=== PATIENT | male | born 1950 | race Caucasian/White ===

== ENCOUNTER → 2016-11-11 | Outpatient (CLI) | payer OTHER ==
[~2016-11-11] MED LIST: ASPI81TA28 PO; ATOR-26 PO; CLOP1TAB15 PO; HYDR25TA4 PO; LANS30CA12 PO; TPRSR/100 PO
[2016-11-11 15:20] LABS: ESTIMATED AVERAGE GLUCOSE 105 mg/dl; HA1C FLAG Normal (Normal)
[2016-11-11 15:21] LABS: ALT/SGPT 64 U/L (12-78); AST/SGOT 46 U/L (15-37); BLOOD UREA NITROGEN 22 mg/dl (7-18); BUN/CREATININE RATIO 17.2 (10-20); CALCIUM 9.7 mg/dl (8.5-10.1); CARBON DIOXIDE 32 mmol/L (21-32); CHLORIDE 101 mmol/L (98-107); GLUCOSE 110 mg/dl (70-99); POTASSIUM 3.7 mmol/L (3.5-5.1); SODIUM 141 mmol/L (136-145)
[2016-11-11 15:25] LABS: ALB/GLOB RATIO 1.2 (0.9-2); ALKALINE PHOSPHATASE 84 U/L (45-117); CHOLESTEROL 142 mg/dl (0-200); CHOLESTEROL/HDL RATIO 1.9; HDL CHOLESTEROL 73 mg/dl; LDL CHOLESTEROL CALCULATED 53 mg/dl; TRIGLYCERIDES 79 mg/dl (0-150); VERY LOW DENSITY LIPOPROT CALC 16 mg/dl
--- NOTE | 2016-11-15 11:26 | CODING QUERY MEDICAL NECESSITY ---
SUPPORTING DIAGNOSIS NEEDED Dr. Crain, A supporting diagnosis is required for the test/procedure performed on this patient in order for us to be reimbursed by the patient's insurance. Please provide a supporting diagnosis for the following test/procedure listed below next to the test name along with your signature. *If there is no additional diagnosis for this patient that would support the following test/procedure please document that below next to the test/procedure. Test(s)/Procedure(s) that require a supporting diagnosis: * [id number] GLYCATED HEMOGLOBIN DIAGNOSIS: DATE OF SERVICE: 11/11/16 Provider Signature: Date: Thank you Miguel Del Castillo [facility] Information Management Once completed, please kindly fax back to [phone] For questions please call [phone]
== END | disposition home or self-care (01) ==
LOC: C.LABBC 10:43
PROVIDERS: ATTEND Family Medicine
DX: I10 Essential (primary) hypertension (principal); R73.03 Prediabetes; E78.5 Hyperlipidemia, unspecified; Z11.59 Encounter for screening for other viral diseases

== ENCOUNTER → 2017-12-28 | Outpatient (CLI) | payer OTHER ==
[2017-12-28 13:48] LABS: ALBUMIN 4.1 gm/dl (3.4-5.0); ALT/SGPT 38 U/L (12-78); AST/SGOT 26 U/L (15-37); BLOOD UREA NITROGEN 22 mg/dl (7-18); CALCIUM 9.8 mg/dl (8.5-10.1); CARBON DIOXIDE 28 mmol/L (21-32); CHOLESTEROL 134 mg/dl (0-200); CREATININE 1.14 mg/dl (0.60-1.40); GLUCOSE 111 mg/dl (70-99); POTASSIUM 3.7 mmol/L (3.5-5.1); SODIUM 136 mmol/L (136-145)
[2017-12-28 13:56] LABS: ALKALINE PHOSPHATASE 99 U/L (45-117); LDL CHOLESTEROL CALCULATED 43 mg/dl; TOTAL PROTEIN 7.7 gm/dl (6.4-8.2)
== END | disposition home or self-care (01) ==
LOC: C.LABPVFM 09:32
PROVIDERS: ATTEND Neuromusculoskeletal Medicine & OMM
DX: Z00.00 Encounter for general adult medical examination without abnormal findings (principal)

== ENCOUNTER → 2018-04-12 | Outpatient (CLI) | payer OTHER | END | disposition home or self-care (01) | LOC: C.LABPVFM 09:43 | PROVIDERS: ATTEND Neuromusculoskeletal Medicine & OMM | DX: M10.9 Gout, unspecified (principal) ==

== ENCOUNTER 2020-11-11 00:50 | Inpatient (IN) ==
[2020-11-11] MEDS ORDERED: methylPREDNISolone 125 MG/2 ML VIAL ONE (01:00)
[2020-11-11] MEDS ORDERED: methylPREDNISolone 125 MG/2 ML VIAL IV STA (01:04)
[2020-11-11] MEDS ORDERED: ALBUT/IPRATROP 3MG/0.5MG NEB 3 ML VIAL NEB STA (01:04)
[2020-11-11] MEDS ORDERED: LORazepam 1 MG/2 ML VIAL IV STA (01:10)
[2020-11-11] MEDS: LORazepam 2 MG/4 ML VIAL ONE ×2 (01:12→01:25)
[2020-11-11 01:31] LABS: Appearance Urine Cloudy (Clear); Bacteria Urine Automated Negative (Negative); Bilirubin Urine Negative (Negative); Blood Urine 3+ (Negative); Color Urine Dark Yellow; Epithelial Cell Urine Auto 0-5 /lpf (0-5); Glucose Urine UA Negative (Negative); Ketones Urine Negative (Negative); Leukocyte Esterase Urine 2+ (Negative); Nitrite Urine Negative (Negative); Protein Urine Negative (Negative); Specific Gravity Urine 1.017 (1.000-1.030); Urobilinogen Urine Negative (Negative)
[2020-11-11] MEDS ORDERED: RAPID SEQUENCE INDUCTION BAG ONE (01:40)
[2020-11-11 01:41] LABS: RBC Urine Automated >30 /hpf (0-4)
[2020-11-11] MEDS ORDERED: PROPOFOL IV EMULSION 10 MG/ML 100 ML VIAL IV ONE (01:49)
[2020-11-11 02:17] LABS: INR 1.4 (0.9-1.1); Partial Thromboplastin Ratio 1.7; Partial Thromboplastin Time 43.7 Seconds (21.0-31.0); Prothrombin Time 13.7 Seconds (9.0-12.0)
[2020-11-11] MEDS ORDERED: SODIUM CHLORIDE 0.9% 500 ML IV ONE (02:20)
[2020-11-11 02:22] LABS: iSTAT Arterial Blood Gas HCO3 8 meg/L (19-24); iSTAT Arterial Blood Gas pCO2 47 mmHg (35-46); iSTAT Arterial Blood Gas pH 6.84 (7.35-7.45); iSTAT Arterial Blood Gas pO2 > 420 mmHg (80-95); iSTAT Carbon Dioxide 9 mmol/L (24-31); iSTAT Hematocrit 51 % (42-52); iSTAT Hemoglobin 17.3 g/dl (14.0-18.0); iSTAT Potassium 7.7 mmol/L (3.3-5.0); iSTAT Sodium 138 mmol/L (135-144)
[2020-11-11] MEDS ORDERED: SODIUM CHLORIDE 0.9% 500 ML IV SCH (02:30)
[2020-11-11 02:38] LABS: Hematocrit (blood only) 51.3 % (42-52); Hemoglobin 16.7 g/dL (14.0-18.0); Mean Corpuscular Hemoglobin 32.3 pg (25-34); Mean Corpuscular Hgb Conc 32.6 g/dL (32-36); Mean Corpuscular Volume 99.2 fL (80-100); Mean Platelet Volume 12.8 fL (7.4-10.4); Platelet Count 122 K/uL (130-400); RDW Coefficient of Variation 14.3 % (11.5-14.5); RDW Standard Deviation 51.9 fL (36.4-46.3); Red Blood Count 5.17 M/uL (4.7-6.1); White Blood Count 14.49 K/uL (4.8-10.8)
[2020-11-11 02:39] LABS: Basophils # (auto) 0.03 K/uL (0-0.2); Basophils % (auto) 0.2 %; Echinocytes 2+; Eosinophils # (auto) 0.01 K/uL (0-0.5); Eosinophils % (auto) 0.1 %; Immature Granulocytes # (auto) 0.46 K/uL (0.00-0.02); Immature Granulocytes % (auto) 3.2 %; Lymphocytes % (auto) 4.1 %; Monocytes % (auto) 4.8 %; Neutrophils # (auto) 12.69 K/uL (1.4-6.5); Neutrophils % (auto) 87.6 %; Platelet Estimate Decreased (Normal)
[2020-11-11 02:41] LABS: Albumin Globulin Ratio 0.6 (0.9-2); Albumin Level 3.4 gm/dl (3.4-5.0); Bilirubin,Total 2.7 mg/dl (0.2-1); Calcium 7.3 mg/dl (8.5-10.1); Creatinine Clr Calc Pharmacy 3.7 ml/min; Est GFR (African American) 2.1; Est GFR (Non-African American) 1.8; Globulin 5.3 gm/dl (2.5-4.0); Potassium 8.2 mmol/L (3.5-5.1); Total Protein 8.7 gm/dl (6.4-8.2); Troponin I 0.06 ng/ml (0-0.045)
[2020-11-11 02:51] LABS: BUN Creatinine Ratio 9.7 (10-20)
[2020-11-11] MEDS ORDERED: SODIUM BICARB 8.4% INJ 50 MEQ/50 ML SYR IV STA ×3 (02:52→03:36)
[2020-11-11] MEDS ORDERED: CALCIUM GLUCONATE 1,000 MG/60 ML BAG IV STA (02:52)
[2020-11-11] MEDS ORDERED: SODIUM CHLORIDE 0.9% 1000ML 1,000 ML IV ONE (03:06)
[2020-11-11] MEDS ORDERED: STAT IV STA ×2 (03:29→04:44)
[2020-11-11] MEDS ORDERED: SODIUM BICARBONATE 8.4% 100 MEQ in DEXTROSE 5% 1,000 ML IV SCH (03:30)
[2020-11-11] MEDS ORDERED: NovoLIN-R INSULIN PER UNIT CHARGE IV STA (03:37)
[2020-11-11] MEDS ORDERED: MIDAZOLAM HCL 1 MG/ML 2ML VIAL ONE (04:14)
[2020-11-11] MEDS ORDERED: DEXTROSE 50% 50 ML SYRINGE IV ONE (04:15)
[2020-11-11] MEDS ORDERED: PIPERACILL/TAZOBAC CONSULT ACTIVE PRN (04:21)
[2020-11-11] MEDS ORDERED: PIPERACILLIN/TAZOBACTAM 4.5 GM/120 ML BAG IV ONE (04:21)
[2020-11-11] MEDS ORDERED: SODIUM POLYSTYRENE SULFONATE 15G/60ML SUSP PO STA (04:44)
[2020-11-11] MEDS ORDERED: SODIUM BICARBONATE 8.4% 150 MEQ in DEXTROSE 5% 1,000 ML IV SCH (04:45)
[2020-11-11] MEDS ORDERED: SODIUM POLYSTYRENE SULFONATE 15G/60ML SUSP ONE (04:58)
[2020-11-11 05:03] LABS: iSTAT Arterial Blood Gas HCO3 10 meg/L (19-24); iSTAT Arterial Blood Gas pCO2 29 mmHg (35-46); iSTAT Arterial Blood Gas pH 7.14 (7.35-7.45); iSTAT Arterial Blood Gas pO2 216 mmHg (80-95); iSTAT Carbon Dioxide 11 mmol/L (24-31); iSTAT Hematocrit 38 % (42-52); iSTAT Hemoglobin 12.9 g/dl (14.0-18.0); iSTAT Potassium 6.2 mmol/L (3.3-5.0); iSTAT Sodium 142 mmol/L (135-144)
[2020-11-11] MEDS ORDERED: PHYTONADIONE 10 MG in SODIUM CHLORIDE 0.9% 50 ML IV ONE (05:21)
--- NOTE | 2020-11-11 05:24 | Emergency Department Note ---
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 Neutrophils # (Manual) Cancelled Band Neutrophils # Cancelled Total Absolute Neuts Cancelled Lymphocytes # (Manual) Cancelled Prolymphocyte # Cancelled Reactive Lymphs # Cancelled Total Abs Lymphocytes Cancelled Monocytes # (Manual) Cancelled Eosinophils # (Manual) Cancelled Basophils # (Manual) Cancelled Metamyelocytes # (Man) Cancelled Myelocytes # (Manual) Cancelled Promyelocytes # (Man) Cancelled Blast Cells # (Man) Cancelled Plasma Cell # (Manual) Cancelled Other Cells # Cancelled Nucleated RBCs # (Man) Cancelled Hypersegmented Neuts Cancelled Hyposegmented Neuts Cancelled Hypogranular Neuts Cancelled Large Granular Lymphs Cancelled # Lrg Granular Lymphs Cancelled Hairy Cells Cancelled Smudge Cells Cancelled Toxic Granulation Cancelled Toxic Vacuolation Cancelled Dohle Bodies Cancelled [place] Rod[place] Cancelled Platelet Estimate Cancelled Hypogranular Platelets Cancelled Clumped Platelets Cancelled Giant Platelets Cancelled Platelet Satelliting Cancelled RBC Morphology Cancelled Polychromasia Cancelled Hypochromasia Cancelled Poikilocytosis Cancelled Basophilic Stippling Cancelled Anisocytosis Cancelled Microcytosis Cancelled Macrocytosis Cancelled Spherocytes Cancelled Pappenheimer Bodies Cancelled Sickle Cells Cancelled Target Cells Cancelled Tear Drop Cells Cancelled Ovalocytes Cancelled Stomatocytes Cancelled [place] Bodies Cancelled Echinocytes Cancelled Acanthocytes (Spur) Cancelled Rouleaux Cancelled RBC Agglutinates Cancelled Schistocytes Cancelled RBC Morph Comment Cancelled Sezary Cell Cancelled PT Cancelled INR Cancelled APTT Cancelled PTT Ratio Cancelled POC pH (7.35-7.45) POC pCO2 (35-46) mmHg POC pO2 (80-95) mmHg POC HCO3 (19-24) bina/L POC Total CO2 (24-31) mmol/L POC Base Excess (-9-1.8) bina/L POC ABG O2 Sat (90-95) % POC Sodium (135-144) mmol/L Sodium Cancelled POC Potassium (3.3-5.0) mmol/L Potassium Cancelled Chloride Cancelled Carbon Dioxide Cancelled Anion Gap Cancelled BUN Cancelled Creatinine Cancelled Est Cr Clr Drug Dosing Cancelled Est GFR ( Amer) Cancelled Est GFR (Non-Af Amer) Cancelled BUN/Creatinine Ratio Cancelled Glucose Cancelled POC Glucose (70-99) mg/dl Lactate (0.4-2.0) mmol/L Calcium Cancelled Total Bilirubin Cancelled AST Cancelled ALT Cancelled Alkaline Phosphatase Cancelled Total Creatine Kinase Cancelled Troponin I Cancelled Total Protein Cancelled Albumin Cancelled Globulin Cancelled Albumin/Globulin Ratio Cancelled Urine Color Urine Appearance (Clear) Urine pH (4.5-7.5) Ur Specific [place] (1.000-1.030) Urine Protein (Negative) Urine Glucose (UA) (Negative) Urine Ketones (Negative) Urine Blood (Negative) Urine Nitrite (Negative) Urine Bilirubin (Negative) Urine Urobilinogen (Negative) Ur Leukocyte Esterase (Negative) Urine WBC (Auto) (0-5) /hpf Urine RBC (Auto) (0-4) /hpf U Hyaline Cast (Auto) (0-5) /lpf U Epithel Cells (Auto) (0-5) /lpf Urine Bacteria (Auto) (Negative) Urine Yeast COVID-19 Eval Order SARS-CoV-2, RNA, NAAT (NEGATIVE) 11/11/20 11/11/20 11/11/20 Range/Units 01:17 01:55 01:55 WBC RBC Hgb POC Hgb (14.0-18.0) g/dl Hct POC Hct (42-52) % MCV MCH MCHC RDW Std Deviation RDW Coeff of [place] Plt Count MPV Immature Gran % (Auto) Neut % (Auto) Lymph % (Auto) [place] % (Auto) Eos % (Auto) Baso % (Auto) Neut # (Auto) Lymph # (Auto) [place] # (Auto) Eos # (Auto) Baso # (Auto) Immature Gran # (Auto) Absolute Nucleated RBC Nucleated RBC % (auto) Neutrophils % (Manual) Band Neutrophils % Lymphocytes % (Manual) Prolymphocyte % Reactive Lymphs % (Man) Monocytes % (Manual) Eosinophils % (Manual) Basophils % (Manual) Metamyelocytes % (Man) Myelocytes % (Man) Promyelocytes % (Man) Blast Cells % (Manual) Plasma Cell % (Manual) Other Cells % Nucleated RBC % Neutrophils # (Manual) Band Neutrophils # Total Absolute Neuts Lymphocytes # (Manual) Prolymphocyte # Reactive Lymphs # Total Abs Lymphocytes Monocytes # (Manual) Eosinophils # (Manual) Basophils # (Manual) Metamyelocytes # (Man) Myelocytes # (Manual) Promyelocytes # (Man) Blast Cells # (Man) Plasma Cell # (Manual) Other Cells # Nucleated RBCs # (Man) Hypersegmented Neuts Hyposegmented Neuts Hypogranular Neuts Large Granular Lymphs # Lrg Granular Lymphs Hairy Cells Smudge Cells Toxic Granulation Toxic Vacuolation Dohle Bodies [place] Rods Platelet Estimate Hypogranular Platelets Clumped Platelets Giant Platelets Platelet Satelliting RBC Morphology Polychromasia Hypochromasia Poikilocytosis Basophilic Stippling Anisocytosis Microcytosis Macrocytosis Spherocytes Pappenheimer Bodies Sickle Cells Target Cells Tear Drop Cells Ovalocytes Stomatocytes [place] Bodies Echinocytes Acanthocytes (Spur) Rouleaux RBC Agglutinates Schistocytes RBC Morph Comment Sezary Cell PT 13.7 H INR 1.4 H APTT 43.7 H PTT Ratio 1.7 POC pH (7.35-7.45) POC pCO2 (35-46) mmHg POC pO2 (80-95) mmHg POC HCO3 (19-24) bina/L POC Total CO2 (24-31) mmol/L POC Base Excess (-9-1.8) bina/L POC ABG O2 Sat (90-95) % POC Sodium (135-144) mmol/L Sodium 140 POC Potassium (3.3-5.0) mmol/L Potassium 8.2 H* Chloride 102 Carbon Dioxide 9 L* Anion Gap 29.0 H BUN 210 H Creatinine 21.60 H* Est Cr Clr Drug Dosing 3.7 Est GFR ( Amer) 2.1 Est GFR (Non-Af Amer) 1.8 BUN/Creatinine Ratio 9.7 L Glucose 200 H POC Glucose (70-99) mg/dl Lactate (0.4-2.0) mmol/L Calcium 7.3 L Total Bilirubin 2.7 H AST 17 ALT 34 Alkaline Phosphatase 122 H Total Creatine Kinase 339 H Troponin I 0.060 H* Total Protein 8.7 H Albumin 3.4 Globulin 5.3 H Albumin/Globulin Ratio 0.6 L Urine Color Dark Yellow Urine Appearance Cloudy A (Clear) Urine pH 5.0 (4.5-7.5) Ur Specific [place] 1.017 (1.000-1.030) Urine Protein Negative (Negative) Urine Glucose (UA) Negative (Negative) Urine Ketones Negative (Negative) Urine Blood 3+ H (Negative) Urine Nitrite Negative (Negative) Urine Bilirubin Negative (Negative) Urine Urobilinogen Negative (Negative) Ur Leukocyte Esterase 2+ H (Negative) Urine WBC (Auto) 5-10 H (0-5) /hpf Urine RBC (Auto) >30 H (0-4) /hpf U Hyaline Cast (Auto) 1-5 (0-5) /lpf U Epithel Cells (Auto) 0-5 (0-5) /lpf Urine Bacteria (Auto) Negative (Negative) Urine Yeast Not Reportable COVID-19 Eval Order SARS-CoV-2, RNA, NAAT (NEGATIVE) 11/11/20 11/11/20 11/11/20 Range/Units 01:55 02:10 02:13 WBC 14.49 H RBC 5.17 Hgb 16.7 POC Hgb 17.3 (14.0-18.0) g/dl Hct 51.3 POC Hct 51 (42-52) % MCV 99.2 MCH 32.3 MCHC 32.6 RDW Std Deviation 51.9 H RDW Coeff of [place] 14.3 Plt Count 122 L MPV 12.8 H Immature Gran % (Auto) 3.2 Neut % (Auto) 87.6 Lymph % (Auto) 4.1 [place] % (Auto) 4.8 Eos % (Auto) 0.1 Baso % (Auto) 0.2 Neut # (Auto) 12.69 H Lymph # (Auto) 0.60 L [place] # (Auto) 0.70 H Eos # (Auto) 0.01 Baso # (Auto) 0.03 Immature Gran # (Auto) 0.46 H Absolute Nucleated RBC Nucleated RBC % (auto) Neutrophils % (Manual) Band Neutrophils % Lymphocytes % (Manual) Prolymphocyte % Reactive Lymphs % (Man) Monocytes % (Manual) Eosinophils % (Manual) Basophils % (Manual) Metamyelocytes % (Man) Myelocytes % (Man) Promyelocytes % (Man) Blast Cells % (Manual) Plasma Cell % (Manual) Other Cells % Nucleated RBC % Neutrophils # (Manual) Band Neutrophils # Total Absolute Neuts Lymphocytes # (Manual) Prolymphocyte # Reactive Lymphs # Total Abs Lymphocytes Monocytes # (Manual) Eosinophils # (Manual) Basophils # (Manual) Metamyelocytes # (Man) Myelocytes # (Manual) Promyelocytes # (Man) Blast Cells # (Man) Plasma Cell # (Manual) Other Cells # Nucleated RBCs # (Man) Hypersegmented Neuts Hyposegmented Neuts Hypogranular Neuts Large Granular Lymphs # Lrg Granular Lymphs Hairy Cells Smudge Cells Toxic Granulation Toxic Vacuolation Dohle Bodies [place] Rods Platelet Estimate Decreased L Hypogranular Platelets Clumped Platelets Giant Platelets Platelet Satelliting RBC Morphology Polychromasia Hypochromasia Poikilocytosis Basophilic Stippling Anisocytosis Microcytosis Macrocytosis Spherocytes Pappenheimer Bodies Sickle Cells Target Cells Tear Drop Cells Ovalocytes Stomatocytes [place] Bodies Echinocytes 2+ Acanthocytes (Spur) Rouleaux RBC Agglutinates Schistocytes RBC Morph Comment Sezary Cell PT INR APTT PTT Ratio POC pH 6.84 L* (7.35-7.45) POC pCO2 47 H (35-46) mmHg POC pO2 > 420 H (80-95) mmHg POC HCO3 8 L (19-24) bina/L POC Total CO2 9 L* (24-31) mmol/L POC Base Excess -26.0 L (-9-1.8) bina/L POC ABG O2 Sat 100.0 H (90-95) % POC Sodium 138 (135-144) mmol/L Sodium POC Potassium 7.7 H* (3.3-5.0) mmol/L Potassium Chloride Carbon Dioxide Anion Gap BUN Creatinine Est Cr Clr Drug Dosing Est GFR ( Amer) Est GFR (Non-Af Amer) BUN/Creatinine Ratio Glucose POC Glucose (70-99) mg/dl Lactate (0.4-2.0) mmol/L Calcium Total Bilirubin AST ALT Alkaline Phosphatase Total Creatine Kinase Troponin I Total Protein Albumin Globulin Albumin/Globulin Ratio Urine Color Urine Appearance (Clear) Urine pH (4.5-7.5) Ur Specific [place] (1.000-1.030) Urine Protein (Negative) Urine Glucose (UA) (Negative) Urine Ketones (Negative) Urine Blood (Negative) Urine Nitrite (Negative) Urine Bilirubin (Negative) Urine Urobilinogen (Negative) Ur Leukocyte Esterase (Negative) Urine WBC (Auto) (0-5) /hpf Urine RBC (Auto) (0-4) /hpf U Hyaline Cast (Auto) (0-5) /lpf U Epithel Cells (Auto) (0-5) /lpf Urine Bacteria (Auto) (Negative) Urine Yeast COVID-19 Eval Order Covid19 IDNow [facility] SARS-CoV-2, RNA, NAAT (NEGATIVE) 11/11/20 11/11/20 11/11/20 Range/Units 02:13 03:58 04:32 WBC RBC Hgb POC Hgb (14.0-18.0) g/dl Hct POC Hct (42-52) % MCV MCH MCHC RDW Std Deviation RDW Coeff of [place] Plt Count MPV Immature Gran % (Auto) Neut % (Auto) Lymph % (Auto) [place] % (Auto) Eos % (Auto) Baso % (Auto) Neut # (Auto) Lymph # (Auto) [place] # (Auto) Eos # (Auto) Baso # (Auto) Immature Gran # (Auto) Absolute Nucleated RBC Nucleated RBC % (auto) Neutrophils % (Manual) Band Neutrophils % Lymphocytes % (Manual) Prolymphocyte % Reactive Lymphs % (Man) Monocytes % (Manual) Eosinophils % (Manual) Basophils % (Manual) Metamyelocytes % (Man) Myelocytes % (Man) Promyelocytes % (Man) Blast Cells % (Manual) Plasma Cell % (Manual) Other Cells % Nucleated RBC % Neutrophils # (Manual) Band Neutrophils # Total Absolute Neuts Lymphocytes # (Manual) Prolymphocyte # Reactive Lymphs # Total Abs Lymphocytes Monocytes # (Manual) Eosinophils # (Manual) Basophils # (Manual) Metamyelocytes # (Man) Myelocytes # (Manual) Promyelocytes # (Man) Blast Cells # (Man) Plasma Cell # (Manual) Other Cells # Nucleated RBCs # (Man) Hypersegmented Neuts Hyposegmented Neuts Hypogranular Neuts Large Granular Lymphs # Lrg Granular Lymphs Hairy Cells Smudge Cells Toxic Granulation Toxic Vacuolation Dohle Bodies [place] Rod[place] Platelet Estimate Hypogranular Platelets Clumped Platelets Giant Platelets Platelet Satelliting RBC Morphology Polychromasia Hypochromasia Poikilocytosis Basophilic Stippling Anisocytosis Microcytosis Macrocytosis Spherocytes Pappenheimer Bodies Sickle Cells Target Cells Tear Drop Cells Ovalocytes Stomatocytes [place] Bodies Echinocytes Acanthocytes (Spur) Rouleaux RBC Agglutinates Schistocytes RBC Morph Comment Sezary Cell PT INR APTT PTT Ratio POC pH (7.35-7.45) POC pCO2 (35-46) mmHg POC pO2 (80-95) mmHg POC HCO3 (19-24) bina/L POC Total CO2 (24-31) mmol/L POC Base Excess (-9-1.8) bina/L POC ABG O2 Sat (90-95) % POC Sodium (135-144) mmol/L Sodium POC Potassium (3.3-5.0) mmol/L Potassium Chloride Carbon Dioxide Anion Gap BUN Creatinine Est Cr Clr Drug Dosing Est GFR ( Amer) Est GFR (Non-Af Amer) BUN/Creatinine Ratio Glucose POC Glucose 236 H 310 H* (70-99) mg/dl Lactate (0.4-2.0) mmol/L Calcium Total Bilirubin AST ALT Alkaline Phosphatase Total Creatine Kinase Troponin I Total Protein Albumin Globulin Albumin/Globulin Ratio Urine Color Urine Appearance (Clear) Urine pH (4.5-7.5) Ur Specific [place] (1.000-1.030) Urine Protein (Negative) Urine Glucose (UA) (Negative) Urine Ketones (Negative) Urine Blood (Negative) Urine Nitrite (Negative) Urine Bilirubin (Negative) Urine Urobilinogen (Negative) Ur Leukocyte Esterase (Negative) Urine WBC (Auto) (0-5) /hpf Urine RBC (Auto) (0-4) /hpf U Hyaline Cast (Auto) (0-5) /lpf U Epithel Cells (Auto) (0-5) /lpf Urine Bacteria (Auto) (Negative) Urine Yeast COVID-19 Eval Order SARS-CoV-2, RNA, NAAT NEGATIVE (NEGATIVE) 11/11/20 11/11/20 11/11/20 Range/Units 04:34 04:50 05:00 WBC RBC Hgb POC Hgb 12.9 L (14.0-18.0) g/dl Hct POC Hct 38 L (42-52) % MCV MCH MCHC RDW Std Deviation RDW Coeff of [place] Plt Count MPV Immature Gran % (Auto) Neut % (Auto) Lymph % (Auto) [place] % (Auto) Eos % (Auto) Baso % (Auto) Neut # (Auto) Lymph # (Auto) [place] # (Auto) Eos # (Auto) Baso # (Auto) Immature Gran # (Auto) Absolute Nucleated RBC Nucleated RBC % (auto) Neutrophils % (Manual) Band Neutrophils % Lymphocytes % (Manual) Prolymphocyte % Reactive Lymphs % (Man) Monocytes % (Manual) Eosinophils % (Manual) Basophils % (Manual) Metamyelocytes % (Man) Myelocytes % (Man) Promyelocytes % (Man) Blast Cells % (Manual) Plasma Cell % (Manual) Other Cells % Nucleated RBC % Neutrophils # (Manual) Band Neutrophils # Total Absolute Neuts Lymphocytes # (Manual) Prolymphocyte # Reactive Lymphs # Total Abs Lymphocytes Monocytes # (Manual) Eosinophils # (Manual) Basophils # (Manual) Metamyelocytes # (Man) Myelocytes # (Manual) Promyelocytes # (Man) Blast Cells # (Man) Plasma Cell # (Manual) Other Cells # Nucleated RBCs # (Man) Hypersegmented Neuts Hyposegmented Neuts Hypogranular Neuts Large Granular Lymphs # Lrg Granular Lymphs Hairy Cells Smudge Cells Toxic Granulation Toxic Vacuolation Dohle Bodies [place] Rod[place] Platelet Estimate Hypogranular Platelets Clumped Platelets Giant Platelets Platelet Satelliting RBC Morphology Polychromasia Hypochromasia Poikilocytosis Basophilic Stippling Anisocytosis Microcytosis Macrocytosis Spherocytes Pappenheimer Bodies Sickle Cells Target Cells Tear Drop Cells Ovalocytes Stomatocytes [place] Bodies Echinocytes Acanthocytes (Spur) Rouleaux RBC Agglutinates Schistocytes RBC Morph Comment Sezary Cell PT INR APTT PTT Ratio POC pH 7.14 L* (7.35-7.45) POC pCO2 29 L (35-46) mmHg POC pO2 216 H (80-95) mmHg POC HCO3 10 L (19-24) bina/L POC Total CO2 11 L (24-31) mmol/L POC Base Excess -19.0 L (-9-1.8) bina/L POC ABG O2 Sat 100.0 H (90-95) % POC Sodium 142 (135-144) mmol/L Sodium POC Potassium 6.2 H* (3.3-5.0) mmol/L Potassium Chloride Carbon Dioxide Anion Gap BUN Creatinine Est Cr Clr Drug Dosing Est GFR ( Amer) Est GFR (Non-Af Amer) BUN/Creatinine Ratio Glucose POC Glucose 300 H (70-99) mg/dl Lactate 2.7 H* (0.4-2.0) mmol/L Calcium Total Bilirubin AST ALT Alkaline Phosphatase Total Creatine Kinase Troponin I Total Protein Albumin Globulin Albumin/Globulin Ratio Urine Color Urine Appearance (Clear) Urine pH (4.5-7.5) Ur Specific [place] (1.000-1.030) Urine Protein (Negative) Urine Glucose (UA) (Negative) Urine Ketones (Negative) Urine Blood (Negative) Urine Nitrite (Negative) Urine Bilirubin (Negative) Urine Urobilinogen (Negative) Ur Leukocyte Esterase (Negative) Urine WBC (Auto) (0-5) /hpf Urine RBC (Auto) (0-4) /hpf U Hyaline Cast (Auto) (0-5) /lpf U Epithel Cells (Auto) (0-5) /lpf Urine Bacteria (Auto) (Negative) Urine Yeast COVID-19 Eval Order SARS-CoV-2, RNA, NAAT (NEGATIVE) Administered Medications Discontinued Medications Albuterol (Albut/Ipratrop 3mg/0.5mg Neb 3 Ml Vial) 3 ml NEB NOW STA Stop: 11/11/20 01:05 Last Admin: 11/11/20 04:22 Dose: 3 ml Documented by: [id number] Albuterol (Albut/Ipratrop 3mg/0.5mg Neb 3 Ml Vial) 3 ml NEB Q4R [facility] Stop: 12/11/20 06:59 Last Admin: 11/11/20 07:00 Dose: 3 ml Documented by: [id number] Dextrose (Dextrose 50% 50 Ml Syringe) 50 ml IV NOW ONE Stop: 11/11/20 04:16 Last Admin: 11/11/20 04:21 Dose: 50 ml Documented by: [id number] Fentanyl Citrate (Fentanyl Citrate 100 Mcg/2 Ml Vial) 100 mcg IV NOW STA Stop: 11/11/20 07:19 Last Admin: 11/11/20 07:29 Dose: 100 mcg Documented by: [id number] Fentanyl Citrate (Fentanyl Citrate 100 Mcg/2 Ml Vial) Confirm Administered Dose 100 mcg .ROUTE .STK-MED ONE Stop: 11/11/20 07:20 Last Admin: 11/11/20 07:29 Dose: Not Given Documented by: [id number] Hydromorphone HCl (Hydromorphone Inj 0.5 Mg/0.5 Ml Syr) 0.5 mg IV NOW STA Stop: 11/11/20 08:59 Last Admin: 11/11/20 09:19 Dose: Not Given Documented by: [id number] Lorazepam (Ativan) 1 mg in 2 mls @ 2 mls/min IV NOW STA Stop: 11/11/20 01:11 Last Admin: 11/11/20 01:12 Dose: 2 mls/min Documented by: [id number] Sodium Chloride (Nss) 500 mls @ 999 mls/hr IV .Q31M ONE Stop: 11/11/20 02:50 Last Infusion: 11/11/20 03:09 Dose: 0 mls/hr Documented by: [id number] Admin: 11/11/20 02:26 Dose: 999 mls/hr Documented by: [id number] Sodium Chloride (Nss) 500 mls @ 125 mls/hr IV .Q4H [facility] Stop: 12/11/20 02:29 Last Infusion: 11/11/20 07:28 Dose: 0 mls/hr Documented by: [id number] Admin: 11/11/20 04:54 Dose: 125 mls/hr Documented by: [id number] Calcium Gluconate () 1,000 mg in 60 mls @ 240 mls/hr IV NOW STA Stop: 11/11/20 03:06 Last Infusion: 11/11/20 04:11 Dose: 0 mls/hr Documented by: [id number] Admin: 11/11/20 02:59 Dose: 240 mls/hr Documented by: [id number] Sodium Chloride (Nss 1000ml) 1,000 mls @ 999 mls/hr IV .Q1H1M ONE Stop: 11/11/20 04:06 Last Infusion: 11/11/20 05:16 Dose: 0 mls/hr Documented by: [id number] Admin: 11/11/20 03:55 Dose: 999 mls/hr Documented by: [id number] Sodium Bicarbonate 100 meq/ (Dextrose) 1,100 mls @ 0 mls/hr IV .Q0M [facility] Stop: 12/11/20 03:29 Last Infusion: 11/11/20 07:28 Dose: 0 mls/hr Documented by: [id number] Admin: 11/11/20 04:11 Dose: 100 mls/hr Documented by: [id number] Piperacillin Sod/Tazobactam Sod (Zosyn) 4.5 gm in 120 mls @ 240 mls/hr IV NOW ONE Stop: 11/11/20 04:50 Last Infusion: 11/11/20 05:16 Dose: 0 mls/hr Documented by: [id number] Admin: 11/11/20 04:44 Dose: 240 mls/hr Documented by: [id number] Sodium Bicarbonate 150 meq/ (Dextrose) 1,150 mls @ 200 mls/hr IV .Q5H45M [facility] Stop: 12/11/20 04:44 Last Admin: 11/11/20 05:28 Dose: 200 mls/hr Documented by: [id number] Phytonadione 10 mg/ Sodium (Chloride) 51 mls @ 102 mls/hr IV ONE ONE Stop: 11/11/20 05:50 Last Infusion: 11/11/20 08:10 Dose: 0 mls/hr Documented by: [id number] Admin: 11/11/20 07:16 Dose: 102 mls/hr Documented by: [id number] Azithromycin 500 mg/ Dextrose 255 mls @ 127.5 mls/hr IV Q24H [facility] Stop: 11/18/20 05:59 Last Infusion: 11/11/20 08:12 Dose: 0 mls/hr Documented by: [id number] Admin: 11/11/20 06:14 Dose: 127.5 mls/hr Documented by: [id number] Propofol (Diprivan) 1,000 mg in 100 mls @ 20.712 mls/hr IV .Q4H50M [facility]; Protocol Stop: 11/14/20 06:29 Last Admin: 11/11/20 09:17 Dose: 40 mcg/kg/min, 20.7 mls/hr Documented by: [id number] Cosigned by: [id number] Titration: 11/11/20 09:17 Dose: 40 mcg/kg/min, 20.7 mls/hr Documented by: [id number] Cosigned by: [id number] Titration: 11/11/20 08:12 Dose: 40 mcg/kg/min, 20.7 mls/hr Documented by: [id number] Admin: 11/11/20 07:43 Dose: 25 mcg/kg/min, 12.9 mls/hr Documented by: [id number] Cosigned by: [id number] Titration: 11/11/20 07:43 Dose: 25 mcg/kg/min, 12.9 mls/hr Documented by: [id number] Cosigned by: [id number] Titration: 11/11/20 07:30 Dose: 25 mcg/kg/min, 12.9 mls/hr Documented by: [id number] Titration: 11/11/20 06:32 Dose: 30 mcg/kg/min, 15.5 mls/hr Documented by: [id number] Titration: 11/11/20 06:20 Dose: 20 mcg/kg/min, 10.4 mls/hr Documented by: [id number] Titration: 11/11/20 06:00 Dose: 15 mcg/kg/min, 7.8 mls/hr Documented by: [id number] Admin: 11/11/20 05:40 Dose: 10 mcg/kg/min, 5.2 mls/hr Documented by: [id number] Cosigned by: [id number] Norepinephrine Bitartrate (Levophed/D5w) 8 mg in 508 mls @ 16.44 mls/hr IV .Q24H [facility]; Protocol Stop: 12/11/20 06:59 Last Titration: 11/11/20 07:32 Dose: 0.1 mcg/kg/min, 32.9 mls/hr Documented by: [id number] Titration: 11/11/20 07:27 Dose: 0.07 mcg/kg/min, 23 mls/hr Documented by: [id number] Admin: 11/11/20 07:22 Dose: 0.05 mcg/kg/min, 16.4 mls/hr Documented by: [id number] Cosigned by: [id number] Influenza Virus Vaccine (Influenza Vaccine High Dose 65+ 0.7 Ml Syr) 0.7 ml IM .ONCE ONE Stop: 11/11/20 07:46 Last Admin: 11/11/20 08:12 Dose: Not Given Documented by: [id number] Insulin Human Regular (Novolin-R Insulin Per Unit Charge) 10 units IV NOW STA Stop: 11/11/20 03:38 Last Admin: 11/11/20 03:59 Dose: 10 units Documented by: [id number] Cosigned by: [id number] Lorazepam (Lorazepam 2 Mg/4 Ml Vial) Confirm Administered Dose 2 mg .ROUTE .STK- MED ONE Stop: 11/11/20 01:10 Last Increment: 11/11/20 01:25 Dose: 1 mg Documented by: [id number] Methylprednisolone (Methylprednisolone 125 Mg/2 Ml Vial) Confirm Administered Dose 125 mg .ROUTE .STK-MED ONE Stop: 11/11/20 01:01 Last Admin: 11/11/20 01:05 Dose: Not Given Documented by: [id number] Methylprednisolone (Methylprednisolone 125 Mg/2 Ml Vial) 125 mg IV NOW STA Stop: 11/11/20 01:05 Last Admin: 11/11/20 01:10 Dose: 125 mg Documented by: [id number] Midazolam HCl (Midazolam Hcl 1 Mg/Ml 2ml Vial) Confirm Administered Dose 2 mg .ROUTE .STK-MED ONE Stop: 11/11/20 04:15 Last Admin: 11/11/20 04:15 Dose: 2 mg Documented by: [id number] Miscellaneous (Rapid Sequence Induction Bag) Confirm Administered Dose 1 ea .ROUTE .STK-MED ONE Stop: 11/11/20 01:41 Last Admin: 11/11/20 02:41 Dose: 1 ea Documented by: [id number] Miscellaneous (Stat Iv) 1 ea N/A NOW STA Stop: 11/11/20 03:30 Last Admin: 11/11/20 03:59 Dose: 1 ea Documented by: [id number] Miscellaneous (Stat Iv Infusion Titration Per Protocol) 1 ea N/A NOW STA Stop: 11/11/20 06:23 Last Admin: 11/11/20 07:28 Dose: Not Given Documented by: [id number] Miscellaneous (Stat Iv Infusion Titration Per Protocol) 1 ea N/A NOW STA Stop: 11/11/20 06:48 Last Admin: 11/11/20 07:28 Dose: Not Given Documented by: [id number] Miscellaneous Information (Piperacill/Tazobac Consult Active) 1 ea N/A UD PRN PRN Reason: Consult Stop: 12/11/20 04:20 Last Admin: 11/11/20 05:26 Dose: 1 ea Documented by: [id number] Propofol (Propofol Iv Emulsion 10 Mg/Ml 100 Ml Vial) Confirm Administered Dose 1,000 mg IV .STK-MED ONE Stop: 11/11/20 01:50 Last Admin: 11/11/20 02:43 Dose: 1,000 mg Documented by: [id number] Cosigned by: [id number] Sodium Bicarbonate (Sodium Bicarb 8.4% Inj 50 Meq/50 Ml Syr) 50 meq IV NOW STA Stop: 11/11/20 02:53 Last Admin: 11/11/20 02:59 Dose: 50 meq Documented by: [id number] Sodium Bicarbonate (Sodium Bicarb 8.4% Inj 50 Meq/50 Ml Syr) 50 meq IV NOW STA Stop: 11/11/20 03:37 Last Admin: 11/11/20 03:59 Dose: 50 meq Documented by: [id number] Sodium Bicarbonate (Sodium Bicarb 8.4% Inj 50 Meq/50 Ml Syr) 50 meq IV NOW STA Stop: 11/11/20 03:37 Last Admin: 11/11/20 03:59 Dose: 50 meq Documented by: [id number] Sodium Polystyrene Sulfonate (Sodium Polystyrene Sulfonate 15g/60ml Susp) 30 gm PO NOW STA Stop: 11/11/20 04:45 Last Admin: 11/11/20 05:15 Dose: 30 gm Documented by: [id number] Sodium Polystyrene Sulfonate (Sodium Polystyrene Sulfonate 15g/60ml Susp) Confirm Administered Dose 30 gm .ROUTE .STK-MED ONE Stop: 11/11/20 04:59 Last Admin: 11/11/20 05:26 Dose: Not Given Documented by: [id number] Discharge Plan Visit Data Chief Complaint: Respiratory Problems Stated Complaint: BREATHING DIFFICULTY/ABDOMINAL PAIN ED Provider: Rosalie Dominique Discharge Problem: Acute subdural hematoma, Acute renal failure, Metabolic acidosis, Pneumonia, Respiratory failure, Acute hyperkalemia Patient Disposition: Admitted As Inpatient Discharge Instructions Interventions: ED Discharge Assessment Last Done: 11/11/20 05:45 Discharge Problem: Acute renal failure Qualifiers: Acute renal failure type: unspecified Qualified Code(s): N17.9 - Acute kidney failure, unspecified Pneumonia Qualifiers: Pneumonia type: due to unspecified organism Laterality: right Lung location: middle lobe of lung Qualified Code(s): J18.9 - Pneumonia, unspecified organism Respiratory failure Qualifiers: Chronicity: acute Respiratory failure complication: hypoxia Qualified Code(s): J96.01 - Acute respiratory failure with hypoxia
[2020-11-11] MEDS: propofoL 1,000 MG/100 ML VIAL IV SCH ×3 (05:40→09:17)
[2020-11-11] MEDS ORDERED: AZITHROMYCIN 500 MG in DEXTROSE 5% 250 ML IV SCH (06:00)
[2020-11-11] MEDS ORDERED: ICU PROTOCOL FOR HYPERGLYCEMIA PRN (06:02)
[2020-11-11] MEDS ORDERED: STAT IV Infusion **Titration per Protocol STA ×2 (06:22→06:47)
[2020-11-11] MEDS ORDERED: PROPOFOL BOLUS FROM BAG IV PRN (06:22)
--- NOTE | 2020-11-11 06:23 | Critical Care Consultation ---
Date of Consultation November 11, 2020 Assessment & Plan (1) Admitted to intensive care unit: Reason Critically Ill: 70-year-old male with past medical history of COPD, HTN presents to the ICU awaiting transfer to [facility] for management of acute renal failure and subdural hematoma. Transfer has been delayed due to inclement weather and patient transferred to ICU for medical management for the time being. Patient has previously been accepted to [facility] in [place] by Dr. Yung and has a bed in the neuro ICU. Neuro - SDHunsure of etiology at this time. Reported become altered mental status in the ED and required intubation. CT head revealed a 6 mm acute subdural hematoma along the right posterior frontoparietal convexity. No significant mass-effect visualized. -Patient did have elevated INR 1.4 and was given vitamin K IV 10 mg -Every hour neuro exam -Keep head greater than 30 degrees elevated -Awaiting transfer to neurosurgical ICU at [facility] Cardiac - Sinus tachycardia and normotensive without use of vasopressors Mild elevation of troponin at 0.6, trend HTNholding antihypertensives for now Respiratory - Acute hypoxic respiratory failurelikely secondary to pneumonia which was visualized on CT chest. Currently requiring mechanical ventilation -Patient does have history of severe COPD, DuoNeb Q4H -Vent settings: 20/450/5/40 percent. Adjusted with ABGs -Continue broad-spectrum antibiotics as discussed below -Continuous monitoring pulse ox GI - N.p.o., OG tube RENAL/LYTES - Acute renal failureinitial creatinine of 21 and BUN 206, severe metabolic acidosis on ABG with a pH of 6.84 -Currently undergoing medical management awaiting transfer to tertiary center where he will receive dialysis. Unfortunately did not have dialysis at this facility on p.m. -Consider emergent dialysis on day shift of transfer is significantly isauro yed, hopefully this will not be an issue. -Gave 30 mg Kayexalate through OG tube -Bicarb drip 150 mEq at 200 mL/h -Repeat ABG showed improvement in pH to 7.14, hyperkalemia improving with medical management -Continue to trend frequent BMPs and VBG's -Avoid nephrotoxins and renally adjust meds - Foleystrict I's and O ENDO - No history of diabetes or thyroid disease ICU hyperglycemic protocol HEME - H&H stable, trend frequent CBCs ID - Pneumonia?Observed on CT imaging and patient presented with elevated WBC and hypoxia -Started on Zosyn and azithromycin -Blood cultures pending, urine culture pending LINES/IV ACCESS - Peripheral IVs, OG tube, ET tube, Craven DVT PROPHYLAXIS - SCDs, holding anticoagulation for SDH I have personally spent 70 minutes of critical care time in the direct management of this patient. This is a life/limb threatening event. This includes time spent evaluating patient, direct bedside care, chart review, placing orders, interpretation of diagnostic studies, discussion with consultants, patient, and family members, as well as other required patient management activities. This time is exclusive of all separately billable procedures, and teaching time and separate from and in addition to any other critical care service time. Thank you for allowing us to participate in the care of this patient. Please refer to my attending physician's documentation for any further recommendations. (2) Subdural hematoma, acute: (3) GERD (gastroesophageal reflux disease): (4) Multiple pulmonary nodules: (5) Hypertension: (6) Gouty arthritis: (7) Hyperlipidemia: (8) Gout: (9) Acute respiratory failure with hypoxia and hypercapnia: (10) Acute renal failure: (11) Metabolic acidosis: (12) Lactic acidosis: (13) Pneumonia: Supervising Physician Co-Signing Physician Notes I have personally evaluated and examined this patient. I agree with assessment and plan of Rene TRAN. When transitioned care to my service we were awaiting EMS transport. Patient was making urine and laboratory values had improved significantly. Ultimately his care was transferred to the EMS service for transfer to tertiary care center where emergent dialysis can be undertaken. History of Present Illness Attending Physician: Wesley Busch DO History of Present Illness Was contacted by the emergency department physician regarding a critically ill patient with requested transfer to [facility] and accepting physician which is currently complicated by prolonged transfer due to inclement weather. Was asked to medically manage patient in the ICU while awaiting transfer to tertiary center which I accepted given patient's complexity with subdural hematoma, acute renal failure, and acute hypoxic respiratory failure requiring mechanical ventilation. Mr. Leavitt is a 70-year-old male with PMH of COPD and HTN. Per conversation with the ER physician, patient had presented to the emergency department with complaints of shortness of breath and back pain. He became increasingly confused, agitated, and hypoxic. He required intubation at that time. BMP revealed acute renal failure with creatinine 21, BUN 206, potassium 8.2, and pH of 6.84. He was given calcium, dextrose with insulin, and 3 A of bicarb and started on a bicarb drip. He was taken for CT head, chest, and abdomen and pelvis. CT the head revealed a small 6 mm acute subdural hematoma. CT chest consistent with emphysema and acute infectious process. Patient was accepted to [facility] but due to inclement weather, transport is delayed and plan was made for patient to transfer to the ICU to await critical care transfer to tertiary center. On arrival to the ICU the patient is sedated with propofol and intubated. He is currently normotensive and not requiring vasopressors. Repeat BMP and CBC are pending. He received Kayexalate and vitamin K and bicarb drip continued. Repeat ABG showed improvement in pH. Craven was inserted in the ED and the patient appears to me making an adequate amount of urine. I did speak with the accepting logistic manager at [facility] and updated him on the CT head findings. Patient being admitted to the neuro ICU at [facility]. Recontacted [facility] and there is possibility of transfer this morning around 8 AM. Expecting call from [facility] around that time. We will continue with medical management in ICU for the time being. Allergies Allergy/AdvReac Type Severity Reaction Status Date / Time bee venom protein (honey bee) Allergy Severe hives in Verified 11/11/20 02:14 throat, trouble breathing Home Medications Medication Instructions Recorded Confirmed Type Citrucel 500 mg PO QAM 12/06/18 11/11/20 History atorvastatin 80 mg PO QAM 12/06/18 11/11/20 History mineral oil 15 ml PO DAILY 12/06/18 11/11/20 History cholecalciferol (vitamin D3) 25 1,000 units PO DAILY 04/25/19 11/11/20 History mcg (1,000 unit) tablet hydrochlorothiazide 25 mg tablet 25 mg PO QAM #90 tab 05/22/19 11/11/20 Rx lansoprazole 30 mg capsule,delayed 30 mg PO QAM #90 cap 05/29/19 11/11/20 Rx release metoprolol succinate 100 mg 100 mg PO DAILY #90 tab 08/16/19 11/11/20 Rx tablet,extended release 24 hr allopurinol 300 mg tablet 300 mg PO DAILY #60 tab 12/04/19 11/11/20 Rx Vitamin C 1,000 mg PO DAILY 11/11/20 11/11/20 History albuterol sulfate 2 puff INHALATION Q4 PRN 11/11/20 11/11/20 History aspirin 325 mg PO DAILY 11/11/20 11/11/20 History fluticasone propion-salmeterol 1 ea INHALATION BID 11/11/20 11/11/20 History [Wixela Inhub] guaifenesin [Mucinex] 600 mg PO BID 11/11/20 11/11/20 History naproxen sodium [Aleve] 220 mg PO BID 11/11/20 11/11/20 History Patient History Medical History (Updated 11/11/20 @ 06:20 by MARC Ascencio) Chronic obstructive pulmonary disease no inhalers Chronic shortness of breath GERD (gastroesophageal reflux disease) Gout History of colon polyps Hyperlipidemia Hypertension Surgical History History of cardiac cath [address] [facility]--2 stents placed History of colonoscopy History of esophagogastroduodenoscopy (EGD) History of heart artery stent x2 History of surgery on arm right arm repair after "running through a sliding glass door" History of tonsillectomy History of tooth extraction all teeth removed Hx of vasectomy Family History Grandmother (Maternal) Family history of diabetes mellitus Mother Lung cancer Other No family history of adverse response to anesthesia Denies family history of Ovarian cancer Prostate cancer Myocardial infarction Breast cancer Colorectal cancer Social History Smoking Status: Former smoker Cigarettes Per Day: 90; Second Hand Exposure: Yes ( smokes, parents smoked); Hx Alcohol Use: Yes Alcohol type: wine Hx Substance Use: No Preferred Language: Andorran Communication Ability: Effective Visual Impairment: No Limitations Hearing Ability: Normal Branch Manager Trainee Required: No Beliefs That Will Affect Care: None Current Living Situation: Spouse current occupational status: retired Feels Safe at Home: Yes Safety Concerns: Feels Safe At This Time Dental Care, Regularly: No Physical Activity Frequency: 1-2 Times per Week Seatbelt Use: sometimes Sunscreen Use: No Assistive Devices: Denture - Upper, Denture - Lower and Glasses Review of Systems Review of Systems: Unobtainable due to cognitive status and Unobtainable due to endotracheal tube Physical Exam Constitutional: + mechanically ventilated Sedated Eyes: PERRL, conjunctivae normal, anicteric sclerae ENMT: external ear and nose normal, oropharynx normal Neck: trachea midline, no thyromegaly Respiratory: normal respiratory effort, lungs clear to auscultation Cardiovascular: RRR, no murmur, no edema Heart Sounds: normal S1 and normal S2 Vessels: no JVD Extremities: normal capillary refill; no edema Gastrointestinal (Abdomen): normal bowel sounds, soft, nontender, no hepatosplenomegaly Neurologic: Unable to assess due to sedation Psychiatric: Unable to assess due to sedation Genitourinary: Indwelling Craven catheter present Results & Data Results & Data ([facility]) Vital Signs (Past 12 Hours) Vital Signs Temp Pulse Pulse Resp BP BP Pulse Ox 11/11/20 05:10 95 H 103/59 L 99 11/11/20 05:00 99 H 114/65 97 11/11/20 04:55 24 11/11/20 04:52 35.6 C L 11/11/20 04:50 99 H 99/83 L 100 11/11/20 04:40 99 H 94/58 L 100 11/11/20 04:30 99 H 104/60 99 11/11/20 04:20 96 H 89/53 L 99 11/11/20 04:17 98 H 16 113/57 L 100 11/11/20 04:00 91 H 94/57 L 100 11/11/20 03:50 93 H 97/76 L 100 11/11/20 03:45 94 H 22 100 11/11/20 03:43 92 H 95/59 L 11/11/20 03:20 87 101/61 11/11/20 03:10 97 H 91/60 L 98 11/11/20 03:00 97 H 95/62 L 96 11/11/20 02:50 99 H 87/72 L 99 11/11/20 02:41 101 H 96/66 L 11/11/20 02:40 101 H 11/11/20 02:30 104 H 91/72 L 11/11/20 02:22 20 11/11/20 02:21 108 H 111/70 88 L 11/11/20 02:20 109 H 91 11/11/20 02:10 113 H 148/89 H 100 11/11/20 02:05 34.8 C L 11/11/20 02:02 110 H 149/85 H 95 11/11/20 02:00 108 H 93 11/11/20 01:57 105 H 17 97 11/11/20 01:55 105 H 95 11/11/20 01:52 105 H 131/93 92 11/11/20 01:50 110 H 71 L 11/11/20 01:40 112 H 26 H 80 L 11/11/20 01:30 108 H 29 H 90 11/11/20 01:25 102 H 34 H 91 11/11/20 01:24 109 H 34 H 91 11/11/20 01:21 29 H 11/11/20 01:19 108 H 17 138/102 H 11/11/20 01:10 106 H 30 H 11/11/20 01:01 132/78 11/11/20 01:00 107 H 36 H 11/11/20 00:59 108 H 24 132/78 11/11/20 00:55 107 H 33 H Coding Level of Care Code Critical Care 1st 30-74 mins Diagnoses Admitted to intensive care unit Z78.9 Subdural hematoma, acute S06.5X9A GERD (gastroesophageal reflux disease) K21.9 Multiple pulmonary nodules R91.8 Hypertension I10 Gouty arthritis M10.9 Hyperlipidemia E78.5 Gout M10.9 Acute respiratory failure with hypoxia and hypercapnia J96.01; J96.02 Acute renal failure N17.9 Metabolic acidosis E87.2 Lactic acidosis E87.2 Pneumonia J18.9
[2020-11-11 06:31] LABS: Hematocrit (blood only) 43.6 % (42-52); Hemoglobin 14.3 g/dL (14.0-18.0); Mean Corpuscular Hemoglobin 32.1 pg (25-34); Mean Corpuscular Hgb Conc 32.8 g/dL (32-36); Platelet Count 76 K/uL (130-400); RDW Coefficient of Variation 14.3 % (11.5-14.5); Red Blood Count 4.45 M/uL (4.7-6.1); White Blood Count 10.69 K/uL (4.8-10.8)
[2020-11-11 06:56] LABS: Calcium 6.7 mg/dl (8.5-10.1); Creatinine Clr Calc Pharmacy 4.1 ml/min; Est GFR (African American) 2.8; Est GFR (Non-African American) 2.4; Potassium 5.3 mmol/L (3.5-5.1)
[2020-11-11] MEDS ORDERED: NOREPINEPHRINE/D5W 8 MG/508 ML BAG IV SCH (07:00)
[2020-11-11] MEDS ORDERED: ALBUT/IPRATROP 3MG/0.5MG NEB 3 ML VIAL NEB SCH (07:00)
--- NOTE | 2020-11-11 07:07 | XRay Report ---
XR chest 1V portable CLINICAL HISTORY: Dyspnea COMPARISON STUDY: CT scan dated 09/06/2019 FINDINGS: The heart is mildly enlarged. There are bilateral pulmonary airspace opacities suspicious f or a multifocal pneumonia. There is pulmonary emphysema. There are no significant pleural effusions. There is no overt failure.[ IMPRESSION: 1. Cardiomegaly 2. Pulmonary emphysema 3. Bilateral peripheral airspace opacities right greater than left suspicious for a multifocal pneumo bony ACT 112: Negative or not required by law. Electronically signed by: Keshawn Tidwell M.D. 11/11/2020 7:06 AM
--- NOTE | 2020-11-11 07:09 | XRay Report ---
XR chest 1V portable CLINICAL HISTORY: post intubation RESPIRATORY FAILURE COMPARISON STUDY: 11/11/2020 FINDINGS: The heart remains enlarged. There is radiographic evidence of emphysema. There are right mi d and lower lung zone pulmonary airspace opacity suspicious for pneumonia. There are left lung inters titial opacities, scarring versus infectious/inflammatory. There is an endotracheal tube 27 mm above the arlen IMPRESSION: 1. Interval placement of endotracheal tube 27 mm above the arlen. 2. Pulmonary emphysema 2. Right lung airspace opacity suspicious for pneumonia ACT 112: Negative or not required by law. Electronically signed by: Keshawn Tidwell M.D. 11/11/2020 7:08 AM
[2020-11-11] MEDS ORDERED: fentaNYL citrate 100 MCG/2 ML VIAL IV STA (07:18)
[2020-11-11] MEDS ORDERED: fentaNYL citrate 100 MCG/2 ML VIAL ONE (07:19)
--- NOTE | 2020-11-11 07:21 | CT Scan Report ---
HEAD CT NONCONTRAST CT DOSE: HISTORY: Altered mental status. TECHNIQUE: Multiaxial CT images of the head were performed without the use of intravenous contrast. A utomated exposure control was utilized for this study. A dose lowering technique was utilized adheri ng to the principles of ALARA. Comparison: None. Findings: Mild mucosal thickening within the paranasal sinuses. The mastoid air cells are clear. An e ndotracheal tube is partially visualized. The calvarium and skull base are intact. There is no mass, midline shift, acute infarct. There is a small right parietal subdural hematoma, which measures a max imal thickness of 5 mm. Impression: Small right parietal acute subdural hematoma. ACT 112: Negative or not required by law. Electronically signed by: Wallace Jean Baptiste M.D. 11/11/2020 7:20 AM
--- NOTE | 2020-11-11 07:39 | CT Scan Report ---
CT chest diagnostic without contrast CT DOSE: 2050.79 mGy.cm CLINICAL HISTORY: Respiratory failure. History of remote trauma. TECHNIQUE: Helical images were acquired in the transverse plane. A dose lowering technique was utili zed adhering to the principles of ALARA. COMPARISON STUDY: 09/06/2019 FINDINGS: There is an endotracheal tube 28 mm above the arlen. No thyroid masses are visualized. There is no evidence of thoracic aortic dilatation. There are coronary artery calcifications. There is no significant pericardial fluid. There are no significant pleural effusions. There is some severe pulmonary emphysema. There is left upper lobe scarring similar to the prior study. Since the prior study, the patient has developed a right lower lobe airspace opacity suspicious for a pneumonia. There are persistent right middle and lower lobe airspace opacities consistent with pneum onia. Mediastinal lymph nodes are the upper limits of normal in size. There is no evidence of pathologic hilar adenopathy given the limitations of a noncontrast study. There is no evidence of pathologic axillary lymphadenopathy. Visualized portions the upper abdomen reveal right renal calcifications possibly vascular. There is m ild fullness the renal collecting systems. No destructive skeletal lesions are visualized. IMPRESSION: 1. Motion degraded study 2. Endotracheal tube 28 mm above the arlen 3. Severe pulmonary emphysema 4. Right upper lobe, right middle lobe, and right lower lobe airspace opacities suspicious for a pneu monia. 5. No evidence of significant pleural fluid ACT 112: Negative or not required by law. Electronically signed by: Keshawn Tidwell M.D. 11/11/2020 7:37 AM
[2020-11-11] MEDS ORDERED: INFLUENZA VACCINE HIGH DOSE 65+ 0.7 ML SYR IM ONE (07:45)
--- NOTE | 2020-11-11 07:54 | CT Scan Report ---
CT SCAN OF THE ABDOMEN AND PELVIS WITHOUT CONTRAST CLINICAL HISTORY: abdominal distension REMOTE TRAUMA. RESPIRATORY FAILURE. COMPARISON STUDY: No previous studies for comparison. TECHNIQUE: CT scan of the abdomen and pelvis was performed from the lung bases to the proximal femurs . Images are reviewed in the axial, sagittal, and coronal planes. IV contrast was not administered fo r this examination. A dose lowering technique was utilized adhering to the principles of ALARA. CT DOSE: FINDINGS: Lower chest: There are right middle lower lobe airspace opacity suspicious for a pneumonia. There is no significant pericardial effusion Liver: The unenhanced liver is normal in size, contour, and attenuation. There is no intrahepatic roel iary ductal dilatation. Gallbladder: Cholelithiasis Spleen: Normal in size and attenuation. Pancreas: Unremarkable. Adrenal glands: Unremarkable. Kidneys: There are right renal calcifications likely vascular. There is mild bilateral hydronephrosis . There is infiltration of perirenal fat bilaterally. No ureteral calculi are visualized. Bowel: There are no transition zones indicate bowel obstruction. There is colonic diverticulosis. The re is no evidence of acute diverticulitis. There are no findings to indicate acute appendicitis. Peritoneum: There is no intraperitoneal free air or abdominal ascites. Vasculature: There is ectasia of the abdominal aorta which measures 29 mm in maximal diameter. Adenopathy: None. Pelvic viscera: There is an indwelling Craven catheter. Skeletal structures: No destructive osseous lesions are seen. IMPRESSION: 1. No evidence of bowel obstruction. No evidence of free air 2. Colonic diverticulosis. No evidence of acute diverticulitis 3. No evidence of acute appendicitis 4. Mild bilateral hydronephrosis. Mild infiltration of the perirenal fat. Renal infection cannot be e xcluded. 5. Cholelithiasis 6. Ectasia of the infrarenal abdominal aorta which measures 29 mm. 7. Right middle lower lobe pulmonary airspace opacity suspicious for pneumonia ACT 112: Negative or not required by law. Electronically signed by: Keshawn Tidwell M.D. 11/11/2020 7:53 AM
[2020-11-11 08:01] LABS: BUN Creatinine Ratio 11.4 (10-20)
[2020-11-11 08:16] LABS: Fibrinogen 336 mg/dl (184-400)
[2020-11-11 08:53] LABS: D Dimer > 35200 ug/L FEU (0-500)
[2020-11-11] MEDS ORDERED: HYDROmorphone INJ 0.5 MG/0.5 ML SYR IV STA (08:58)
[2020-11-11] MEDS ORDERED: SUCCINYLCHOLINE CHLORIDE 20 MG/ML 10 ML VIAL IV ONE (09:44)
[2020-11-11] MEDS ORDERED: ETOMIDATE 2 MG/ML 20 ML VIAL IV ONE (09:44)
[2020-11-11] MEDS ORDERED: PIPERACILLIN/TAZOBACTAM 3.375 GM in DEXTROSE 5% 100 ML IV SCH (13:00)
--- NOTE | 2020-11-12 05:43 | Electrocardiogram Report ---
Test Reason : Blood Pressure : / mmHG Vent. Rate : 099 BPM Atrial Rate : 099 BPM P-R Int : 120 ms QRS Dur : 102 ms QT Int : 422 ms P-R-T Axes : 011 076 031 degrees QTc Int : 541 ms Normal sinus rhythm Low voltage QRS Incomplete right bundle branch block Septal infarct (cited on or before 11-NOV-2020) Prolonged QT Abnormal ECG No previous ECG available for comparison Confirmed by Stephen Shah ([id number]) on 11/12/2020 5:42:34 AM Referred By: REFERRED SELF Confirmed By:Stephen Shah
--- NOTE | 2020-11-12 05:46 | Electrocardiogram Report ---
Test Reason : Blood Pressure : / mmHG Vent. Rate : 093 BPM Atrial Rate : 093 BPM P-R Int : 154 ms QRS Dur : 090 ms QT Int : 434 ms P-R-T Axes : 057 046 066 degrees QTc Int : 539 ms Normal sinus rhythm Possible Septal infarct Prolonged QT Abnormal ECG When compared with ECG of 11-NOV-2020 04:36, No significant change Confirmed by Stephen Shah ([id number]) on 11/12/2020 5:46:01 AM Referred By: REFERRED SELF Confirmed By:Stephen Shah
--- NOTE | 2020-11-12 05:46 | Electrocardiogram Report ---
Test Reason : Blood Pressure : / mmHG Vent. Rate : 093 BPM Atrial Rate : 093 BPM P-R Int : 152 ms QRS Dur : 086 ms QT Int : 432 ms P-R-T Axes : 049 043 045 degrees QTc Int : 537 ms Normal sinus rhythm with sinus arrhythmia Prolonged QT Abnormal ECG When compared with ECG of 11-NOV-2020 06:35, No significant change was found Confirmed by Stephen Shah ([id number]) on 11/12/2020 5:46:26 AM Referred By: REFERRED SELF Confirmed By:Stephen Shah
--- NOTE | 2020-11-12 14:24 | Pharmacy Report ---
ED Pharmacist Culture FollowUP - Culture Follow Up Note Date of Service: November 12, 2020 Notes:: Patient's blood culture 1 set growing gram positive bacilli with no sensitivities to follow in aerobic bottle and coag negative staph not lugdunensis no sensitivities to follow. Additional set no growth in aerobic bottle, anaerobic culture not performed. Verbally called these results to [facility], nurse HERBERTH Chang. Results were faxed per request [phone].
--- NOTE | 2020-11-13 14:14 | Pharmacy Report ---
ED Pharmacist Culture FollowUP - Culture Follow Up Note Date of Service: November 13, 2020 Notes:: Micro continues to update blood cx results. Faxed updated results to [facility] per request of matthew KEVIN. Fax sent to [phone] with receipt of successful fax transmission message.
--- NOTE | 2020-11-14 16:36 | Discharge Summary ---
Date of Service November 14, 2020 Admission HPI Per Admitting Provider Intubated in ED for acute dyspnea and JEANE requiring emergent dialysis Admission Exam (Per Admitting) Constitutional General: sedated. nontoxic. Skin: Warm, dry, Head: Atraumatic Ears, nose, mouth and throat: obscured by endotracheal tube Cardiovascular: Normal peripheral perfusion Respiratory: Ventilator settings reviewed Gastrointestinal: Non distended Musculoskeletal: No deformity Discharge Data Consultations 11/11/20 05:06 ED Decision to Admit Stat 11/11/20 08:19 Burn CD for patient Stat Hospital Course (1) Admitted to intensive care unit: Reason Critically Ill: 70-year-old male with past medical history of COPD, HTN presents to the ICU awaiting transfer to [facility] for management of acute renal failure and subdural hematoma. Transfer has been delayed due to inclement weather and patient transferred to ICU for medical management for the time being. Patient has previously been accepted to [facility] in [place] by Dr. Yung and has a bed in the neuro ICU. Neuro - SDHunsure of etiology at this time. Reported become altered mental status in the ED and required intubation. CT head revealed a 6 mm acute subdural hematoma along the right posterior frontoparietal convexity. No significant mass-effect visualized. -Patient did have elevated INR 1.4 and was given vitamin K IV 10 mg -Every hour neuro exam -Keep head greater than 30 degrees elevated -Awaiting transfer [place] [facility] [place] [facility] - Sinus tachycardia and normotensive without use of vasopressors Mild elevation of troponin at 0.6, trend HTNholding antihypertensives for now Respiratory - Acute hypoxic respiratory failurelikely secondary to pneumonia which was visualized on CT chest. Currently requiring mechanical ventilation -Patient does have history of severe COPD, DuoNeb Q4H -Vent settings: 20/450/5/40 percent. Adjusted with ABGs -Continue broad-spectrum antibiotics as discussed below -Continuous monitoring pulse ox GI - N.p.o., OG tube RENAL/LYTES - Acute renal failureinitial creatinine of 21 and BUN 206, severe metabolic acidosis on ABG with a pH of 6.84 -Currently undergoing medical management awaiting transfer to tertiary center where he will receive dialysis. Unfortunately did not have dialysis at this facility on p.m. -Consider emergent dialysis on day shift of transfer is significantly de layed, hopefully this will not be an issue. -Gave 30 mg Kayexalate through OG tube -Bicarb drip 150 mEq at 200 mL/h -Repeat ABG showed improvement in pH to 7.14, hyperkalemia improving with medical management -Continue to trend frequent BMPs and VBG's -Avoid nephrotoxins and renally adjust meds - Foleystrict I's and O ENDO - No history of diabetes or thyroid disease ICU hyperglycemic protocol HEME - H&H stable, trend frequent CBCs ID - Pneumonia?Observed on CT imaging and patient presented with elevated WBC and hypoxia -Started on Zosyn and azithromycin -Blood cultures pending, urine culture pending LINES/IV ACCESS - Peripheral IVs, OG tube, ET tube, [place] DVT PROPHYLAXIS - SCDs, holding anticoagulation for SDH I have personally spent 70 minutes of critical care time in the direct management of this patient. This is a life/limb threatening event. This includes time spent evaluating patient, direct bedside care, chart review, placing orders, interpretation of diagnostic studies, discussion with consultants, patient, and family members, as well as other required patient management activities. This time is exclusive of all separately billable procedures, and teaching time and separate from and in addition to any other critical care service time. Thank you for allowing us to participate in the care of this patient. Please refer to my attending physician's documentation for any further recommendations. (2) Subdural hematoma, acute: (3) GERD (gastroesophageal reflux disease): (4) Multiple pulmonary nodules: (5) Hypertension: (6) Gouty arthritis: (7) Hyperlipidemia: (8) Gout: (9) Acute respiratory failure with hypoxia and hypercapnia: (10) Acute renal failure: (11) Metabolic acidosis: (12) Lactic acidosis: (13) Pneumonia: Coding Level of Care Code None Diagnoses Admitted to intensive care unit Z78.9 Subdural hematoma, acute S06.5X9A GERD (gastroesophageal reflux disease) K21.9 Multiple pulmonary nodules R91.8 Hypertension I10 Gouty arthritis M10.9 Hyperlipidemia E78.5 Gout M10.9 Acute respiratory failure with hypoxia and hypercapnia J96.01; J96.02 Acute renal failure N17.9 Metabolic acidosis E87.2 Lactic acidosis E87.2 Pneumonia J18.9
== END 2020-11-11 09:45 | disposition short-term general hospital (02) | DRG 64 ==
LOC: ED 00:50 → 1E 05:08

== ENCOUNTER 2020-12-11 15:12 | Inpatient (IN) ==
--- NOTE | 2020-12-11 15:49 | Emergency Department Note ---
Impression & Plan Pneumonia, SOB (shortness of breath), Hypoxia ED Provider Note NAME: ERVIN KELLER JR AGE: 70 SEX: M : 1950 ARRIVES VIA: Walk-In INFORMANT: Patient, ED PROVIDER(S): Sixto Jaime DO CHIEF COMPLAINT: Shortness of breath HPI: The patient is a 70-year-old male who presented to the emergency department for an evaluation of shortness of breath. The patient does have underlying lung disease. He normally wears oxygen 2 L nasal cannula. The patient has been increasing his oxygen demand and and he has been increases his oxygen. He went to see his family doctor today and was sent to the emergency department for possible pulmonary embolism. The patient had an intracranial hemorrhage 1 month ago. He was transferred to [facility]. He continues to have worsening shortness of breath and lower extremity edema. The patient does not have any specific chest pain. He denies having any fever. He does complain of a cough. The patient states symptoms are moderate to severe especially with any ambulation. The patient states that he followed up with his neurologist at [facility] and was cleared from the intracranial hemorrhage. The patient denies having any other trauma. He denies having any diarrhea or rectal bleeding. ROS: See above HPI for pertinent positives & negatives. A total of 10 systems reviewed and were otherwise negative. PAST MEDICAL HISTORY: See Below PAST SURGICAL HISTORY: See Below FAMILY HISTORY: See Below SOCIAL HISTORY: See Below HOME MEDICATIONS: See Below ALLERGIES: See Below VITALS: See Below PHYSICAL EXAMINATION: GENERAL: The patient is awake and alert. He is somewhat anxious appearing. EYES: The conjunctivae are clear. The pupils are round and reactive. EARS, NOSE, MOUTH AND THROAT: The nose is without any evidence of any deformity. NECK: The neck is nontender and supple. RESPIRATORY: Diminished breath sounds are noted throughout. There were rales in both lower lung angela. There was significant conversational dyspnea. CARDIOVASCULAR: Regular rate and rhythm noted there no murmurs rubs or gallops normal S1 normal S2. GASTROINTESTINAL: The abdomen is soft. Abdomen is nontender. MUSCULOSKELETAL/EXTREMITIES: There is no evidence of gross deformity full range of motion is noted in the hips and shoulders. SKIN: Pedal edema was noted bilaterally. Skin was warm and dry. NEUROLOGIC: Patient is awake alert and oriented x3. MEDICAL DECISION MAKING: The patient is a 70-year-old male who presented to the emergency department with shortness of breath. The patient was found to be hypoxic. The patient does have a history of oxygen requirement in the past but normally only has 2 to 4 L of nasal cannula. He was very short of breath especially with exertion. He had very significantly decreased and abnormal lung sounds on physical exam. The patient's Covid swab was negative. He was sent to the emergency department specifically by his primary care physician for possible pulmonary embolism. CT the chest did not reveal signs of pulmonary embolism but did show infiltrate as well as pleural effusion. I discussed the patient's laboratory and radiographic studies with him. I also discussed his case with the on-call [facility]. They have agreed to evaluate the patient in the emergency department for further management and disposition. The patient was treated with IV fluids and IV antibiotics in the emergency department. He was also placed on increasing supplemental oxygen. On reevaluation he was significantly improved. Triage Nursing notes reviewed. Prior medical records reviewed Vital Signs: reviewed and remarkable for hypoxia and low blood pressure. Differential diagnosis: Reactive airway disease, pneumonia, pneumothorax, COPD, CHF, infections, cardiac ischemia, pulmonary embolism, musculoskeletal, gastrointestinal, as well as other pathologies. ER treatment provided: See below Diagnostics interpreted by me: ECG: EKG was obtained in the emergency department. My interpretation is normal sinus rhythm at 80 bpm. Lateral and inferior ST segment depressions were noted. Anterior Q waves were also noted. This was compared to a tracing from November 21, 2020. The [address] segment abnormalities appear worsened compared to previous tracing. Cardiac Monitoring: An order was placed for continuous cardiac monitoring. The monitor shows a rate of 85 bpm with sinus rhythm. Laboratory studies: As stated above and show below. Imaging studies: See below Consultation(s): I discussed this case with Dr. Doherty who is on-call for the [facility] group. He will evaluate the patient in the emergency department for further management and disposition. Past Med/Surg History Medical History Chronic obstructive pulmonary disease no inhalers Chronic shortness of breath GERD (gastroesophageal reflux disease) Gout History of colon polyps Hyperlipidemia Hypertension Surgical History History of cardiac cath 2003 [place] [facility] [place] History of colonoscopy History of esophagogastroduodenoscopy (EGD) History of heart artery stent x2 History of surgery on arm right arm repair after "running through a sliding glass door" History of tonsillectomy History of tooth extraction all teeth removed Hx of vasectomy Family History Grandmother (Maternal) Family history of diabetes mellitus Mother Lung cancer Other No family history of adverse response to anesthesia Denies family history of Ovarian cancer Prostate cancer Myocardial infarction Breast cancer Colorectal cancer Social History Smoking Status: Former smoker Second Hand Exposure: Yes ( smokes, parents smoked); Hx Alcohol Use: Yes Alcohol type: wine Hx Substance Use: No Preferred Language: Zambian Communication Ability: Effective Visual Impairment: No Limitations Hearing Ability: Normal 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: No Beliefs That Will Affect Care: None Current Living Situation: Spouse current occupational status: retired Feels Safe at Home: Yes Dental Care, Regularly: No Physical Activity Frequency: 1-2 Times per Week Seatbelt Use: sometimes Sunscreen Use: No Assistive Devices: Denture - Upper, Denture - Lower and Glasses Allergies Allergies Allergy/AdvReac Type Severity Reaction Status Date / Time bee venom protein (honey bee) Allergy Severe hives in Verified 12/11/20 17:41 throat, trouble breathing Home Meds Home Medications Medication Instructions Recorded Confirmed Citrucel 500 mg PO QAM 12/06/18 12/11/20 atorvastatin 80 mg PO QAM 12/06/18 12/11/20 mineral oil 15 ml PO DAILY 12/06/18 12/11/20 cholecalciferol (vitamin D3) 25 1,000 units PO QAM 04/25/19 12/11/20 mcg (1,000 unit) tablet Vitamin C 1,000 mg PO QAM 11/11/20 12/11/20 albuterol sulfate 2 puff INHALATION Q6H PRN 11/11/20 12/11/20 fluticasone propion-salmeterol 1 ea INHALATION BID 11/11/20 12/11/20 [Wixela Inhub] guaifenesin [Mucinex] 600 mg PO BID 11/11/20 12/11/20 amlodipine 10 mg PO QAM 11/21/20 12/11/20 allopurinol 300 mg PO QAM 12/11/20 12/11/20 indomethacin 50 mg PO TID PRN 12/11/20 12/11/20 levetiracetam [Keppra] 750 mg PO BID 12/11/20 12/11/20 magnesium chloride [Slow-Mag] 64 mg PO QAM 12/11/20 12/11/20 metoprolol succinate 100 mg PO QAM 12/11/20 12/11/20 tamsulosin [Flomax] 0.4 mg PO QAM 12/11/20 12/11/20 Previous Rx's Medication Instructions Recorded lansoprazole 30 mg capsule,delayed 30 mg PO QAM #90 cap 05/29/19 release Results & Data (ED) Vital Signs Vital Signs - 24 hr 12/11/20 15:21 12/11/20 15:46 12/11/20 15:59 Temperature 36.7 C Temperature Source Temporal Artery Scan Pulse Rate 81 76 Pulse Rate [Apical] 75 Pulse Rate from SpO2 Sensor Pulse Rhythm Regular Pulse Rhythm [Apical] Regular Respiratory Rate 18 20 20 Respiratory Effort / Characteristics Labored Respiratory Depth Shallow Blood Pressure 121/74 Blood Pressure [Right Arm] 135/72 Blood Pressure Mean 89 Blood Pressure Mean [Right Arm] 93 Pulse Oximetry 85 L 92 94 Oxygen Delivery Method Nasal Cannula Nasal Cannula Nasal Cannula Oxygen Flow Rate 2 4 4 Sepsis Recent Fever Within 48 Hours No Sepsis New/Unexplained Change in Mental Status No Sepsis Action Taken by Nursing No Action Required Oxygen Flow Rate - Titration 4 Pulse Oximetry Post Tiitration 92 12/11/20 16:09 12/11/20 16:30 12/11/20 17:00 Temperature Temperature Source Pulse Rate 82 82 78 Pulse Rate [Apical] Pulse Rate from SpO2 Sensor 82 72 79 Pulse Rhythm Pulse Rhythm [Apical] Respiratory Rate 22 20 21 Respiratory Effort / Characteristics Respiratory Depth Blood Pressure Blood Pressure [Right Arm] Blood Pressure Mean Blood Pressure Mean [Right Arm] Pulse Oximetry 87 L 91 91 Oxygen Delivery Method Oxygen Flow Rate Sepsis Recent Fever Within 48 Hours Sepsis New/Unexplained Change in Mental Status Sepsis Action Taken by Nursing Oxygen Flow Rate - Titration Pulse Oximetry Post Tiitration 12/11/20 17:30 12/11/20 17:43 12/11/20 18:11 Temperature Temperature Source Pulse Rate 77 75 Pulse Rate [Apical] Pulse Rate from SpO2 Sensor 73 75 81 Pulse Rhythm Pulse Rhythm [Apical] Respiratory Rate 19 21 Respiratory Effort / Characteristics Respiratory Depth Blood Pressure 140/81 140/74 Blood Pressure [Right Arm] Blood Pressure Mean 100 96 Blood Pressure Mean [Right Arm] Pulse Oximetry 92 92 89 L Oxygen Delivery Method Nasal Cannula Oxygen Flow Rate 4 Sepsis Recent Fever Within 48 Hours Sepsis New/Unexplained Change in Mental Status Sepsis Action Taken by Nursing Oxygen Flow Rate - Titration Pulse Oximetry Post Tiitration 12/11/20 18:30 12/11/20 19:01 12/11/20 19:30 Temperature Temperature Source Pulse Rate 78 71 Pulse Rate [Apical] Pulse Rate from SpO2 Sensor 74 Pulse Rhythm Pulse Rhythm [Apical] Respiratory Rate 22 19 Respiratory Effort / Characteristics Respiratory Depth Blood Pressure 118/80 110/67 115/59 L Blood Pressure [Right Arm] Blood Pressure Mean 92 81 77 Blood Pressure Mean [Right Arm] Pulse Oximetry 91 93 92 Oxygen Delivery Method Nasal Cannula Oxygen Flow Rate 4 5 5 Sepsis Recent Fever Within 48 Hours Sepsis New/Unexplained Change in Mental Status Sepsis Action Taken by Nursing Oxygen Flow Rate - Titration Pulse Oximetry Post Tiitration 12/11/20 19:45 12/11/20 19:50 Temperature Temperature Source Pulse Rate Pulse Rate [Apical] Pulse Rate from SpO2 Sensor Pulse Rhythm Pulse Rhythm [Apical] Respiratory Rate Respiratory Effort / Characteristics Respiratory Depth Blood Pressure Blood Pressure [Right Arm] Blood Pressure Mean Blood Pressure Mean [Right Arm] Pulse Oximetry 85 L 93 Oxygen Delivery Method Nasal Cannula [place] Oxygen Flow Rate 5 8 Sepsis Recent Fever Within 48 Hours Sepsis New/Unexplained Change in Mental Status Sepsis Action Taken by Nursing Oxygen Flow Rate - Titration Pulse Oximetry Post Tiitration Home Medications Current Medication List: was personally reviewed by me Laboratory Data Attestation: I reviewed the patient's lab results. Result diagrams: 12/11/20 16:23 12/11/20 16:23 Lab Results 12/11/20 12/11/20 12/11/20 Range/Units 16:23 16:23 16:23 WBC 6.42 (4.8-10.8) K/uL RBC 3.57 L (4.7-6.1) M/uL Hgb 11.2 L (14.0-18.0) g/dL Hct 32.7 L (42-52) % MCV 91.6 (80-100) fL MCH 31.4 (25-34) pg MCHC 34.3 (32-36) g/dL RDW Std Deviation 46.5 H (36.4-46.3) fL RDW Coeff of Taina 14.0 (11.5-14.5) % Plt Count 223 (130-400) K/uL MPV 9.3 (7.4-10.4) fL Immature Gran % (Auto) 0.2 % Neut % (Auto) 73.9 % Lymph % (Auto) 18.8 % Waller % (Auto) 4.8 % Eos % (Auto) 2.0 % Baso % (Auto) 0.3 % Neut # (Auto) 4.74 (1.4-6.5) K/uL Lymph # (Auto) 1.21 (1.2-3.4) K/uL Waller # (Auto) 0.31 (0.11-0.59) K/uL Eos # (Auto) 0.13 (0-0.5) K/uL Baso # (Auto) 0.02 (0-0.2) K/uL Immature Gran # (Auto) 0.01 (0.00-0.02) K/uL ESR (0-14) mm/hr PT 11.2 (9.0-12.0) Seconds INR 1.1 (0.9-1.1) APTT 32.6 H (21.0-31.0) Seconds PTT Ratio 1.2 D-Dimer 3020 H* (0-500) ug/L FEU VBG pH (7.36-7.41) VBG pCO2 (38-50) mmHg VBG pO2 mmHg VBG HCO3 mmol/L VBG O2 Saturation % VBG Base Excess mEq/L Barometric Pressure mm/Hg Sodium 145 (136-145) mmol/L Potassium 3.1 L (3.5-5.1) mmol/L Chloride 113 H (98-107) mmol/L Carbon Dioxide 25 (21-32) mmol/L Anion Gap 7.0 (3-11) BUN 17 (7-18) mg/dl Creatinine 0.78 (0.6-1.4) mg/dl Est Cr Clr Drug Dosing 97.9 ml/min Est GFR ( Amer) 105.3 Est GFR (Non-Af Amer) 90.8 BUN/Creatinine Ratio 21.6 H (10-20) Glucose 76 (70-99) mg/dl Lactate (0.4-2.0) mmol/L Calcium 8.7 (8.5-10.1) mg/dl Magnesium 1.2 L (1.8-2.4) mg/dl Total Bilirubin 2.1 H (0.2-1) mg/dl AST 12 L (15-37) U/L ALT 21 (12-78) U/L Alkaline Phosphatase 127 H (45-117) U/L Troponin I < 0.015 (0-0.045) ng/ml C-Reactive Protein 0.38 H (0-0.29) mg/dl NT-Pro-B Natriuret Pep 2416 H (0-900) pg/ml Total Protein 7.5 (6.4-8.2) gm/dl Albumin 3.4 (3.4-5.0) gm/dl Globulin 4.1 H (2.5-4.0) gm/dl Albumin/Globulin Ratio 0.8 L (0.9-2) Procalcitonin (0-0.5) ng/ml Urine Color Urine Appearance (Clear) Urine pH (4.5-7.5) Ur Specific [place] (1.000-1.030) Urine Protein (Negative) Urine Glucose (UA) (Negative) Urine Ketones (Negative) Urine Blood (Negative) Urine Nitrite (Negative) Urine Bilirubin (Negative) Urine Urobilinogen (Negative) Ur Leukocyte Esterase (Negative) Urine WBC (Auto) (0-5) /hpf Urine RBC (Auto) (0-4) /hpf U Hyaline Cast (Auto) (0-5) /lpf U Epithel Cells (Auto) (0-5) /lpf Urine Bacteria (Auto) (Negative) COVID-19 Eval Order SARS-CoV-2 (PCR) (Negative) Influenza Type A (PCR) (Neg) Influenza Type B (PCR) (Neg) RSV (RT-PCR) (Neg) 12/11/20 12/11/20 12/11/20 Range/Units 16:23 16:23 16:23 WBC (4.8-10.8) K/uL RBC (4.7-6.1) M/uL Hgb (14.0-18.0) g/dL Hct (42-52) % MCV (80-100) fL MCH (25-34) pg MCHC (32-36) g/dL RDW Std Deviation (36.4-46.3) fL RDW Coeff of Taina (11.5-14.5) % Plt Count (130-400) K/uL MPV (7.4-10.4) fL Immature Gran % (Auto) % Neut % (Auto) % Lymph % (Auto) % Waller % (Auto) % Eos % (Auto) % Baso % (Auto) % Neut # (Auto) (1.4-6.5) K/uL Lymph # (Auto) (1.2-3.4) K/uL Waller # (Auto) (0.11-0.59) K/uL Eos # (Auto) (0-0.5) K/uL Baso # (Auto) (0-0.2) K/uL Immature Gran # (Auto) (0.00-0.02) K/uL ESR 22 H (0-14) mm/hr PT (9.0-12.0) Seconds INR (0.9-1.1) APTT (21.0-31.0) Seconds PTT Ratio D-Dimer (0-500) ug/L FEU VBG pH 7.43 H (7.36-7.41) VBG pCO2 39 (38-50) mmHg VBG pO2 34 mmHg VBG HCO3 25 mmol/L VBG O2 Saturation 64.5 % VBG Base Excess 1.0 mEq/L Barometric Pressure 725.3 mm/Hg Sodium (136-145) mmol/L Potassium (3.5-5.1) mmol/L Chloride (98-107) mmol/L Carbon Dioxide (21-32) mmol/L Anion Gap (3-11) BUN (7-18) mg/dl Creatinine (0.6-1.4) mg/dl Est Cr Clr Drug Dosing ml/min Est GFR ( Amer) Est GFR (Non-Af Amer) BUN/Creatinine Ratio (10-20) Glucose (70-99) mg/dl Lactate 2.0 (0.4-2.0) mmol/L Calcium (8.5-10.1) mg/dl Magnesium (1.8-2.4) mg/dl Total Bilirubin (0.2-1) mg/dl AST (15-37) U/L ALT (12-78) U/L Alkaline Phosphatase (45-117) U/L Troponin I (0-0.045) ng/ml C-Reactive Protein (0-0.29) mg/dl NT-Pro-B Natriuret Pep (0-900) pg/ml Total Protein (6.4-8.2) gm/dl Albumin (3.4-5.0) gm/dl Globulin (2.5-4.0) gm/dl Albumin/Globulin Ratio (0.9-2) Procalcitonin (0-0.5) ng/ml Urine Color Urine Appearance (Clear) Urine pH (4.5-7.5) Ur Specific [place] (1.000-1.030) Urine Protein (Negative) Urine Glucose (UA) (Negative) Urine Ketones (Negative) Urine Blood (Negative) Urine Nitrite (Negative) Urine Bilirubin (Negative) Urine Urobilinogen (Negative) Ur Leukocyte Esterase (Negative) Urine WBC (Auto) (0-5) /hpf Urine RBC (Auto) (0-4) /hpf U Hyaline Cast (Auto) (0-5) /lpf U Epithel Cells (Auto) (0-5) /lpf Urine Bacteria (Auto) (Negative) COVID-19 Eval Order SARS-CoV-2 (PCR) (Negative) Influenza Type A (PCR) (Neg) Influenza Type B (PCR) (Neg) RSV (RT-PCR) (Neg) 12/11/20 12/11/20 12/11/20 Range/Units 16:23 17:15 18:00 WBC (4.8-10.8) K/uL RBC (4.7-6.1) M/uL Hgb (14.0-18.0) g/dL Hct (42-52) % MCV (80-100) fL MCH (25-34) pg MCHC (32-36) g/dL RDW Std Deviation (36.4-46.3) fL RDW Coeff of Taina (11.5-14.5) % Plt Count (130-400) K/uL MPV (7.4-10.4) fL Immature Gran % (Auto) % Neut % (Auto) % Lymph % (Auto) % [place] % (Auto) % Eos % (Auto) % Baso % (Auto) % Neut # (Auto) (1.4-6.5) K/uL Lymph # (Auto) (1.2-3.4) K/uL [place] # (Auto) (0.11-0.59) K/uL Eos # (Auto) (0-0.5) K/uL Baso # (Auto) (0-0.2) K/uL Immature Gran # (Auto) (0.00-0.02) K/uL ESR (0-14) mm/hr PT (9.0-12.0) Seconds INR (0.9-1.1) APTT (21.0-31.0) Seconds PTT Ratio D-Dimer (0-500) ug/L FEU VBG pH (7.36-7.41) VBG pCO2 (38-50) mmHg VBG pO2 mmHg VBG HCO3 mmol/L VBG O2 Saturation % VBG Base Excess mEq/L Barometric Pressure mm/Hg Sodium (136-145) mmol/L Potassium (3.5-5.1) mmol/L Chloride (98-107) mmol/L Carbon Dioxide (21-32) mmol/L Anion Gap (3-11) BUN (7-18) mg/dl Creatinine (0.6-1.4) mg/dl Est Cr Clr Drug Dosing ml/min Est GFR ( Amer) Est GFR (Non-Af Amer) BUN/Creatinine Ratio (10-20) Glucose (70-99) mg/dl Lactate (0.4-2.0) mmol/L Calcium (8.5-10.1) mg/dl Magnesium (1.8-2.4) mg/dl Total Bilirubin (0.2-1) mg/dl AST (15-37) U/L ALT (12-78) U/L Alkaline Phosphatase (45-117) U/L Troponin I (0-0.045) ng/ml C-Reactive Protein Cancelled (0-0.29) mg/dl NT-Pro-B Natriuret Pep (0-900) pg/ml Total Protein (6.4-8.2) gm/dl Albumin (3.4-5.0) gm/dl Globulin (2.5-4.0) gm/dl Albumin/Globulin Ratio (0.9-2) Procalcitonin (0-0.5) ng/ml Urine Color Yellow Urine Appearance Clear (Clear) Urine pH 5.5 (4.5-7.5) Ur Specific [place] 1.019 (1.000-1.030) Urine Protein Trace H (Negative) Urine Glucose (UA) Negative (Negative) Urine Ketones Negative (Negative) Urine Blood Negative (Negative) Urine Nitrite Positive A (Negative) Urine Bilirubin Negative (Negative) Urine Urobilinogen Negative (Negative) Ur Leukocyte Esterase Negative (Negative) Urine WBC (Auto) 1-5 (0-5) /hpf Urine RBC (Auto) 0-4 (0-4) /hpf U Hyaline Cast (Auto) 1-5 (0-5) /lpf U Epithel Cells (Auto) 5-10 H (0-5) /lpf Urine Bacteria (Auto) 2+ H (Negative) COVID-19 Eval Order CovFluRsv at [facility] SARS-CoV-2 (PCR) (Negative) Influenza Type A (PCR) (Neg) Influenza Type B (PCR) (Neg) RSV (RT-PCR) (Neg) 12/11/20 12/11/20 Range/Units 18:00 18:50 WBC (4.8-10.8) K/uL RBC (4.7-6.1) M/uL Hgb (14.0-18.0) g/dL Hct (42-52) % MCV (80-100) fL MCH (25-34) pg MCHC (32-36) g/dL RDW Std Deviation (36.4-46.3) fL RDW Coeff of Taina (11.5-14.5) % Plt Count (130-400) K/uL MPV (7.4-10.4) fL Immature Gran % (Auto) % Neut % (Auto) % Lymph % (Auto) % [place] % (Auto) % Eos % (Auto) % Baso % (Auto) % Neut # (Auto) (1.4-6.5) K/uL Lymph # (Auto) (1.2-3.4) K/uL [place] # (Auto) (0.11-0.59) K/uL Eos # (Auto) (0-0.5) K/uL Baso # (Auto) (0-0.2) K/uL Immature Gran # (Auto) (0.00-0.02) K/uL ESR (0-14) mm/hr PT (9.0-12.0) Seconds INR (0.9-1.1) APTT (21.0-31.0) Seconds PTT Ratio D-Dimer (0-500) ug/L FEU VBG pH (7.36-7.41) VBG pCO2 (38-50) mmHg VBG pO2 mmHg VBG HCO3 mmol/L VBG O2 Saturation % VBG Base Excess mEq/L Barometric Pressure mm/Hg Sodium (136-145) mmol/L Potassium (3.5-5.1) mmol/L Chloride (98-107) mmol/L Carbon Dioxide (21-32) mmol/L Anion Gap (3-11) BUN (7-18) mg/dl Creatinine (0.6-1.4) mg/dl Est Cr Clr Drug Dosing ml/min Est GFR ( Amer) Est GFR (Non-Af Amer) BUN/Creatinine Ratio (10-20) Glucose (70-99) mg/dl Lactate (0.4-2.0) mmol/L Calcium (8.5-10.1) mg/dl Magnesium (1.8-2.4) mg/dl Total Bilirubin (0.2-1) mg/dl AST (15-37) U/L ALT (12-78) U/L Alkaline Phosphatase (45-117) U/L Troponin I (0-0.045) ng/ml C-Reactive Protein (0-0.29) mg/dl NT-Pro-B Natriuret Pep (0-900) pg/ml Total Protein (6.4-8.2) gm/dl Albumin (3.4-5.0) gm/dl Globulin (2.5-4.0) gm/dl Albumin/Globulin Ratio (0.9-2) Procalcitonin < 0.05 (0-0.5) ng/ml Urine Color Urine Appearance (Clear) Urine pH (4.5-7.5) Ur Specific [place] (1.000-1.030) Urine Protein (Negative) Urine Glucose (UA) (Negative) Urine Ketones (Negative) Urine Blood (Negative) Urine Nitrite (Negative) Urine Bilirubin (Negative) Urine Urobilinogen (Negative) Ur Leukocyte Esterase (Negative) Urine WBC (Auto) (0-5) /hpf Urine RBC (Auto) (0-4) /hpf U Hyaline Cast (Auto) (0-5) /lpf U Epithel Cells (Auto) (0-5) /lpf Urine Bacteria (Auto) (Negative) COVID-19 Eval Order SARS-CoV-2 (PCR) NEGATIVE (Negative) Influenza Type A (PCR) Negative (Neg) Influenza Type B (PCR) Negative (Neg) RSV (RT-PCR) Negative (Neg) Administered Medications Discontinued Medications Magnesium Sulfate/Dextrose (Magnesium Sulfate / D5w) 1 gm in 100 mls @ 100 mls/hr IV Q1H BRANDON Stop: 12/11/20 19:33 Last Infusion: 12/11/20 20:08 Dose: 0 mls/hr Documented by: [id number] Admin: 12/11/20 19:00 Dose: 100 mls/hr Documented by: [id number] Infusion: 12/11/20 19:00 Dose: 100 mls/hr Documented by: [id number] Admin: 12/11/20 18:13 Dose: 100 mls/hr Documented by: [id number] Piperacillin Sod/Tazobactam Sod (Zosyn) 4.5 gm in 120 mls @ 240 mls/hr IV NOW O NE Stop: 12/11/20 19:19 Last Infusion: 12/11/20 19:30 Dose: 0 mls/hr Documented by: [id number] Admin: 12/11/20 19:00 Dose: 240 mls/hr Documented by: [id number] Ioversol (Optiray 350 500ml) 121 ml IV ONCE ONE Stop: 12/11/20 18:00 Last Admin: 12/11/20 18:00 Dose: 121 ml Documented by: [id number] Imaging Data Radiologist's Impression: Chest X-Ray 12/11/20 15:35 XR chest 1V portable HISTORY: 70 years-old Male Dyspnea acute shortness of breath COMPARISON: Chest radiograph 11/21/2020 TECHNIQUE: Portable AP view of the chest FINDINGS: Status post extubation. Cardiac silhouette is enlarged. Progressively worsened airspace opacities of the right lung, most pronounced in the right lung base and right midlung distribution. Emphysema with chronic interstitial coarsening. Tr chandler right pleural effusion. No pneumothorax. Degenerative changes of the shoulders and spine. IMPRESSION: 1. Interval extubation. 2. Progressively worsened right midlung and right lung base airspace opacities suggestive of pneumonia versus aspiration pneumonitis. 3. Trace right pleural effusion. 4. Emphysema. ACT 112: Negative or not required by law. The above report was generated using voice recognition software. It may contain grammatical, syntax or spelling errors. Electronically signed by: Jurgen Crespo M.D. 12/11/2020 4:31 PM Chest CTA 12/11/20 17:34 CT ANGIOGRAM OF THE CHEST CLINICAL HISTORY: Dyspnea. COMPARISON STUDY: Chest x-ray dated 12/11/2020. Chest CT dated 11/21/2020. TECHNIQUE: Following the IV administration of 121 cc of Optiray, CT angiogram of the chest was performed from the upper abdomen to the thoracic inlet utilizing the pulmonary embolus protocol. Images are reviewed in the axial, sagittal, and coronal planes. 3-D MIPS images are created and assessed. IV contrast was administered without complication. A dose lowering technique was utilized adhering to the principles of ALARA. The examination is modestly degraded by mot ion artifact. CT DOSE: 1383.37 mGy.cm FINDINGS: Thyroid: Imaged portions of the thyroid gland are normal in size and atten uation. Thoracic aorta: There is atherosclerotic calcification of the thoracic aorta, which is normal in caliber and demonstrates standard 3-vessel arch anatomy. No dissection is seen. Pulmonary vasculature: The main pulmonary arteries are dilated suggesting pulmonary artery hypertension. There are no filling defects identified in main, lobar, or segmental pulmonary branches to suggest pulmonary embolus. Heart: The heart is enlarged and without pericardial effusion. The coronary arteries are densely calcified. Reflux of contrast in the IVC and hepatic veins suggests cardiac dysfunction. Lungs and pleural spaces: Advanced emphysematous change is noted with apical bullae. The trachea and central airways are clear. There are small to moderate right and small left pleural effusions with associated atelectasis. There is diffuse intralobular septal thickening. Patchy airspace consolidation is seen the right lung, greatest in the right middle lobe and the inferior right upper lobe. Scattered calcified granulomas are observed. The previously identified right middle lobe pulmonary nodule is obscured by consolidation. Mediastinum: There are mildly enlarged mediastinal lymph nodes. Prevascular nodes measure up to 8 mm in short axis. AP window nodes measure up to 11 mm in short axis, and subcarinal nodes measure up to 14 mm in short axis. Briseyda: There are enlarged bilateral hilar lymph nodes which measure up to 16 mm in short axis. Axillae: There is no axillary lymphadenopathy. Upper abdomen: A small hiatal hernia is noted. The spleen is mildly enlarged measuring 14.1 cm in length. Skeletal structures: The skeletal structures are osteopenic. Degenerative change is noted throughout the thoracic spine. No lytic or blastic bony lesions are seen. IMPRESSION: 1. There is no evidence of pulmonary embolus in the main, lobar, or segmental pulmonary arteries. 2. Advanced emphysema. 3. Cardiomegaly with evidence of cardiac dysfunction and pulmonary artery hypertension. Diffuse intralobular septal thickening suggests congestive failure and clinical correlation will be required. 4. Airspace consolidation is seen throughout the right lung, and has worsened as compared to 11/21/2020. Although this could represent asymmetric pulmonary edema, the appearance is more typical for pneumonia. Clinical correlation will be required and radiographic follow-up to resolution is recommended. 5. Right larger than left pleural effusions. 6. Mildly enlarged mediastinal and hilar lymph nodes are likely reactive. 7. Mild splenomegaly. 8. Additional findings as above. ACT 112: Negative or not required by law. Electronically signed by: Dinesh Hernandez M.D. 12/11/2020 6:[address] 12/11/20 17:34 CT SCAN OF THE BRAIN WITHOUT IV CONTRAST CLINICAL HISTORY: Dyspnea. Recent subdural hemorrhage. COMPARISON STUDY: CT of the brain dated 11/21/2020. TECHNIQUE: Unenhanced axial CT scan of the brain is performed from the vertex to the skull base. A dose lowering technique was utilized adhering to the principles of ALARA. FINDINGS: Brain parenchyma: There are age-related involutional changes noting mild subcortical and periventricular microangiopathic change. There is trace residual low-attenuation subdural blood along the high right posterior parietal convexity. This measures up to 4 mm as seen on image #23. No acute/hyperdense blood products are identified. There is no mass effect or evidence of acute territorial ischemia by CT criteria. Jasso-white matter differentiation is preserved. No extra-axial fluid collection is seen. Ventricles, sulci, cisterns: Prominent secondary to involutional change. Intracranial vasculature: There is atherosclerotic calcification of the cavernous carotid and vertebral arteries. Calvarium: Unremarkable. Sinuses and mastoids: There is mild mucosal thickening within the maxillary antra. The remaining paranasal sinuses are clear. The mastoid air cells are well pneumatized. Orbits: The bony orbits are grossly intact. IMPRESSION: 1. There is trace residual low-attenuation subdural blood along the high right posterior parietal convexity. This has almost completely resolved from previous. 2. There is no evidence of acute hemorrhage, mass effect, or acute territorial ischemia by CT criteria. ACT 112: Negative or not required by law. Electronically signed by: Dinesh Hernandez M.D. 12/11/2020 6:23 PM Discharge Plan Visit Data Chief Complaint: Shortness of Breath/Dyspnea Stated Complaint: SOB-POSSIBLE LUNG BLOOD CLOT ED Provider: Sixto Jaime Discharge Problem: Pneumonia, SOB (shortness of breath), Hypoxia Patient Disposition: Being Evaluated by Hospitalist Condition: Good Forms Stand Alone Forms: My [facility] Prescriptions Prescriptions: No Action lansoprazole 30 mg capsule,delayed release(DR/EC) 30 mg PO QAM Qty: 90 RF: 1 cholecalciferol (vitamin D3) 1,000 unit (25 mcg) tablet 1,000 units PO QAM RF: 0 atorvastatin 80 mg Tablet 80 mg PO QAM RF: 0 Citrucel 500 mg Tablet 500 mg PO QAM RF: 0 mineral oil Oil 15 ml PO DAILY RF: 0 Slow-Mag 64 mg Tablet Extended Release 64 mg PO QAM RF: 0 tamsulosin [Flomax] 0.4 mg capsule 0.4 mg PO QAM RF: 0 indomethacin 50 mg Capsule 50 mg PO TID PRN (Reason: gout pain) RF: 0 levetiracetam [Keppra] 750 mg tablet 750 mg PO BID RF: 0 metoprolol succinate 100 mg tablet extended release 24 hr 100 mg PO QAM RF: 0 allopurinol 300 mg tablet 300 mg PO QAM RF: 0 fluticasone propion-salmeterol [Wixela Inhub] 250-50 mcg/dose blister with device 1 ea INHALATION BID RF: 0 Vitamin C 1,000 mg Tablet Extended Release 1,000 mg PO QAM RF: 0 albuterol sulfate 90 mcg/actuation HFA aerosol inhaler 2 puff INHALATION Q6H PRN (Reason: Shortness Of Breath Or Wheezing) RF: 0 guaifenesin [Mucinex] 600 mg Tablet Extended Release 12hr 600 mg PO BID RF: 0 amlodipine 10 mg tablet 10 mg PO QAM RF: 0 Referrals Referrals: Sixto Bryan MD [Primary Care Provider] - Discharge Problem: Pneumonia Qualifiers: Pneumonia type: due to unspecified organism Laterality: unspecified laterality Lung location: unspecified part of lung Qualified Code(s): J18.9 - Pneumonia, unspecified organism
--- NOTE | 2020-12-11 16:33 | XRay Report ---
XR chest 1V portable HISTORY: 70 years-old Male Dyspnea acute shortness of breath COMPARISON: Chest radiograph 11/21/2020 TECHNIQUE: Portable AP view of the chest FINDINGS: Status post extubation. Cardiac silhouette is enlarged. Progressively worsened airspace opacities of the right lung, most pronounced in the right lung base and right midlung distribution. Emphysema with chronic interstitial coarsening. Trace right pleural effusion. No pneumothorax. Degenerative changes of the shoulders and spine. IMPRESSION: 1. Interval extubation. 2. Progressively worsened right midlung and right lung base airspace opacities suggestive of pneumoni a versus aspiration pneumonitis. 3. Trace right pleural effusion. 4. Emphysema. ACT 112: Negative or not required by law. The above report was generated using voice recognition software. It may contain grammatical, syntax o r spelling errors. Electronically signed by: Jurgen Crespo M.D. 12/11/2020 4:31 PM
[2020-12-11 16:36] LABS: Oxygen Saturation VBG 64.5 %; pH VBG 7.43 (7.36-7.41)
[2020-12-11 16:38] LABS: Basophils # (auto) 0.02 K/uL (0-0.2); Basophils % (auto) 0.3 %; Eosinophils # (auto) 0.13 K/uL (0-0.5); Hematocrit (blood only) 32.7 % (42-52); Hemoglobin 11.2 g/dL (14.0-18.0); Immature Granulocytes # (auto) 0.01 K/uL (0.00-0.02); Immature Granulocytes % (auto) 0.2 %; Lymphocytes # (auto) 1.21 K/uL (1.2-3.4); Lymphocytes % (auto) 18.8 %; Mean Corpuscular Hemoglobin 31.4 pg (25-34); Mean Corpuscular Hgb Conc 34.3 g/dL (32-36); Mean Corpuscular Volume 91.6 fL (80-100); Mean Platelet Volume 9.3 fL (7.4-10.4); Monocytes # (auto) 0.31 K/uL (0.11-0.59); Monocytes % (auto) 4.8 %; Neutrophils # (auto) 4.74 K/uL (1.4-6.5); Neutrophils % (auto) 73.9 %; Platelet Count 223 K/uL (130-400); RDW Standard Deviation 46.5 fL (36.4-46.3); Red Blood Count 3.57 M/uL (4.7-6.1); White Blood Count 6.42 K/uL (4.8-10.8)
[2020-12-11 16:50] LABS: Alanine Aminotransferase 21 U/L (12-78); Albumin Level 3.4 gm/dl (3.4-5.0); Aspartate Aminotransferase 12 U/L (15-37); BUN Creatinine Ratio 21.6 (10-20); Blood Urea Nitrogen 17 mg/dl (7-18); Calcium 8.7 mg/dl (8.5-10.1); Carbon Dioxide 25 mmol/L (21-32); Chloride 113 mmol/L (98-107); Creatinine Clr Calc Pharmacy 97.9 ml/min; Est GFR (African American) 105.3; Est GFR (Non-African American) 90.8; Glucose 76 mg/dl (70-99); Magnesium 1.2 mg/dl (1.8-2.4); Potassium 3.1 mmol/L (3.5-5.1); Sodium 145 mmol/L (136-145)
[2020-12-11 16:52] LABS: INR 1.1 (0.9-1.1); Partial Thromboplastin Ratio 1.2; Partial Thromboplastin Time 32.6 Seconds (21.0-31.0); Prothrombin Time 11.2 Seconds (9.0-12.0)
[2020-12-11 16:55] LABS: Albumin Globulin Ratio 0.8 (0.9-2); Alkaline Phosphatase 127 U/L (45-117); Bilirubin,Total 2.1 mg/dl (0.2-1); Globulin 4.1 gm/dl (2.5-4.0); NT Pro B Type Natriuretic Pept 2416 pg/ml (0-900); Total Protein 7.5 gm/dl (6.4-8.2); Troponin I < 0.015 ng/ml (0-0.045)
[2020-12-11 17:30] LABS: D Dimer 3020 ug/L FEU (0-500)
[2020-12-11 17:53] LABS: C Reactive Protein 0.38 mg/dl (0-0.29)
[2020-12-11] MEDS ORDERED: OPTIRAY 350 500ml IV ONE (17:59)
[2020-12-11 18:12] LABS: Appearance Urine Clear (Clear); Bacteria Urine Automated 2+ (Negative); Bilirubin Urine Negative (Negative); Blood Urine Negative (Negative); Color Urine Yellow; Glucose Urine UA Negative (Negative); Ketones Urine Negative (Negative); Leukocyte Esterase Urine Negative (Negative); Nitrite Urine Positive (Negative); Protein Urine Trace (Negative); RBC Urine Automated 0-4 /hpf (0-4); Specific Gravity Urine 1.019 (1.000-1.030); Urobilinogen Urine Negative (Negative); pH Urine 5.5 (4.5-7.5)
[2020-12-11] MEDS: MAGNESIUM SULFATE / D5W 1 GM/100 ML BAG IV SCH ×3 (18:13→23:22)
--- NOTE | 2020-12-11 18:25 | CT Scan Report ---
CT SCAN OF THE BRAIN WITHOUT IV CONTRAST CLINICAL HISTORY: Dyspnea. Recent subdural hemorrhage. COMPARISON STUDY: CT of the brain dated 11/21/2020. TECHNIQUE: Unenhanced axial CT scan of the brain is performed from the vertex to the skull base. A do se lowering technique was utilized adhering to the principles of ALARA. FINDINGS: Brain parenchyma: There are age-related involutional changes noting mild subcortical and periventric ular microangiopathic change. There is trace residual low-attenuation subdural blood along the high r ight posterior parietal convexity. This measures up to 4 mm as seen on image #23. No acute/hyperdense blood products are identified. There is no mass effect or evidence of acute territorial ischemia by CT criteria. Jasso-white matter differentiation is preserved. No extra-axial fluid collection is seen. Ventricles, sulci, cisterns: Prominent secondary to involutional change. Intracranial vasculature: There is atherosclerotic calcification of the cavernous carotid and vertebr al arteries. Calvarium: Unremarkable. Sinuses and mastoids: There is mild mucosal thickening within the maxillary antra. The remaining para nasal sinuses are clear. The mastoid air cells are well pneumatized. Orbits: The bony orbits are grossly intact. IMPRESSION: 1. There is trace residual low-attenuation subdural blood along the high right posterior parietal con vexity. This has almost completely resolved from previous. 2. There is no evidence of acute hemorrhage, mass effect, or acute territorial ischemia by CT criteri a. ACT 112: Negative or not required by law. Electronically signed by: Dinesh Hernandez M.D. 12/11/2020 6:23 PM
--- NOTE | 2020-12-11 18:35 | CT Scan Report ---
CT ANGIOGRAM OF THE CHEST CLINICAL HISTORY: Dyspnea. COMPARISON STUDY: Chest x-ray dated 12/11/2020. Chest CT dated 11/21/2020. TECHNIQUE: Following the IV administration of 121 cc of Optiray, CT angiogram of the chest was perfor med from the upper abdomen to the thoracic inlet utilizing the pulmonary embolus protocol. Images are reviewed in the axial, sagittal, and coronal planes. 3-D MIPS images are created and assessed. IV co ntrast was administered without complication. A dose lowering technique was utilized adhering to the principles of ALARA. The examination is modestly degraded by motion artifact. CT DOSE: 1383.37 mGy.cm FINDINGS: Thyroid: Imaged portions of the thyroid gland are normal in size and attenuation. Thoracic aorta: There is atherosclerotic calcification of the thoracic aorta, which is normal in kim raymond and demonstrates standard 3-vessel arch anatomy. No dissection is seen. Pulmonary vasculature: The main pulmonary arteries are dilated suggesting pulmonary artery hypertensi on. There are no filling defects identified in main, lobar, or segmental pulmonary branches to sugges t pulmonary embolus. Heart: The heart is enlarged and without pericardial effusion. The coronary arteries are densely calc ified. Reflux of contrast in the IVC and hepatic veins suggests cardiac dysfunction. Lungs and pleural spaces: Advanced emphysematous change is noted with apical bullae. The trachea and central airways are clear. There are small to moderate right and small left pleural effusions with as sociated atelectasis. There is diffuse intralobular septal thickening. Patchy airspace consolidation is seen the right lung, greatest in the right middle lobe and the inferior right upper lobe. Scattere d calcified granulomas are observed. The previously identified right middle lobe pulmonary nodule is obscured by consolidation. Mediastinum: There are mildly enlarged mediastinal lymph nodes. Prevascular nodes measure up to 8 mm in short axis. AP window nodes measure up to 11 mm in short axis, and subcarinal nodes measure up to 14 mm in short axis. Briseyda: There are enlarged bilateral hilar lymph nodes which measure up to 16 mm in short axis. Axillae: There is no axillary lymphadenopathy. Upper abdomen: A small hiatal hernia is noted. The spleen is mildly enlarged measuring 14.1 cm in gi gth. Skeletal structures: The skeletal structures are osteopenic. Degenerative change is noted throughout the thoracic spine. No lytic or blastic bony lesions are seen. IMPRESSION: 1. There is no evidence of pulmonary embolus in the main, lobar, or segmental pulmonary arteries. 2. Advanced emphysema. 3. Cardiomegaly with evidence of cardiac dysfunction and pulmonary artery hypertension. Diffuse intra lobular septal thickening suggests congestive failure and clinical correlation will be required. 4. Airspace consolidation is seen throughout the right lung, and has worsened as compared to 1. Although this could represent asymmetric pulmonary edema, the appearance is more typical for pneum onia. Clinical correlation will be required and radiographic follow-up to resolution is recommended. 5. Right larger than left pleural effusions. 6. Mildly enlarged mediastinal and hilar lymph nodes are likely reactive. 7. Mild splenomegaly. 8. Additional findings as above. ACT 112: Negative or not required by law. Electronically signed by: Dinesh Hernandez M.D. 12/11/2020 6:34 PM
[2020-12-11 18:43] LABS: Influenza A virus by PCR Negative (Neg); Influenza B virus by PCR Negative (Neg); RSV by PCR Negative (Neg); SARS CoV2 RNA(COVID-19) InHosp NEGATIVE (Negative)
[2020-12-11] MEDS ORDERED: PIPERACILL/TAZOBAC CONSULT ACTIVE PRN (18:50)
[2020-12-11] MEDS ORDERED: PIPERACILLIN/TAZOBACTAM 4.5 GM/120 ML BAG IV ONE (18:50)
--- NOTE | 2020-12-11 19:44 | History & Physical Report ---
Date of Service December 11, 2020 Assessment & Plan (1) Pneumonia: 70-year-old male with past medical history of subdural hematoma, CKD stage III, GERD without esophagitis, transaminitis, pulmonary nodules, gout, hypertension, hyperlipidemia admitted for increasing shortness of breath and community-acquired pneumonia. 1. Community-acquired pneumonia CTA chest indicative of right middle lobe airspace consolidation as well as lower portion of the right upper lobe White blood cell count normal At 6.42, afebrile, normotensive CRP 0.38, pro-Nitesh less than 0.05, Covid negative On 2 L of oxygen at all times at home, now requiring 8 L oxygen mask Received 1 dose of IV Zosyn in ER, downgraded to Unasyn given the lack of pseudomonal risk factors MRSA nares negative in October 2020, new test pending Trend CBC daily Blood cultures pending Cellulitis Concern for erythematous skin changes across shins to be infectious in nature On doxycycline and Unasyn for gram positive and negative coverage Continue to monitor to differentiate cellulitis versus new onset chronic venous stasis changes CBC as above Peripheral edema Per patient peripheral edema is new proBNP 2416, similar to 1 month ago which was 2482 No history of heart failure per patient recollection, no echocardiogram on file We will hold off on diuretics given electrolyte disturbances and no etiology for edema yet CTA chest did note indications of cardiac dysfunction and pulmonary hypertension TTE ordered History subdural hematoma Per CT head appears to have almost cleared compared to 1 month ago At this time will hold off on chemical DVT prophylaxis to avoid chances of hematoma rebleed D-dimer 3020, Roughly 10% of value last admission Emphysema Received 1 treatment of DuoNebs in ER Continue fluticasone salmeterol inhaler, DuoNebs as needed for shortness of breath O2 goal greater than 88% VBG in ER: 7.43/39/34/25. No evidence of hypercapnic respiratory acidosis Transaminitis Relatively stable compared to lab testing on 12/03/2020 and in October 2020 Can continue to follow outpatient, most likely secondary to nonalcoholic fatty liver disease Total bilirubin 2.1, AST 12, ALT 21, alk phos 127 Electrolyte disturbances Potassium of 3.1 on admission, given 40 mEq potassium p.o. in ER Magnesium 1.2 on admission, given 20 mEq of magnesium IV in ER. Additional 20 ordered for when he reaches the floor Repeat CMP, mag in a.m. Abnormal UA Positive for urine nitrites, epithelial cells, 2+ bacteria No urinary complaints, urine culture pending Unlikely to be symptomatic UTI however patient is getting antibiotics for other sources that would also cover acute urinary infection. Coronary artery disease/hypertension Continue amlodipine 10, atorvastatin 80 daily Continue metoprolol succinate ER 100 daily Previously was on daily baby aspirin discontinued after subdural hematoma Gout Allopurinol 300 daily, indomethacin 50 3 times daily as needed for flare History of seizures New after subdural hematoma Continue Keppra 750 p.o. twice daily CKD stage III Creatinine normal at 0.78, GFR 90.8. Greatly improved since last admission GERD Continue lansoprazole per home regimen DVT prophylaxis: SCDs, ambulate with nursing. Chemical contraindicated in setting of recent cerebral hemorrhage FEN/GI: Heart healthy diet, lansoprazole CODE STATUS: Full code; patient was amenable to CPR and respiratory resuscitation if required. He did express wishes that he would not want to live dependent on mechanical ventilation for a long period of time and would not want a tracheostomy. Dispo: MedSurg with telemetry, may need home therapy given fatigue and decompensation. PT OT ordered. (2) Transaminitis: (3) SOB (shortness of breath): (4) Gout: (5) Hyperlipidemia: (6) Hypertension: (7) Gouty arthritis: History of Present Illness 70-year-old male with past medical history of recent subdural hematoma treated in October 2020, severe emphysema on 2L o2, GERD, gout, hypertension, hyperlipidemia, CAD w/2 stents, who presents emergency department for worsening shortness of breath. He states that he has been on oxygen since his admission to [facility] and October and was doing well at home on 2 L of oxygen 20/03. Last night he started to feel increasingly short of breath and needed to increase his oxygen requirement. He noted that when he got up to go to the restroom he was much shorter of breath and felt increasingly fatigued. He denies any fevers at home but does state he feels chills. He denies any presence of cough or chest pain or chest tightness. He does note that he has swelling in his legs bilaterally which is new to him. He denies any history of heart failure or cardiac diagnoses after his 2 stents that were placed approximately 10 years ago. His home nurse saw him with a worsening oxygen requirement and recommended he came to the emergency department. ER course significant for: CTA chest negative for pulmonary embolism, Showing patchy airspace infiltrate of right middle and partial upper lobe. CT head negative for acute changes showing near complete resolution of previous subdural hematoma. Blood cultures ordered, started on Zosyn. Primary Care Provider: Sixto Bryan MD Allergies Allergy/AdvReac Type Severity Reaction Status Date / Time bee venom protein (honey bee) Allergy Severe hives in Verified 12/11/20 17:41 throat, trouble breathing Home Medications Medication Instructions Recorded Confirmed Type Citrucel 500 mg PO QAM 12/06/18 12/11/20 History atorvastatin 80 mg PO QAM 12/06/18 12/11/20 History mineral oil 15 ml PO DAILY 12/06/18 12/11/20 History cholecalciferol (vitamin D3) 25 1,000 units PO QAM 04/25/19 12/11/20 History mcg (1,000 unit) tablet lansoprazole 30 mg capsule,delayed 30 mg PO QAM #90 cap 05/29/19 12/11/20 Rx release Vitamin C 1,000 mg PO QAM 11/11/20 12/11/20 History albuterol sulfate 2 puff INHALATION Q6H PRN 11/11/20 12/11/20 History fluticasone propion-salmeterol 1 ea INHALATION BID 11/11/20 12/11/20 History [Wixela Inhub] guaifenesin [Mucinex] 600 mg PO BID 11/11/20 12/11/20 History amlodipine 10 mg PO QAM 11/21/20 12/11/20 History allopurinol 300 mg PO QAM 12/11/20 12/11/20 History indomethacin 50 mg PO TID PRN 12/11/20 12/11/20 History levetiracetam [Keppra] 750 mg PO BID 12/11/20 12/11/20 History magnesium chloride [Slow-Mag] 64 mg PO QAM 12/11/20 12/11/20 History metoprolol succinate 100 mg PO QAM 12/11/20 12/11/20 History tamsulosin [Flomax] 0.4 mg PO QAM 12/11/20 12/11/20 History Past Med/Surg History Medical History (Updated 12/11/20 @ 20:37 by Janki Hall MD) Acute renal failure Acute respiratory failure with hypoxia and hypercapnia Admitted to intensive care unit Chronic obstructive pulmonary disease no inhalers Chronic shortness of breath GERD (gastroesophageal reflux disease) Gout History of colon polyps Hyperlipidemia Hypertension Lactic acidosis Left knee pain Metabolic acidosis Past use of tobacco Positive Lyme disease serology Prediabetes Prostate cancer screening Surgical History History of cardiac cath 2003 @ [facility] – [place]--2 stents placed History of colonoscopy History of esophagogastroduodenoscopy (EGD) History of heart artery stent x2 History of surgery on arm right arm repair after "running through a sliding glass door" History of tonsillectomy History of tooth extraction all teeth removed Hx of vasectomy Family History Grandmother (Maternal) Family history of diabetes mellitus Mother Lung cancer Other No family history of adverse response to anesthesia Denies family history of Ovarian cancer Prostate cancer Myocardial infarction Breast cancer Colorectal cancer Social History (Updated 12/11/20 @ 20:51 by Janki Hall MD) Smoking Status: Former smoker Tobacco Type: Cigarettes Age Started Using Tobacco: 11; Age Quit Using Tobacco: 39; packs per day: 3; Second Hand Exposure: Yes ( smokes, parents smoked); Do You Dip or Chew Tobacco: No; Tobacco Cessation Education Requested by Patient: No Hx Alcohol Use: Yes Alcohol type: wine Hx Substance Use: No Preferred Language: Bolivian Communication Ability: Effective Visual Impairment: No Limitations Hearing Ability: Normal [place] Required: No Beliefs That Will Affect Care: None Current Living Situation: Spouse current occupational status: retired Other Information That Helps Us Care for You: No Feels Safe at Home: Yes Safety Concerns: Feels Safe At This Time Dental Care, Regularly: No Physical Activity Frequency: 1-2 Times per Week Seatbelt Use: sometimes Sunscreen Use: No Assistive Devices: Oxygen - Continuous and Walker Review of Systems Constitutional: + chills, + fatigue and + weakness; no fever Ear, Nose, Mouth, Throat: + nasal congestion Respiratory: + dyspnea and + dyspnea on exertion; no cough, no chest congestion, no change in sputum and no pain on inspiration Cardiovascular: + dyspnea at rest, + dyspnea on exertion, + lightheadedness and + edema; no chest pain, no palpitations and no calf pain Gastrointestinal: + constipation; no abdominal pain, no nausea, no vomiting and no change in bowel habits Physical Exam Physical Exam: Constitutional: elderly male in no apparent distress, laying in bed with oxymask on Eyes: EOMI, pupils equal and reactive bilaterally, no scleral icterus Cardiac: RRR, no murmurs, gallops or rubs. Normal S1, S2 Pulm: on 8L oxymask, poor air movement throughout both lungs, no focal wheezes, rhonchi, crackles Abd: soft, nontender, nondistended, normal bowel sounds, no rebound or guarding Extremities: 3+ pitting edema bilaterally to knees, Skin: reddening of skin over shins, blanchable Neuro: no focal deficits, moving all 4 limbs, A&Ox3 Results & Data Results & Data ([facility]) Vital Signs (Past 12 Hours) Vital Signs Temp Pulse Pulse Resp BP BP Pulse Ox 12/11/20 19:30 71 19 115/59 L 92 12/11/20 19:01 78 22 110/67 93 12/11/20 18:30 118/80 91 12/11/20 18:11 140/74 89 L 12/11/20 17:43 75 21 140/81 92 12/11/20 17:30 77 19 92 12/11/20 17:00 78 21 91 12/11/20 16:30 82 20 91 12/11/20 16:09 82 22 87 L 12/11/20 15:59 76 20 94 12/11/20 15:46 75 20 135/72 92 12/11/20 15:21 36.7 C 81 18 121/74 85 L Laboratory Results WBC 6.42 K/uL (4.8-10.8) 12/11/20 16:23 RBC 3.57 M/uL (4.7-6.1) L 12/11/20 16:23 Hgb 11.2 g/dL (14.0-18.0) L 12/11/20 16:23 Hct 32.7 % (42-52) L 12/11/20 16:23 MCV 91.6 fL (80-100) 12/11/20 16:23 MCH 31.4 pg (25-34) 12/11/20 16:23 MCHC 34.3 g/dL (32-36) 12/11/20 16: RDW Std Deviation 46.5 fL (36.4-46.3) H 12/11/20 16: RDW Coeff of Taina 14.0 % (11.5-14.5) 12/11/20 16: Plt Count 223 K/uL (130-400) 12/11/20 16: MPV 9.3 fL (7.4-10.4) 12/11/20 16: Immature Gran % (Auto) 0.2 % 12/11/20 16: Neut % (Auto) 73.9 % 12/11/20 16: Lymph % (Auto) 18.8 % 12/11/20: [place] % (Auto) 4.8 % 12/11/20: Eos % (Auto) 2.0 % 12/11/20: Baso % (Auto) 0.3 % 12/11/20: Neut # (Auto) 4.74 K/uL (1.4-6.5) 12/11/20 16: Lymph # (Auto) 1.21 K/uL (1.2-3.4) 12/11/20 16: [place] # (Auto) 0.31 K/uL (0.11-0.59) 12/11/20 16: Eos # (Auto) 0.13 K/uL (0-0.5) 12/11/20 16: Baso # (Auto) 0.02 K/uL (0-0.2) 12/11/20: Immature Gran # (Auto) 0.01 K/uL (0.00-0.02) 12/11/20 16: ESR 22 mm/hr (0-14) H 12/11/20 16: PT 11.2 Seconds (9.0-12.0) 12/11/20 16: INR 1.1 (0.9-1.1) 12/11/20 16: APTT 32.6 Seconds (21.0-31.0) H 12/11/20 16: PTT Ratio 1.2 12/11/20 16: D-Dimer 3020 ug/L FEU (0-500) H* 12/11/20 16:23 VBG pH 7.43 (7.36-7.41) H 12/11/20 16:23 VBG pCO2 39 mmHg (38-50) 12/11/20 16: VBG pO2 34 mmHg 12/11/20 16:23 VBG HCO3 25 mmol/L 12/11/20 16:23 VBG O2 Saturation 64.5 % 12/11/20 16:23 VBG Base Excess 1.0 mEq/L 12/11/20 16: Barometric Pressure 725.3 mm/Hg 12/11/20 16:23 Sodium 145 mmol/L (136-145) 12/11/20 16: Potassium 3.1 mmol/L (3.5-5.1) L 12/11/20 16: Chloride 113 mmol/L (98-107) H 12/11/20 16: Carbon Dioxide 25 mmol/L (21-32) 12/11/20 16: Anion Gap 7.0 (3-11) 12/11/20 16: BUN 17 mg/dl (7-18) 12/11/20 16: Creatinine 0.78 mg/dl (0.6-1.4) 12/11/20 16: Est Cr Clr Drug Dosing 97.9 ml/min 12/11/20 16: Est GFR ( Amer) 105.3 12/11/20 16:23 Est GFR (Non-Af Amer) 90.8 12/11/20 16:23 BUN/Creatinine Ratio 21.6 (10-20) H 12/11/20 16: Glucose 76 mg/dl (70-99) 12/11/20 16: Lactate 2.0 mmol/L (0.4-2.0) 12/11/20 16: Calcium 8.7 mg/dl (8.5-10.1) 12/11/20 16: Magnesium 1.2 mg/dl (1.8-2.4) L 12/11/20 16:23 Total Bilirubin 2.1 mg/dl (0.2-1) H 12/11/20 16:23 AST 12 U/L (15-37) L 12/11/20 16:23 ALT 21 U/L (12-78) 12/11/20 16:23 Alkaline Phosphatase 127 U/L (45-117) H 12/11/20 16:23 Troponin I < 0.015 ng/ml (0-0.045) 12/11/20 16:23 C-Reactive Protein 0.38 mg/dl (0-0.29) H 12/11/20 16:23 C-Reactive Protein Cancelled 12/11/20 16:23 NT-Pro-B Natriuret Pep 2416 pg/ml (0-900) H 12/11/20 16: Total Protein 7.5 gm/dl (6.4-8.2) 12/11/20 16: Albumin 3.4 gm/dl (3.4-5.0) 12/11/20 16: Globulin 4.1 gm/dl (2.5-4.0) H 12/11/20 16: Albumin/Globulin Ratio 0.8 (0.9-2) L 12/11/20 16:23 Procalcitonin < 0.05 ng/ml (0-0.5) 12/11/20 18:50 Urine Color Yellow 12/11/20 17:15 Urine Appearance Clear (Clear) 12/11/20 17:15 Urine pH 5.5 (4.5-7.5) 12/11/20 17:15 Ur Specific [place] 1.019 (1.000-1.030) 12/11/20 17:15 Urine Protein Trace (Negative) H 12/11/20 17:15 Urine Glucose (UA) Negative (Negative) 12/11/20 17:15 Urine Ketones Negative (Negative) 12/11/20 17:15 Urine Blood Negative (Negative) 12/11/20 17:15 Urine Nitrite Positive (Negative) A 12/11/20 17:15 Urine Bilirubin Negative (Negative) 12/11/20 17:15 Urine Urobilinogen Negative (Negative) 12/11/20 17:15 Ur Leukocyte Esterase Negative (Negative) 12/11/20 17:15 Urine WBC (Auto) 1-5 /hpf (0-5) 12/11/20 17:15 Urine RBC (Auto) 0-4 /hpf (0-4) 12/11/20 17:15 U Hyaline Cast (Auto) 1-5 /lpf (0-5) 12/11/20 17:15 U Epithel Cells (Auto) 5-10 /lpf (0-5) H 12/11/20 17:15 Urine Bacteria (Auto) 2+ (Negative) H 12/11/20 17:15 COVID-19 Eval Order CovFluRsv at [facility] 12/11/20 18:00 SARS-CoV-2 (PCR) NEGATIVE (Negative) 12/11/20 18:00 Influenza Type A (PCR) Negative (Neg) 12/11/20 18:00 Influenza Type B (PCR) Negative (Neg) 12/11/20 18:00 RSV (RT-PCR) Negative (Neg) 12/11/20 18:00 Impressions Chest X-Ray 12/11/20 15:35 XR chest 1V portable HISTORY: 70 years-old Male Dyspnea acute shortness of breath COMPARISON: Chest radiograph 11/21/2020 TECHNIQUE: Portable AP view of the chest FINDINGS: Status post extubation. Cardiac silhouette is enlarged. Progressively worsened airspace opacities of the right lung, most pronounced in the right lung base and right midlung distribution. Emphysema with chronic interstitial coarsening. Trace right pleural effusion. No pneumothorax. Degenerative changes of the shoulders and spine. IMPRESSION: 1. Interval extubation. 2. Progressively worsened right midlung and right lung base airspace opacities suggestive of pneumonia versus aspiration pneumonitis. 3. Trace right pleural effusion. 4. Emphysema. ACT 112: Negative or not required by law. The above report was generated using voice recognition software. It may contain grammatical, syntax or spelling errors. Electronically signed by: Jurgen Crespo M.D. 12/11/2020 4:31 PM Chest CTA 12/11/20 17:34 CT ANGIOGRAM OF THE CHEST CLINICAL HISTORY: Dyspnea. COMPARISON STUDY: Chest x-ray dated 12/11/2020. Chest CT dated 11/21/2020. TECHNIQUE: Following the IV administration of 121 cc of Optiray, CT angiogram of the chest was performed from the upper abdomen to the thoracic inlet utilizing the pulmonary embolus protocol. Images are reviewed in the axial, sagittal, and coronal planes. 3-D MIPS images are created and assessed. IV contrast was administered without complication. A dose lowering technique was utilized adhering to the principles of ALARA. The examination is modestly degraded by motion artifact. CT DOSE: 1383.37 mGy.cm FINDINGS: Thyroid: Imaged portions of the thyroid gland are normal in size and attenuation. Thoracic aorta: There is atherosclerotic calcification of the thoracic aorta, which is normal in caliber and demonstrates standard 3-vessel arch anatomy. No dissection is seen. Pulmonary vasculature: The main pulmonary arteries are dilated suggesting pulmonary artery hypertension. There are no filling defects identified in main, lobar, or segmental pulmonary branches to suggest pulmonary embolus. Heart: The heart is enlarged and without pericardial effusion. The coronary arteries are densely calcified. Reflux of contrast in the IVC and hepatic veins suggests cardiac dysfunction. Lungs and pleural spaces: Advanced emphysematous change is noted with apical bullae. The trachea and central airways are clear. There are small to moderate right and small left pleural effusions with associated atelectasis. There is diffuse intralobular septal thickening. Patchy airspace consolidation is seen the right lung, greatest in the right middle lobe and the inferior right upper lobe. Scattered calcified granulomas are observed. The previously identified right middle lobe pulmonary nodule is obscured by consolidation. Mediastinum: There are mildly enlarged mediastinal lymph nodes. Prevascular nodes measure up to 8 mm in short axis. AP window nodes measure up to 11 mm in short axis, and subcarinal nodes measure up to 14 mm in short axis. Briseyda: There are enlarged bilateral hilar lymph nodes which measure up to 16 mm in short axis. Axillae: There is no axillary lymphadenopathy. Upper abdomen: A small hiatal hernia is noted. The spleen is mildly enlarged measuring 14.1 cm in length. Skeletal structures: The skeletal structures are osteopenic. Degenerative change is noted throughout the thoracic spine. No lytic or blastic bony lesions are seen. IMPRESSION: 1. There is no evidence of pulmonary embolus in the main, lobar, or segmental pulmonary arteries. 2. Advanced emphysema. 3. Cardiomegaly with evidence of cardiac dysfunction and pulmonary artery hypertension. Diffuse intralobular septal thickening suggests congestive failure and clinical correlation will be required. 4. Airspace consolidation is seen throughout the right lung, and has worsened as compared to 11/21/2020. Although this could represent asymmetric pulmonary edema, the appearance is more typical for pneumonia. Clinical correlation will be required and radiographic follow-up to resolution is recommended. 5. Right larger than left pleural effusions. 6. Mildly enlarged mediastinal and hilar lymph nodes are likely reactive. 7. Mild splenomegaly. 8. Additional findings as above. ACT 112: Negative or not required by law. Electronically signed by: Dinesh Hernandez M.D. 12/11/2020 6:[address] 12/11/20 17:34 CT SCAN OF THE BRAIN WITHOUT IV CONTRAST CLINICAL HISTORY: Dyspnea. Recent subdural hemorrhage. COMPARISON STUDY: CT of the brain dated 11/21/2020. TECHNIQUE: Unenhanced axial CT scan of the brain is performed from the vertex to the skull base. A dose lowering technique was utilized adhering to the principles of ALARA. FINDINGS: Brain parenchyma: There are age-related involutional changes noting mild subcortical and periventricular microangiopathic change. There is trace residual low-attenuation subdural blood along the high right posterior parietal convexity. This measures up to 4 mm as seen on image #23. No acute/hyperdense blood products are identified. There is no mass effect or evidence of acute territorial ischemia by CT criteria. Jasso-white matter differentiation is preserved. No extra-axial fluid collection is seen. Ventricles, sulci, cisterns: Prominent secondary to involutional change. Intracranial vasculature: There is atherosclerotic calcification of the cavernous carotid and vertebral arteries. Calvarium: Unremarkable. Sinuses and mastoids: There is mild mucosal thickening within the maxillary antra. The remaining paranasal sinuses are clear. The mastoid air cells are well pneumatized. Orbits: The bony orbits are grossly intact. IMPRESSION: 1. There is trace residual low-attenuation subdural blood along the high right posterior parietal convexity. This has almost completely resolved from previous. 2. There is no evidence of acute hemorrhage, mass effect, or acute territorial ischemia by CT criteria. ACT 112: Negative or not required by law. Electronically signed by: Dinesh Hernandez M.D. 12/11/2020 6:23 PM Supervising Physician Co-Signing Physician Notes Attending addendum: I have physically seen this patient, have supervised the medical residents activities, and agree with the H&P unless as otherwise noted. Assessment and Plan: Community-acquired pneumonia/COPD Right middle lobe/right upper lobe on CT Nasal cannula oxygen 2 L at home, presently requiring 8 L oxygen mask Unasyn 3 g IV every 6 hours Duonebs every 4 hours while awake and every 2 hours when necessary. MRSA nares October 2020 -, repeat pending now Follow blood cultures Sputum Gram stain culture Cellulitis bilateral extremities- Antibiotics as above Remaining orders and notations as noted Resident Activity Tracking Resident Involvement: Resident Care Provided Care Provided: Adult Hospital Medicine (1) Pneumonia Laterality: right Lung location: middle lobe of lung Pneumonia type: due to unspecified organism Qualified Code(s): J18.9 - Pneumonia, unspecified organism
[2020-12-11] MEDS ORDERED: ALBUT/IPRATROP 3MG/0.5MG NEB 3 ML VIAL NEB STA (20:28)
[2020-12-11] MEDS ORDERED: POTASSIUM CHLORIDE CRTAB 20 MEQ TABCR PO STA (20:33)
[2020-12-11] MEDS ORDERED: INDOMETHACIN 25 MG CAP PO PRN (22:36)
[2020-12-11] MEDS: AMPICILLIN/SULBACTAM SOD 3,000 MG in 0.9 % SODIUM CHLORIDE 100 ML IV SCH (23:22)
[2020-12-11] MEDS: levETIRAcetam 250 MG TAB PO SCH (23:23)
[2020-12-11] MEDS: guaiFENesin 600 MG TABCR PO SCH (23:24)
[2020-12-12] MEDS ORDERED: POLYETHYLENE (MIRALAX) 17 GM PACK PO PRN (00:27)
[2020-12-12] MEDS ORDERED: ACETAMINOPHEN 325 MG TAB PO PRN (00:27)
[2020-12-12] MEDS ORDERED: NITROGLYCERIN SL 0.4 MG/TAB TAB SL PRN (00:27)
[2020-12-12] MEDS ORDERED: ALUMINUM/MAGNESIUM SUSP 30 ML UDC PO PRN (00:27)
[2020-12-12] MEDS ORDERED: ONDANSETRON INJ 2 MG/ML 2 ML VIAL IV PRN (00:27)
[2020-12-12] MEDS: MAGNESIUM SULFATE / D5W 1 GM/100 ML BAG IV SCH (01:27)
[2020-12-12] MEDS: AMPICILLIN/SULBACTAM SOD 3,000 MG in 0.9 % SODIUM CHLORIDE 100 ML IV SCH (05:09)
--- NOTE | 2020-12-12 06:49 | Electrocardiogram Report ---
Test Reason : Blood Pressure : / mmHG Vent. Rate : 080 BPM Atrial Rate : 080 BPM P-R Int : 154 ms QRS Dur : 086 ms QT Int : 452 ms P-R-T Axes : 000 025 013 degrees QTc Int : 521 ms Poor data quality, interpretation may be adversely affected Normal sinus rhythm Anteroseptal infarct (cited on or before 21-NOV-2020) Nonspecific ST and T wave abnormality Prolonged QT Abnormal ECG When compared with ECG of 21-NOV-2020 08:04, Premature atrial complexes are no longer Present Questionable change in initial forces of Anterior leads ST no longer depressed in Anterolateral leads Confirmed by Stephen Shah ([id number]) on 12/12/2020 6:49:25 AM Referred By: Confirmed By:Stephen Shah
[2020-12-12] MEDS ORDERED: PIPERACILL/TAZOBAC CONSULT ACTIVE PRN (07:18)
[2020-12-12 07:47] LABS: Basophils # (auto) 0.03 K/uL (0-0.2); Basophils % (auto) 0.4 %; Eosinophils # (auto) 0.17 K/uL (0-0.5); Eosinophils % (auto) 2.4 %; Hematocrit (blood only) 35.6 % (42-52); Immature Granulocytes # (auto) 0.01 K/uL (0.00-0.02); Immature Granulocytes % (auto) 0.1 %; Lymphocytes # (auto) 0.93 K/uL (1.2-3.4); Lymphocytes % (auto) 13.4 %; Mean Corpuscular Hemoglobin 31.5 pg (25-34); Mean Corpuscular Hgb Conc 33.7 g/dL (32-36); Mean Corpuscular Volume 93.4 fL (80-100); Mean Platelet Volume 9.2 fL (7.4-10.4); Monocytes # (auto) 0.38 K/uL (0.11-0.59); Monocytes % (auto) 5.5 %; Neutrophils # (auto) 5.44 K/uL (1.4-6.5); Neutrophils % (auto) 78.2 %; Platelet Count 189 K/uL (130-400); RDW Coefficient of Variation 14.4 % (11.5-14.5); RDW Standard Deviation 48.1 fL (36.4-46.3); Red Blood Count 3.81 M/uL (4.7-6.1); White Blood Count 6.96 K/uL (4.8-10.8)
[2020-12-12 08:02] LABS: BUN Creatinine Ratio 18.1 (10-20); Calcium 8.5 mg/dl (8.5-10.1); Creatinine Clr Calc Pharmacy 109.1 ml/min; Est GFR (Non-African American) 94.9; Magnesium 2.1 mg/dl (1.8-2.4); Potassium 3.3 mmol/L (3.5-5.1)
[2020-12-12] MEDS: FLUTICASONE/VILANTEROL 100/25MCG 14 PUFFS/INHALER INH SCH (08:44)
[2020-12-12] MEDS: ATORVASTATIN 40 MG TAB PO SCH (08:44)
[2020-12-12] MEDS: CHOLECALCIFEROL 1,000 UNITS 25 MCG TAB PO SCH (08:47)
[2020-12-12] MEDS: TAMSULOSIN HCL 0.4 MG CAP PO SCH (08:47)
[2020-12-12] MEDS: allopurinoL 300 MG TAB PO SCH (08:47)
[2020-12-12] MEDS: METOPROLOL SUCC 50MG EXT REL TAB PO SCH (08:47)
[2020-12-12] MEDS: MAGNESIUM CHLORIDE 64MG DELAYED REL TAB PO SCH (08:47)
[2020-12-12] MEDS: amLODIPine BESYLATE 5 MG TAB PO SCH (08:47)
[2020-12-12] MEDS: ASCORBIC ACID 500 MG TAB PO SCH (08:47)
[2020-12-12] MEDS: DOXYCYCLINE HYCLATE 100 MG CAP PO SCH ×2 (08:47→20:17)
[2020-12-12] MEDS: PANTOprazole 40 MG TAB PO SCH (08:47)
[2020-12-12] MEDS: levETIRAcetam 250 MG TAB PO SCH ×2 (08:47→20:15)
[2020-12-12] MEDS: guaiFENesin 600 MG TABCR PO SCH ×2 (08:47→20:16)
[2020-12-12] MEDS: PIPERACILLIN/TAZOBACTAM 3.375 GM in DEXTROSE 5% 100 ML IV SCH ×2 (08:48→17:13)
[2020-12-12] MEDS ORDERED: FUROSEMIDE 20 MG in SYRINGE 0 ML IV ONE (09:45)
--- NOTE | 2020-12-12 12:43 | Hospitalist Progress Note ---
Date of Service December 12, 2020 Assessment & Plan (1) Chronic kidney disease, stage III (moderate): 70-year-old male with past medical history of subdural hematoma with seizure, CKD stage III, GERD without esophagitis, transaminitis, pulmonary nodules, gout, hypertension, hyperlipidemia admitted for increasing shortness of breath and acute on chronic hypoxemic respiratory failure 1. Acute on chronic hypoxemic respiratory failure - Two day worsening shortness of breath associated with leg swelling and increasing oxygen demands CXR with RML and RLL consolidation, CTA chest without PE but of right middle lobe airspace consolidation as well as lower portion of the right upper lobe White blood cell count normal At 6.42, afebrile, normotensive CRP 0.38, pro-Nitesh less than 0.05, Covid negative - ON review of previous records patient has had evidence of this consolidation since he was seen for his subdural hematoma, question whether he had aspiration pneumonitis that led to aspiration pneumonia -Will stop unasyn and start on zosyn given recent hospitalizations and intubations, will hold off on vancomycin with negative MRSA nasal swab MRSA nares negative in October 2020, new test pending Blood cultures pending Peripheral edema Per patient peripheral edema is new proBNP 2416, similar to 1 month ago which was 2482 No history of heart failure per patient recollection, no echo GIven edema and worsening shortness of breath coinciding as well as suggestions of fluid overload on exam and labwork will try one dose of lasix will continue to monitor echo pending History subdural hematoma Per CT head appears to have almost cleared compared to 1 month ago At this time will hold off on chemical DVT prophylaxis to avoid chances of hematoma rebleed Emphysema Received 1 treatment of DuoNebs in ER Continue fluticasone salmeterol inhaler, DuoNebs as needed for shortness of breath - Will add tiotropium to chronic maintenance on d/c O2 goal greater than 90% VBG in ER: 7.43/39/34/25. No evidence of hypercapnic respiratory acidosis Hypokalemia Potassium of 3.1 on admission, given 40 mEq potassium p.o. in ER Magnesium 1.2 on admission, given 20 mEq of magnesium IV in ER. Additional 20 ordered for when he reaches the floor Repeat CMP, mag in a.m. Abnormal UA Positive UA, indwelling roberts cath - Covered with zosyn culture pending Coronary artery disease/hypertension Continue amlodipine 10, atorvastatin 80 daily Continue metoprolol succinate ER 100 daily Previously was on daily baby aspirin discontinued after subdural hematoma Gout Allopurinol 300 daily, indomethacin 50 3 times daily as needed for flare History of seizures 2/2 subdural hematoma Continue Keppra 750 p.o. twice daily GERD Continue lansoprazole per home regimen DVT prophylaxis: SCDs, ambulate with nursing. Chemical contraindicated in setting of recent SDH FEN/GI: Heart healthy diet, lansoprazole CODE STATUS: Full code Dispo: MedSurg with telemetry, may need home therapy given fatigue and decompensation. PT OT ordered. (2) Atherosclerotic heart disease of [place] coronary artery without angina pectoris: (3) Chronic constipation: (4) GERD without esophagitis: (5) Peripheral neuropathy: (6) Transaminitis: (7) Pneumonia: (8) Respiratory failure: (9) SOB (shortness of breath): (10) Hypoxia: (11) GERD (gastroesophageal reflux disease): (12) Multiple pulmonary nodules: (13) Impaired fasting glucose: (14) Gouty arthritis: (15) Hypertension: (16) Hyperlipidemia: (17) History of colon polyps: Admission and Anticipated Discharge Date Admission Date: December 11, 2020 Supervising Physician Co-Signing Physician Notes I personally examined the patient and verified all thorne points of history and exam, discussed case, and agree with decision making with Dr Avery. Does not really feel much dyspnea at rest, but notes that he had rather significant dyspnea when getting up to go to the bathroom. Vitals noted, in general he is in bed no significant distress, although he does maybe have mild labored breathing sometimes when we are talking. HEENT normocep halic atraumatic mucous membranes moist. Lungs show bibasilar rales, and more diminished right base about a third of the way up the chest. Dyspnea/hypoxiasuspect multifactorial between both congestive heart failure (HFpEF) and pneumonia. Continue Zosyn, continue to diurese, continue supportive care. as a late finding -- pulmonary HTN certainly contributing. Subjective Weston is doing fairly well today, does not feel subjectively short of breath though aware that he is still requiring a lot of oxygen. as we talk more his mask falls off and he gets quickly winded. He tells me that he is not sure what happened at [place], not sure why his health has taken such a poor turn lately. He denies any new seizures, any discomfort at present. He tells me he first started to get acutely short of breath a day and a half ago and it was also associated with lower limb swelling and not being able to fit his shoes over his edematous feet. Review of Systems Review of Systems: All systems reviewed & are unremarkable except as noted in HPI & below Physical Exam Constitutional: Ill appearing 70 year old man lying in bed. Oxymask hanging off of face, roberts in place draining yellow clear urine Eyes: PERRL, conjunctivae normal, anicteric sclerae ENMT: external ear and nose normal, oropharynx normal Respiratory: Absent breath sounds right lower lung bases, coarse crackles left middle lung field, some fine crackles left lung base no increased work of breathing initially but as he kept talking started to have some. Cardiovascular: Rate/Rhythm: regular rate and regular rhythm Heart Sounds: normal S1 and normal S2 Vessels: no JVD Extremities: normal capillary refill and + pedal edema (Bilateral 1+ pitting edema ); no calf tenderness Gastrointestinal (Abdomen): normal bowel sounds, soft, nontender, no hepatosplenomegaly Skin: no rashes, warm and dry Results & Data Results & Data ([facility]) Vital Signs (Past 12 Hours) Vital Signs Temp Pulse Pulse Pulse Resp BP Pulse Ox 12/12/20 12:17 36.5 C 74 19 136/82 90 12/12/20 06:33 36.6 C 70 18 148/72 H 95 12/12/20 04:14 36.6 C 69 16 134/64 95 12/12/20 02:21 100 H 12/12/20 02:20 78 Resident Activity Tracking Resident Involvement: Resident Care Provided Care Provided: Adult Hospital Medicine (1) Respiratory failure Chronicity: acute Respiratory failure complication: hypoxia Qualified Code(s): J96.01 - Acute respiratory failure with hypoxia (2) Pneumonia Laterality: right Lung location: middle lobe of lung Pneumonia type: due to unspecified organism Qualified Code(s): J18.9 - Pneumonia, unspecified organism
[2020-12-12] MEDS ORDERED: POTASSIUM CHLORIDE CRTAB 20 MEQ TABCR PO ONE (13:45)
--- NOTE | 2020-12-12 16:38 | XCELERA ---
[id number]
[2020-12-12] MEDS ORDERED: FUROSEMIDE 40 MG in SYRINGE 0 ML IV ONE ×2 (17:30→19:15)
--- NOTE | 2020-12-12 17:46 | XRay Report ---
XR chest 1V portable HISTORY: 70 years-old Male WOrsening hypoxia acute shortness of breath with hypoxia COMPARISON: Chest radiograph and CTA chest 12/11/2020 TECHNIQUE: Portable AP view of the chest FINDINGS: Cardiac silhouette is enlarged. Pulmonary edema. Emphysema with chronic interstitial coarsening. No p neumothorax. Increased size of the right greater left pleural effusions with progressively worsened r ight midlung and right greater left bibasilar consolidation. Degenerative changes of the shoulders an d spine. IMPRESSION: 1. Increased size of the right greater than left pleural effusions with bibasilar predominant consoli dation suspicious for pneumonia. 2. Cardiomegaly with pulmonary edema. ACT 112: Negative or not required by law. The above report was generated using voice recognition software. It may contain grammatical, syntax o r spelling errors. Electronically signed by: Jurgen Crespo M.D. 12/12/2020 5:44 PM
--- NOTE | 2020-12-12 20:13 | Billing Data ---
Date of Service December 12, 2020 Coding Level of Care Code 71813 Subseq Hosp Care Lvl 3
[2020-12-13] MEDS: PIPERACILLIN/TAZOBACTAM 3.375 GM in DEXTROSE 5% 100 ML IV SCH ×3 (00:18→15:43)
[2020-12-13] MEDS: ASCORBIC ACID 500 MG TAB PO SCH (07:49)
[2020-12-13] MEDS: amLODIPine BESYLATE 5 MG TAB PO SCH (07:49)
[2020-12-13] MEDS: ATORVASTATIN 40 MG TAB PO SCH (07:49)
[2020-12-13] MEDS: MAGNESIUM CHLORIDE 64MG DELAYED REL TAB PO SCH (07:50)
[2020-12-13] MEDS: PANTOprazole 40 MG TAB PO SCH (07:50)
[2020-12-13] MEDS: CHOLECALCIFEROL 1,000 UNITS 25 MCG TAB PO SCH (07:50)
[2020-12-13] MEDS: METOPROLOL SUCC 50MG EXT REL TAB PO SCH (07:50)
[2020-12-13] MEDS: guaiFENesin 600 MG TABCR PO SCH ×2 (07:50→21:05)
[2020-12-13] MEDS: DOXYCYCLINE HYCLATE 100 MG CAP PO SCH ×2 (07:50→21:05)
[2020-12-13] MEDS: levETIRAcetam 250 MG TAB PO SCH ×2 (07:51→21:04)
[2020-12-13] MEDS: TAMSULOSIN HCL 0.4 MG CAP PO SCH (07:51)
[2020-12-13] MEDS: FLUTICASONE/VILANTEROL 100/25MCG 14 PUFFS/INHALER INH SCH (07:51)
[2020-12-13] MEDS: allopurinoL 300 MG TAB PO SCH (07:51)
[2020-12-13 08:04] LABS: Blood Urea Nitrogen 12 mg/dl (7-18); Calcium 8.8 mg/dl (8.5-10.1); Carbon Dioxide 28 mmol/L (21-32); Chloride 110 mmol/L (98-107); Creatinine Clr Calc Pharmacy 81.9 ml/min; Est GFR (Non-African American) 80.2; Glucose 89 mg/dl (70-99); Sodium 143 mmol/L (136-145)
[2020-12-13] MEDS ORDERED: ALBUT/IPRATROP 3MG/0.5MG NEB 3 ML VIAL NEB PRN (08:11)
[2020-12-13] MEDS ORDERED: ALBUT/IPRATROP 3MG/0.5MG NEB 3 ML VIAL NEB SCH (08:15)
[2020-12-13 08:22] LABS: Basophils # (auto) 0.02 K/uL (0-0.2); Basophils % (auto) 0.3 %; Eosinophils # (auto) 0.17 K/uL (0-0.5); Eosinophils % (auto) 2.5 %; Hematocrit (blood only) 35.2 % (42-52); Hemoglobin 11.9 g/dL (14.0-18.0); Immature Granulocytes # (auto) 0.01 K/uL (0.00-0.02); Immature Granulocytes % (auto) 0.1 %; Mean Corpuscular Hemoglobin 31.7 pg (25-34); Mean Corpuscular Volume 93.9 fL (80-100); Mean Platelet Volume 8.8 fL (7.4-10.4); Monocytes # (auto) 0.36 K/uL (0.11-0.59); Monocytes % (auto) 5.4 %; Neutrophils # (auto) 5.12 K/uL (1.4-6.5); Neutrophils % (auto) 76.7 %; Platelet Count 172 K/uL (130-400); RDW Coefficient of Variation 14.8 % (11.5-14.5); RDW Standard Deviation 49.5 fL (36.4-46.3); Red Blood Count 3.75 M/uL (4.7-6.1); White Blood Count 6.68 K/uL (4.8-10.8)
[2020-12-13 08:30] LABS: Mean Corpuscular Hgb Conc 33.8 g/dL (32-36)
[2020-12-13] MEDS: FUROSEMIDE 40 MG in SYRINGE 0 ML IV SCH ×2 (13:39→21:04)
--- NOTE | 2020-12-13 14:22 | Hospitalist Progress Note ---
Date of Service December 13, 2020 Assessment & Plan (1) Chronic kidney disease, stage III (moderate): 70-year-old male with past medical history of subdural hematoma with seizure, CKD stage III, GERD without esophagitis, transaminitis, pulmonary nodules, gout, hypertension, hyperlipidemia admitted for increasing shortness of breath and acute on chronic hypoxemic respiratory failure 1. Acute on chronic hypoxemic respiratory failure - Two day worsening shortness of breath associated with leg swelling and increasing oxygen demands CXR with RML and RLL consolidation, CTA chest without PE but of right middle lobe airspace consolidation as well as lower portion of the right upper lobe - Patient appears to be somewhat volume overloaded on exam, responded to lasix well yesterday added 40 mg BID today - WIll monitor renal function and lung exam/O2 demand to guide further diuresis, -2.2 L last 24 hours White blood cell count normal At 6.42, afebrile, normotensive CRP 0.38, pro-Nitesh less than 0.05, Covid negative - ON review of previous records patient has had evidence of this consolidation since he was seen for his subdural hematoma, question whether he had aspiration pneumonitis that led to aspiration pneumonia -Will stop unasyn and start on zosyn given recent hospitalizations and intubations, will hold off on vancomycin with negative MRSA nasal swab MRSA nares negative in October 2020, new test pending Blood cultures pending - Speech evaluation ordered Peripheral edema Per patient peripheral edema is new proBNP 2416, similar to 1 month ago which was 2482 No history of heart failure per patient recollection, no echo GIven edema and worsening shortness of breath coinciding as well as suggestions of fluid overload on exam and labwork will try one dose of lasix will continue to monitor echo with evidence of right heart strain RV pressure >60 mmHg and reduced right ventricular function History subdural hematoma Per CT head, hematoma appears to have almost cleared compared to 1 month ago due to patients immobility will resume DVT prophylaxis as risk of DVT likely greater than rebleeding of his subdural hematoma after stability and resolution on CT scan Emphysema Received 1 treatment of DuoNebs in ER Continue fluticasone salmeterol inhaler, DuoNebs as needed for shortness of breath - Will add anticholinergic to chronic maintenance on d/c O2 goal greater than 90% VBG in ER: 7.43/39/34/25. No evidence of hypercapnic respiratory acidosis Hypokalemia Potassium of 3.1 on admission, given 40 mEq potassium p.o. in ER Magnesium 1.2 on admission, given 20 mEq of magnesium IV in ER. Additional 20 ordered for when he reaches the floor Potassium still low today at 3.3 will add 30 meq PO KCl and recheck in AM Abnormal UA Positive UA, indwelling roberts cath - Covered with zosyn culture pending Coronary artery disease/hypertension Continue amlodipine 10, atorvastatin 80 daily Continue metoprolol succinate ER 100 daily Previously was on daily baby aspirin discontinued after subdural hematoma Gout Allopurinol 300 daily, indomethacin 50 3 times daily as needed for flare History of seizures 2/2 subdural hematoma Continue Keppra 750 p.o. twice daily GERD Continue lansoprazole per home regimen DVT prophylaxis: Heparin 5000 BID FEN/GI: Heart healthy diet, lansoprazole Dispo: MedSurg with telemetry, may need home therapy given fatigue and decompensation. PT OT ordered. Full Code (2) Atherosclerotic heart disease of [place] coronary artery without angina pectoris: (3) Chronic constipation: (4) GERD without esophagitis: (5) Peripheral neuropathy: (6) Transaminitis: (7) Respiratory failure: (8) SOB (shortness of breath): (9) Hypoxia: (10) GERD (gastroesophageal reflux disease): (11) Multiple pulmonary nodules: (12) Impaired fasting glucose: (13) Gouty arthritis: (14) Hypertension: (15) Hyperlipidemia: (16) History of colon polyps: Admission and Anticipated Discharge Date Admission Date: December 11, 2020 Supervising Physician Co-Signing Physician Notes I personally examined the patient and verified all thorne points of history and exam, discussed case, and agree with decision making with Dr Avery. Feeling a little better overall, less dyspnea on exertion. Vitals noted, in general he is in bed no significant distress. HEENT normocephalic atraumatic mucous membranes moist. Lungs mostly diminished bibasilar, very faint rales, a little bit of coarse breath sounds. Ongoing diminished at the right base more than left. Dyspnea/hypoxiasuspect multifactorial between both congestive heart failure (HFpEF) and pneumonia. Continue Zosyn, continue to diurese (agree with Lasix 40 twice daily, follow basic metabolic panel and clinical picture.) continue supportive care. as a late finding -- pulmonary HTN certainly contributing. Otherwise as above Subjective Weston is feeling subjectively better today after diuresis. O2 requirements down to 12 L from 15, getting less winded with exertion. No acute complaints at present, understands that this might be a slow process. Review of Systems Review of Systems: All systems reviewed & are unremarkable except as noted in HPI & below Physical Exam Eyes: PERRL, conjunctivae normal, anicteric sclerae ENMT: external ear and nose normal, oropharynx normal Respiratory: Bilateral basilar crackles, decreased from yesterday, right greater than left resp rate back to upper limit of normal, only mild accessory muscle use, more conversationally able than previous. Cardiovascular: Rate/Rhythm: regular rate and regular rhythm Heart Sounds: normal S1 and normal S2 Vessels: no JVD Extremities: normal capillary refill and + pedal edema (Bilateral 1+ pitting edema ); no calf tenderness Gastrointestinal (Abdomen): normal bowel sounds, soft, nontender, no hepatosplenomegaly Skin: no rashes, warm and dry Results & Data Results & Data ([facility]) Vital Signs (Past 12 Hours) Vital Signs Temp Pulse Pulse Resp BP BP Pulse Ox 12/13/20 11:59 36.7 C 88 16 126/68 90 12/13/20 08:09 72 12/13/20 08:00 36.7 C 83 16 123/72 90 12/13/20 06:42 93 12/13/20 02:52 36.8 C 65 22 112/66 97 Resident Activity Tracking Resident Involvement: Resident Care Provided Care Provided: Adult Hospital Medicine (1) Respiratory failure Chronicity: acute Respiratory failure complication: hypoxia Qualified Code(s): J96.01 - Acute respiratory failure with hypoxia
--- NOTE | 2020-12-13 19:26 | Billing Data ---
Date of Service December 13, 2020 Coding Level of Care Code 03502 Subseq Hosp Care Lvl 3
[2020-12-13] MEDS: HEPARIN SOD 5,000 UNIT/0.5 ML VIAL SQ SCH (21:03)
[2020-12-13] MEDS: POTASSIUM CHLORIDE 10 MEQ TABCR PO SCH (21:03)
--- NOTE | 2020-12-13 22:15 | Billing Data ---
Date of Service December 13, 2020 Coding Level of Care Code 84987 Initial Inpt Care Lvl 3
[2020-12-14] MEDS: PIPERACILLIN/TAZOBACTAM 3.375 GM in DEXTROSE 5% 100 ML IV SCH ×3 (00:06→16:34)
[2020-12-14 07:53] LABS: Basophils # (auto) 0.03 K/uL (0-0.2); Basophils % (auto) 0.5 %; Eosinophils % (auto) 3.2 %; Hematocrit (blood only) 35.3 % (42-52); Hemoglobin 11.8 g/dL (14.0-18.0); Immature Granulocytes # (auto) 0.02 K/uL (0.00-0.02); Immature Granulocytes % (auto) 0.3 %; Lymphocytes # (auto) 1.31 K/uL (1.2-3.4); Lymphocytes % (auto) 20.7 %; Mean Corpuscular Hemoglobin 31.4 pg (25-34); Mean Corpuscular Hgb Conc 33.4 g/dL (32-36); Mean Corpuscular Volume 93.9 fL (80-100); Mean Platelet Volume 9.6 fL (7.4-10.4); Monocytes # (auto) 0.38 K/uL (0.11-0.59); Neutrophils # (auto) 4.38 K/uL (1.4-6.5); Neutrophils % (auto) 69.3 %; Platelet Count 190 K/uL (130-400); RDW Coefficient of Variation 14.7 % (11.5-14.5); RDW Standard Deviation 49.3 fL (36.4-46.3); Red Blood Count 3.76 M/uL (4.7-6.1); White Blood Count 6.32 K/uL (4.8-10.8)
[2020-12-14 08:28] LABS: Calcium 9.1 mg/dl (8.5-10.1); Creatinine Clr Calc Pharmacy 76.7 ml/min; Est GFR (African American) 87.4; Est GFR (Non-African American) 75.4; Potassium 2.9 mmol/L (3.5-5.1)
[2020-12-14] MEDS: DOXYCYCLINE HYCLATE 100 MG CAP PO SCH ×2 (08:30→20:46)
[2020-12-14] MEDS: MAGNESIUM CHLORIDE 64MG DELAYED REL TAB PO SCH (08:31)
[2020-12-14] MEDS: guaiFENesin 600 MG TABCR PO SCH ×2 (08:31→20:45)
[2020-12-14] MEDS: ATORVASTATIN 40 MG TAB PO SCH (08:31)
[2020-12-14] MEDS: CHOLECALCIFEROL 1,000 UNITS 25 MCG TAB PO SCH (08:31)
[2020-12-14] MEDS: METOPROLOL SUCC 50MG EXT REL TAB PO SCH (08:31)
[2020-12-14] MEDS: allopurinoL 300 MG TAB PO SCH (08:32)
[2020-12-14] MEDS: TAMSULOSIN HCL 0.4 MG CAP PO SCH (08:32)
[2020-12-14] MEDS: levETIRAcetam 250 MG TAB PO SCH ×2 (08:32→20:44)
[2020-12-14] MEDS: PANTOprazole 40 MG TAB PO SCH (08:32)
[2020-12-14] MEDS: ASCORBIC ACID 500 MG TAB PO SCH (08:33)
[2020-12-14] MEDS: amLODIPine BESYLATE 5 MG TAB PO SCH (08:33)
[2020-12-14] MEDS: POTASSIUM CHLORIDE 10 MEQ TABCR PO SCH ×3 (08:33→20:44)
[2020-12-14] MEDS: HEPARIN SOD 5,000 UNIT/0.5 ML VIAL SQ SCH ×2 (08:34→20:44)
[2020-12-14] MEDS: FLUTICASONE/VILANTEROL 100/25MCG 14 PUFFS/INHALER INH SCH (08:34)
[2020-12-14] MEDS ORDERED: POTASSIUM CHLORIDE CRTAB 20 MEQ TABCR PO STA (08:58)
[2020-12-14] MEDS: FUROSEMIDE 40 MG in SYRINGE 0 ML IV SCH ×2 (09:00→20:43)
--- NOTE | 2020-12-14 09:06 | Hospitalist Progress Note ---
Date of Service December 14, 2020 Assessment & Plan (1) Chronic kidney disease, stage III (moderate): 70-year-old male with past medical history of subdural hematoma with seizure, CKD stage III, GERD without esophagitis, transaminitis, pulmonary nodules, gout, hypertension, hyperlipidemia admitted for increasing shortness of breath and acute on chronic hypoxemic respiratory failure 1. Acute on chronic hypoxemic respiratory failure: improving CXR with RML and RLL consolidation, CTA chest without PE but of right middle lobe airspace consolidation as well as lower portion of the right upper lobe - Improving volume status with lasix 40 mg IV BID - WIll monitor renal function and lung exam/O2 demand to guide further diuresis, -4L for hospital stay - ON review of previous records patient has had evidence of this consolidation since he was seen for his subdural hematoma, question whether he had aspiration pneumonitis that led to aspiration pneumonia - zosyn. Blood cultures negative at 48 hours. - MRSA nares negative x2 - Passed speech eval, less likely to be recent aspiration Peripheral edema: improving Per patient peripheral edema is new proBNP 2416, similar to 1 month ago which was 2482 echo with evidence of right heart strain RV pressure >60 mmHg and reduced right ventricular functio - responding well to 40 mg IV lasix BID History subdural hematoma Per CT head, hematoma appears to have almost cleared compared to 1 month ago due to patients immobility will resume DVT prophylaxis as risk of DVT likely greater than rebleeding of his subdural hematoma after stability and resolution on CT scan Emphysema Received 1 treatment of DuoNebs in ER Continue fluticasone salmeterol inhaler, DuoNebs as needed for shortness of breath - Will add anticholinergic to chronic maintenance on d/c O2 goal greater than 90% VBG in ER: 7.43/39/34/25. No evidence of hypercapnic respiratory acidosis Electrolyte Derangements Potassium repeatedly low, repleting as necessary Abnormal UA Positive UA without urinary complaints, indwelling roberts cath - Covered with zosyn - culture growing pansensitive Pantoea agglomerans Coronary artery disease/hypertension Continue amlodipine 10, atorvastatin 80 daily Continue metoprolol succinate ER 100 daily Previously was on daily baby aspirin discontinued after subdural hematoma Gout Allopurinol 300 daily, indomethacin 50 3 times daily as needed for flare History of seizures 2/2 subdural hematoma Continue Keppra 750 p.o. twice daily GERD Continue lansoprazole per home regimen DVT prophylaxis: Heparin 5000 BID FEN/GI: Heart healthy diet, lansoprazole Dispo: MedSurg with telemetry, may need home therapy given fatigue and decompensation. PT OT ordered. Full Code (2) Atherosclerotic heart disease of [place] coronary artery without angina pectoris: (3) Chronic constipation: (4) GERD without esophagitis: (5) Peripheral neuropathy: (6) Transaminitis: (7) Respiratory failure: (8) SOB (shortness of breath): (9) Hypoxia: (10) GERD (gastroesophageal reflux disease): (11) Multiple pulmonary nodules: (12) Impaired fasting glucose: (13) Gouty arthritis: (14) Hypertension: (15) Hyperlipidemia: (16) History of colon polyps: Admission and Anticipated Discharge Date Admission Date: December 11, 2020 Supervising Physician Co-Signing Physician Notes Attending attestation Pt seen and examined in concert with Dr. Hall. In agreement with the documented findings as noted in the resident documentation with any exceptions or additions as noted here. Gradually improving subjective symptoms On examination, S1/S2 nl RRR no MCG. Decreased air movement at bases with mild rales R > L. Abd NT/ND BS+ve Acute on chronic hypoxemic respiratory failure in the setting of PNA, peripheral edema - transition to PO doxycycline to complete course. Continue furosemide BID and monitor creatinine and I/Os h/o subdural hematoma - recent, appears to be stable/improved - holding DVT PPx Abnormal UA - no true urinary sx reported, indwelling roberts, covered by current regimen Else see resident documentation as noted. Subjective No complaints today. States sleeping with oxymask is uncomfortable but he does not subjectively feel much better or worse than before. No chest pain, swelling, fatigue. Review of Systems Review of Systems: All systems reviewed & are unremarkable except as noted in Subjective Physical Exam Physical Exam: Constitutional: elderly male in no apparent distress, sitting up in chair with nasal cannula on Eyes: EOMI, pupils equal and reactive bilaterally, no scleral icterus Cardiac: RRR, no murmurs, gallops or rubs. Normal S1, S2 Pulm: on 8L NC, good air movement throughout both lungs, no focal wheezes, rhonchi. Minor crackling at base of right lung base Abd: soft, nontender, nondistended, normal bowel sounds, no rebound or guarding Results & Data Results & Data ([facility]) Vital Signs (Past 12 Hours) Vital Signs Temp Pulse Pulse Resp BP Pulse Ox Pulse Ox 12/14/20 07:48 37.0 C 75 20 131/75 94 12/14/20 07:10 68 12/14/20 04:17 36.8 C 75 22 133/76 91 12/14/20 00:40 70 93 12/13/20 22:59 36.7 C 61 22 111/63 91 12/13/20 21:20 93 CBC: normal WBC, Hg 11.8 BMP: K 2.9, BUN/Cr 12/1.0 Resident Activity Tracking Resident Involvement: Resident Care Provided Care Provided: Adult Hospital Medicine (1) Respiratory failure Chronicity: acute Respiratory failure complication: hypoxia Qualified Code(s): J96.01 - Acute respiratory failure with hypoxia
[2020-12-14] MEDS: POTASSIUM CHLORIDE / WTR 10 MEQ/100 ML PLCT IV SCH ×2 (10:02→12:20)
--- NOTE | 2020-12-14 12:16 | Fluoroscopy Report ---
FL video swallow HISTORY: Pulmonary opacities. Pneumonia. r/o aspiration TECHNIQUE: Video fluoroscopic evaluation of swallowing was performed in the AP and lateral projection s by the speech pathology staff. The patient is fed nectar-thick and thin liquid barium, a barium coa carlitos wafer, and barium pudding. FLUOROSCOPY TIME: 1.4 minutes. A cine loop submitted. COMPARISON STUDY: None. FINDINGS: There is normal hyoid excursion and epiglottic deflection. No significant penetration or as piration identified. Swallowing function is within normal limits. Mild esophageal dysmotility. IMPRESSION: 1. No aspiration identified. Mild esophageal dysmotility. 2. Please see the speech pathologist report for detailed findings and recommendations. ACT 112: Negative or not required by law. Electronically signed by: Wallace Jean Baptiste M.D. 12/14/2020 12:14 PM
[2020-12-15] MEDS: PIPERACILLIN/TAZOBACTAM 3.375 GM in DEXTROSE 5% 100 ML IV SCH ×3 (00:15→17:44)
[2020-12-15 07:20] LABS: Basophils # (auto) 0.02 K/uL (0-0.2); Basophils % (auto) 0.3 %; Eosinophils # (auto) 0.23 K/uL (0-0.5); Eosinophils % (auto) 3.1 %; Hematocrit (blood only) 35.7 % (42-52); Hemoglobin 11.9 g/dL (14.0-18.0); Immature Granulocytes # (auto) 0.01 K/uL (0.00-0.02); Immature Granulocytes % (auto) 0.1 %; Lymphocytes # (auto) 1.53 K/uL (1.2-3.4); Lymphocytes % (auto) 20.8 %; Mean Corpuscular Hemoglobin 31.3 pg (25-34); Mean Corpuscular Hgb Conc 33.3 g/dL (32-36); Mean Corpuscular Volume 93.9 fL (80-100); Mean Platelet Volume 9.7 fL (7.4-10.4); Monocytes % (auto) 5.4 %; Neutrophils # (auto) 5.18 K/uL (1.4-6.5); Neutrophils % (auto) 70.3 %; Platelet Count 169 K/uL (130-400); RDW Coefficient of Variation 14.7 % (11.5-14.5); RDW Standard Deviation 49.2 fL (36.4-46.3); White Blood Count 7.37 K/uL (4.8-10.8)
[2020-12-15] MEDS: FLUTICASONE/VILANTEROL 100/25MCG 14 PUFFS/INHALER INH SCH (08:00)
[2020-12-15] MEDS: MAGNESIUM CHLORIDE 64MG DELAYED REL TAB PO SCH (08:01)
[2020-12-15] MEDS: METOPROLOL SUCC 50MG EXT REL TAB PO SCH (08:01)
[2020-12-15] MEDS: POTASSIUM CHLORIDE 10 MEQ TABCR PO SCH ×3 (08:01→20:47)
[2020-12-15] MEDS: TAMSULOSIN HCL 0.4 MG CAP PO SCH (08:01)
[2020-12-15] MEDS: guaiFENesin 600 MG TABCR PO SCH ×2 (08:01→20:48)
[2020-12-15] MEDS: ASCORBIC ACID 500 MG TAB PO SCH (08:02)
[2020-12-15] MEDS: amLODIPine BESYLATE 5 MG TAB PO SCH (08:02)
[2020-12-15] MEDS: DOXYCYCLINE HYCLATE 100 MG CAP PO SCH ×2 (08:02→20:49)
[2020-12-15] MEDS: PANTOprazole 40 MG TAB PO SCH (08:03)
[2020-12-15] MEDS: levETIRAcetam 250 MG TAB PO SCH ×2 (08:03→20:48)
[2020-12-15] MEDS: CHOLECALCIFEROL 1,000 UNITS 25 MCG TAB PO SCH (08:03)
[2020-12-15 08:04] LABS: BUN Creatinine Ratio 15.1 (10-20); Calcium 8.9 mg/dl (8.5-10.1); Creatinine Clr Calc Pharmacy 79.8 ml/min; Est GFR (African American) 91.8; Est GFR (Non-African American) 79.2; Potassium 3.1 mmol/L (3.5-5.1)
[2020-12-15] MEDS: FUROSEMIDE 40 MG in SYRINGE 0 ML IV SCH ×2 (08:04→20:48)
[2020-12-15] MEDS: ATORVASTATIN 40 MG TAB PO SCH (08:04)
[2020-12-15] MEDS: HEPARIN SOD 5,000 UNIT/0.5 ML VIAL SQ SCH ×2 (08:04→20:47)
[2020-12-15] MEDS ORDERED: POTASSIUM CHLORIDE CRTAB 20 MEQ TABCR PO STA (08:14)
--- NOTE | 2020-12-15 08:52 | Hospitalist Progress Note ---
Date of Service December 15, 2020 Assessment & Plan (1) Chronic kidney disease, stage III (moderate): 70-year-old male with past medical history of subdural hematoma with seizure, CKD stage III, GERD without esophagitis, transaminitis, pulmonary nodules, gout, hypertension, hyperlipidemia admitted for increasing shortness of breath and acute on chronic hypoxemic respiratory failure 1. Acute on chronic hypoxemic respiratory failure: improving CXR with RML and RLL consolidation, CTA chest without PE but of right middle lobe airspace consolidation as well as lower portion of the right upper lobe - most likely aspiration pneumonitis on top of - Improving volume status with lasix 40 mg IV BID, -4.5L for stay - zosyn for aspiration coverage. Blood cultures negative at 48 hours. - MRSA nares negative x2 - Passed speech eval, less likely to be recent aspiration Peripheral edema: improving Per patient peripheral edema is new proBNP 2416, similar to 1 month ago which was 2482 echo with evidence of right heart strain RV pressure >60 mmHg and reduced right ventricular functio - responding well to 40 mg IV lasix BID History subdural hematoma Per CT head, hematoma appears to have almost cleared compared to 1 month ago due to patients immobility will resume DVT prophylaxis as risk of DVT likely greater than rebleeding of his subdural hematoma after stability and resolution on CT scan Emphysema Received 1 treatment of DuoNebs in ER Continue fluticasone salmeterol inhaler, DuoNebs as needed for shortness of breath - Will add anticholinergic to chronic maintenance on d/c O2 goal greater than 90% VBG in ER: 7.43/39/34/25. No evidence of hypercapnic respiratory acidosis Electrolyte Derangements Potassium repeatedly low, repleting as necessary Abnormal UA Positive UA without urinary complaints, indwelling roberts cath - Covered with zosyn - culture growing pansensitive Pantoea agglomerans Coronary artery disease/hypertension Continue amlodipine 10, atorvastatin 80 daily Continue metoprolol succinate ER 100 daily Previously was on daily baby aspirin discontinued after subdural hematoma Gout Allopurinol 300 daily, indomethacin 50 3 times daily as needed for flare History of seizures 2/2 subdural hematoma Continue Keppra 750 p.o. twice daily GERD Continue lansoprazole per home regimen DVT prophylaxis: Heparin 5000 BID FEN/GI: Heart healthy diet, lansoprazole Dispo: MedSurg with telemetry, may need home therapy given fatigue and decompensation. PT OT ordered. Full Code (2) Atherosclerotic heart disease of [place] coronary artery without angina pectoris: (3) Chronic constipation: (4) GERD without esophagitis: (5) Peripheral neuropathy: (6) Transaminitis: (7) Respiratory failure: (8) SOB (shortness of breath): (9) Hypoxia: (10) GERD (gastroesophageal reflux disease): (11) Multiple pulmonary nodules: (12) Impaired fasting glucose: (13) Gouty arthritis: (14) Hypertension: (15) Hyperlipidemia: (16) History of colon polyps: Admission and Anticipated Discharge Date Admission Date: December 11, 2020 Supervising Physician Co-Signing Physician Notes Attending attestation Pt seen and examined in concert with Dr. Hall. In agreement with the documented findings as noted in the resident documentation with any exceptions or additions as noted here. Gradually improving subjective symptoms On examination, S1/S2 nl RRR no MCG. Decreased air movement at bases with mild rales R > L. Abd NT/ND BS+ve Acute on chronic hypoxemic respiratory failure in the setting of PNA, peripheral edema - continue doxycycline. Continue furosemide BID and monitor creatinine and I/Os. Wean O2 as tolerated, if plateau'd, 2 step and continue same h/o subdural hematoma - recent, appears to be stable/improved - holding DVT PPx Abnormal UA - no true urinary sx reported, indwelling roberts, covered by current regimen Else see resident documentation as noted. Subjective feeling well this morning. was able to get up and walk to bathroom with walker with minimal SOB. subjectively feels better. no issues overnight. Review of Systems Review of Systems: All systems reviewed & are unremarkable except as noted in Subjective Physical Exam Physical Exam: Constitutional: elderly male in no apparent distress, sitting up in chair with nasal cannula on Cardiac: RRR, no murmurs, gallops or rubs. Normal S1, S2 Pulm: on 6L NC, good air movement throughout both lungs, no focal wheezes, rhonchi. Extremities: 1+ pitting edema to mid-wise, improved from admission Results & Data Results & Data ([facility]) Vital Signs (Past 12 Hours) Vital Signs Temp Pulse Pulse Resp BP Pulse Ox Pulse Ox 12/15/20 08:04 36.8 C 70 18 134/77 91 12/15/20 06:03 93 12/15/20 03:25 36.9 C 66 18 107/66 93 12/15/20 01:14 68 12/14/20 22:41 36.6 C 69 17 109/61 93 12/14/20 22:15 89 L Laboratory Results WBC 7.37 K/uL (4.8-10.8) 12/15/20 06:27 RBC 3.80 M/uL (4.7-6.1) L 12/15/20 06:27 Hgb 11.9 g/dL (14.0-18.0) L 12/15/20 06:27 Hct 35.7 % (42-52) L 12/15/20 06:27 MCV 93.9 fL (80-100) 12/15/20 06:27 MCH 31.3 pg (25-34) 12/15/20 06:27 MCHC 33.3 g/dL (32-36) 12/15/20 06:27 RDW Std Deviation 49.2 fL (36.4-46.3) H 12/15/20 06:27 RDW Coeff of [place] 14.7 % (11.5-14.5) H 12/15/20 06:27 Plt Count 169 K/uL (130-400) 12/15/20 06:27 MPV 9.7 fL (7.4-10.4) 12/15/20 06:27 Immature Gran % (Auto) 0.1 % 12/15/20 06:27 Neut % (Auto) 70.3 % 12/15/20 06:27 Lymph % (Auto) 20.8 % 12/15/20 06:27 [place] % (Auto) 5.4 % 12/15/20 06:27 Eos % (Auto) 3.1 % 12/15/20 06:27 Baso % (Auto) 0.3 % 12/15/20 06:27 Neut # (Auto) 5.18 K/uL (1.4-6.5) 12/15/20 06:27 Lymph # (Auto) 1.53 K/uL (1.2-3.4) 12/15/20 06:27 [place] # (Auto) 0.40 K/uL (0.11-0.59) 12/15/20 06:27 Eos # (Auto) 0.23 K/uL (0-0.5) 12/15/20 06:27 Baso # (Auto) 0.02 K/uL (0-0.2) 12/15/20 06:27 Immature Gran # (Auto) 0.01 K/uL (0.00-0.02) 12/15/20 06:27 Absolute Nucleated RBC Cancelled 12/13/20 07:36 Nucleated RBC % (auto) Cancelled 12/13/20 07:36 Neutrophils % (Manual) Cancelled 12/13/20 07:36 Band Neutrophils % Cancelled 12/13/20 07:36 Lymphocytes % (Manual) Cancelled 12/13/20 07:36 Prolymphocyte % Cancelled 12/13/20 07:36 Reactive Lymphs % (Man) Cancelled 12/13/20 07:36 Monocytes % (Manual) Cancelled 12/13/20 07:36 Eosinophils % (Manual) Cancelled 12/13/20 07:36 Basophils % (Manual) Cancelled 12/13/20 07:36 Metamyelocytes % (Man) Cancelled 12/13/20 07:36 Myelocytes % (Man) Cancelled 12/13/20 07:36 Promyelocytes % (Man) Cancelled 12/13/20 07:36 Blast Cells % (Manual) Cancelled 12/13/20 07:36 Plasma Cell % (Manual) Cancelled 12/13/20 07:36 Other Cells % Cancelled 12/13/20 07:36 Nucleated RBC % Cancelled 12/13/20 07:36 Neutrophils # (Manual) Cancelled 12/13/20 07:36 Band Neutrophils # Cancelled 12/13/20 07:36 Total Absolute Neuts Cancelled 12/13/20 07:36 Lymphocytes # (Manual) Cancelled 12/13/20 07:36 Prolymphocyte # Cancelled 12/13/20 07:36 Reactive Lymphs # Cancelled 12/13/20 07:36 Total Abs Lymphocytes Cancelled 12/13/20 07:36 Monocytes # (Manual) Cancelled 12/13/20 07:36 Eosinophils # (Manual) Cancelled 12/13/20 07:36 Basophils # (Manual) Cancelled 12/13/20 07:36 Metamyelocytes # (Man) Cancelled 12/13/20 07:36 Myelocytes # (Manual) Cancelled 12/13/20 07:36 Promyelocytes # (Man) Cancelled 12/13/20 07:36 Blast Cells # (Man) Cancelled 12/13/20 07:36 Plasma Cell # (Manual) Cancelled 12/13/20 07:36 Other Cells # Cancelled 12/13/20 07:36 Nucleated RBCs # (Man) Cancelled 12/13/20 07:36 Hypersegmented Neuts Cancelled 12/13/20 07:36 Hyposegmented Neuts Cancelled 12/13/20 07:36 Hypogranular Neuts Cancelled 12/13/20 07:36 Large Granular Lymphs Cancelled 12/13/20 07:36 # Lrg Granular Lymphs Cancelled 12/13/20 07:36 Hairy Cells Cancelled 12/13/20 07:36 Smudge Cells Cancelled 12/13/20 07:36 Toxic Granulation Cancelled 12/13/20 07:36 Toxic Vacuolation Cancelled 12/13/20 07:36 Dohle Bodies Cancelled 12/13/20 07:36 Kyaw Rods Cancelled 12/13/20 07:36 Platelet Estimate Cancelled 12/13/20 07:36 Hypogranular Platelets Cancelled 12/13/20 07:36 Clumped Platelets Cancelled 12/13/20 07:36 Giant Platelets Cancelled 12/13/20 07:36 Platelet Satelliting Cancelled 12/13/20 07:36 RBC Morphology Cancelled 12/13/20 07:36 Polychromasia Cancelled 12/13/20 07:36 Hypochromasia Cancelled 12/13/20 07:36 Poikilocytosis Cancelled 12/13/20 07:36 Basophilic Stippling Cancelled 12/13/20 07:36 Anisocytosis Cancelled 12/13/20 07:36 Microcytosis Cancelled 12/13/20 07:36 Macrocytosis Cancelled 12/13/20 07:36 Spherocytes Cancelled 12/13/20 07:36 Pappenheimer Bodies Cancelled 12/13/20 07:36 Sickle Cells Cancelled 12/13/20 07:36 Target Cells Cancelled 12/13/20 07:36 Tear Drop Cells Cancelled 12/13/20 07:36 Ovalocytes Cancelled 12/13/20 07:36 Stomatocytes Cancelled 12/13/20 07:36 Smith-Dulce Bodies Cancelled 12/13/20 07:36 Echinocytes Cancelled 12/13/20 07:36 Acanthocytes (Spur) Cancelled 12/13/20 07:36 Rouleaux Cancelled 12/13/20 07:36 RBC Agglutinates Cancelled 12/13/20 07:36 Schistocytes Cancelled 12/13/20 07:36 RBC Morph Comment Cancelled 12/13/20 07:36 ESR 22 mm/hr (0-14) H 12/11/20 16:23 Sezary Cell Cancelled 12/13/20 07:36 PT 11.2 Seconds (9.0-12.0) 12/11/20 16:23 INR 1.1 (0.9-1.1) 12/11/20 16:23 APTT 32.6 Seconds (21.0-31.0) H 12/11/20 16:23 PTT Ratio 1.2 12/11/20 16:23 D-Dimer 3020 ug/L FEU (0-500) H* 12/11/20 16:23 VBG pH 7.43 (7.36-7.41) H 12/11/20 16:23 VBG pCO2 39 mmHg (38-50) 12/11/20 16:23 VBG pO2 34 mmHg 12/11/20 16:23 VBG HCO3 25 mmol/L 12/11/20 16:23 VBG O2 Saturation 64.5 % 12/11/20 16:23 VBG Base Excess 1.0 mEq/L 12/11/20 16:23 Barometric Pressure 725.3 mm/Hg 12/11/20 16:23 Sodium 141 mmol/L (136-145) 12/15/20 06:27 Potassium 3.1 mmol/L (3.5-5.1) L 12/15/20 06:27 Chloride 106 mmol/L (98-107) 12/15/20 06:27 Carbon Dioxide 28 mmol/L (21-32) 12/15/20 06:27 Anion Gap 7.0 (3-11) 12/15/20 06:27 BUN 15 mg/dl (7-18) 12/15/20 06:27 Creatinine 0.96 mg/dl (0.6-1.4) 12/15/20 06:27 Est Cr Clr Drug Dosing 79.8 ml/min 12/15/20 06:27 Est GFR ( Amer) 91.8 12/15/20 06:27 Est GFR (Non-Af Amer) 79.2 12/15/20 06:27 BUN/Creatinine Ratio 15.1 (10-20) 12/15/20 06:27 Glucose 81 mg/dl (70-99) 12/15/20 06:27 Lactate 2.0 mmol/L (0.4-2.0) 12/11/20 16:23 Calcium 8.9 mg/dl (8.5-10.1) 12/15/20 06:27 Magnesium 2.1 mg/dl (1.8-2.4) 12/12/20 07:29 Total Bilirubin 2.1 mg/dl (0.2-1) H 12/11/20 16:23 AST 12 U/L (15-37) L 12/11/20 16:23 ALT 21 U/L (12-78) 12/11/20 16:23 Alkaline Phosphatase 127 U/L (45-117) H 12/11/20 16:23 Troponin I < 0.015 ng/ml (0-0.045) 12/11/20 16:23 C-Reactive Protein 0.38 mg/dl (0-0.29) H 12/11/20 16:23 C-Reactive Protein Cancelled 12/11/20 16:23 NT-Pro-B Natriuret Pep 2416 pg/ml (0-900) H 12/11/20 16:23 Total Protein 7.5 gm/dl (6.4-8.2) 12/11/20 16:23 Albumin 3.4 gm/dl (3.4-5.0) 12/11/20 16:23 Globulin 4.1 gm/dl (2.5-4.0) H 12/11/20 16:23 Albumin/Globulin Ratio 0.8 (0.9-2) L 12/11/20 16:23 Procalcitonin < 0.05 ng/ml (0-0.5) 12/11/20 18:50 Urine Color Yellow 12/11/20 17:15 Urine Appearance Clear (Clear) 12/11/20 17:15 Urine pH 5.5 (4.5-7.5) 12/11/20 17:15 Ur Specific [place] 1.019 (1.000-1.030) 12/11/20 17:15 Urine Protein Trace (Negative) H 12/11/20 17:15 Urine Glucose (UA) Negative (Negative) 12/11/20 17:15 Urine Ketones Negative (Negative) 12/11/20 17:15 Urine Blood Negative (Negative) 12/11/20 17:15 Urine Nitrite Positive (Negative) A 12/11/20 17:15 Urine Bilirubin Negative (Negative) 12/11/20 17:15 Urine Urobilinogen Negative (Negative) 12/11/20 17:15 Ur Leukocyte Esterase Negative (Negative) 12/11/20 17:15 Urine WBC (Auto) 1-5 /hpf (0-5) 12/11/20 17:15 Urine RBC (Auto) 0-4 /hpf (0-4) 12/11/20 17:15 U Hyaline Cast (Auto) 1-5 /lpf (0-5) 12/11/20 17:15 U Epithel Cells (Auto) 5-10 /lpf (0-5) H 12/11/20 17:15 Urine Bacteria (Auto) 2+ (Negative) H 12/11/20 17:15 Nasal Screen MRSA (PCR) Negative (Negative) 12/12/20 05:00 COVID-19 Eval Order CovFluRsv at [facility] 12/11/20 18:00 SARS-CoV-2 (PCR) NEGATIVE (Negative) 12/11/20 18:00 Influenza Type A (PCR) Negative (Neg) 12/11/20 18:00 Influenza Type B (PCR) Negative (Neg) 12/11/20 18:00 RSV (RT-PCR) Negative (Neg) 12/11/20 18:00 Impressions Videofluoroscopic Swallow 12/14/20 00:00 FL video swallow HISTORY: Pulmonary opacities. Pneumonia. r/o aspiration TECHNIQUE: Video fluoroscopic evaluation of swallowing was performed in the AP and lateral projections by the speech pathology staff. The patient is fed nectar-thick and thin liquid barium, a barium coated wafer, and barium pudding. FLUOROSCOPY TIME: 1.4 minutes. A cine loop submitted. COMPARISON STUDY: None. FINDINGS: There is normal hyoid excursion and epiglottic deflection. No significant penetration or aspiration identified. Swallowing function is within normal limits. Mild esophageal dysmotility. IMPRESSION: 1. No aspiration identified. Mild esophageal dysmotility. 2. Please see the speech pathologist report for detailed findings and recommendations. ACT 112: Negative or not required by law. Electronically signed by: Wallace Jean Baptiste M.D. 12/14/2020 12:14 PM Resident Activity Tracking Resident Involvement: Resident Care Provided Care Provided: Adult Hospital Medicine (1) Respiratory failure Chronicity: acute Respiratory failure complication: hypoxia Qualified Code(s): J96.01 - Acute respiratory failure with hypoxia
[2020-12-15] MEDS: allopurinoL 300 MG TAB PO SCH (11:22)
[2020-12-16] MEDS: PIPERACILLIN/TAZOBACTAM 3.375 GM in DEXTROSE 5% 100 ML IV SCH ×2 (01:57→07:49)
[2020-12-16] MEDS: amLODIPine BESYLATE 5 MG TAB PO SCH (07:49)
[2020-12-16] MEDS: allopurinoL 300 MG TAB PO SCH (07:49)
[2020-12-16] MEDS: DOXYCYCLINE HYCLATE 100 MG CAP PO SCH (07:50)
[2020-12-16] MEDS: ATORVASTATIN 40 MG TAB PO SCH (07:50)
[2020-12-16] MEDS: CHOLECALCIFEROL 1,000 UNITS 25 MCG TAB PO SCH (07:50)
[2020-12-16] MEDS: ASCORBIC ACID 500 MG TAB PO SCH (07:50)
[2020-12-16] MEDS: FUROSEMIDE 40 MG in SYRINGE 0 ML IV SCH (07:50)
[2020-12-16] MEDS: MAGNESIUM CHLORIDE 64MG DELAYED REL TAB PO SCH (07:51)
[2020-12-16] MEDS: levETIRAcetam 250 MG TAB PO SCH (07:51)
[2020-12-16] MEDS: guaiFENesin 600 MG TABCR PO SCH (07:51)
[2020-12-16] MEDS: METOPROLOL SUCC 50MG EXT REL TAB PO SCH (07:51)
[2020-12-16] MEDS: PANTOprazole 40 MG TAB PO SCH (07:52)
[2020-12-16] MEDS: TAMSULOSIN HCL 0.4 MG CAP PO SCH (07:52)
[2020-12-16] MEDS: POTASSIUM CHLORIDE 10 MEQ TABCR PO SCH (07:52)
[2020-12-16] MEDS: HEPARIN SOD 5,000 UNIT/0.5 ML VIAL SQ SCH (07:53)
[2020-12-16] MEDS: FLUTICASONE/VILANTEROL 100/25MCG 14 PUFFS/INHALER INH SCH (07:53)
[2020-12-16 08:05] LABS: Basophils # (auto) 0.03 K/uL (0-0.2); Basophils % (auto) 0.4 %; Eosinophils % (auto) 4.2 %; Hematocrit (blood only) 35.4 % (42-52); Hemoglobin 11.9 g/dL (14.0-18.0); Immature Granulocytes # (auto) 0.01 K/uL (0.00-0.02); Immature Granulocytes % (auto) 0.1 %; Lymphocytes # (auto) 1.33 K/uL (1.2-3.4); Lymphocytes % (auto) 18.5 %; Mean Corpuscular Hemoglobin 31.6 pg (25-34); Mean Corpuscular Hgb Conc 33.6 g/dL (32-36); Mean Corpuscular Volume 93.9 fL (80-100); Mean Platelet Volume 9.4 fL (7.4-10.4); Monocytes # (auto) 0.45 K/uL (0.11-0.59); Monocytes % (auto) 6.3 %; Neutrophils # (auto) 5.07 K/uL (1.4-6.5); Neutrophils % (auto) 70.5 %; Platelet Count 192 K/uL (130-400); RDW Coefficient of Variation 14.7 % (11.5-14.5); RDW Standard Deviation 49.3 fL (36.4-46.3); Red Blood Count 3.77 M/uL (4.7-6.1); White Blood Count 7.19 K/uL (4.8-10.8)
[2020-12-16 08:44] LABS: Creatinine Clr Calc Pharmacy 58.5 ml/min; Est GFR (Non-African American) 54.4; Potassium 3.5 mmol/L (3.5-5.1)
--- NOTE | 2020-12-16 09:35 | Discharge Summary ---
Date of Service December 16, 2020 Admission HPI Per Admitting Provider 70-year-old male with past medical history of recent subdural hematoma treated in October 2020, severe emphysema on 2L o2, GERD, gout, hypertension, hyperlipidemia, CAD w/2 stents, who presents emergency department for worsening shortness of breath. He states that he has been on oxygen since his admission to [facility] and October and was doing well at home on 2 L of oxygen 24/. Last night he started to feel increasingly short of breath and needed to increase his oxygen requirement. He noted that when he got up to go to the restroom he was much shorter of breath and felt increasingly fatigued. He denies any fevers at home but does state he feels chills. He denies any presence of cough or chest pain or chest tightness. He does note that he has swelling in his legs bilaterally which is new to him. He denies any history of heart failure or cardiac diagnoses after his 2 stents that were placed approximately 10 years ago. His home nurse saw him with a worsening oxygen requirement and recommended he came to the emergency department. ER course significant for: CTA chest negative for pulmonary embolism, Showing patchy airspace infiltrate of right middle and partial upper lobe. CT head negative for acute changes showing near complete resolution of previous subdural hematoma. Blood cultures ordered, started on Zosyn. Admission Exam Per Admitting Provider Constitutional: elderly male in no apparent distress, laying in bed with oxymask on Eyes: EOMI, pupils equal and reactive bilaterally, no scleral icterus Cardiac: RRR, no murmurs, gallops or rubs. Normal S1, S2 Pulm: on 8L oxymask, poor air movement throughout both lungs, no focal wheezes, rhonchi, crackles Abd: soft, nontender, nondistended, normal bowel sounds, no rebound or guarding Extremities: 3+ pitting edema bilaterally to knees, Skin: reddening of skin over shins, blanchable Neuro: no focal deficits, moving all 4 limbs, A&Ox3 Principal Diagnosis hospital associated pneumonia, pulmonary edema Discharge Exam Constitutional: in no apparent distress sitting comfortably in chair at bedside Eyes: EOMI, pupils equal and reactive bilaterally, no scleral icterus Cardiac: RRR, no murmurs, gallops or rubs. Normal S1, S2 Pulm: CTA BL, no wheezes, rhonchi, crackles or rubs, moving air well throughout both lungs, breathing comfortably on 2L NC Abd: soft, nontender, nondistended, normal bowel sounds, no rebound or guarding Extremities: 2+ peripheral pulses, 1+ pitting edema to midshin Neuro: no focal deficits, moving all 4 limbs, A&Ox3 Discharge Data Allergies Allergy/AdvReac Type Severity Reaction Status Date / Time bee venom protein (honey bee) Allergy Severe hives in Verified 12/11/20 17:41 throat, trouble breathing Consultations 12/11/20 19:26 ED Decision to Admit Stat 12/12/20 07:19 Consult Health Information Management Routine Ordered Studies 12/11/20 17:34 CT angio chest PE protocol Stat CT head/brain wo con Stat 12/14/20 00:00 Fluoro video [FL video swallow] Routine Hospital Course (1) Chronic kidney disease, stage III (moderate): 70-year-old male with past medical history of subdural hematoma with seizure, CKD stage III, GERD without esophagitis, transaminitis, pulmonary nodules, gout, hypertension, hyperlipidemia admitted for increasing shortness of breath and acute on chronic hypoxemic respiratory failure 1. Acute on chronic hypoxemic respiratory failure: resolved CXR with RML and RLL consolidation, CTA chest without PE but right middle lobe airspace consolidation as well as lower portion of the right upper lobe - given previous xrays and scan at last admission, most likely hospital associated pneumonia - treated for 6 days with IV zosyn and doxycycline, converted to augmentin and doxy at discharge, to finish regimen on 12/17. - speech evaluation in hospital showed esophageal dysmotility without aspiration Peripheral edema: improving - Cardiac echo showing evidence of right heart strain and RV pressure > 60 mmgHg and reduced right ventricular function. - Left and right atrium moderately dilated - normal left ventricular systolic function - improved with 40 mg IV lasix BID for multiple days. Per patient, was previously on water pill but was no longer taking it prior to admission. - Discuss repeat echo in a few months for evaluation of pulmonary htn, restarting water pill - creatinine 1.33 on discharge History subdural hematoma Per CT head, hematoma appears to have almost cleared compared to 1 month ago Electrolyte Derangements Potassium repeatedly low on furosemide despite taking 10 mg potassium TID. - consider alternate diuretic in future or medication change All other chronic medical conditions managed per home regimens. (2) Atherosclerotic heart disease of [place] coronary artery without angina pectoris: (3) Chronic constipation: (4) GERD without esophagitis: (5) Peripheral neuropathy: (6) Transaminitis: (7) Respiratory failure: (8) SOB (shortness of breath): (9) Hypoxia: (10) GERD (gastroesophageal reflux disease): (11) Multiple pulmonary nodules: (12) Impaired fasting glucose: (13) Gouty arthritis: (14) Hypertension: (15) Hyperlipidemia: (16) History of colon polyps: Total Time Total Time Spent Total Time Spent (In Minutes): see attending attestation Discharge Plan Discharge Items Patient Disposition: Home - Home Health Services Reason For Visit: PNEUMONIA Discharge Diagnosis: hospital associated pneumonia, pulmonary htn Condition on Discharge: Good Activity: Resume your previous activity Non-emergency contact: Primary Care Provider and Cloth Colors Examiner Call non-emergency contact if: you have any medication questions and your symptoms worsen Follow-up/Referrals: Sixto Bryan MD [Primary Care Provider] - 12/21/20 10:00 am (This will be at the [facility]) Diet: Low Sodium (2gm) Addtl Attending Provider Instructions: You were seen in the hospital for new shortness of breath and higher oxygen requirement. This was most likely due to a pneumonia that you got when you were in the hospital at [facility]. Your oxygen requirement has come down considerably and should continue to improve. You will need to finish a total of 2 more days of antibiotics. The prescriptions for them have been written below and sent to your pharmacy. Check in with Dr. Bryan at your follow up visit if your symptoms do not continue to improve or if they worsen for any reason. Antibiotics Doxycycline: 1 tab, twice a day until 12/17 Augmentin: 1 tab, twice a day until 12/17 The swelling in your legs was due to elevated pressures in the right side of your heart causing fluid back up into your legs. You may not need medications for this in the future, but should follow up with Dr. Bryan to discuss getting repeat testing and imaging of your heart. Your echocardiogram did not show any problems with the left side of your heart, but it is important to eat a low salt diet to control your blood pressure and prevent stress and damage to your heart. Foods high in salt include lunch meats, soup, pre-packaged meals like tv dinners, pasta sauce. Pending Studies at Discharge: No Stand-Alone Forms: [facility] Cess[facility] Medications and DC Order Prescriptions: New amoxicillin-pot clavulanate [Augmentin] 875-125 mg Tablet 1 tab PO BIDM Qty: 4 RF: 0 doxycycline hyclate 100 mg Capsule 100 mg PO BID Qty: 4 RF: 0 potassium chloride [Klor-Con M10] 10 mEq Tablet,Er Particles/Crystals 10 meq PO TID Qty: 30 RF: 0 polyethylene glycol 3350 [Miralax] 17 gram Powder In Packet 17 g PO DAILY PRN (Reason: constipation) 30 Days Qty: 30 RF: 0 Continued lansoprazole 30 mg capsule,delayed release(DR/EC) 30 mg PO QAM Qty: 90 RF: 1 cholecalciferol (vitamin D3) 1,000 unit (25 mcg) tablet 1,000 units PO QAM RF: 0 atorvastatin 80 mg Tablet 80 mg PO QAM RF: 0 Citrucel 500 mg Tablet 500 mg PO QAM RF: 0 magnesium chloride 64 mg Tablet Extended Release 64 mg PO QAM RF: 0 tamsulosin [Flomax] 0.4 mg capsule 0.4 mg PO QAM RF: 0 indomethacin 50 mg Capsule 50 mg PO TID PRN (Reason: gout pain) RF: 0 levetiracetam [Keppra] 750 mg tablet 750 mg PO BID RF: 0 metoprolol succinate 100 mg tablet extended release 24 hr 100 mg PO QAM RF: 0 allopurinol 300 mg tablet 300 mg PO QAM RF: 0 fluticasone propion-salmeterol [Wixela Inhub] 250-50 mcg/dose blister with device 1 ea INHALATION BID RF: 0 Vitamin C 1,000 mg Tablet Extended Release 1,000 mg PO QAM RF: 0 albuterol sulfate 90 mcg/actuation HFA aerosol inhaler 2 puff INHALATION Q6H PRN (Reason: Shortness Of Breath Or Wheezing) RF: 0 amlodipine 10 mg tablet 10 mg PO QAM RF: 0 Discontinued mineral oil Oil 15 ml PO DAILY RF: 0 guaifenesin [Mucinex] 600 mg Tablet Extended Release 12hr 600 mg PO BID RF: 0 Discharge Orders: Discharge Order (Routine); Ordered 12/16/20 Ordered By: Janki Hall Admission Data Admit Date/Time: 12/11/20 20:08 Attending Provider: Cesar Alva Admit Provider: Janki Hall Primary Care Provider: Sixto Bryan Other Providers: Vazquez Narvaez ; [facility] ; Janki Hall Other Interventions: Discharge Summary Assessment (RN) Last Done: 12/16/20 12:06 Supervising Physician Co-Signing Physician Notes Attending attestation Pt seen and examined in concert with Dr. Hall. In agreement with the documented findings as noted in the resident documentation with any exceptions or additions as noted here. Gradually improving subjective symptoms On examination, S1/S2 nl RRR no MCG. Decreased air movement at bases with mild rales R > L. Abd NT/ND BS+ve Acute on chronic hypoxemic respiratory failure in the setting of PNA, peripheral edema - transition to PO augmentin/doxy to complete course. Consider resumption of standing home furosemide at PCP f/u with BMP. O2 needs as noted. Else see resident documentation as noted. Total attending time spent on this case on the day of discharge: 20 minutes. Resident Activity Tracking Resident Involvement: Resident Care Provided Care Provided: Adult Hospital Medicine
[2020-12-16] MEDS ORDERED: AMOXICILLIN/CLAVULANATE 875 MG TAB PO SCH (17:00)
== END 2020-12-16 14:22 | disposition home health service (06) | DRG 193 ==
LOC: ED 15:12 → 2W 20:08 → SUATTDRO 20:08 → 2W 21:28

== ENCOUNTER 2022-01-28 10:15 | Inpatient (IN) ==
[2022-01-28] MEDS ORDERED: ALBUT/IPRATROP 3MG/0.5MG NEB 3 ML VIAL NEB STA (10:38)
[2022-01-28] MEDS ORDERED: SODIUM CHLORIDE 0.9% 1000ML 1,000 ML IV SCH ×2 (10:45→20:00)
[2022-01-28 11:40] LABS: INR 1.1 (0.9-1.1); Partial Thromboplastin Ratio 1.5; Partial Thromboplastin Time 40.4 Seconds (21.0-31.0); Prothrombin Time 11.9 Seconds (9.0-12.0)
--- NOTE | 2022-01-28 11:56 | CT Scan Report ---
CT head/brain wo con CLINICAL HISTORY: 71 years-old Male with syncope. Acute syncope TECHNIQUE: Multiple axial CT images of the head were obtained without contrast. A dose lowering tech nique was utilized adhering to the principles of ALARA. CT DOSE: 1498.35 mGy.cm COMPARISON: Head CT 12/11/2020 FINDINGS: No acute intracranial hemorrhage, midline shift, intracranial mass, hydrocephalus, territorial ischem ia or abnormal extra-axial collection. Involutional changes. Mild white matter hypodensities suggest chronic microvascular ischemic disease. Cerebral vascular calcifications. The calvarium is intact. The mastoid air cells are clear. Mild mucoperiosteal thickening of the maxi llary and ethmoid sinuses. Unremarkable soft tissues and orbits. IMPRESSION: No acute intracranial abnormality or calvarial fracture. ACT 112: Negative or not required by law. The above report was generated using voice recognition software. It may contain grammatical, syntax o r spelling errors. Electronically signed by: Marty Crespo M.D. 01/28/2022 11:54 AM
[2022-01-28 11:57] LABS: Troponin I High Sensitivity 22.2 pg/ml (0-20)
--- NOTE | 2022-01-28 11:57 | XRay Report ---
XR chest 1V portable HISTORY: 71 years-old Male SEPSIS acute sepsis COMPARISON: 12/12/2020 TECHNIQUE: Portable AP view of the chest FINDINGS: The cardiac silhouette is enlarged. Atherosclerosis of the aorta. Emphysema with chronic interstitial coarsening. No pneumothorax or large pleural effusion. Ill-defined right basilar predominant airspac e opacities. Degenerative changes of the shoulders and spine. IMPRESSION: Emphysema with right midlung and right basilar predominant airspace opacities suspicious for pneumonia. ACT 112: Negative or not required by law. The above report was generated using voice recognition software. It may contain grammatical, syntax o r spelling errors. Electronically signed by: Marty Crespo M.D. 01/28/2022 11:56 AM
[2022-01-28 12:16] LABS: Albumin Globulin Ratio 1.6 (0.9-2); Albumin Level 4.8 gm/dl (3.4-5.0); BUN Creatinine Ratio 22.2 (10-20); Bilirubin,Total 7.8 mg/dl (0.2-1.0); Calcium 9.8 mg/dl (8.5-10.1); Creatinine Clr Calc Pharmacy 43.6 ml/min; Est GFR (African American) 49.9 ml/min; Est GFR (Non-African American) 43.1 ml/min; Magnesium 1.5 mg/dl (1.7-2.4); Total Protein 7.8 gm/dl (6.0-8.3)
[2022-01-28] MEDS ORDERED: SODIUM CHLORIDE 0.9% 1000ML 500 ML IV ONE (12:45)
[2022-01-28 12:46] LABS: Base Excess VBG -2.2 mEq/L; Oxygen Saturation VBG 96.6 %; pH VBG 7.47 (7.36-7.41)
[2022-01-28 12:51] LABS: Hemoglobin 12.5 g/dL (14.0-18.0); Mean Corpuscular Hemoglobin 31.1 pg (25-34); Mean Corpuscular Hgb Conc 32.9 g/dL (32-36); Mean Corpuscular Volume 94.5 fL (80-100); Mean Platelet Volume 10.6 fL (7.4-10.4); Platelet Count 85 K/uL (130-400); RDW Coefficient of Variation 15.7 % (11.5-14.5); RDW Standard Deviation 53.5 fL (36.4-46.3); Red Blood Count 4.02 M/uL (4.7-6.1); White Blood Count 2.44 K/uL (4.8-10.8)
[2022-01-28] MEDS ORDERED: VANCOMYCIN CONSULT ACTIVE PRN (12:51)
[2022-01-28] MEDS ORDERED: PIPERACILLIN/TAZOBACTAM 4.5 GM/120 ML BAG IV ONE (12:51)
[2022-01-28] MEDS ORDERED: VANCOMYCIN HCL 1,750 MG in SODIUM CHLORIDE 0.9% 500 ML IV ONE (12:51)
[2022-01-28 12:52] LABS: Basophils # (auto) 0.01 K/uL (0-0.2); Basophils % (auto) 0.4 %; Eosinophils # (auto) 0.01 K/uL (0-0.5); Eosinophils % (auto) 0.4 %; Giant Platelets 1+; Immature Granulocytes # (auto) 0.01 K/uL (0.00-0.02); Immature Granulocytes % (auto) 0.4 %; Lymphocytes # (auto) 0.37 K/uL (1.2-3.4); Lymphocytes % (auto) 15.2 %; Monocytes # (auto) 0.26 K/uL (0.11-0.59); Monocytes % (auto) 10.7 %; Neutrophils # (auto) 1.78 K/uL (1.4-6.5); Neutrophils % (auto) 72.9 %; Platelet Estimate Decreased (Normal)
[2022-01-28 13:03] LABS: Appearance Urine Turbid (Clear); Bacteria Urine Automated 2+ (Negative); Bilirubin Urine Negative (Negative); Blood Urine 3+ (Negative); Color Urine Yellow; Epithelial Cell Urine Auto 20-30 /lpf (0-5); Glucose Urine UA Negative (Negative); Ketones Urine Negative (Negative); Leukocyte Esterase Urine 3+ (Negative); Nitrite Urine Positive (Negative); Protein Urine Trace (Negative); Specific Gravity Urine 1.009 (1.000-1.030); Urobilinogen Urine Negative (Negative); WBC Urine Automated >30 /hpf (0-5)
[2022-01-28] MEDS ORDERED: DOXYCYCLINE HYCLATE 100 MG in DEXTROSE 5% 100 ML IV STA (13:44)
--- NOTE | 2022-01-28 14:07 | History & Physical Report ---
Date of Service January 28, 2022 Assessment & Plan (1) Pneumonia: Plan: Patient with chronic COPD and chronic basilar consolidation but presents with subjective chills, hypotensive, and dyspneic with increased oxygen requirement associated with leukopenia - Will continue Zosyn- MRSA sent discontinue Vancomycin - Doxycyline IV - PCT, CRP, Blood culture and sputum culture sent- although after abx - add flutter valve (2) Chronic obstructive pulmonary disease: Plan: Severe outflow obstruction with PFTs in 03/16 as well as elevated RVSP and reduced right ventricular function FEV1- 1.53, FEV1/FVC- 50.8 - Continue KEITH, and Advair or equivalent - May benefit from repeat PFTS - Nebulizer as needed - VBG without hypercapnia and without wheezing not an exacerbation - Hold oral diuretics at this time, IV diurese in AM if hemodynamics stable (3) Elevated troponin: Plan: On admission 22 recheck at 28- cotinue to trend q6 - without ST elevation - denies any anginal like chest pain with radiation but is with dyspnea and hypoxia - ECG changes appreciated from Nov 15 with T-wave inversions - Trend HScTNI- follow symptomatology - ECHO ordered (4) Thrombocytopenia: Plan: Check for anaplasmosis/lyme Send INR 1.1 evaluate lower extremity for DVT with calf pain- r/o DVT/consumption (5) Leukopenia: Plan: As above DDX: Bacterial infx vs. lyme if remains low with negative testing as above- send peripheral smear in the morning (6) Subdural hematoma, chronic: Plan: Subdural hematoma in 10/18 which then was associated with seizures - He remains off ASA - Remains on Keppra - Follow (7) Chronic kidney disease, stage III (moderate): Plan: JEANE II on CKD III - secondary likely to decrease oral intake over the past 4 days of feeling ill - renally dose medications - avoid futher nephrotoxic medications (8) GERD without esophagitis: Plan: Continue lansoprazole or hospital equivalent (9) Elevated alkaline phosphatase level: Plan: chronically elevated since November 2020 with normal LFTs and elevated bilirubin follow with CMP in am he is without abdominal pain or discomfort and is not anemic - consider RUQUS (10) Hypomagnesemia: Plan: Mag 1.5 replete with 3 GM magnesium (11) HTN (hypertension): Plan: Continue with BB - Hold amlodopine - hold oral lasix- follow renal function and hemodyanmics History of Present Illness Primary Care Provider: Sixto Bryan MD 71 YOM with medical history of: COPD, HTN, Subdural hematoma (11/15), seizure (on keppra), CKD III, chronic roberts, gout, HLD, pulmonary nodules, elvated CK. Patient reports to the EMD today for 4 day history of myalgias, dyspnea, chills and cough. Patient states that this started on Monday after he was outside working with his son, spraying and pulling weeds, as well as general work around the yard. Since then he reports having increased difficulty lying flat and breathing. He is chronically on oxygen at home with 4LNC when active, and had to increase that to 5 and his baseline 2-3L he increased to 4-5. He has a cough and sputum production, which is yellow- but reports that this is unchanged, and notes increase use of his KEITH at home. Patient endorses that he was working in the [place] and around high grass, and pulls ticks off his pets nearly everyday. He does not note any ticks on him. He has a chronic Roberts catheter in place since his SDH, he says he gets this changed every month on the . In the EMD the patient had CXR performed, routine labs to include HScTNI and lactate. He was noted to be hypotensive on arrival and was given 1 .5 liters of crystalloid and started on Vancomycin and Zosyn for possible PNA. He had UA sent which is LE, Nit positive and 2+ bacteria. Patient will be admitted to continue workup and antibiotic treatment. Will check tickborne labs as he has myalgias, leukopenia, and exposure. Will obtain blood culture and sputum cultures although this will be after antibiotic administration- check CRP and PCT. Change roberts catheter. His HScTNI was elevated at 22- will recheck and trend. COVID test on admission is: NEGATIVE Allergies Allergy/AdvReac Type Severity Reaction Status Date / Time bee venom protein (honey bee) Allergy Severe hives in Verified 12/11/20 17:41 throat, trouble breathing Home Medications Medication Instructions Recorded Confirmed Type atorvastatin 80 mg tablet 80 mg PO QAM 12/06/18 01/28/22 History cholecalciferol (vitamin D3) 25 1,000 units PO QAM 04/25/19 01/28/22 History mcg (1,000 unit) tablet lansoprazole 30 mg capsule,delayed 30 mg PO QAM #90 cap 05/29/19 01/28/22 Rx release albuterol sulfate 90 mcg/actuation 2 puff INHALATION Q6H PRN 11/11/20 01/28/22 History aerosol inhaler ascorbic acid (vitamin C) 1,000 mg 1,000 mg PO QAM 11/11/20 01/28/22 History tablet,extended release (Vitamin C ER) fluticasone 250 mcg-salmeterol 50 1 ea INHALATION BID 11/11/20 01/28/22 History mcg/dose blistr powdr for inhalation (Wixela Inhub) amlodipine 10 mg tablet 10 mg PO QAM 11/21/20 01/28/22 History allopurinol 300 mg tablet 300 mg PO QAM 12/11/20 01/28/22 History indomethacin 50 mg capsule 50 mg PO TID PRN 12/11/20 01/28/22 History levetiracetam 750 mg tablet 750 mg PO BID 12/11/20 01/28/22 History (Keppra) metoprolol succinate 100 mg 100 mg PO QAM 12/11/20 01/28/22 History tablet,extended release 24 hr tamsulosin 0.4 mg capsule (Flomax) 0.4 mg PO QAM 12/11/20 01/28/22 History potassium chloride 10 mEq 10 meq PO TID #30 tab 12/16/20 01/28/22 Rx tablet,extended release(part/cryst) (Klor-Con M) furosemide 40 mg tablet 40 mg PO QAM 01/28/22 01/28/22 History naproxen sodium 220 mg tablet 220 mg PO Q8H PRN 01/28/22 01/28/22 History (Aleve) Past Med/Surg History Medical History Acute renal failure Acute respiratory failure with hypoxia and hypercapnia Admitted to intensive care unit Chronic obstructive pulmonary disease no inhalers Chronic shortness of breath Gout History of colon polyps Hyperlipidemia Hypertension Lactic acidosis Left knee pain Metabolic acidosis Past use of tobacco Pneumonia Positive Lyme disease serology Prediabetes Prostate cancer screening Respiratory failure SOB (shortness of breath) Surgical History History of cardiac cath 2004 @ [facility]--2 stents placed History of colonoscopy History of esophagogastroduodenoscopy (EGD) History of heart artery stent x2 History of surgery on arm right arm repair after "running through a sliding glass door" History of tonsillectomy History of tooth extraction all teeth removed Hx of vasectomy Family History Grandmother (Maternal) Family history of diabetes mellitus Mother Lung cancer Other No family history of adverse response to anesthesia Denies family history of Ovarian cancer Prostate cancer Myocardial infarction Breast cancer Colorectal cancer Social History Smoking Status: Former smoker Tobacco Type: Cigarettes Age Started Using Tobacco: 11; Age Quit Using Tobacco: 39; packs per day: 3; Second Hand Exposure: Yes ( smokes, parents smoked); Hx Alcohol Use: Yes Alcohol type: hard liquor Hx Substance Use: No Preferred Language: Croatian Communication Ability: Effective Visual Impairment: No Limitations Hearing Ability: Normal [employer] Required: No Beliefs That Will Affect Care: None Current Living Situation: Spouse current occupational status: retired Other Information That Helps Us Care for You: No Feels Safe at Home: Yes Safety Concerns: Feels Safe At This Time Dental Care, Regularly: No Physical Activity Frequency: 1-2 Times per Week Seatbelt Use: sometimes Sunscreen Use: No Assistive Devices: None Review of Systems Review of Systems: REVIEW OF SYSTEMS: Constitutional: (+) Chills, NO fever, sweats Eyes: No diplopia, no worsening or blurred vision ENT: normal hearing, no trouble swallowing Respiratory: (+) cough, sputum, dyspnea at rest or on exertion Cardiovascular: No chest pain, tightness or palpitations Abdomen: (+) loss of appetite NO pain, nausea, vomiting, diarrhea or constipation Musculoskeletal: (+) joint pain, calf pain, NO swelling Neurologic: No weakness, numbness/tingling, or balance problems Psychiatric: No anxiety or depression Skin: No rash or itch Physical Exam Physical Exam: PHYSICAL EXAM: General: awake, alert, no apparent distress Head: Normocephalic, atraumatic ENT: PERRL, EOMI, no pharyngeal exudate, mucous membranes moist Neuro: AAO x 3, speech clear and appropriate, strength intact bilaterally 5/5, sensation intact and equal all extremities and dermatomes, no pronator drift Chest: equal rise and fall of the chest, no accessory muscle use, no heaves or thrills, Clear to auscultation, on room air, Cardiac: Regular rate and rhythm, telemetry reviewed- NSR, skin warm dry, cap refill <3 seconds, peripheral pulses +2 no JVD, no murmur, no edema GI: NABS x 4 quadrants, soft, nontender to palpation, no rebound, guarding or tenderness : chronic roberts catheter- replace Extremities: Normal inspection, no peripheral edema or erythema, calfs nontender to palpation Psych: Normal mood and affect Skin: some bruising on hands and legs Results & Data Results & Data ([facility]) Vital Signs (Past 12 Hours) Vital Signs Temp Pulse Pulse Resp BP BP Pulse Ox 01/28/22 12:45 78 24 98/69 L 92 01/28/22 11:09 82 24 94/63 L 96 01/28/22 11:00 96 01/28/22 10:17 36.5 C 98 H 30 H 84/60 L 85 L Laboratory Results Laboratory Results - last 24 hr 01/28/22 01/28/22 01/28/22 10:58 10:58 10:58 WBC RBC Hgb Hct MCV MCH MCHC RDW Std Deviation RDW Coeff of Taina Plt Count MPV Immature Gran % (Auto) Neut % (Auto) Lymph % (Auto) [place] % (Auto) Eos % (Auto) Baso % (Auto) Neut # (Auto) Lymph # (Auto) [place] # (Auto) Eos # (Auto) Baso # (Auto) Immature Gran # (Auto) Absolute Nucleated RBC Nucleated RBC % (auto) Neutrophils % (Manual) Band Neutrophils % Lymphocytes % (Manual) Prolymphocyte % Reactive Lymphs % (Man) Monocytes % (Manual) Eosinophils % (Manual) Basophils % (Manual) Metamyelocytes % (Man) Myelocytes % (Man) Promyelocytes % (Man) Blast Cells % (Manual) Plasma Cell % (Manual) Other Cells % Nucleated RBC % Neutrophils # (Manual) Band Neutrophils # Total Absolute Neuts Lymphocytes # (Manual) Prolymphocyte # Reactive Lymphs # Total Abs Lymphocytes Monocytes # (Manual) Eosinophils # (Manual) Basophils # (Manual) Metamyelocytes # (Man) Myelocytes # (Manual) Promyelocytes # (Man) Blast Cells # (Man) Plasma Cell # (Manual) Other Cells # Nucleated RBCs # (Man) Hypersegmented Neuts Hyposegmented Neuts Hypogranular Neuts Large Granular Lymphs # Lrg Granular Lymphs Hairy Cells Smudge Cells Toxic Granulation Toxic Vacuolation Dohle Bodies Kyaw Rods Platelet Estimate Hypogranular Platelets Clumped Platelets Giant Platelets Platelet Satelliting RBC Morphology Polychromasia Hypochromasia Poikilocytosis Basophilic Stippling Anisocytosis Microcytosis Macrocytosis Spherocytes Pappenheimer Bodies Sickle Cells Target Cells Tear Drop Cells Ovalocytes Stomatocytes [place] Bodies Echinocytes Acanthocytes (Spur) Rouleaux RBC Agglutinates Schistocytes RBC Morph Comment Sezary Cell PT 11.9 INR 1.1 APTT 40.4 H PTT Ratio 1.5 VBG pH Cancelled VBG pCO2 Cancelled VBG pO2 Cancelled VBG HCO3 Cancelled VBG O2 Saturation Cancelled VBG Base Excess Cancelled Barometric Pressure Cancelled Sodium Potassium Chloride Carbon Dioxide Anion Gap BUN Creatinine Est Cr Clr Drug Dosing Est GFR ( Amer) Est GFR (Non-Af Amer) BUN/Creatinine Ratio Glucose Lactate Calcium Magnesium Total Bilirubin AST ALT Alkaline Phosphatase Total Creatine Kinase 39 Troponin I High Sens B-Natriuretic Peptide Total Protein Albumin Globulin Albumin/Globulin Ratio Urine Color Urine Appearance Urine pH Ur Specific Rye Urine Protein Urine Glucose (UA) Urine Ketones Urine Blood Urine Nitrite Urine Bilirubin Urine Urobilinogen Ur Leukocyte Esterase Urine WBC (Auto) Urine RBC (Auto) U Hyaline Cast (Auto) U Epithel Cells (Auto) Urine Bacteria (Auto) Urine Yeast SARS-CoV-2, RNA, NAAT 01/28/22 01/28/22 01/28/22 10:58 10:58 11:00 WBC Cancelled RBC Cancelled Hgb Cancelled Hct Cancelled MCV Cancelled MCH Cancelled MCHC Cancelled RDW Std Deviation Cancelled RDW Coeff of Taina Cancelled Plt Count Cancelled MPV Cancelled Immature Gran % (Auto) Cancelled Neut % (Auto) Cancelled Lymph % (Auto) Cancelled [place] % (Auto) Cancelled Eos % (Auto) Cancelled Baso % (Auto) Cancelled Neut # (Auto) Cancelled Lymph # (Auto) Cancelled [place] # (Auto) Cancelled Eos # (Auto) Cancelled Baso # (Auto) Cancelled Immature Gran # (Auto) Cancelled Absolute Nucleated RBC Cancelled Nucleated RBC % (auto) Cancelled Neutrophils % (Manual) Cancelled Band Neutrophils % Cancelled Lymphocytes % (Manual) Cancelled Prolymphocyte % Cancelled Reactive Lymphs % (Man) Cancelled Monocytes % (Manual) Cancelled Eosinophils % (Manual) Cancelled Basophils % (Manual) Cancelled Metamyelocytes % (Man) Cancelled Myelocytes % (Man) Cancelled Promyelocytes % (Man) Cancelled Blast Cells % (Manual) Cancelled Plasma Cell % (Manual) Cancelled Other Cells % Cancelled Nucleated RBC % Cancelled Neutrophils # (Manual) Cancelled Band Neutrophils # Cancelled Total Absolute Neuts Cancelled Lymphocytes # (Manual) Cancelled Prolymphocyte # Cancelled Reactive Lymphs # Cancelled Total Abs Lymphocytes Cancelled Monocytes # (Manual) Cancelled Eosinophils # (Manual) Cancelled Basophils # (Manual) Cancelled Metamyelocytes # (Man) Cancelled Myelocytes # (Manual) Cancelled Promyelocytes # (Man) Cancelled Blast Cells # (Man) Cancelled Plasma Cell # (Manual) Cancelled Other Cells # Cancelled Nucleated RBCs # (Man) Cancelled Hypersegmented Neuts Cancelled Hyposegmented Neuts Cancelled Hypogranular Neuts Cancelled Large Granular Lymphs Cancelled # Lrg Granular Lymphs Cancelled Hairy Cells Cancelled Smudge Cells Cancelled Toxic Granulation Cancelled Toxic Vacuolation Cancelled Dohle Bodies Cancelled Kyaw Rods Cancelled Platelet Estimate Cancelled Hypogranular Platelets Cancelled Clumped Platelets Cancelled Giant Platelets Cancelled Platelet Satelliting Cancelled RBC Morphology Cancelled Polychromasia Cancelled Hypochromasia Cancelled Poikilocytosis Cancelled Basophilic Stippling Cancelled Anisocytosis Cancelled Microcytosis Cancelled Macrocytosis Cancelled Spherocytes Cancelled Pappenheimer Bodies Cancelled Sickle Cells Cancelled Target Cells Cancelled Tear Drop Cells Cancelled Ovalocytes Cancelled Stomatocytes Cancelled [place] Bodies Cancelled Echinocytes Cancelled Acanthocytes (Spur) Cancelled Rouleaux Cancelled RBC Agglutinates Cancelled Schistocytes Cancelled RBC Morph Comment Cancelled Sezary Cell Cancelled PT INR APTT PTT Ratio VBG pH VBG pCO2 VBG pO2 VBG HCO3 VBG O2 Saturation VBG Base Excess Barometric Pressure Sodium 136 Potassium 4.0 Chloride 103 Carbon Dioxide 18 L Anion Gap 15 H BUN 35 H Creatinine 1.58 H Est Cr Clr Drug Dosing 43.6 Est GFR ( Amer) 49.9 Est GFR (Non-Af Amer) 43.1 BUN/Creatinine Ratio 22.2 H Glucose 126 H Lactate Calcium 9.8 Magnesium 1.5 L Total Bilirubin 7.8 H AST 14 ALT 10 Alkaline Phosphatase 124 H Total Creatine Kinase Troponin I High Sens 22.2 H B-Natriuretic Peptide 963 H Total Protein 7.8 Albumin 4.8 Globulin 3.0 Albumin/Globulin Ratio 1.6 Urine Color Urine Appearance Urine pH Ur Specific Rye Urine Protein Urine Glucose (UA) Urine Ketones Urine Blood Urine Nitrite Urine Bilirubin Urine Urobilinogen Ur Leukocyte Esterase Urine WBC (Auto) Urine RBC (Auto) U Hyaline Cast (Auto) U Epithel Cells (Auto) Urine Bacteria (Auto) Urine Yeast SARS-CoV-2, RNA, NAAT 01/28/22 01/28/22 01/28/22 11:00 11:55 12:05 WBC RBC Hgb Hct MCV MCH MCHC RDW Std Deviation RDW Coeff of Taina Plt Count MPV Immature Gran % (Auto) Neut % (Auto) Lymph % (Auto) [place] % (Auto) Eos % (Auto) Baso % (Auto) Neut # (Auto) Lymph # (Auto) [place] # (Auto) Eos # (Auto) Baso # (Auto) Immature Gran # (Auto) Absolute Nucleated RBC Nucleated RBC % (auto) Neutrophils % (Manual) Band Neutrophils % Lymphocytes % (Manual) Prolymphocyte % Reactive Lymphs % (Man) Monocytes % (Manual) Eosinophils % (Manual) Basophils % (Manual) Metamyelocytes % (Man) Myelocytes % (Man) Promyelocytes % (Man) Blast Cells % (Manual) Plasma Cell % (Manual) Other Cells % Nucleated RBC % Neutrophils # (Manual) Band Neutrophils # Total Absolute Neuts Lymphocytes # (Manual) Prolymphocyte # Reactive Lymphs # Total Abs Lymphocytes Monocytes # (Manual) Eosinophils # (Manual) Basophils # (Manual) Metamyelocytes # (Man) Myelocytes # (Manual) Promyelocytes # (Man) Blast Cells # (Man) Plasma Cell # (Manual) Other Cells # Nucleated RBCs # (Man) Hypersegmented Neuts Hyposegmented Neuts Hypogranular Neuts Large Granular Lymphs # Lrg Granular Lymphs Hairy Cells Smudge Cells Toxic Granulation Toxic Vacuolation Dohle Bodies Kyaw Rods Platelet Estimate Hypogranular Platelets Clumped Platelets Giant Platelets Platelet Satelliting RBC Morphology Polychromasia Hypochromasia Poikilocytosis Basophilic Stippling Anisocytosis Microcytosis Macrocytosis Spherocytes Pappenheimer Bodies Sickle Cells Target Cells Tear Drop Cells Ovalocytes Stomatocytes [place] Bodies Echinocytes Acanthocytes (Spur) Rouleaux RBC Agglutinates Schistocytes RBC Morph Comment Sezary Cell PT INR APTT PTT Ratio VBG pH 7.47 H VBG pCO2 29 L VBG pO2 80 VBG HCO3 20 VBG O2 Saturation 96.6 VBG Base Excess -2.2 Barometric Pressure 728.5 Sodium Potassium Chloride Carbon Dioxide Anion Gap BUN Creatinine Est Cr Clr Drug Dosing Est GFR ( Amer) Est GFR (Non-Af Amer) BUN/Creatinine Ratio Glucose Lactate TNP Calcium Magnesium Total Bilirubin AST ALT Alkaline Phosphatase Total Creatine Kinase Troponin I High Sens B-Natriuretic Peptide Total Protein Albumin Globulin Albumin/Globulin Ratio Urine Color Yellow Urine Appearance Turbid A Urine pH 5.0 Ur Specific [place]ye 1.009 Urine Protein Trace H Urine Glucose (UA) Negative Urine Ketones Negative Urine Blood 3+ H Urine Nitrite Positive A Urine Bilirubin Negative Urine Urobilinogen Negative Ur Leukocyte Esterase 3+ H Urine WBC (Auto) >30 H Urine RBC (Auto) 5-10 H U Hyaline Cast (Auto) 1-5 U Epithel Cells (Auto) 20-30 H Urine Bacteria (Auto) 2+ H Urine Yeast Not Reportable SARS-CoV-2, RNA, NAAT 01/28/22 01/28/22 01/28/22 12:05 12:05 13:16 WBC 2.44 L RBC 4.02 L Hgb 12.5 L Hct 38.0 L MCV 94.5 MCH 31.1 MCHC 32.9 RDW Std Deviation 53.5 H RDW Coeff of Taina 15.7 H Plt Count 85 L MPV 10.6 H Immature Gran % (Auto) 0.4 Neut % (Auto) 72.9 Lymph % (Auto) 15.2 [place] % (Auto) 10.7 Eos % (Auto) 0.4 Baso % (Auto) 0.4 Neut # (Auto) 1.78 Lymph # (Auto) 0.37 L [place] # (Auto) 0.26 Eos # (Auto) 0.01 Baso # (Auto) 0.01 Immature Gran # (Auto) 0.01 Absolute Nucleated RBC Nucleated RBC % (auto) Neutrophils % (Manual) Band Neutrophils % Lymphocytes % (Manual) Prolymphocyte % Reactive Lymphs % (Man) Monocytes % (Manual) Eosinophils % (Manual) Basophils % (Manual) Metamyelocytes % (Man) Myelocytes % (Man) Promyelocytes % (Man) Blast Cells % (Manual) Plasma Cell % (Manual) Other Cells % Nucleated RBC % Neutrophils # (Manual) Band Neutrophils # Total Absolute Neuts Lymphocytes # (Manual) Prolymphocyte # Reactive Lymphs # Total Abs Lymphocytes Monocytes # (Manual) Eosinophils # (Manual) Basophils # (Manual) Metamyelocytes # (Man) Myelocytes # (Manual) Promyelocytes # (Man) Blast Cells # (Man) Plasma Cell # (Manual) Other Cells # Nucleated RBCs # (Man) Hypersegmented Neuts Hyposegmented Neuts Hypogranular Neuts Large Granular Lymphs # Lrg Granular Lymphs Hairy Cells Smudge Cells Toxic Granulation Toxic Vacuolation Dohle Bodies Kyaw Rods Platelet Estimate Decreased L Hypogranular Platelets Clumped Platelets Giant Platelets 1+ Platelet Satelliting RBC Morphology Polychromasia Hypochromasia Poikilocytosis Basophilic Stippling Anisocytosis Microcytosis Macrocytosis Spherocytes Pappenheimer Bodies Sickle Cells Target Cells Tear Drop Cells Ovalocytes Stomatocytes [place] Bodies Echinocytes Acanthocytes (Spur) Rouleaux RBC Agglutinates Schistocytes RBC Morph Comment Sezary Cell PT INR APTT PTT Ratio VBG pH VBG pCO2 VBG pO2 VBG HCO3 VBG O2 Saturation VBG Base Excess Barometric Pressure Sodium Potassium Chloride Carbon Dioxide Anion Gap BUN Creatinine Est Cr Clr Drug Dosing Est GFR ( Amer) Est GFR (Non-Af Amer) BUN/Creatinine Ratio Glucose Lactate 1.6 Calcium Magnesium Total Bilirubin AST ALT Alkaline Phosphatase Total Creatine Kinase Troponin I High Sens B-Natriuretic Peptide Total Protein Albumin Globulin Albumin/Globulin Ratio Urine Color Urine Appearance Urine pH Ur Specific [place]ye Urine Protein Urine Glucose (UA) Urine Ketones Urine Blood Urine Nitrite Urine Bilirubin Urine Urobilinogen Ur Leukocyte Esterase Urine WBC (Auto) Urine RBC (Auto) U Hyaline Cast (Auto) U Epithel Cells (Auto) Urine Bacteria (Auto) Urine Yeast SARS-CoV-2, RNA, NAAT NEGATIVE Diagnostic Findings Head CT 01/28/22 10:38 CT head/brain wo con CLINICAL HISTORY: 71 years-old Male with syncope. Acute syncope TECHNIQUE: Multiple axial CT images of the head were obtained without contrast. A dose lowering technique was utilized adhering to the principles of ALARA. CT DOSE: 1498.35 mGy.cm COMPARISON: Head CT 12/11/2020 FINDINGS: No acute intracranial hemorrhage, midline shift, intracranial mass, hydrocephalus, territorial ischemia or abnormal extra-axial collection. Involutional changes. Mild white matter hypodensities suggest chronic microvascular ischemic disease. Cerebral vascular calcifications. The calvarium is intact. The mastoid air cells are clear. Mild mucoperiosteal thickening of the maxillary and ethmoid sinuses. Unremarkable soft tissues and orbits. IMPRESSION: No acute intracranial abnormality or calvarial fracture. ACT 112: Negative or not required by law. The above report was generated using voice recognition software. It may contain grammatical, syntax or spelling errors. Electronically signed by: Marty Crespo M.D. 01/28/2022 11:54 AM Chest X-Ray 01/28/22 10:39 XR chest 1V portable HISTORY: 71 years-old Male SEPSIS acute sepsis COMPARISON: 12/12/2020 TECHNIQUE: Portable AP view of the chest FINDINGS: The cardiac silhouette is enlarged. Atherosclerosis of the aorta. Emphysema with chronic interstitial coarsening. No pneumothorax or large pleural effusion. Ill- defined right basilar predominant airspace opacities. Degenerative changes of the shoulders and spine. IMPRESSION: Emphysema with right midlung and right basilar predominant airspace opacities suspicious for pneumonia. ACT 112: Negative or not required by law. The above report was generated using voice recognition software. It may contain grammatical, syntax or spelling errors. Electronically signed by: Marty Crespo M.D. 01/28/2022 11:56 AM Medications Administered Home Medications atorvastatin 80 mg tablet 80 mg PO QAM 12/06/18 [History Confirmed 01/28/22] cholecalciferol (vitamin D3) 25 mcg (1,000 unit) tablet 1,000 units PO QAM 04/25/19 [History Confirmed 01/28/22] lansoprazole 30 mg capsule,delayed release 30 mg PO QAM #90 cap 05/29/19 [Rx Confirmed 01/28/22] albuterol sulfate 90 mcg/actuation aerosol inhaler 2 puff INHALATION Q6H PRN 11/11/20 [History Confirmed 01/28/22] ascorbic acid (vitamin C) 1,000 mg tablet,extended release (Vitamin C ER) 1,000 mg PO QAM 11/11/20 [History Confirmed 01/28/22] fluticasone 250 mcg-salmeterol 50 mcg/dose blistr powdr for inhalation (Wixela Inhub) 1 ea INHALATION BID 11/11/20 [History Confirmed 01/28/22] amlodipine 10 mg tablet 10 mg PO QAM 11/21/20 [History Confirmed 01/28/22] allopurinol 300 mg tablet 300 mg PO QAM 12/11/20 [History Confirmed 01/28/22] indomethacin 50 mg capsule 50 mg PO TID PRN 12/11/20 [History Confirmed 01/28/22] levetiracetam 750 mg tablet (Keppra) 750 mg PO BID 12/11/20 [History Confirmed 01/28/22] metoprolol succinate 100 mg tablet,extended release 24 hr 100 mg PO QAM 12/11/20 [History Confirmed 01/28/22] tamsulosin 0.4 mg capsule (Flomax) 0.4 mg PO QAM 12/11/20 [History Confirmed 01/28/22] potassium chloride 10 mEq tablet,extended release(part/cryst) (Klor-Con M) 10 meq PO TID #30 tab 12/16/20 [Rx Confirmed 01/28/22] furosemide 40 mg tablet 40 mg PO QAM 01/28/22 [History Confirmed 01/28/22] naproxen sodium 220 mg tablet (Aleve) 220 mg PO Q8H PRN 01/28/22 [History Confirmed 01/28/22] Active Medications Sodium Chloride (Nss 1000ml) 1,000 mls @ 125 mls/hr IV .Q8H BRANDON Stop: 02/27/22 10:44 Last Admin: 01/28/22 11:09 Dose: 125 mls/hr Documented by: Sodium Chloride (Nss) 500 mls @ 125 mls/hr IV .Q4H BRANDON Stop: 02/27/22 12:44 Vancomycin HCl 1,750 mg/ (Sodium Chloride) 535 mls @ 200 mls/hr IV NOW ONE Stop: 01/28/22 15:31 Magnesium Sulfate/Dextrose (Magnesium Sulfate / D5w) 1 gm in 100 mls @ 50 mls/hr IV Q2H BRANDON Stop: 01/28/22 19:29 Doxycycline Hyclate 100 mg/ (Dextrose) 110 mls @ 50 mls/hr IV NOW STA Stop: 01/28/22 15:55 Miscellaneous Information (Vancomycin Consult Active) 1 ea N/A UD PRN PRN Reason: Consult Stop: 02/27/22 12:50 ECG Additional Comments: Normal sinus rhythm Incomplete right bundle branch block Possible Inferior infarct , age undetermined ST & T wave abnormality, consider anterolateral ischemia Abnormal ECG When compared with ECG of 11-DEC-2020 15:39, Significant changes have occurred Code Status & VTE Plan Code Status CODE: Conditional VTE: SCDS, Heparin 5000 units subq q12 VTE Prophylaxis Plan VTE Prophylaxis will be ordered: Yes Supervising Physician Co-Signing Physician Notes Patient seen and examined at bedside. Obtained a physical examination and history during face to face encounter. I discussed plan of care with KATELYNN Montgomery I reviewed above note and agree with it. Patient admitted with possible pneumonia. will place on antibiotics PG Care Time/CCT Total # of Minutes Spent Total Time Spent with Patient: Total time spent is greater than 50% in coordination of care (as documented) at patient's floor/unit and/or counseling patient: Coding Level of Care Code 01441 Initial Inpt Care Lvl 3 Diagnoses Subdural hematoma, chronic I62.03 Chronic kidney disease, stage III (moderate) N18.30 GERD without esophagitis K21.9 Leukopenia D72.819 Elevated troponin R77.8 Pneumonia J18.9 Chronic obstructive pulmonary disease J44.9 Thrombocytopenia D69.6 Elevated alkaline phosphatase level R74.8 Hypomagnesemia E83.42 HTN (hypertension) I10
[2022-01-28 14:30] LABS: Procalcitonin 0.36 ng/ml (0-0.5)
[2022-01-28 14:38] LABS: Lyme Ab IgM w/WB Rflx Negative (Negative)
[2022-01-28 14:40] LABS: Lyme Ab IgG w/WB Rflx Positive (Negative)
[2022-01-28] MEDS: MAGNESIUM SULFATE / D5W 1 GM/100 ML BAG IV SCH ×3 (14:47→17:53)
[2022-01-28 14:58] LABS: C Reactive Protein 5.9 mg/dl (0-0.5)
--- NOTE | 2022-01-28 15:30 | Ultrasound Report ---
ULTRASOUND BILATERAL LOWER EXTREMITY VENOUS CLINICAL HISTORY: Calf pain. Hypoxia. COMPARISON STUDY: No priors. TECHNIQUE: Portable real-time grayscale and color Doppler sonography of the deep veins of the right a nd left lower extremity was performed from the inguinal crease to the calf. Compression and augmentat ion were utilized. FINDINGS: There is no sonographic evidence of deep venous thrombosis identified in the right or left lower extremity. The common femoral, superficial femoral, and popliteal veins are patent and normally compressible bilaterally. The greater saphenous vein and the profunda femoris vein at the junction w ith the common femoral vein are clear in both legs. The visualized calf veins are patent bilaterally. IMPRESSION: There is no sonographic evidence of deep venous thrombosis identified in the right or lef t lower extremity. ACT 112: Negative or not required by law. Electronically signed by: Dinesh Hernandez M.D. 01/28/2022 3:28 PM
[2022-01-28] MEDS ORDERED: ONDANSETRON INJ 2 MG/ML 2 ML VIAL IV PRN (16:02)
[2022-01-28] MEDS ORDERED: ALBUTEROL HFA 8 GM INHALER INH PRN (16:02)
[2022-01-28] MEDS ORDERED: ACETAMINOPHEN 325 MG TAB PO PRN (16:02)
[2022-01-28] MEDS: SODIUM CHLORIDE 0.9% 500 ML IV SCH ×2 (16:42→17:22)
[2022-01-28] MEDS: HEPARIN SOD 5,000 UNIT/0.5 ML VIAL SQ SCH ×2 (17:56→20:50)
--- NOTE | 2022-01-28 19:14 | Emergency Department Note ---
History of Present Illness General Chief complaint: Pain (Generalized) Stated complaint: OVERHEATED ON MONDAY, FATIGUED, PAIN EVERYWHERE Time Seen by Provider: 01/28/22 10:31 History of Present Illness Provider complaint: Shortness of breath chest pain Onset (ago): day(s) 4 Location: chest Radiation: non-radiation Severity: moderate Pain Consistency: + constant Maximum Pain Intensity: 5 Current Pain Intensity: 4 Relieved By: + none Associated symptoms: + chest pain, + cough, + headaches, + loss of appetite, + malaise, + shortness of breath, + syncope and + weakness; no fever/chills, no nausea/vomiting or no seizure 71-year-old male presents emergency department for shortness of breath chest pain no appetite. Patient states his symptoms began on Monday. Patient states he had syncopal episode while driving on Monday. He denies hitting his head. Patient states he has a history of brain bleed. Patient states he usually uses 4 L oxygen. Reports a cough. No hemoptysis. Home Medications Medication Instructions Recorded Confirmed Type atorvastatin 80 mg tablet 80 mg PO QAM 12/06/18 01/28/22 History cholecalciferol (vitamin D3) 25 1,000 units PO QAM 04/25/19 01/28/22 History mcg (1,000 unit) tablet lansoprazole 30 mg capsule,delayed 30 mg PO QAM #90 cap 05/29/19 01/28/22 Rx release albuterol sulfate 90 mcg/actuation 2 puff INHALATION Q6H PRN 11/11/20 01/28/22 History aerosol inhaler ascorbic acid (vitamin C) 1,000 mg 1,000 mg PO QAM 11/11/20 01/28/22 History tablet,extended release (Vitamin C ER) fluticasone 250 mcg-salmeterol 50 1 ea INHALATION BID 11/11/20 01/28/22 History mcg/dose blistr powdr for inhalation (Cristo Inhub) amlodipine 10 mg tablet 10 mg PO QAM 11/21/20 01/28/22 History allopurinol 300 mg tablet 300 mg PO QAM 12/11/20 01/28/22 History indomethacin 50 mg capsule 50 mg PO TID PRN 12/11/20 01/28/22 History levetiracetam 750 mg tablet 750 mg PO BID 12/11/20 01/28/22 History (Keppra) metoprolol succinate 100 mg 100 mg PO QAM 12/11/20 01/28/22 History tablet,extended release 24 hr tamsulosin 0.4 mg capsule (Flomax) 0.4 mg PO QAM 12/11/20 01/28/22 History potassium chloride 10 mEq 10 meq PO TID #30 tab 12/16/20 01/28/22 Rx tablet,extended release(part/cryst) (Klor-Con M) furosemide 40 mg tablet 40 mg PO QAM 01/28/22 01/28/22 History naproxen sodium 220 mg tablet 220 mg PO Q8H PRN 01/28/22 01/28/22 History (Aleve) Allergies Allergy/AdvReac Type Severity Reaction Status Date / Time bee venom protein (honey bee) Allergy Severe hives in Verified 12/11/20 17:41 throat, trouble breathing Past Med/Surg History Medical History Acute renal failure Acute respiratory failure with hypoxia and hypercapnia Admitted to intensive care unit Chronic obstructive pulmonary disease no inhalers Chronic shortness of breath Gout History of colon polyps Hyperlipidemia Hypertension Lactic acidosis Left knee pain Metabolic acidosis Past use of tobacco Pneumonia Positive Lyme disease serology Prediabetes Prostate cancer screening Respiratory failure SOB (shortness of breath) Surgical History History of cardiac cath 2003 @ [facility] [place]--2 stents placed History of colonoscopy History of esophagogastroduodenoscopy (EGD) History of heart artery stent x2 History of surgery on arm right arm repair after "running through a sliding glass door" History of tonsillectomy History of tooth extraction all teeth removed Hx of vasectomy Family History Grandmother (Maternal) Family history of diabetes mellitus Mother Lung cancer Other No family history of adverse response to anesthesia Denies family history of Ovarian cancer Prostate cancer Myocardial infarction Breast cancer Colorectal cancer Social History Smoking Status: Former smoker Tobacco Type: Cigarettes Age Started Using Tobacco: 11; Age Quit Using Tobacco: 39; packs per day: 3; Second Hand Exposure: Yes ( smokes, parents smoked); Hx Alcohol Use: Yes Alcohol type: hard liquor Hx Substance Use: No Preferred Language: Greek Communication Ability: Effective Visual Impairment: No Limitations Hearing Ability: Normal [employer] Required: No Beliefs That Will Affect Care: None Current Living Situation: Spouse current occupational status: retired Other Information That Helps Us Care for You: No Feels Safe at Home: Yes Safety Concerns: Feels Safe At This Time Dental Care, Regularly: No Physical Activity Frequency: 1-2 Times per Week Seatbelt Use: sometimes Sunscreen Use: No Assistive Devices: None Review of Systems A total of 10 systems reviewed and were otherwise negative Physical Exam Vital Signs Vital Signs - 24 hr 01/28/22 10:17 01/28/22 10:44 01/28/22 10:51 Temperature 36.5 C Temperature Source Temporal Artery Scan Pulse Rate 98 H Pulse Rate [Left Finger] Respiratory Rate 30 H Respiratory Effort / Characteristics Respiratory Depth Blood Pressure 84/60 L Blood Pressure [Left Arm] Blood Pressure Mean 68 Blood Pressure Mean [Left Arm] Pulse Oximetry 85 L Oxygen Delivery Method Nasal Cannula Nasal Cannula Nasal Cannula Oxygen Flow Rate 4 6 6 Sepsis Recent Fever Within 48 Hours No Sepsis New/Unexplained Change in Mental Status No Sepsis Action Taken by Nursing No Action Required 01/28/22 11:00 01/28/22 11:09 01/28/22 12:45 Temperature Temperature Source Pulse Rate Pulse Rate [Left Finger] 82 78 Respiratory Rate 24 24 Respiratory Effort / Characteristics Non-Labored Non-Labored Respiratory Depth Normal Blood Pressure Blood Pressure [Left Arm] 94/63 L 98/69 L Blood Pressure Mean Blood Pressure Mean [Left Arm] 73 78 Pulse Oximetry 96 96 92 Oxygen Delivery Method Nasal Cannula Nebulizer Nasal Cannula Oxygen Flow Rate 6 6 6 Sepsis Recent Fever Within 48 Hours Sepsis New/Unexplained Change in Mental Status Sepsis Action Taken by Nursing Physical Exam GENERAL: He is oriented to person, place, and time. He appears well-developed and well-nourished. He does not appear distressed. HENT: Exam performed. - Head: Normocephalic and atraumatic. - Right Ear: External ear normal. No mastoid tenderness. - Left Ear: External ear normal. No mastoid tenderness. - Mouth/Throat: The oropharynx is clear and moist. No trismus in the jaw. No dental abscesses or uvula swelling. No oropharyngeal exudate or tonsillar abscesses. EYES: Conjunctivae and EOM are normal. Pupils are equal, round, and reactive to light. Right eye exhibits no discharge. Left eye exhibits no discharge. No scleral icterus. NECK: Normal range of motion. Neck supple. No JVD present. No spinous process tenderness present. No carotid bruit present. No rigidity. No tracheal deviation and normal range of motion present. No Brudzinski's sign and no Kernig's sign noted. CV: Normal rate, regular rhythm, normal heart sounds and intact distal pulses. There is no peripheral edema. Palpable radial pulses bue. PULM/CHEST: Rhonchi bilaterally. ABD: The abdomen is soft. Bowel sounds are normal. He has no distension. No mass is present. There is no tenderness. There is no rebound, no guarding, no Slaughter's sign and no tenderness at McBurney's point. Rovsig negative. MUSC/SKEL: Normal range of motion. There is no peripheral edema, tenderness or deformity. LYMPH: No cervical adenopathy. NEURO: Motor and sensation grossly intact Course Course 1031: The patient was evaluated in room B6. A complete history and physical exam was performed Cardiac monitoring: An order was placed for continuous cardiac monitoring. The monitor shows a rate of 90 with sinus rhythm 1315: Vital signs stable on supplemental oxygen.Labs show white blood cell count of 2.44 hemoglobin 12.5 bili count 85 VBG within normal limits. Creatinine at baseline. Magnesium low 1.5. Will be replaced in the emergency department. High-sensitivity troponin elevated 22.2. Imaging shows pneumonia. Patient will be treated with vancomycin and Zosyn. Patient has a high PORT score and CURB65 score. [facility] Bar[facility] Administered Medications Heparin Sodium (Porcine) (Heparin Sod 5,000 Unit/0.5 Ml Vial) 5,000 units SQ Q8 BRANDON Stop: 02/27/22 15:59 Last Admin: 01/28/22 17:56 Dose: 5,000 units Documented by: [id number] Sodium Chloride (Nss) 500 mls @ 125 mls/hr IV .Q4H BRANDON Stop: 02/27/22 12:44 Last Admin: 01/28/22 17:22 Dose: Not Given Documented by: [id number] Admin: 01/28/22 16:42 Dose: 125 mls/hr Documented by: [id number] Magnesium Sulfate/Dextrose (Magnesium Sulfate / D5w) 1 gm in 100 mls @ 50 mls/hr IV Q2H BRANDON Stop: 01/28/22 19:29 Last Admin: 01/28/22 17:53 Dose: 50 mls/hr Documented by: [id number] Infusion: 01/28/22 17:53 Dose: 50 mls/hr Documented by: [id number] Admin: 01/28/22 16:06 Dose: 50 mls/hr Documented by: [id number] Infusion: 01/28/22 16:06 Dose: 50 mls/hr Documented by: [id number] Admin: 01/28/22 14:47 Dose: 50 mls/hr Documented by: [id number] Discontinued Medications Albuterol (Albut/Ipratrop 3mg/0.5mg Neb 3 Ml Vial) 3 ml NEB NOW STA; Protocol Stop: 01/28/22 10:39 Last Admin: 01/28/22 11:04 Dose: 3 ml Documented by: [id number] Sodium Chloride (Nss 1000ml) 1,000 mls @ 125 mls/hr IV .Q8H BRANDON Stop: 02/27/22 10:44 Last Infusion: 01/28/22 16:48 Dose: 0 mls/hr Documented by: [id number] Admin: 01/28/22 11:09 Dose: 125 mls/hr Documented by: [id number] Sodium Chloride (Nss 1000ml) 500 mls @ 999 mls/hr IV .Q31M ONE Stop: 01/28/22 13:15 Last Infusion: 01/28/22 13:21 Dose: 0 mls/hr Documented by: [id number] Admin: 01/28/22 12:51 Dose: 999 mls/hr Documented by: [id number] Piperacillin Sod/Tazobactam Sod (Zosyn) 4.5 gm in 120 mls @ 240 mls/hr IV NOW ONE Stop: 01/28/22 13:20 Last Infusion: 01/28/22 14:28 Dose: 0 mls/hr Documented by: [id number] Admin: 01/28/22 13:20 Dose: 240 mls/hr Documented by: [id number] Vancomycin HCl 1,750 mg/ (Sodium Chloride) 535 mls @ 200 mls/hr IV NOW ONE Stop: 01/28/22 15:31 Last Infusion: 01/28/22 17:53 Dose: 0 mls/hr Documented by: [id number] Admin: 01/28/22 14:43 Dose: 200 mls/hr Documented by: [id number] Doxycycline Hyclate 100 mg/ (Dextrose) 110 mls @ 50 mls/hr IV NOW STA Stop: 01/28/22 15:55 Last Infusion: 01/28/22 16:37 Dose: 0 mls/hr Documented by: [id number] Admin: 01/28/22 14:59 Dose: 50 mls/hr Documented by: [id number] Medical Decision Making Laboratory Data Result diagrams: 01/28/22 12:05 01/28/22 10:58 Lab Results 01/28/22 01/28/22 01/28/22 Range/Units 10:58 10:58 10:58 WBC RBC Hgb Hct MCV MCH MCHC RDW Std Deviation RDW Coeff of Taina Plt Count MPV Immature Gran % (Auto) Neut % (Auto) Lymph % (Auto) Pender % (Auto) Eos % (Auto) Baso % (Auto) Neut # (Auto) Lymph # (Auto) Pender # (Auto) Eos # (Auto) Baso # (Auto) Immature Gran # (Auto) Absolute Nucleated RBC Nucleated RBC % (auto) Neutrophils % (Manual) Band Neutrophils % Lymphocytes % (Manual) Prolymphocyte % Reactive Lymphs % (Man) Monocytes % (Manual) Eosinophils % (Manual) Basophils % (Manual) Metamyelocytes % (Man) Myelocytes % (Man) Promyelocytes % (Man) Blast Cells % (Manual) Plasma Cell % (Manual) Other Cells % Nucleated RBC % Neutrophils # (Manual) Band Neutrophils # Total Absolute Neuts Lymphocytes # (Manual) Prolymphocyte # Reactive Lymphs # Total Abs Lymphocytes Monocytes # (Manual) Eosinophils # (Manual) Basophils # (Manual) Metamyelocytes # (Man) Myelocytes # (Manual) Promyelocytes # (Man) Blast Cells # (Man) Plasma Cell # (Manual) Other Cells # Nucleated RBCs # (Man) Hypersegmented Neuts Hyposegmented Neuts Hypogranular Neuts Large Granular Lymphs # Lrg Granular Lymphs Hairy Cells Smudge Cells Toxic Granulation Toxic Vacuolation Dohle Bodies Kyaw Rods Platelet Estimate Hypogranular Platelets Clumped Platelets Giant Platelets Platelet Satelliting RBC Morphology Polychromasia Hypochromasia Poikilocytosis Basophilic Stippling Anisocytosis Microcytosis Macrocytosis Spherocytes Pappenheimer Bodies Sickle Cells Target Cells Tear Drop Cells Ovalocytes Stomatocytes Smith-Rarden Bodies Echinocytes Acanthocytes (Spur) Rouleaux RBC Agglutinates Schistocytes RBC Morph Comment Sezary Cell PT 11.9 (9.0-12.0) Seconds INR 1.1 (0.9-1.1) APTT 40.4 H (21.0-31.0) Seconds PTT Ratio 1.5 VBG pH Cancelled VBG pCO2 Cancelled VBG pO2 Cancelled VBG HCO3 Cancelled VBG O2 Saturation Cancelled VBG Base Excess Cancelled Barometric Pressure Cancelled Sodium (136-145) mmol/L Potassium (3.5-5.1) mmol/L Chloride (98-107) mmol/L Carbon Dioxide (21-32) mmol/L Anion Gap (3-11) BUN (6-23) mg/dl Creatinine (0.6-1.4) mg/dl Est Cr Clr Drug Dosing ml/min Est GFR ( Amer) ml/min Est GFR (Non-Af Amer) ml/min BUN/Creatinine Ratio (10-20) Glucose (70-99(Fasting)) mg/dl Lactate Calcium (8.5-10.1) mg/dl Magnesium (1.7-2.4) mg/dl Total Bilirubin (0.2-1.0) mg/dl AST (13-39) U/L ALT (7-52) U/L Alkaline Phosphatase (34-104) U/L Total Creatine Kinase 39 (30-223) U/L Troponin I High Sens (0-20) pg/ml B-Natriuretic Peptide (0-100) pg/ml Total Protein (6.0-8.3) gm/dl Albumin (3.4-5.0) gm/dl Globulin (2.5-4.0) gm/dl Albumin/Globulin Ratio (0.9-2) Procalcitonin (0-0.5) ng/ml Urine Color Urine Appearance (Clear) Urine pH (4.5-7.5) Ur Specific [place] (1.000-1.030) Urine Protein (Negative) Urine Glucose (UA) (Negative) Urine Ketones (Negative) Urine Blood (Negative) Urine Nitrite (Negative) Urine Bilirubin (Negative) Urine Urobilinogen (Negative) Ur Leukocyte Esterase (Negative) Urine WBC (Auto) (0-5) /hpf Urine RBC (Auto) (0-4) /hpf U Hyaline Cast (Auto) (0-5) /lpf U Epithel Cells (Auto) (0-5) /lpf Urine Bacteria (Auto) (Negative) Urine Yeast Anaplasma Smear Lyme Disease IgG Ab (Negative) Lyme Disease IgM Ab (Negative) SARS-CoV-2, RNA, NAAT (NEGATIVE) 01/28/22 01/28/22 01/28/22 Range/Units 10:58 10:58 11:00 WBC Cancelled RBC Cancelled Hgb Cancelled Hct Cancelled MCV Cancelled MCH Cancelled MCHC Cancelled RDW Std Deviation Cancelled RDW Coeff of Taina Cancelled Plt Count Cancelled MPV Cancelled Immature Gran % (Auto) Cancelled Neut % (Auto) Cancelled Lymph % (Auto) Cancelled Pender % (Auto) Cancelled Eos % (Auto) Cancelled Baso % (Auto) Cancelled Neut # (Auto) Cancelled Lymph # (Auto) Cancelled Pender # (Auto) Cancelled Eos # (Auto) Cancelled Baso # (Auto) Cancelled Immature Gran # (Auto) Cancelled Absolute Nucleated RBC Cancelled Nucleated RBC % (auto) Cancelled Neutrophils % (Manual) Cancelled Band Neutrophils % Cancelled Lymphocytes % (Manual) Cancelled Prolymphocyte % Cancelled Reactive Lymphs % (Man) Cancelled Monocytes % (Manual) Cancelled Eosinophils % (Manual) Cancelled Basophils % (Manual) Cancelled Metamyelocytes % (Man) Cancelled Myelocytes % (Man) Cancelled Promyelocytes % (Man) Cancelled Blast Cells % (Manual) Cancelled Plasma Cell % (Manual) Cancelled Other Cells % Cancelled Nucleated RBC % Cancelled Neutrophils # (Manual) Cancelled Band Neutrophils # Cancelled Total Absolute Neuts Cancelled Lymphocytes # (Manual) Cancelled Prolymphocyte # Cancelled Reactive Lymphs # Cancelled Total Abs Lymphocytes Cancelled Monocytes # (Manual) Cancelled Eosinophils # (Manual) Cancelled Basophils # (Manual) Cancelled Metamyelocytes # (Man) Cancelled Myelocytes # (Manual) Cancelled Promyelocytes # (Man) Cancelled Blast Cells # (Man) Cancelled Plasma Cell # (Manual) Cancelled Other Cells # Cancelled Nucleated RBCs # (Man) Cancelled Hypersegmented Neuts Cancelled Hyposegmented Neuts Cancelled Hypogranular Neuts Cancelled Large Granular Lymphs Cancelled # Lrg Granular Lymphs Cancelled Hairy Cells Cancelled Smudge Cells Cancelled Toxic Granulation Cancelled Toxic Vacuolation Cancelled Dohle Bodies Cancelled Kyaw Rods Cancelled Platelet Estimate Cancelled Hypogranular Platelets Cancelled Clumped Platelets Cancelled Giant Platelets Cancelled Platelet Satelliting Cancelled RBC Morphology Cancelled Polychromasia Cancelled Hypochromasia Cancelled Poikilocytosis Cancelled Basophilic Stippling Cancelled Anisocytosis Cancelled Microcytosis Cancelled Macrocytosis Cancelled Spherocytes Cancelled Pappenheimer Bodies Cancelled Sickle Cells Cancelled Target Cells Cancelled Tear Drop Cells Cancelled Ovalocytes Cancelled Stomatocytes Cancelled Smith-Rarden Bodies Cancelled Echinocytes Cancelled Acanthocytes (Spur) Cancelled Rouleaux Cancelled RBC Agglutinates Cancelled Schistocytes Cancelled RBC Morph Comment Cancelled Sezary Cell Cancelled PT (9.0-12.0) Seconds INR (0.9-1.1) APTT (21.0-31.0) Seconds PTT Ratio VBG pH VBG pCO2 VBG pO2 VBG HCO3 VBG O2 Saturation VBG Base Excess Barometric Pressure Sodium 136 (136-145) mmol/L Potassium 4.0 (3.5-5.1) mmol/L Chloride 103 (98-107) mmol/L Carbon Dioxide 18 L (21-32) mmol/L Anion Gap 15 H (3-11) BUN 35 H (6-23) mg/dl Creatinine 1.58 H (0.6-1.4) mg/dl Est Cr Clr Drug Dosing 43.6 ml/min Est GFR ( Amer) 49.9 ml/min Est GFR (Non-Af Amer) 43.1 ml/min BUN/Creatinine Ratio 22.2 H (10-20) Glucose 126 H (70-99(Fasting)) mg/dl Lactate Calcium 9.8 (8.5-10.1) mg/dl Magnesium 1.5 L (1.7-2.4) mg/dl Total Bilirubin 7.8 H (0.2-1.0) mg/dl AST 14 (13-39) U/L ALT 10 (7-52) U/L Alkaline Phosphatase 124 H (34-104) U/L Total Creatine Kinase (30-223) U/L Troponin I High Sens 22.2 H (0-20) pg/ml B-Natriuretic Peptide 963 H (0-100) pg/ml Total Protein 7.8 (6.0-8.3) gm/dl Albumin 4.8 (3.4-5.0) gm/dl Globulin 3.0 (2.5-4.0) gm/dl Albumin/Globulin Ratio 1.6 (0.9-2) Procalcitonin (0-0.5) ng/ml Urine Color Urine Appearance (Clear) Urine pH (4.5-7.5) Ur Specific [place] (1.000-1.030) Urine Protein (Negative) Urine Glucose (UA) (Negative) Urine Ketones (Negative) Urine Blood (Negative) Urine Nitrite (Negative) Urine Bilirubin (Negative) Urine Urobilinogen (Negative) Ur Leukocyte Esterase (Negative) Urine WBC (Auto) (0-5) /hpf Urine RBC (Auto) (0-4) /hpf U Hyaline Cast (Auto) (0-5) /lpf U Epithel Cells (Auto) (0-5) /lpf Urine Bacteria (Auto) (Negative) Urine Yeast Anaplasma Smear Lyme Disease IgG Ab (Negative) Lyme Disease IgM Ab (Negative) SARS-CoV-2, RNA, NAAT (NEGATIVE) 01/28/22 01/28/22 01/28/22 Range/Units 11:00 11:00 11:55 WBC RBC Hgb Hct MCV MCH MCHC RDW Std Deviation RDW Coeff of Taina Plt Count MPV Immature Gran % (Auto) Neut % (Auto) Lymph % (Auto) Pender % (Auto) Eos % (Auto) Baso % (Auto) Neut # (Auto) Lymph # (Auto) Pender # (Auto) Eos # (Auto) Baso # (Auto) Immature Gran # (Auto) Absolute Nucleated RBC Nucleated RBC % (auto) Neutrophils % (Manual) Band Neutrophils % Lymphocytes % (Manual) Prolymphocyte % Reactive Lymphs % (Man) Monocytes % (Manual) Eosinophils % (Manual) Basophils % (Manual) Metamyelocytes % (Man) Myelocytes % (Man) Promyelocytes % (Man) Blast Cells % (Manual) Plasma Cell % (Manual) Other Cells % Nucleated RBC % Neutrophils # (Manual) Band Neutrophils # Total Absolute Neuts Lymphocytes # (Manual) Prolymphocyte # Reactive Lymphs # Total Abs Lymphocytes Monocytes # (Manual) Eosinophils # (Manual) Basophils # (Manual) Metamyelocytes # (Man) Myelocytes # (Manual) Promyelocytes # (Man) Blast Cells # (Man) Plasma Cell # (Manual) Other Cells # Nucleated RBCs # (Man) Hypersegmented Neuts Hyposegmented Neuts Hypogranular Neuts Large Granular Lymphs # Lrg Granular Lymphs Hairy Cells Smudge Cells Toxic Granulation Toxic Vacuolation Dohle Bodies Kyaw Rods Platelet Estimate Hypogranular Platelets Clumped Platelets Giant Platelets Platelet Satelliting RBC Morphology Polychromasia Hypochromasia Poikilocytosis Basophilic Stippling Anisocytosis Microcytosis Macrocytosis Spherocytes Pappenheimer Bodies Sickle Cells Target Cells Tear Drop Cells Ovalocytes Stomatocytes Smith-Rarden Bodies Echinocytes Acanthocytes (Spur) Rouleaux RBC Agglutinates Schistocytes RBC Morph Comment Sezary Cell PT (9.0-12.0) Seconds INR (0.9-1.1) APTT (21.0-31.0) Seconds PTT Ratio VBG pH VBG pCO2 VBG pO2 VBG HCO3 VBG O2 Saturation VBG Base Excess Barometric Pressure Sodium (136-145) mmol/L Potassium (3.5-5.1) mmol/L Chloride (98-107) mmol/L Carbon Dioxide (21-32) mmol/L Anion Gap (3-11) BUN (6-23) mg/dl Creatinine (0.6-1.4) mg/dl Est Cr Clr Drug Dosing ml/min Est GFR ( Amer) ml/min Est GFR (Non-Af Amer) ml/min BUN/Creatinine Ratio (10-20) Glucose (70-99(Fasting)) mg/dl Lactate TNP Calcium (8.5-10.1) mg/dl Magnesium (1.7-2.4) mg/dl Total Bilirubin (0.2-1.0) mg/dl AST (13-39) U/L ALT (7-52) U/L Alkaline Phosphatase (34-104) U/L Total Creatine Kinase (30-223) U/L Troponin I High Sens (0-20) pg/ml B-Natriuretic Peptide (0-100) pg/ml Total Protein (6.0-8.3) gm/dl Albumin (3.4-5.0) gm/dl Globulin (2.5-4.0) gm/dl Albumin/Globulin Ratio (0.9-2) Procalcitonin 0.36 (0-0.5) ng/ml Urine Color Yellow Urine Appearance Turbid A (Clear) Urine pH 5.0 (4.5-7.5) Ur Specific [place] 1.009 (1.000-1.030) Urine Protein Trace H (Negative) Urine Glucose (UA) Negative (Negative) Urine Ketones Negative (Negative) Urine Blood 3+ H (Negative) Urine Nitrite Positive A (Negative) Urine Bilirubin Negative (Negative) Urine Urobilinogen Negative (Negative) Ur Leukocyte Esterase 3+ H (Negative) Urine WBC (Auto) >30 H (0-5) /hpf Urine RBC (Auto) 5-10 H (0-4) /hpf U Hyaline Cast (Auto) 1-5 (0-5) /lpf U Epithel Cells (Auto) 20-30 H (0-5) /lpf Urine Bacteria (Auto) 2+ H (Negative) Urine Yeast Not Reportable Anaplasma Smear Lyme Disease IgG Ab Positive A (Negative) Lyme Disease IgM Ab Negative (Negative) SARS-CoV-2, RNA, NAAT (NEGATIVE) 01/28/22 01/28/22 01/28/22 Range/Units 12:05 12:05 12:05 WBC 2.44 L RBC 4.02 L Hgb 12.5 L Hct 38.0 L MCV 94.5 MCH 31.1 MCHC 32.9 RDW Std Deviation 53.5 H RDW Coeff of Taina 15.7 H Plt Count 85 L MPV 10.6 H Immature Gran % (Auto) 0.4 Neut % (Auto) 72.9 Lymph % (Auto) 15.2 Pender % (Auto) 10.7 Eos % (Auto) 0.4 Baso % (Auto) 0.4 Neut # (Auto) 1.78 Lymph # (Auto) 0.37 L Pender # (Auto) 0.26 Eos # (Auto) 0.01 Baso # (Auto) 0.01 Immature Gran # (Auto) 0.01 Absolute Nucleated RBC Nucleated RBC % (auto) Neutrophils % (Manual) Band Neutrophils % Lymphocytes % (Manual) Prolymphocyte % Reactive Lymphs % (Man) Monocytes % (Manual) Eosinophils % (Manual) Basophils % (Manual) Metamyelocytes % (Man) Myelocytes % (Man) Promyelocytes % (Man) Blast Cells % (Manual) Plasma Cell % (Manual) Other Cells % Nucleated RBC % Neutrophils # (Manual) Band Neutrophils # Total Absolute Neuts Lymphocytes # (Manual) Prolymphocyte # Reactive Lymphs # Total Abs Lymphocytes Monocytes # (Manual) Eosinophils # (Manual) Basophils # (Manual) Metamyelocytes # (Man) Myelocytes # (Manual) Promyelocytes # (Man) Blast Cells # (Man) Plasma Cell # (Manual) Other Cells # Nucleated RBCs # (Man) Hypersegmented Neuts Hyposegmented Neuts Hypogranular Neuts Large Granular Lymphs # Lrg Granular Lymphs Hairy Cells Smudge Cells Toxic Granulation Toxic Vacuolation Dohle Bodies Kyaw Rods Platelet Estimate Decreased L Hypogranular Platelets Clumped Platelets Giant Platelets 1+ Platelet Satelliting RBC Morphology Polychromasia Hypochromasia Poikilocytosis Basophilic Stippling Anisocytosis Microcytosis Macrocytosis Spherocytes Pappenheimer Bodies Sickle Cells Target Cells Tear Drop Cells Ovalocytes Stomatocytes Smith-Rarden Bodies Echinocytes Acanthocytes (Spur) Rouleaux RBC Agglutinates Schistocytes RBC Morph Comment Sezary Cell PT (9.0-12.0) Seconds INR (0.9-1.1) APTT (21.0-31.0) Seconds PTT Ratio VBG pH 7.47 H VBG pCO2 29 L VBG pO2 80 VBG HCO3 20 VBG O2 Saturation 96.6 VBG Base Excess -2.2 Barometric Pressure 728.5 Sodium (136-145) mmol/L Potassium (3.5-5.1) mmol/L Chloride (98-107) mmol/L Carbon Dioxide (21-32) mmol/L Anion Gap (3-11) BUN (6-23) mg/dl Creatinine (0.6-1.4) mg/dl Est Cr Clr Drug Dosing ml/min Est GFR ( Amer) ml/min Est GFR (Non-Af Amer) ml/min BUN/Creatinine Ratio (10-20) Glucose (70-99(Fasting)) mg/dl Lactate 1.6 Calcium (8.5-10.1) mg/dl Magnesium (1.7-2.4) mg/dl Total Bilirubin (0.2-1.0) mg/dl AST (13-39) U/L ALT (7-52) U/L Alkaline Phosphatase (34-104) U/L Total Creatine Kinase (30-223) U/L Troponin I High Sens (0-20) pg/ml B-Natriuretic Peptide (0-100) pg/ml Total Protein (6.0-8.3) gm/dl Albumin (3.4-5.0) gm/dl Globulin (2.5-4.0) gm/dl Albumin/Globulin Ratio (0.9-2) Procalcitonin (0-0.5) ng/ml Urine Color Urine Appearance (Clear) Urine pH (4.5-7.5) Ur Specific [place] (1.000-1.030) Urine Protein (Negative) Urine Glucose (UA) (Negative) Urine Ketones (Negative) Urine Blood (Negative) Urine Nitrite (Negative) Urine Bilirubin (Negative) Urine Urobilinogen (Negative) Ur Leukocyte Esterase (Negative) Urine WBC (Auto) (0-5) /hpf Urine RBC (Auto) (0-4) /hpf U Hyaline Cast (Auto) (0-5) /lpf U Epithel Cells (Auto) (0-5) /lpf Urine Bacteria (Auto) (Negative) Urine Yeast Anaplasma Smear See Comment Lyme Disease IgG Ab (Negative) Lyme Disease IgM Ab (Negative) SARS-CoV-2, RNA, NAAT (NEGATIVE) 01/28/22 Range/Units 13:16 WBC RBC Hgb Hct MCV MCH MCHC RDW Std Deviation RDW Coeff of Tain[place] Plt Count MPV Immature Gran % (Auto) Neut % (Auto) Lymph % (Auto) Pender % (Auto) Eos % (Auto) Baso % (Auto) Neut # (Auto) Lymph # (Auto) Pender # (Auto) Eos # (Auto) Baso # (Auto) Immature Gran # (Auto) Absolute Nucleated RBC Nucleated RBC % (auto) Neutrophils % (Manual) Band Neutrophils % Lymphocytes % (Manual) Prolymphocyte % Reactive Lymphs % (Man) Monocytes % (Manual) Eosinophils % (Manual) Basophils % (Manual) Metamyelocytes % (Man) Myelocytes % (Man) Promyelocytes % (Man) Blast Cells % (Manual) Plasma Cell % (Manual) Other Cells % Nucleated RBC % Neutrophils # (Manual) Band Neutrophils # Total Absolute Neuts Lymphocytes # (Manual) Prolymphocyte # Reactive Lymphs # Total Abs Lymphocytes Monocytes # (Manual) Eosinophils # (Manual) Basophils # (Manual) Metamyelocytes # (Man) Myelocytes # (Manual) Promyelocytes # (Man) Blast Cells # (Man) Plasma Cell # (Manual) Other Cells # Nucleated RBCs # (Man) Hypersegmented Neuts Hyposegmented Neuts Hypogranular Neuts Large Granular Lymphs # Lrg Granular Lymphs Hairy Cells Smudge Cells Toxic Granulation Toxic Vacuolation Dohle Bodies Kyaw Rods Platelet Estimate Hypogranular Platelets Clumped Platelets Giant Platelets Platelet Satelliting RBC Morphology Polychromasia Hypochromasia Poikilocytosis Basophilic Stippling Anisocytosis Microcytosis Macrocytosis Spherocytes Pappenheimer Bodies Sickle Cells Target Cells Tear Drop Cells Ovalocytes Stomatocytes Smith-Rarden Bodies Echinocytes Acanthocytes (Spur) Rouleaux RBC Agglutinates Schistocytes RBC Morph Comment Sezary Cell PT (9.0-12.0) Seconds INR (0.9-1.1) APTT (21.0-31.0) Seconds PTT Ratio VBG pH VBG pCO2 VBG pO2 VBG HCO3 VBG O2 Saturation VBG Base Excess Barometric Pressure Sodium (136-145) mmol/L Potassium (3.5-5.1) mmol/L Chloride (98-107) mmol/L Carbon Dioxide (21-32) mmol/L Anion Gap (3-11) BUN (6-23) mg/dl Creatinine (0.6-1.4) mg/dl Est Cr Clr Drug Dosing ml/min Est GFR ( Amer) ml/min Est GFR (Non-Af Amer) ml/min BUN/Creatinine Ratio (10-20) Glucose (70-99(Fasting)) mg/dl Lactate Calcium (8.5-10.1) mg/dl Magnesium (1.7-2.4) mg/dl Total Bilirubin (0.2-1.0) mg/dl AST (13-39) U/L ALT (7-52) U/L Alkaline Phosphatase (34-104) U/L Total Creatine Kinase (30-223) U/L Troponin I High Sens (0-20) pg/ml B-Natriuretic Peptide (0-100) pg/ml Total Protein (6.0-8.3) gm/dl Albumin (3.4-5.0) gm/dl Globulin (2.5-4.0) gm/dl Albumin/Globulin Ratio (0.9-2) Procalcitonin (0-0.5) ng/ml Urine Color Urine Appearance (Clear) Urine pH (4.5-7.5) Ur Specific [place] (1.000-1.030) Urine Protein (Negative) Urine Glucose (UA) (Negative) Urine Ketones (Negative) Urine Blood (Negative) Urine Nitrite (Negative) Urine Bilirubin (Negative) Urine Urobilinogen (Negative) Ur Leukocyte Esterase (Negative) Urine WBC (Auto) (0-5) /hpf Urine RBC (Auto) (0-4) /hpf U Hyaline Cast (Auto) (0-5) /lpf U Epithel Cells (Auto) (0-5) /lpf Urine Bacteria (Auto) (Negative) Urine Yeast Anaplasma Smear Lyme Disease IgG Ab (Negative) Lyme Disease IgM Ab (Negative) SARS-CoV-2, RNA, NAAT NEGATIVE (NEGATIVE) Imaging Data Radiologist's Impression: Head CT 01/28/22 10:38 CT head/brain wo con CLINICAL HISTORY: 71 years-old Male with syncope. Acute syncope TECHNIQUE: Multiple axial CT images of the head were obtained without contrast. A dose lowering technique was utilized adhering to the principles of ALARA. CT DOSE: 1498.35 mGy.cm COMPARISON: Head CT 12/11/2020 FINDINGS: No acute intracranial hemorrhage, midline shift, intracranial mass, h ydrocephalus, territorial ischemia or abnormal extra-axial collection. Involutional changes. Mild white matter hypodensities suggest chronic microvascular ischemic disease. Cerebral vascular calcifications. The calvarium is intact. The mastoid air cells are clear. Mild mucoperiosteal thickening of the maxillary and ethmoid sinuses. Unremarkable soft tissues and orbits. IMPRESSION: No acute intracranial abnormality or calvarial fracture. ACT 112: Negative or not required by law. The above report was generated using voice recognition software. It may contain grammatical, syntax or spelling errors. Electronically signed by: Marty Crespo M.D. 01/28/2022 11:54 AM Chest X-Ray 01/28/22 10:39 XR chest 1V portable HISTORY: 71 years-old Male SEPSIS acute sepsis COMPARISON: 12/12/2020 TECHNIQUE: Portable AP view of the chest FINDINGS: The cardiac silhouette is enlarged. Atherosclerosis of the aorta. Emphysema with chronic interstitial coarsening. No pneumothorax or large pleural effusion. Ill- defined right basilar predominant airspace opacities. Degenerative changes of the shoulders and spine. IMPRESSION: Emphysema with right midlung and right basilar predominant airspace opacities suspicious for pneumonia. ACT 112: Negative or not required by law. The above report was generated using voice recognition software. It may contain grammatical, syntax or spelling errors. Electronically signed by: Marty Crespo M.D. 01/28/2022 11:56 AM ECG Data Indication: + SOB/dyspnea Rate (beats per minute): 90 Rhythm: + normal sinus ECG Intervals/blocks: + Normal QRS, + Normal IN and + Normal QT-c ECG ST segments: + Normal ST segments and + T-wave inversions (Leads V2 V3 V4 V5 V6) Comparison ECG Date: from (October 2020) Change: no significant change MDM Narrative Vital signs stable on supplemental oxygen.Labs show white blood cell count of 2.44 hemoglobin 12.5 bili count 85 VBG within normal limits. Creatinine at baseline. Magnesium low 1.5. Will be replaced in the emergency department. High-sensitivity troponin elevated 22.2. Imaging shows pneumonia. Patient will be treated with vancomycin and Zosyn. Patient has a high PORT score and CURB65 score. [facility] Barajas Impression & Plan Pneumonia, Elevated troponin, Hypomagnesemia Discharge Plan Visit Data Chief Complaint: Pain (Generalized) Stated Complaint: OVERHEATED ON MONDAY, FATIGUED, PAIN EVERYWHERE Discharge Problem: Pneumonia, Elevated troponin, Hypomagnesemia Patient Disposition: Admitted As Inpatient Discharge Instructions Interventions: ED Discharge Assessment Last Done: 01/28/22 15:04
[2022-01-28] MEDS: levETIRAcetam 250 MG TAB PO SCH (20:49)
[2022-01-29] MEDS: HEPARIN SOD 5,000 UNIT/0.5 ML VIAL SQ SCH ×3 (05:40→21:38)
[2022-01-29] MEDS: ALBUT/IPRATROP 3MG/0.5MG NEB 3 ML VIAL NEB PRN (05:57)
[2022-01-29] MEDS: METOPROLOL SUCC 50MG EXT REL TAB PO SCH (07:50)
[2022-01-29] MEDS: levETIRAcetam 250 MG TAB PO SCH ×2 (07:50→21:38)
[2022-01-29] MEDS: PANTOprazole 40 MG TAB PO SCH (07:50)
[2022-01-29] MEDS: ATORVASTATIN 40 MG TAB PO SCH (07:51)
[2022-01-29] MEDS: FLUTICASONE/VILANTEROL 100/25MCG 14 PUFFS/INHALER INH SCH (07:51)
[2022-01-29] MEDS: allopurinoL 300 MG TAB PO SCH (08:55)
[2022-01-29] MEDS ORDERED: PNEUMOCOCCAL POLYSACCHARIDES 25 MCG/0.5 ML VIAL/SYR IM ONE (09:00)
--- NOTE | 2022-01-29 10:07 | Hospitalist Progress Note ---
Date of Service January 29, 2022 Assessment & Plan (1) Pneumonia: Plan: Patient with chronic COPD and chronic basilar consolidation but presents with subjective chills, hypotensive, and dyspneic with increased oxygen requirement associated with leukopenia - Will place on ceftriaxone- MRSA sent discontinue Vancomycin - Doxycyline IV - PCT, CRP, Blood culture and sputum culture sent- although after abx - add flutter valve -will repeat imaging in AM. Updated . (2) Chronic obstructive pulmonary disease: Plan: Severe outflow obstruction with PFTs in 03/16 as well as elevated RVSP and reduced right ventricular function FEV1- 1.53, FEV1/FVC- 50.8 - Continue KEITH, and Advair or equivalent - May benefit from repeat PFTS - Nebulizer as needed - VBG without hypercapnia and without wheezing not an exacerbation - Hold oral diuretics at this time, IV diurese in AM if hemodynamics stable (3) Elevated troponin: Plan: On admission 22 recheck at 28- cotinue to trend q6 - without ST elevation - denies any anginal like chest pain with radiation but is with dyspnea and hypoxia - ECG changes appreciated from Nov 15 with T-wave inversions - Trend HScTNI- follow symptomatology - ECHO ordered (4) Thrombocytopenia: Plan: Check for anaplasmosis/lyme Send INR 1.1 evaluate lower extremity for DVT with calf pain- r/o DVT/consumption (5) Leukopenia: Plan: As above DDX: Bacterial infx vs. lyme if remains low with negative testing as above- send peripheral smear in the morning (6) Subdural hematoma, chronic: Plan: Subdural hematoma in 10/18 which then was associated with seizures - He remains off ASA - Remains on Keppra - Follow (7) Chronic kidney disease, stage III (moderate): Plan: JEANE II on CKD III - secondary likely to decrease oral intake over the past 4 days of feeling ill - renally dose medications - avoid futher nephrotoxic medications (8) GERD without esophagitis: Plan: Continue lansoprazole or hospital equivalent (9) Elevated alkaline phosphatase level: Plan: chronically elevated since November 2020 with normal LFTs and elevated bilirubin follow with CMP in am he is without abdominal pain or discomfort and is not anemic - consider RUQUS (10) Hypomagnesemia: Plan: Mag 1.5 replete with 3 GM magnesium (11) HTN (hypertension): Plan: Continue with BB - Hold amlodopine - hold oral lasix- follow renal function and hemodyanmics Admission and Anticipated Discharge Date Admission Date: January 28, 2022 Subjective Patient rePorts no significant improvement from yesterday. Review of Systems Review of Systems: All systems reviewed & are unremarkable except as noted in HPI & below Physical Exam Physical Exam: General: awake, alert, no apparent distress Head: Normocephalic, atraumatic ENT: PERRL, EOMI, no pharyngeal exudate, mucous membranes moist Neuro: AAO x 3, speech clear and appropriate, strength intact bilaterally 5/5, sensation intact and equal all extremities and dermatomes, no pronator drift Chest: equal rise and fall of the chest, no accessory muscle use, no heaves or thrills, Clear to auscultation, on nasal canula. Cardiac: Regular rate and rhythm, telemetry reviewed- NSR, skin warm dry, cap refill <3 seconds, peripheral pulses +2 no JVD, no murmur, no edema GI: NABS x 4 quadrants, soft, nontender to palpation, no rebound, guarding or tenderness : chronic roberts catheter- replace Extremities: Normal inspection, no peripheral edema or erythema, calfs nontender to palpation Psych: Normal mood and affect Skin: some bruising on hands and legs Results & Data Results & Data ([facility]) Vital Signs (Past 12 Hours) Vital Signs Temp Pulse Pulse Resp BP Pulse Ox 01/29/22 08:17 36.7 C 77 18 108/69 90 01/29/22 05:57 72 22 92 01/29/22 04:00 36.8 C 77 20 106/67 92 01/28/22 23:52 73 01/28/22 23:00 36.7 C 74 19 90/62 L 90 PG Care Time/CCT Total # of Minutes Spent Total Time Spent with Patient: Total time spent is greater than 50% in coordination of care (as documented) at patient's floor/unit and/or counseling patient: Coding Level of Care Code 32105 Subseq Hosp Care Lvl 3 Diagnoses Pneumonia J18.9 Laterality: right Lung location: unspecified part of lung Pneumonia type: due to unspecified organism Chronic obstructive pulmonary disease J44.9 Elevated troponin R77.8 Thrombocytopenia D69.6 Leukopenia D72.819 Subdural hematoma, chronic I62.03 Chronic kidney disease, stage III (moderate) N18.30 GERD without esophagitis K21.9 Elevated alkaline phosphatase level R74.8 Hypomagnesemia E83.42 HTN (hypertension) I10 Time Spent (min) 35 (1) Pneumonia Laterality: right Lung location: unspecified part of lung Pneumonia type: due to unspecified organism Qualified Code(s): J18.9 - Pneumonia, unspecified organism
[2022-01-29 10:20] LABS: Hematocrit (blood only) 34.7 % (42-52); Hemoglobin 11.5 g/dL (14.0-18.0); Mean Corpuscular Hemoglobin 31.8 pg (25-34); Mean Corpuscular Hgb Conc 33.1 g/dL (32-36); Mean Corpuscular Volume 95.9 fL (80-100); RDW Coefficient of Variation 15.7 % (11.5-14.5); RDW Standard Deviation 55.1 fL (36.4-46.3); Red Blood Count 3.62 M/uL (4.7-6.1); White Blood Count 2.04 K/uL (4.8-10.8)
[2022-01-29 10:33] LABS: Mean Platelet Volume 11.4 fL (7.4-10.4); Platelet Count 63 K/uL (130-400)
[2022-01-29 10:55] LABS: Basophils # (auto) 0.01 K/uL (0-0.2); Basophils % (auto) 0.5 %; Eosinophils # (auto) 0.03 K/uL (0-0.5); Eosinophils % (auto) 1.5 %; Immature Granulocytes # (auto) 0.01 K/uL (0.00-0.02); Immature Granulocytes % (auto) 0.5 %; Lymphocytes # (auto) 0.45 K/uL (1.2-3.4); Lymphocytes % (auto) 22.1 %; Monocytes # (auto) 0.28 K/uL (0.11-0.59); Monocytes % (auto) 13.7 %; Neutrophils # (auto) 1.26 K/uL (1.4-6.5); Neutrophils % (auto) 61.7 %
[2022-01-29] MEDS: LEVALBUTEROL 1.25MG/0.5ML NEB NEB SCH ×3 (11:04→19:45)
[2022-01-29] MEDS: cefTRIAXone SODIUM 2,000 MG in DEXTROSE 5% 50 ML IV SCH (11:15)
[2022-01-29] MEDS: DOXYCYCLINE HYCLATE 100 MG in DEXTROSE 5% 100 ML IV SCH ×2 (11:16→23:59)
[2022-01-29] MEDS: ADVANCED PROBIOTIC 1250 MG CAPSULE PO SCH (11:16)
[2022-01-29 11:26] LABS: Troponin I High Sensitivity 17.8 pg/ml (0-20)
[2022-01-29 12:42] LABS: BUN Creatinine Ratio 23.6 (10-20); Creatinine Clr Calc Pharmacy 50.9 ml/min; Est GFR (Non-African American) 46.6 ml/min; Potassium 3.7 mmol/L (3.5-5.1)
--- NOTE | 2022-01-29 17:09 | XCELERA ---
[id number]
[2022-01-30] MEDS: ALBUT/IPRATROP 3MG/0.5MG NEB 3 ML VIAL NEB PRN (00:17)
[2022-01-30] MEDS: HEPARIN SOD 5,000 UNIT/0.5 ML VIAL SQ SCH ×3 (06:27→20:21)
[2022-01-30 07:29] LABS: Hematocrit (blood only) 35.4 % (42-52); Hemoglobin 11.4 g/dL (14.0-18.0); Mean Corpuscular Hemoglobin 30.7 pg (25-34); Mean Corpuscular Hgb Conc 32.2 g/dL (32-36); Mean Corpuscular Volume 95.4 fL (80-100); RDW Coefficient of Variation 15.9 % (11.5-14.5); RDW Standard Deviation 54.9 fL (36.4-46.3); Red Blood Count 3.71 M/uL (4.7-6.1)
[2022-01-30 07:30] LABS: Mean Platelet Volume 11.1 fL (7.4-10.4); Platelet Count 76 K/uL (130-400)
[2022-01-30 07:56] LABS: BUN Creatinine Ratio 26.3 (10-20); Calcium 9.3 mg/dl (8.5-10.1); Creatinine Clr Calc Pharmacy 63.6 ml/min; Est GFR (Non-African American) 61.3 ml/min; Potassium 3.8 mmol/L (3.5-5.1)
--- NOTE | 2022-01-30 07:57 | Electrocardiogram Report ---
Test Reason : Blood Pressure : / mmHG Vent. Rate : 090 BPM Atrial Rate : 090 BPM P-R Int : 178 ms QRS Dur : 094 ms QT Int : 374 ms P-R-T Axes : 031 072 253 degrees QTc Int : 457 ms Normal sinus rhythm Incomplete right bundle branch block Possible Inferior infarct , age undetermined Abnormal ECG When compared with ECG of 11-DEC-2020 15:39, ST abnormalities are new Confirmed by Prashant Linda ([id number]) on 01/30/2022 7:57:25 AM Referred By: ED Confirmed By:Prashant Linda
--- NOTE | 2022-01-30 08:30 | Electrocardiogram Report ---
Test Reason : Blood Pressure : / mmHG Vent. Rate : 079 BPM Atrial Rate : 079 BPM P-R Int : 182 ms QRS Dur : 096 ms QT Int : 424 ms P-R-T Axes : 020 067 258 degrees QTc Int : 486 ms Normal sinus rhythm Incomplete right bundle branch block Cannot rule out Inferior infarct (cited on or before 28-JAN-2022) Abnormal ECG When compared with ECG of 28-JAN-2022 10:32, (unconfirmed) No significant change was found Confirmed by Prashant Linda ([id number]) on 01/30/2022 8:29:51 AM Referred By: REFERRED SELF Confirmed By:Prashant Linda
[2022-01-30] MEDS: levETIRAcetam 250 MG TAB PO SCH ×3 (09:16→20:20)
[2022-01-30] MEDS: ATORVASTATIN 40 MG TAB PO SCH (09:18)
[2022-01-30] MEDS: METOPROLOL SUCC 50MG EXT REL TAB PO SCH (09:19)
[2022-01-30] MEDS: ADVANCED PROBIOTIC 1250 MG CAPSULE PO SCH (09:20)
[2022-01-30] MEDS: FLUTICASONE/VILANTEROL 100/25MCG 14 PUFFS/INHALER INH SCH (09:21)
--- NOTE | 2022-01-30 10:02 | CT Scan Report ---
CT SCAN OF THE CHEST WITHOUT IV CONTRAST CLINICAL HISTORY: Pneumonia. COMPARISON STUDY: Chest x-ray dated 01/28/2022. Chest CT scans dated 12/11/2020 and 08/10/2018. TECHNIQUE: CT scan of the thorax was performed from the thoracic inlet to the upper abdomen. Images are reviewed in the axial, sagittal, and coronal planes. IV contrast was not administered for this ex amination as per the referring clinician. A dose lowering technique was utilized adhering to the gopi Chowdhury. CT DOSE: 473.42 mGy.cm FINDINGS: Thyroid: Imaged portions of the thyroid gland are normal in size and attenuation. Thoracic aorta: There is atherosclerotic calcification of the thoracic aorta, which is normal in kim raymond and demonstrates standard 3-vessel arch anatomy. Heart: The heart is enlarged and without pericardial effusion. The coronary arteries are densely calc ified. Lungs and pleural spaces: There is advanced emphysema. Bullous change is noted at the left apex and p arenchymal scarring is seen throughout both lungs. There is a small right pleural effusion with right basilar atelectasis. Only trace pleural fluid seen in the left lung base. Intralobular septal thicke dustin is noted in the right middle lobe and the inferior right upper lobe with groundglass opacities i n subpleural reticulation. A 5 mm right middle lobe nodule on image #178. A 12 mm irregular nodular d ensity in the right middle lobe is seen on image #204. These were not clearly seen previously. A 3 mm left lower lobe pulmonary nodule seen on image #267 is unchanged from prior studies. There are numer ous calcified granulomas. The trachea and central airways are clear. Mediastinum: There are numerous mildly enlarged mediastinal lymph nodes which measure up to 15 mm in short axis. Briseyda: Not well assessed without IV contrast. Axillae: There is no axillary lymphadenopathy. Upper abdomen: There is trace perihepatic ascites. Infiltration is identified around the gallbladder and in the rachid hepatis. Calcific gallstones are noted. The spleen is enlarged. Right renal cysts me asure up to 2.1 cm. Skeletal structures: The skeletal structures are osteopenic. Degenerative changes noted throughout th e thoracic spine. No lytic or blastic bony lesions are seen. IMPRESSION: 1. Gallstones are noted in the partially imaged gallbladder. There is mild infiltration around the ga llbladder as well as in the rachid hepatis. This is nonspecific, and if there is clinical concern for hepatobiliary disease/cholecystitis a right upper quadrant ultrasound should be obtained 2. Cardiomegaly and advanced emphysema. 3. There are opacities in the right upper and middle lobes as detailed above. Similar findings have b een seen on all of the patient's prior chest CT scans, and this HAs partially cleared as compared to most recent prior study dated 12/11/2020. This may be related to chronic lung disease. Correlate clini yo for evidence of an infectious/inflammatory pneumonitis. Nonemergent pulmonology follow-up is re commended. 4. There are 2 nodular densities in the right middle lobe which were not clearly seen previously. The se are pathologically indeterminant, and a 3-6 month follow-up chest CT is recommended for reassessme nt. 5. There is a small right pleural effusion. 6. Numerous mildly enlarged mediastinal lymph nodes are similar to previous. These are nonspecific an d may be reactive or could be related to chronic lung disease. 7. Trace perihepatic ascites and splenomegaly. 8. Additional findings as above. ACT 112: Negative or not required by law. Electronically signed by: Dinesh Hernandez M.D. 01/30/2022 9:59 AM
[2022-01-30] MEDS: PANTOprazole 40 MG TAB PO SCH (10:18)
[2022-01-30] MEDS: allopurinoL 300 MG TAB PO SCH (10:19)
[2022-01-30] MEDS: cefTRIAXone SODIUM 2,000 MG in DEXTROSE 5% 50 ML IV SCH (10:51)
[2022-01-30] MEDS: DOXYCYCLINE HYCLATE 100 MG in DEXTROSE 5% 100 ML IV SCH (11:08)
--- NOTE | 2022-01-30 11:36 | Pulmonary Consultation ---
Date of Consultation January 30, 2022 Assessment & Plan (1) Chronic obstructive pulmonary disease: (2) COPD exacerbation: (3) Acute and chronic respiratory failure with hypoxia: (4) Pulmonary nodule: (5) Pleural effusion: (6) Pulmonary hypertension: CT chest 01/30/2022 personally reviewed: Severe centrilobular and paraseptal emphysema appreciated bilaterally especially in the upper lobes Right middle lobe pulmonary nodule, another right middle lobe 1.2 cm nodular ity perifissural Right-sided pleural effusion small No mediastinal lymphadenopathy There seems to be improvement in the right middle lobe infiltrate compared to the CAT scan which was done November 2020 --Acute on chronic hypoxic respiratory failure likely secondary to COPD exacerbation CRP 5.9 Nasal MRSA negative Covid-19 NAAT negative Procalcitonin 0.36 BNP 963 Continue O2 supplementation to keep ox saturation between 88-92% --Right-sided pleural effusion Chronic BNP 963 Likely cardiac in etiology 2D echo 01/29/22: Grade 1 diastolic dysfunction, EF 55 to 60%, right ventricle systolic pressure > 60 -- Pulmonary hypertension Likely combination of type II and type III --Severe COPD with emphysema Patient is only on Wixela at home Would recommend to add LAMA inhaler like Spiriva or Incruse to it -- Overall patient's prognosis is poor given the severe COPD and emphysema Palliative care could be considered Plan: Start the patient on Solu-Medrol 40 mg every 12 hours Incruse to be added to Breo Follow-up influenza A/B Continue diuresis as tolerated Case discussed with Dr. Barajas Please note the above document was generated using voice recognition software. It may contain grammatical, syntax or spelling errors.Any formal questions or concerns about the content, text or information contained within the body of this dictation should be directly addressed to the provider for clarification. History of Present Illness Attending Physician: Celestine Barajas History of Present Illness 71-year-old male came to the hospital with complaints of shortness of breath and cough Past medical history: Severe COPD on 3-4 L nasal cannula at home, seizure, subdural hematoma, chronic Craven, CKD 3, pulmonary nodules, dyslipidemia Pulmonary consulted because of increasing oxygen requirement As per the patient he is usually on 3 L nasal cannula at rest and goes up to 4 L when he is exerting himself. He has been having issues with worsening shortness of breath going on since approximately 3-4 days progressively getting worse. At the time of examination he was saturating 93% on 10 L nasal cannula went down to 8 L he was still saturating 92% As per him there has been no significant improvement since coming to the hospital. Denies any chest pain, Does complain of cough not bringing any phlegm. Did complain of generalized myalgia and chills. Positive subjective fever. No headaches, no blurry vision No nausea vomiting. Social history: 100 pack years smoking history, quit at the age of 49. Does have exposure to asbestos. 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 Allergies Allergy/AdvReac Type Severity Reaction Status Date / Time bee venom protein (honey bee) Allergy Severe hives in Verified 12/11/20 17:41 throat, trouble breathing Home Medications Medication Instructions Recorded Confirmed Type atorvastatin 80 mg tablet 80 mg PO QAM 12/06/18 01/28/22 History cholecalciferol (vitamin D3) 25 1,000 units PO QAM 04/25/19 01/28/22 History mcg (1,000 unit) tablet lansoprazole 30 mg capsule,delayed 30 mg PO QAM #90 cap 05/29/19 01/28/22 Rx release albuterol sulfate 90 mcg/actuation 2 puff INHALATION Q6H PRN 11/11/20 01/28/22 History aerosol inhaler ascorbic acid (vitamin C) 1,000 mg 1,000 mg PO QAM 11/11/20 01/28/22 History tablet,extended release (Vitamin C ER) fluticasone 250 mcg-salmeterol 50 1 ea INHALATION BID 11/11/20 01/28/22 History mcg/dose blistr powdr for inhalation (Cristo Inhub) amlodipine 10 mg tablet 10 mg PO QAM 11/21/20 01/28/22 History allopurinol 300 mg tablet 300 mg PO QAM 12/11/20 01/28/22 History indomethacin 50 mg capsule 50 mg PO TID PRN 12/11/20 01/28/22 History levetiracetam 750 mg tablet 750 mg PO BID 12/11/20 01/28/22 History (Keppra) metoprolol succinate 100 mg 100 mg PO QAM 12/11/20 01/28/22 History tablet,extended release 24 hr tamsulosin 0.4 mg capsule (Flomax) 0.4 mg PO QAM 12/11/20 01/28/22 History potassium chloride 10 mEq 10 meq PO TID #30 tab 12/16/20 01/28/22 Rx tablet,extended release(part/cryst) (Klor-Con M) furosemide 40 mg tablet 40 mg PO QAM 01/28/22 01/28/22 History naproxen sodium 220 mg tablet 220 mg PO Q8H PRN 01/28/22 01/28/22 History (Aleve) Patient History Medical History Acute renal failure Acute respiratory failure with hypoxia and hypercapnia Admitted to intensive care unit Chronic obstructive pulmonary disease no inhalers Chronic shortness of breath Gout History of colon polyps Hyperlipidemia Hypertension Lactic acidosis Left knee pain Metabolic acidosis Past use of tobacco Pneumonia Positive Lyme disease serology Prediabetes Prostate cancer screening Respiratory failure SOB (shortness of breath) Surgical History History of cardiac cath 2003 @ [facility] [place]--2 stents placed History of colonoscopy History of esophagogastroduodenoscopy (EGD) History of heart artery stent x2 History of surgery on arm right arm repair after "running through a sliding glass door" History of tonsillectomy History of tooth extraction all teeth removed Hx of vasectomy Family History Grandmother (Maternal) Family history of diabetes mellitus Mother Lung cancer Other No family history of adverse response to anesthesia Denies family history of Ovarian cancer Prostate cancer Myocardial infarction Breast cancer Colorectal cancer Social History Smoking Status: Former smoker Tobacco Type: Cigarettes Age Started Using Tobacco: 11; Age Quit Using Tobacco: 39; packs per day: 3; Second Hand Exposure: Yes ( smokes, parents smoked); Hx Alcohol Use: Yes Alcohol type: hard liquor Hx Substance Use: No Preferred Language: Belarusian Communication Ability: Effective Visual Impairment: No Limitations Hearing Ability: Normal Aircraft Fuselage Framer Required: No Beliefs That Will Affect Care: None Current Living Situation: Spouse current occupational status: retired Other Information That Helps Us Care for You: No Feels Safe at Home: Yes Safety Concerns: Feels Safe At This Time Dental Care, Regularly: No Physical Activity Frequency: 1-2 Times per Week Seatbelt Use: sometimes Sunscreen Use: No Assistive Devices: None Review of Systems Review of Systems: All systems reviewed & are unremarkable except as noted in HPI & below Physical Exam Physical Exam: Constitutional: No acute distress HEENT: EOMI, PERRLA Respiratory system: Decreased air entry bilaterally, no rhonchi, positive crackles bilateral lower lobes more on the right side, positive expiratory wheeze CVS: S1-S2 positive, no murmurs or gallops, accentuated P2 Abdomen: Soft, nontender, nondistended, positive bowel sounds x4 Extremities: +2 pulses bilaterally radialis/ dorsalis pedis, no cyanosis, +1 pitting edema bilateral lower extremity Neuro: Awake alert oriented x3 Psych: Normal mood and affect G/U: Positive Craven Skin: no rashes, warm and dry Lymphatic: no cervical or axillary lymphadenopathy Results & Data Results & Data ([facility]) Vital Signs (Past 12 Hours) Vital Signs Temp Pulse Pulse Resp BP BP Pulse Ox 01/30/22 11:25 36.3 C L 74 20 106/71 92 01/30/22 08:04 36.7 C 64 18 112/75 90 01/30/22 07:43 81 01/30/22 07:39 01/30/22 03:14 36.7 C 72 20 141/85 H 89 L 01/30/22 01:25 77 90 01/30/22 00:17 28 H 94 01/30/22 00:05 84 L 01/29/22 23:55 22 79 L Pulse Ox 01/30/22 11:25 01/30/22 08:04 01/30/22 07:43 01/30/22 07:39 90 01/30/22 03:14 01/30/22 01:25 01/30/22 00:17 01/30/22 00:05 01/29/22 23:55 Laboratory Results 01/30/22 06:44 01/30/22 06:44 PG Care Time/CCT Total # of Minutes Spent Total Time Spent with Patient: Total time spent is greater than 50% in coordination of care (as documented) at patient's floor/unit and/or counseling patient: Coding Level of Care Code 31116 Initial Inpt Care Lvl 3 Diagnoses Chronic obstructive pulmonary disease J44.9 COPD exacerbation J44.1 Acute and chronic respiratory failure with hypoxia J96.21 Pulmonary nodule R91.1 Pleural effusion J90 Pulmonary hypertension I27.20
--- NOTE | 2022-01-30 13:07 | Electrocardiogram Report ---
Test Reason : Blood Pressure : / mmHG Vent. Rate : 078 BPM Atrial Rate : 078 BPM P-R Int : 176 ms QRS Dur : 100 ms QT Int : 434 ms P-R-T Axes : 006 062 245 degrees QTc Int : 494 ms Sinus rhythm with sinus arrhythmia and with PVC Incomplete right bundle branch block Septal infarct , age undetermined Possible Inferior infarct (cited on or before 28-JAN-2022) Abnormal ECG When compared with ECG of 29-JAN-2022 05:36, Septal infarct is now Present Confirmed by Prashant Linda ([id number]) on 01/30/2022 1:07:19 PM Referred By: REFERRED SELF Confirmed By:Prashant Linda
[2022-01-30] MEDS: UMECLIDINIUM BROMIDE 62.5MCG/BLISTER 7 PUFFS/INHALER INH SCH (13:45)
[2022-01-30] MEDS: methylPREDNISolone 40 MG in SYRINGE 0 ML IV SCH ×2 (13:45→20:21)
[2022-01-30 14:21] LABS: Influenza A virus by PCR Negative (Negative); Influenza B virus by PCR Negative (Negative)
--- NOTE | 2022-01-30 14:47 | Hospitalist Progress Note ---
Date of Service January 30, 2022 Assessment & Plan (1) Pneumonia: Plan: Patient with chronic COPD and chronic basilar consolidation but presents with subjective chills, hypotensive, and dyspneic with increased oxygen requirement associated with leukopenia - Will place on ceftriaxone- MRSA sent discontinue Vancomycin - Doxycyline IV - PCT, CRP, Blood culture and sputum culture sent- although after abx - add flutter valve -Patient will have a CT scan today. will consult pulmonary due to worsening hypoxia. D/W pulm. will add lasix. Updated . (2) Chronic obstructive pulmonary disease: Plan: Severe outflow obstruction with PFTs in 03/16 as well as elevated RVSP and reduced right ventricular function FEV1- 1.53, FEV1/FVC- 50.8 - Continue KEITH, and Advair or equivalent - May benefit from repeat PFTS - Nebulizer as needed - VBG without hypercapnia and without wheezing not an exacerbation - placed IV diuretics (3) Elevated troponin: Plan: On admission 22 recheck at 28- cotinue to trend q6 - without ST elevation - denies any anginal like chest pain with radiation but is with dyspnea and hypoxia - ECG changes appreciated from Nov 15 with T-wave inversions - Trend HScTNI- follow symptomatology - ECHO ordered (4) Thrombocytopenia: Plan: Check for anaplasmosis/lyme Send INR 1.1 evaluate lower extremity for DVT with calf pain- r/o DVT/consumption (5) Leukopenia: Plan: As above DDX: Bacterial infx vs. lyme if remains low with negative testing as above- send peripheral smear in the morning (6) Subdural hematoma, chronic: Plan: Subdural hematoma in 10/18 which then was associated with seizures - He remains off ASA - Remains on Keppra - Follow (7) Chronic kidney disease, stage III (moderate): Plan: JEANE II on CKD III - secondary likely to decrease oral intake over the past 4 days of feeling ill - renally dose medications - avoid futher nephrotoxic medications (8) GERD without esophagitis: Plan: Continue lansoprazole or hospital equivalent (9) Elevated alkaline phosphatase level: Plan: chronically elevated since November 2020 with normal LFTs and elevated bilirubin follow with CMP in am he is without abdominal pain or discomfort and is not anemic - consider RUQUS (10) Hypomagnesemia: Plan: Mag 1.5 replete with 3 GM magnesium (11) HTN (hypertension): Plan: Continue with BB - Hold amlodopine - hold oral lasix- follow renal function and hemodyanmics Admission and Anticipated Discharge Date Admission Date: January 28, 2022 Subjective Patient reports no significant improvement Review of Systems Review of Systems: All systems reviewed & are unremarkable except as noted in HPI & below Physical Exam Physical Exam: General: awake, alert, no apparent distress Head: Normocephalic, atraumatic ENT: PERRL, EOMI, no pharyngeal exudate, mucous membranes moist Neuro: AAO x 3, speech clear and appropriate, strength intact bilaterally 5/5, sensation intact and equal all extremities and dermatomes, no pronator drift Chest: equal rise and fall of the chest, no accessory muscle use, no heaves or thrills, Clear to auscultation, on nasal canula. Cardiac: Regular rate and rhythm, telemetry reviewed- NSR, skin warm dry, cap refill <3 seconds, peripheral pulses +2 no JVD, no murmur, no edema GI: NABS x 4 quadrants, soft, nontender to palpation, no rebound, guarding or t enderness : chronic roberts catheter- replace Extremities: Normal inspection, no peripheral edema or erythema, calfs nontender to palpation Psych: Normal mood and affect Skin: some bruising on hands and legs Results & Data Results & Data ([facility]) Vital Signs (Past 12 Hours) Vital Signs Temp Pulse Pulse Resp BP BP Pulse Ox 01/30/22 11:25 36.3 C L 74 20 106/71 92 01/30/22 08:04 36.7 C 64 18 112/75 90 01/30/22 07:43 81 01/30/22 07:39 01/30/22 03:14 36.7 C 72 20 141/85 H 89 L Pulse Ox 01/30/22 11:25 01/30/22 08:04 01/30/22 07:43 01/30/22 07:39 90 01/30/22 03:14 PG Care Time/CCT Total # of Minutes Spent Total Time Spent with Patient: Total time spent is greater than 50% in coordination of care (as documented) at patient's floor/unit and/or counseling patient: Coding Level of Care Code 22587 Subseq Hosp Care Lvl 3 Diagnoses Pneumonia J18.9 Laterality: right Lung location: unspecified part of lung Pneumonia type: due to unspecified organism Chronic obstructive pulmonary disease J44.9 Elevated troponin R77.8 Thrombocytopenia D69.6 Leukopenia D72.819 Subdural hematoma, chronic I62.03 Chronic kidney disease, stage III (moderate) N18.30 GERD without esophagitis K21.9 Elevated alkaline phosphatase level R74.8 Hypomagnesemia E83.42 HTN (hypertension) I10 Time Spent (min) 35 (1) Pneumonia Laterality: right Lung location: unspecified part of lung Pneumonia type: due to unspecified organism Qualified Code(s): J18.9 - Pneumonia, unspecified organism
[2022-01-30] MEDS ORDERED: FUROSEMIDE 40 MG/4 ML VIAL IV ONE (15:00)
--- NOTE | 2022-01-30 19:38 | Ultrasound Report ---
ULTRASOUND RIGHT UPPER QUADRANT ABDOMEN CLINICAL HISTORY: Cholelithiasis. Abnormal gallbladder seen on today's chest CT. COMPARISON STUDY: Abdominal CT dated 11/11/2020. Chest CT dated 01/30/2022 TECHNIQUE: Real-time, grayscale, and color flow sonography of the right upper quadrant of the abdomen was performed. Images are reviewed in the transverse and longitudinal planes. FINDINGS: Liver: The liver is mildly enlarged and heterogeneous and echotexture. There is mild nodularity of th e hepatic surface contour. There is no intrahepatic biliary ductal dilatation. The main portal vein i s patent. Gallbladder: The gallbladder is mildly distended. The gallbladder wall is thickened and edematous tony suring up to 5 mm. There is biliary sludge and shadowing gallstones. No pericholecystic fluid is iden tified. A sonographic Slaughter's sign is reportedly absent. The common bile duct measures up to 0.4 cm in diameter. Pancreas: Visualized portions of the pancreatic head and body are normal in appearance. The splenic v ein is patent. Right kidney: Survey images of the right kidney demonstrate cortical atrophy. Echotexture is normal. There is no hydronephrosis. A 1.9 cm cyst is incidentally noted. Ascites: None. IMPRESSION: 1. Cholelithiasis and biliary sludge within a mildly distended gallbladder. The gallbladder wall is t hickened and edematous, which is a nonspecific finding and may be related to adjacent hepatocellular disease. A sonographic Slaughter's sign is reportedly absent, and findings are equivocal for acute bret cystitis which is not excluded. If there is strong clinical concern for acute cholecystitis a nuclear medicine biliary scan should be considered for further evaluation. 2. The liver is mildly enlarged and heterogeneous with subtle nodularity of the surface contour. This could represent early morphologic change of cirrhosis. 3. There is no intra or extrahepatic biliary ductal dilatation. ACT 112: Negative or not required by law. Electronically signed by: Dinesh Hernandez M.D. 01/30/2022 7:36 PM
[2022-01-30] MEDS: CIPROFLOXACIN 500 MG TAB PO SCH (20:19)
[2022-01-31] MEDS: HEPARIN SOD 5,000 UNIT/0.5 ML VIAL SQ SCH ×3 (05:03→20:48)
--- NOTE | 2022-01-31 09:31 | Pulmonology Progress Note ---
Date of Service January 31, 2022 Assessment & Plan (1) Chronic obstructive pulmonary disease: (2) COPD exacerbation: (3) Acute and chronic respiratory failure with hypoxia: (4) Pulmonary nodule: (5) Pleural effusion: (6) Pulmonary hypertension: Plan: Impression: 71-year-old male with COPD and mitral regurgitation admitted with subjective complaints of shortness of breath. He has acute on chronic hypoxemic respiratory failure. Recommendations: 1. COPD: The patient does not appear overtly bronchospastic currently. Has been initiated on steroids. We will transition to prednisone 20 mg a day. I do not see evidence of pneumonia and he is afebrile with a normal white blood cell count. Anticipate 5-day course of steroids for acute exacerbation of COPD. He has been placed on Cipro for his polymicrobial UTI which should cover any pulmonary pathogens but again I do not see evidence of clinical pneumonia. 2. Acute on chronic hypoxemic respiratory failure: I decreased the patient's oxygen down to 5 L/min while in the room. With conversation the patient maintained oxygen saturations at around 96%. This appears to be chronic requirement for him and approaching his baseline. 3. Suspect that his dyspnea is likely multifactorial. Review of his ech ocardiogram demonstrates moderate mitral regurgitation with increased filling pressures. Agree with empiric diuretics. Follow kidney function replace electrolytes as needed. 4. Pulmonary hypertension: Secondary. No indication for pulmonary vasodilators. Agree with rate control, blood pressure control, and diuretics. Continue Lasix 20 mg p.o. twice daily. 5. Recommend the patient get out of bed to chair and ambulate as tolerated. 6. Pancytopenia per primary service. The patient can maintain oxygen saturations on his 4 to 5 L home regiment, he can likely be dismissed from the hospital. Admission and Anticipated Discharge Date Admission Date: January 28, 2022 Review of Systems Review of Systems: All systems reviewed & are unremarkable except as noted in Subjective Physical Exam Constitutional: WD/WN, vitals as above Neck: trachea midline, no thyromegaly Respiratory: normal respiratory effort, lungs clear to auscultation Cardiovascular: RRR, no murmur, no edema Gastrointestinal (Abdomen): normal bowel sounds, soft, nontender, no he patosplenomegaly Musculoskeletal: Extremities: extremities normal to inspection Skin: no rashes, warm and dry Neurologic: Nonfocal exam Lymphatic: no cervical lymphadenopathy Results & Data Results & Data ([facility]) Vital Signs (Past 12 Hours) Vital Signs Temp Pulse Pulse Resp BP Pulse Ox 01/31/22 06:30 36.3 C L 61 16 120/68 96 01/31/22 03:56 36.4 C L 61 18 116/68 90 01/30/22 23:39 36.3 C L 67 18 100/63 90 01/30/22 22:17 64 I/O: Negative 465 Laboratory Results 01/30/22 06:44 01/30/22 06:44 Diagnostic Findings No new imaging PG Care Time/CCT Total # of Minutes Spent Total Time Spent with Patient: Total time spent is greater than 50% in coordination of care (as documented) at patient's floor/unit and/or counseling patient: Coding Level of Care Code 86808 Subseq Hosp Care Lvl 3 Diagnoses Chronic obstructive pulmonary disease J44.9 COPD exacerbation J44.1 Acute and chronic respiratory failure with hypoxia J96.21 Pulmonary nodule R91.1 Pleural effusion J90 Pulmonary hypertension I27.20
[2022-01-31] MEDS: ADVANCED PROBIOTIC 1250 MG CAPSULE PO SCH (09:43)
[2022-01-31] MEDS: allopurinoL 300 MG TAB PO SCH (09:43)
[2022-01-31] MEDS: ATORVASTATIN 40 MG TAB PO SCH (09:43)
[2022-01-31] MEDS: PANTOprazole 40 MG TAB PO SCH (09:43)
[2022-01-31] MEDS: methylPREDNISolone 40 MG in SYRINGE 0 ML IV SCH ×2 (09:43→09:46)
[2022-01-31] MEDS: levETIRAcetam 250 MG TAB PO SCH ×2 (09:44→20:49)
[2022-01-31] MEDS: CIPROFLOXACIN 500 MG TAB PO SCH ×2 (09:44→20:49)
[2022-01-31] MEDS: METOPROLOL SUCC 50MG EXT REL TAB PO SCH (09:44)
[2022-01-31] MEDS: UMECLIDINIUM BROMIDE 62.5MCG/BLISTER 7 PUFFS/INHALER INH SCH (09:45)
[2022-01-31] MEDS: FLUTICASONE/VILANTEROL 100/25MCG 14 PUFFS/INHALER INH SCH (09:53)
[2022-01-31] MEDS: predniSONE 20 MG TAB PO SCH (10:51)
[2022-01-31] MEDS: FUROSEMIDE 20 MG TAB PO SCH (10:51)
[2022-01-31 14:02] LABS: 18KDIGG Band REACTIVE; 23KDIGG Band NON-REACTIVE; 23KDIGM Band NON-REACTIVE; 28KDIGG Band REACTIVE; 30KDIGG Band NON-REACTIVE; 39KDIGG Band REACTIVE; 39KDIGM Band NON-REACTIVE; 41KDIGG Band REACTIVE; 41KDIGM Band NON-REACTIVE; 45KDIGG Band NON-REACTIVE; 58KDIGG Band REACTIVE; 66KDIGG Band REACTIVE; 93KDIGG Band REACTIVE; Lyme Antibodies, WB IgG POSITIVE (NEGATIVE); Lyme Antibodies, WB IgM NEGATIVE (NEGATIVE)
--- NOTE | 2022-01-31 17:04 | Hospitalist Progress Note ---
Date of Service January 31, 2022 Assessment & Plan (1) UTI (urinary tract infection): Plan: Patient with chronic COPD and chronic basilar consolidation but presents with subjective chills, hypotensive, and dyspneic with increased oxygen requirement associated with leukopenia - placed on ceftriaxone- MRSA sent discontinue Vancomycin - Doxycyline IV - PCT, CRP, Blood culture and sputum culture sent- although after abx - add flutter valve -CT scan of chest negative for pneumonia. -consuled pulmonary due to worsening hypoxia. D/W pulm. will add lasix. -Oxygenation improving. -Now on lasix 20 mg po bid. (2) Pneumonia: Plan: this was ruled out. (3) Chronic obstructive pulmonary disease: Plan: Severe outflow obstruction with PFTs in 03/16 as well as elevated RVSP and reduced right ventricular function FEV1- 1.53, FEV1/FVC- 50.8 - Continue KEITH, and Advair or equivalent - May benefit from repeat PFTS - Nebulizer as needed - VBG without hypercapnia and without wheezing not an exacerbation - placed IV diuretics (4) Elevated troponin: Plan: On admission 22 recheck at 28- cotinue to trend q6 - without ST elevation - denies any anginal like chest pain with radiation but is with dyspnea and hypoxia - ECG changes appreciated from Nov 15 with T-wave inversions - Trend HScTNI- follow symptomatology - ECHO ordered (5) Thrombocytopenia: Plan: Check for anaplasmosis/lyme Send INR 1.1 evaluate lower extremity for DVT with calf pain- r/o DVT/consumption (6) Leukopenia: Plan: As above DDX: Bacterial infx vs. lyme if remains low with negative testing as above- send peripheral smear in the morning (7) Subdural hematoma, chronic: Plan: Subdural hematoma in 10/18 which then was associated with seizures - He remains off ASA - Remains on Keppra - Follow (8) Chronic kidney disease, stage III (moderate): Plan: JEANE II on CKD III - secondary likely to decrease oral intake over the past 4 days of feeling ill - renally dose medications - avoid futher nephrotoxic medications (9) GERD without esophagitis: Plan: Continue lansoprazole or hospital equivalent (10) Elevated alkaline phosphatase level: Plan: chronically elevated since November 2020 with normal LFTs and elevated bilirubin follow with CMP in am he is without abdominal pain or discomfort and is not anemic - consider RUQUS (11) Hypomagnesemia: Plan: Mag 1.5 replete with 3 GM magnesium (12) HTN (hypertension): Plan: Continue with BB - Hold amlodopine - hold oral lasix- follow renal function and hemodyanmics Admission and Anticipated Discharge Date Admission Date: January 28, 2022 Subjective Patient reports feeling better today. Review of Systems Review of Systems: All systems reviewed & are unremarkable except as noted in HPI & below Physical Exam Physical Exam: General: awake, alert, no apparent distress Head: Normocephalic, atraumatic ENT: PERRL, EOMI, no pharyngeal exudate, mucous membranes moist Neuro: AAO x 3, speech clear and appropriate, strength intact bilaterally 5/5, sensation intact and equal all extremities and dermatomes, no pronator drift Chest: equal rise and fall of the chest, no accessory muscle use, no heaves or thrills, Clear to auscultation, on nasal canula. Cardiac: Regular rate and rhythm, telemetry reviewed- NSR, skin warm dry, cap refill <3 seconds, peripheral pulses +2 no JVD, no murmur, no edema GI: NABS x 4 quadrants, soft, nontender to palpation, no rebound, guarding or tenderness : chronic roberts catheter- replace Extremities: Normal inspection, no peripheral edema or erythema, calfs nontender to palpation Psych: Normal mood and affect Skin: some bruising on hands and legs Results & Data Results & Data ([facility]) Vital Signs (Past 12 Hours) Vital Signs Temp Pulse Pulse Resp BP BP Pulse Ox 01/31/22 14:17 71 01/31/22 11:00 36.6 C 70 20 117/74 90 01/31/22 06:30 36.3 C L 61 16 120/68 96 01/31/22 06:02 63 PG Care Time/CCT Total # of Minutes Spent Total Time Spent with Patient: Total time spent is greater than 50% in coordination of care (as documented) at patient's floor/unit and/or counseling patient: Coding Level of Care Code 21159 Subseq Hosp Care Lvl 2 Diagnoses Pneumonia J18.9 Laterality: right Lung location: unspecified part of lung Pneumonia type: due to unspecified organism Chronic obstructive pulmonary disease J44.9 Elevated troponin R77.8 Thrombocytopenia D69.6 Leukopenia D72.819 Subdural hematoma, chronic I62.03 Chronic kidney disease, stage III (moderate) N18.30 GERD without esophagitis K21.9 Elevated alkaline phosphatase level R74.8 Hypomagnesemia E83.42 HTN (hypertension) I10 UTI (urinary tract infection) N39.0 (1) Pneumonia Laterality: right Lung location: unspecified part of lung Pneumonia type: due to unspecified organism Qualified Code(s): J18.9 - Pneumonia, unspecified organism
[2022-01-31 17:22] LABS: BUN Creatinine Ratio 23.4 (10-20); Calcium 9.3 mg/dl (8.5-10.1); Creatinine Clr Calc Pharmacy 58.9 ml/min; Est GFR (African American) 64.4 ml/min; Est GFR (Non-African American) 55.5 ml/min; Potassium 3.8 mmol/L (3.5-5.1)
[2022-01-31] MEDS ORDERED: FUROSEMIDE 20 MG TAB PO ONE (21:00)
[2022-02-01] MEDS: HEPARIN SOD 5,000 UNIT/0.5 ML VIAL SQ SCH ×3 (05:35→19:46)
[2022-02-01] MEDS: ADVANCED PROBIOTIC 1250 MG CAPSULE PO SCH (08:46)
[2022-02-01] MEDS: CIPROFLOXACIN 500 MG TAB PO SCH ×2 (08:46→19:47)
[2022-02-01] MEDS: allopurinoL 300 MG TAB PO SCH (08:46)
[2022-02-01] MEDS: ATORVASTATIN 40 MG TAB PO SCH (08:46)
[2022-02-01] MEDS: UMECLIDINIUM BROMIDE 62.5MCG/BLISTER 7 PUFFS/INHALER INH SCH (08:46)
[2022-02-01] MEDS: FUROSEMIDE 20 MG TAB PO SCH (08:46)
[2022-02-01] MEDS: FLUTICASONE/VILANTEROL 100/25MCG 14 PUFFS/INHALER INH SCH (08:46)
[2022-02-01] MEDS: levETIRAcetam 250 MG TAB PO SCH ×2 (08:47→19:47)
[2022-02-01] MEDS: predniSONE 20 MG TAB PO SCH (08:47)
[2022-02-01] MEDS: PANTOprazole 40 MG TAB PO SCH (08:47)
[2022-02-01] MEDS: METOPROLOL SUCC 50MG EXT REL TAB PO SCH (08:47)
--- NOTE | 2022-02-01 11:54 | Pulmonology Progress Note ---
Date of Service February 01, 2022 Assessment & Plan (1) Chronic obstructive pulmonary disease: (2) COPD exacerbation: (3) Acute and chronic respiratory failure with hypoxia: (4) Pulmonary nodule: (5) Pleural effusion: (6) Pulmonary hypertension: Plan: Impression: 71-year-old male with COPD and mitral regurgitation admitted with subjective complaints of shortness of breath. He has acute on chronic hypoxemic respiratory failure. He is significantly improved and appears to be back to his baseline. Recommendations: 1. COPD: Complete 5-day course of steroids for acute exacerbation of COPD. He has been placed on Cipro for his polymicrobial UTI which should cover any pulmonary pathogens but again I do not see evidence of clinical pneumonia. 2. Acute on chronic hypoxemic respiratory failure: Patient's oxygen appears to be at his baseline. 3. Suspect that his dyspnea is likely multifactorial. Review of his echocardiogram demonstrates moderate mitral regurgitation with increased filling pressures. May be appropriate to continue diuretics. Per primary service 4. Pulmonary hypertension: Secondary. No indication for pulmonary vasodilators. Agree with rate control, blood pressure control, and diuretics. Continue Lasix 20 mg p.o. twice daily. 5. Recommend the patient get out of bed to chair and ambulate as tolerated. 6. Pancytopenia per primary service. Patient appears to be at his baseline. Disposition per hospitalist. We will sign off at this point time. Feel free to contact us if we can be of additional assistance Admission and Anticipated Discharge Date Admission Date: January 28, 2022 Subjective Patient seen and examined. EMR reviewed. He feels like he is doing better. His oxygen is decreased down to his baseline requirement. He is coughing and bringing up some clear phlegm. He is tolerating diet. He is able to ambulate to the bathroom. He feels his breathing is approaching his baseline and he feels like he may be able to go home. Review of Systems Review of Systems: All systems reviewed & are unremarkable except as noted in Subjective Physical Exam Constitutional: WD/WN, vitals as above Neck: trachea midline, no thyromegaly Respiratory: normal respiratory effort, lungs clear to auscultation Cardiovascular: RRR, no murmur, no edema Gastrointestinal (Abdomen): normal bowel sounds, soft, nontender, no hepatosp lenomegaly Musculoskeletal: Extremities: extremities normal to inspection Skin: no rashes, warm and dry Lymphatic: no cervical lymphadenopathy Results & Data Results & Data ([facility]) Vital Signs (Past 12 Hours) Vital Signs Temp Pulse Pulse Resp BP BP Pulse Ox 02/01/22 11:27 36.5 C 84 16 102/69 97 02/01/22 08:05 54 L 02/01/22 06:25 36.5 C 61 16 118/80 91 02/01/22 03:06 36.5 C 67 18 119/70 95 Laboratory Results 01/30/22 06:44 01/31/22 16:40 Diagnostic Findings No new imaging PG Care Time/CCT Total # of Minutes Spent Total Time Spent with Patient: Total time spent is greater than 50% in coordination of care (as documented) at patient's floor/unit and/or counseling patient: Coding Level of Care Code 64098 Subseq Hosp Care Lvl 2 Diagnoses Chronic obstructive pulmonary disease J44.9 COPD exacerbation J44.1 Acute and chronic respiratory failure with hypoxia J96.21 Pulmonary nodule R91.1 Pleural effusion J90 Pulmonary hypertension I27.20
--- NOTE | 2022-02-01 20:19 | Hospitalist Progress Note ---
Date of Service February 01, 2022 Assessment & Plan (1) UTI (urinary tract infection): Plan: Patient with chronic COPD and chronic basilar consolidation but presents with subjective chills, hypotensive, and dyspneic with increased oxygen requirement associated with leukopenia - placed on ceftriaxone- MRSA sent discontinue Vancomycin - Doxycyline IV - PCT, CRP, Blood culture and sputum culture sent- although after abx - add flutter valve -CT scan of chest negative for pneumonia. -consuled pulmonary due to worsening hypoxia. D/W pulm. will add lasix. -Oxygenation improving. -Now on lasix 20 mg po bid. Patient has been titrated back to his oxyegn level in the afternoon. If patient remains at baseline, will discharge in AM. (2) Pneumonia: Plan: this was ruled out. 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 Patient has a known history of hypertension and CKD, takes Lasix daily at home, and has an elevated pro BNP. SOB, pneumonia, Echo 01/29/2022 showed normal LV systolic function grade 1 diastolic dysfunction elevated right ventricular systolic pressure, reduced right ventricular systolic function, mild to moderate mitral regurgitation, moderate to severe tricuspid regurgitation. Risk Factor(s): Age, CKD, HTN, pneumonia Treatment: O2, B natruretic peptide, IV Lasix, telemetry, strict I's and O's, daily weights, (4) Elevated troponin: Plan: On admission 22 recheck at 28- cotinue to trend q6 - without ST elevation - denies any anginal like chest pain with radiation but is with dyspnea and hypoxia - ECG changes appreciated from Nov 15 with T-wave inversions - Trend HScTNI- follow symptomatology - ECHO ordered (5) Thrombocytopenia: Plan: Check for anaplasmosis/lyme Send INR 1.1 evaluate lower extremity for DVT with calf pain- r/o DVT/consumption (6) Leukopenia: Plan: As above DDX: Bacterial infx vs. lyme if remains low with negative testing as above- send peripheral smear in the morning (7) Subdural hematoma, chronic: Plan: Subdural hematoma in 10/18 which then was associated with seizures - He remains off ASA - Remains on Keppra - Follow (8) Chronic kidney disease, stage III (moderate): Plan: JEANE II on CKD III - secondary likely to decrease oral intake over the past 4 days of feeling ill - renally dose medications - avoid futher nephrotoxic medications (9) GERD without esophagitis: Plan: Continue lansoprazole or hospital equivalent (10) Elevated alkaline phosphatase level: Plan: chronically elevated since November 2020 with normal LFTs and elevated bilirubin follow with CMP in am he is without abdominal pain or discomfort and is not anemic - consider RUQUS (11) Hypomagnesemia: Plan: Mag 1.5 replete with 3 GM magnesium (12) HTN (hypertension): Plan: Continue with BB - Hold amlodopine - hold oral lasix- follow renal function and hemodyanmics Admission and Anticipated Discharge Date Admission Date: January 28, 2022 Subjective Patient reports no new symptoms. Review of Systems Review of Systems: All systems reviewed & are unremarkable except as noted in HPI & below Physical Exam Physical Exam: General: awake, alert, no apparent distress Head: Normocephalic, atraumatic ENT: PERRL, EOMI, no pharyngeal exudate, mucous membranes moist Neuro: AAO x 3, speech clear and appropriate, strength intact bilaterally 5/5, sensation intact and equal all extremities and dermatomes, no pronator drift Chest: equal rise and fall of the chest, no accessory muscle use, no heaves or thrills, Clear to auscultation, on nasal canula. Cardiac: Regular rate and rhythm, telemetry reviewed- NSR, skin warm dry, cap refill <3 seconds, peripheral pulses +2 no JVD, no murmur, no edema GI: NABS x 4 quadrants, soft, nontender to palpation, no rebound, guarding or tenderness : chronic roberts catheter- replace Extremities: Normal inspection, no peripheral edema or erythema, calfs nontender to palpation Psych: Normal mood and affect Skin: some bruising on hands and legs Results & Data Results & Data ([facility]) Vital Signs (Past 12 Hours) Vital Signs Temp Pulse Resp BP Pulse Ox 02/01/22 19:52 36.4 C L 59 L 18 92/58 L 90 02/01/22 16:26 36.6 C 65 16 102/65 89 L 02/01/22 11:27 36.5 C 84 16 102/69 97 PG Care Time/CCT Total # of Minutes Spent Total Time Spent with Patient: Total time spent is greater than 50% in coordination of care (as documented) at patient's floor/unit and/or counseling patient: Coding Level of Care Code 55835 Subseq Hosp Care Lvl 2 Diagnoses UTI (urinary tract infection) N39.0 Pneumonia J18.9 Laterality: right Lung location: unspecified part of lung Pneumonia type: due to unspecified organism Chronic obstructive pulmonary disease J44.9 Elevated troponin R77.8 Thrombocytopenia D69.6 Leukopenia D72.819 Subdural hematoma, chronic I62.03 Chronic kidney disease, stage III (moderate) N18.30 GERD without esophagitis K21.9 Elevated alkaline phosphatase level R74.8 Hypomagnesemia E83.42 HTN (hypertension) I10 (1) Pneumonia Laterality: right Lung location: unspecified part of lung Pneumonia type: due to unspecified organism Qualified Code(s): J18.9 - Pneumonia, unspecified organism
[2022-02-02] MEDS: HEPARIN SOD 5,000 UNIT/0.5 ML VIAL SQ SCH ×2 (05:29→11:05)
[2022-02-02] MEDS: levETIRAcetam 250 MG TAB PO SCH (07:31)
[2022-02-02] MEDS: CIPROFLOXACIN 500 MG TAB PO SCH (07:31)
[2022-02-02] MEDS: METOPROLOL SUCC 50MG EXT REL TAB PO SCH (07:31)
[2022-02-02] MEDS: ATORVASTATIN 40 MG TAB PO SCH (07:32)
[2022-02-02] MEDS: FUROSEMIDE 20 MG TAB PO SCH (07:32)
[2022-02-02] MEDS: predniSONE 20 MG TAB PO SCH (07:32)
[2022-02-02] MEDS: ADVANCED PROBIOTIC 1250 MG CAPSULE PO SCH (07:32)
[2022-02-02] MEDS: PANTOprazole 40 MG TAB PO SCH (07:32)
[2022-02-02] MEDS: allopurinoL 300 MG TAB PO SCH (07:33)
[2022-02-02] MEDS: UMECLIDINIUM BROMIDE 62.5MCG/BLISTER 7 PUFFS/INHALER INH SCH (07:33)
[2022-02-02] MEDS: FLUTICASONE/VILANTEROL 100/25MCG 14 PUFFS/INHALER INH SCH (07:33)
[2022-02-02] MEDS ORDERED: CIPROFLOXACIN 500MG HOME PACK PO ONE (16:28)
--- NOTE | 2022-02-05 23:55 | Discharge Summary ---
Date of Service February 02, 2022 Admission HPI Per Admitting Provider 71 YOM with medical history of: COPD, HTN, Subdural hematoma (11/15), seizure (on keppra), CKD III, chronic roberts, gout, HLD, pulmonary nodules, elvated CK. Patient reports to the EMD today for 4 day history of myalgias, dyspnea, chills and cough. Patient states that this started on Monday after he was outside working with his son, spraying and pulling weeds, as well as general work around the yard. Since then he reports having increased difficulty lying flat and breathing. He is chronically on oxygen at home with 4LNC when active, and had to increase that to 5 and his baseline 2-3L he increased to 4-5. He has a cough and sputum production, which is yellow- but reports that this is unchanged, and notes increase use of his KEITH at home. Patient endorses that he was working in the [place] and around high grass, and pulls ticks off his pets nearly everyday. He does not note any ticks on him. He has a chronic Roberts catheter in place since his SDH, he says he gets this changed every month on the . In the EMD the patient had CXR performed, routine labs to include HScTNI and lactate. He was noted to be hypotensive on arrival and was given 1 .5 liters of crystalloid and started on Vancomycin and Zosyn for possible PNA. He had UA sent which is LE, Nit positive and 2+ bacteria. Patient will be admitted to continue workup and antibiotic treatment. Will check tickborne labs as he has myalgias, leukopenia, and exposure. Will obtain blood culture and sputum cultures although this will be after antibiotic administration- check CRP and PCT. Change roberts catheter. His HScTNI was elevated at 22- will recheck and trend. COVID test on admission is: NEGATIVE Principal Diagnosis UTI Discharge Exam General: awake, alert, no apparent distress Head: Normocephalic, atraumatic ENT: PERRL, EOMI, no pharyngeal exudate, mucous membranes moist Neuro: AAO x 3, speech clear and appropriate, strength intact bilaterally 5/5, sensation intact and equal all extremities and dermatomes, no pronator drift Chest: equal rise and fall of the chest, no accessory muscle use, no heaves or thrills, Clear to auscultation, on nasal canula. Cardiac: Regular rate and rhythm, telemetry reviewed- NSR, skin warm dry, cap refill <3 seconds, peripheral pulses +2 no JVD, no murmur, no edema GI: NABS x 4 quadrants, soft, nontender to palpation, no rebound, guarding or tenderness : chronic roberts catheter- replace Extremities: Normal inspection, no peripheral edema or erythema, calfs nontender to palpation Psych: Normal mood and affect Skin: some bruising on hands and legs Discharge Data Allergies Allergy/AdvReac Type Severity Reaction Status Date / Time bee venom protein (honey bee) Allergy Severe hives in Verified 12/11/20 17:41 throat, trouble breathing Consultations 01/28/22 13:12 ED Decision to Admit Stat 01/30/22 11:44 Consult Pulmonology Routine Ordered Studies 01/28/22 10:38 CT head/brain wo con Stat 01/28/22 14:25 US venous doppler LE BI Routine 01/30/22 07:57 CT chest diagnostic wo con Routine 01/30/22 11:27 US liver Routine Hospital Course (1) UTI (urinary tract infection): Patient with chronic COPD and chronic basilar consolidation but presents with subjective chills, hypotensive, and dyspneic with increased oxygen requirement associated with leukopenia - placed on ceftriaxone- MRSA sent discontinue Vancomycin - Doxycyline IV - PCT, CRP, Blood culture and sputum culture sent- although after abx - add flutter valve -CT scan of chest negative for pneumonia. -consuled pulmonary due to worsening hypoxia. D/W pulm. will add lasix. -Oxygenation improving. -Now on lasix 20 mg po bid. Patient has been titrated back to his oxyegn level in the afternoon. If patient remained at baseline on 02/01 and 02/02. Patient is agreeable to discharge. will resume home lasix at discharge. Added incruse for COPD. (2) Pneumonia: this was ruled out. 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 Patient has a known history of hypertension and CKD, takes Lasix daily at home, and has an elevated pro BNP. SOB, pneumonia, Echo 01/29/2022 showed normal LV systolic function grade 1 diastolic dysfunction elevated right ventricular systolic pressure, reduced right ventricular systolic function, mild to moderate mitral regurgitation, moderate to severe tricuspid regurgitation. Risk Factor(s): Age, CKD, HTN, pneumonia Treatment: O2, B natruretic peptide, IV Lasix, telemetry, strict I's and O's, daily weights, (4) Elevated troponin: On admission 22 recheck at 28- cotinue to trend q6 - without ST elevation - denies any anginal like chest pain with radiation but is with dyspnea and hypoxia - ECG changes appreciated from Nov 15 with T-wave inversions - Trend HScTNI- follow symptomatology (5) Thrombocytopenia: Check for anaplasmosis/lyme Send INR 1.1 evaluate lower extremity for DVT with calf pain- r/o DVT/consumption (6) Leukopenia: As above DDX: Bacterial infx vs. lyme if remains low with negative testing as above- send peripheral smear in the morning (7) Subdural hematoma, chronic: Subdural hematoma in 10/18 which then was associated with seizures - He remains off ASA - Remains on Keppra - Follow (8) Chronic kidney disease, stage III (moderate): JEANE II on CKD III - secondary likely to decrease oral intake over the past 4 days of feeling ill - renally dose medications - avoid futher nephrotoxic medications (9) GERD without esophagitis: Continue lansoprazole or hospital equivalent (10) Elevated alkaline phosphatase level: chronically elevated since November 2020 with normal LFTs and elevated bilirubin follow with CMP in am he is without abdominal pain or discomfort and is not anemic - consider RUQUS (11) Hypomagnesemia: Mag 1.5 replete with 3 GM magnesium (12) HTN (hypertension): Continue with BB - Hold amlodopine - hold oral lasix- follow renal function and hemodyanmics Total Time Total Time Spent Total Time Spent (In Minutes): 35 Discharge Plan Discharge Items Patient Disposition: Home - Self-Care Reason For Visit: SHORTNESS OF BREATH, MYALGIAS Discharge Diagnosis: SOB Activity: Resume your previous activity Non-emergency contact: Primary Care Provider Call non-emergency contact if: you have any medication questions Follow-up/Referrals: Sixto Bryan MD [Primary Care Provider] - 02/09/22 1:10 pm (Appointment with Dr. Wesley Patel) Diet: Carb Consistent or DM2 Addtl Attending Provider Instructions: You were found to have a flair up of your COPD. You were treated with Cipro for UTI. This medication will also treat your COPD flair up. Dr. Beckwith recommended using Incruse as a maintenance medication in addition to you Wixela. You tolerated 20 mg of lasix here, however you may be drinking more fluids at home. Will recommend going back on 40 mg of lasix, but will recommend a close followup with your PCP in 1 week to recheck your kidney status. We checked your oxygen level and it has returned back to baseline. It was a pleasure to care for you. Celestine Barajas MD Pending Studies at Discharge: No Stand-Alone Forms: My [facility] [employer] [place], Smoking Cessation Medications and DC Order Prescriptions: New Incruse Ellipta 62.5 mcg/actuation Blister With Device 1 inh inhalation DAILY Qty: 30 RF: 0 acetaminophen 325 mg Tablet 650 mg PO Q4H PRNQty: 0 RF: 0 prednisone 5 mg tablet See Rx Instructions .ROUTE .COMPLEX Qty: 30 RF: 0 ciprofloxacin HCl 500 mg Tablet 500 mg PO BID Qty: 4 RF: 0 Continued lansoprazole 30 mg capsule,delayed release(DR/EC) 30 mg PO QAM Qty: 90 RF: 1 cholecalciferol (vitamin D3) 1,000 unit (25 mcg) tablet 1,000 units PO QAM RF: 0 atorvastatin 80 mg Tablet 80 mg PO QAM RF: 0 tamsulosin [Flomax] 0.4 mg capsule 0.4 mg PO QAM RF: 0 indomethacin 50 mg Capsule 50 mg PO TID PRN (Reason: gout pain) RF: 0 levetiracetam [Keppra] 750 mg tablet 750 mg PO BID RF: 0 metoprolol succinate 100 mg tablet extended release 24 hr 100 mg PO QAM RF: 0 allopurinol 300 mg tablet 300 mg PO QAM RF: 0 potassium chloride [Klor-Con M10] 10 mEq Tablet,Er Particles/Crystals 10 meq PO TID Qty: 30 RF: 0 furosemide 40 mg tablet 40 mg PO QAM RF: 0 fluticasone propion-salmeterol [Wixela Inhub] 250-50 mcg/dose blister with device 1 ea INHALATION BID RF: 0 Vitamin C 1,000 mg Tablet Extended Release 1,000 mg PO QAM RF: 0 albuterol sulfate 90 mcg/actuation HFA aerosol inhaler 2 puff INHALATION Q6H PRN (Reason: Shortness Of Breath Or Wheezing) RF: 0 Discontinued naproxen sodium [Aleve] 220 mg Tablet 220 mg PO Q8H PRN (Reason: Pain) RF: 0 amlodipine 10 mg tablet 10 mg PO QAM RF: 0 Discharge Orders: Discharge Order (Routine); Ordered 02/02/22 Ordered By: Celestine Barajas Admission Data Admit Date/Time: 01/28/22 13:49 Attending Provider: Celestine Barajas Admit Provider: Celestine Barajas Primary Care Provider: Sixto Bryan Other Providers: Celestine Barajas ; Jodee Dukes Other Interventions: Discharge Summary Assessment (RN) Last Done: 02/02/22 16:02 Coding Level of Care Code D/C DAY MANAGEMENT >30 MINS Diagnoses UTI (urinary tract infection) N39.0 Pneumonia J18.9 Laterality: right Lung location: unspecified part of lung Pneumonia type: due to unspecified organism Chronic obstructive pulmonary disease J44.9 Elevated troponin R77.8 Thrombocytopenia D69.6 Leukopenia D72.819 Subdural hematoma, chronic I62.03 Chronic kidney disease, stage III (moderate) N18.30 GERD without esophagitis K21.9 Elevated alkaline phosphatase level R74.8 Hypomagnesemia E83.42 HTN (hypertension) I10
--- NOTE | 2022-02-07 11:44 | Communication Note ---
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 Patient appears to have received 5 days of Ceftriaxone and Doxycyline by review. He was discharged on oral Ciprofloxacin for his UTI by primary hospitalist. Dr. Bryan's office was notified of results. 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 Dr. Bryan's office has ability to review laboratory data and will print off results. Giorgio TRAN ([facility])
== END 2022-02-02 18:09 | disposition home or self-care (01) | DRG 190 ==
LOC: ED 10:15 → 2N 13:49

== ENCOUNTER 2022-03-06 19:08 | Inpatient (IN) ==
--- NOTE | 2022-03-06 19:56 | Emergency Department Note ---
History of Present Illness General Chief complaint: Fall Stated complaint: Fall Time Seen by Provider: 03/06/22 19:37 Source: patient and family (Grandson) Mode of arrival: EMS History of Present Illness Provider complaint: Weakness Onset (ago): hour(s) Location: head Pain Consistency: + constant Quality: + other (Weakness) Relieved By: + none Exacerbated By: + other (Drinking alcohol) Associated symptoms: + headaches; no chest pain, no cough, no fever/chills, no nausea/vomiting, no shortness of breath or no syncope This is a 71-year-old male who states that he is here because he got drunk and fell. He states that he had about a pint of alcohol but that it does not take very much to get him intoxicated. He states that he drank and then fell onto his grandson who slowly lowered him to the ground. He did have his oxygen on at the time but his grandson stated that he did not look well and he could not get him up off the floor and so he called EMS. His grandson stated that his face looked purple despite him wearing oxygen. The patient complains of some fatigue but otherwise has no complaints. He does state that he has a little pressure in his head but no headache. He has not had any recent fever, cough or cold symptoms, shortness of breath above baseline, chest pain, abdominal pain, vomiting or diarrhea. He does have a Craven catheter. He states that he has chronic weakness in his left leg since he had a subdural hematoma last year. Home Medications Medication Instructions Recorded Confirmed Type atorvastatin 80 mg tablet 80 mg PO QAM 12/06/18 03/06/22 History cholecalciferol (vitamin D3) 25 1,000 units PO QAM 04/25/19 03/06/22 History mcg (1,000 unit) tablet lansoprazole 30 mg capsule,delayed 30 mg PO QAM #90 cap 05/29/19 03/06/22 Rx release albuterol sulfate 90 mcg/actuation 2 puff INHALATION Q6H PRN 11/11/20 03/06/22 History aerosol inhaler ascorbic acid (vitamin C) 1,000 mg 1,000 mg PO QAM 11/11/20 03/06/22 History tablet,extended release (Vitamin C ER) fluticasone 250 mcg-salmeterol 50 1 ea INHALATION BID 11/11/20 03/06/22 History mcg/dose blistr powdr for inhalation (Wixela Inhub) allopurinol 300 mg tablet 300 mg PO QAM 12/11/20 03/06/22 History indomethacin 50 mg capsule 50 mg PO TID PRN 12/11/20 03/06/22 History levetiracetam 750 mg tablet 750 mg PO BID 12/11/20 03/06/22 History (Keppra) metoprolol succinate 100 mg 100 mg PO QAM 12/11/20 03/06/22 History tablet,extended release 24 hr furosemide 40 mg tablet 40 mg PO QAM 01/28/22 03/06/22 History umeclidinium 62.5 mcg/actuation 1 inh INHALATION DAILY #30 ea 02/02/22 03/06/22 Rx blister powder for inhalation (Incruse Ellipta) acetaminophen 325 mg tablet 650 mg PO Q4H PRN 03/06/22 03/06/22 History amlodipine 2.5 mg tablet 0 mg PO DAILY 03/06/22 03/06/22 History ascorbic acid (vitamin C) 1,000 mg 1 g PO DAILY 03/06/22 03/06/22 History tablet (Vitamin C) cyanocobalamin (vitamin B-12) 1,000 mcg PO DAILY 03/06/22 03/06/22 History 1,000 mcg tablet (Vitamin B-12) magnesium 500 mg tablet 500 mg PO DAILY 03/06/22 03/06/22 History methylcellulose (laxative) 500 mg 500 mg PO DAILY 03/06/22 03/06/22 History tablet (Citrucel) potassium chloride 20 mEq 20 meq PO TID 03/06/22 03/06/22 History tablet,extended release(part/cryst) Allergies Allergy/AdvReac Type Severity Reaction Status Date / Time bee venom protein (honey bee) Allergy Severe hives in Verified 03/06/22 22:30 throat, trouble breathing Past Med/Surg History Medical History Acute renal failure Acute respiratory failure with hypoxia and hypercapnia Admitted to intensive care unit Chronic obstructive pulmonary disease no inhalers Chronic shortness of breath Gout History of colon polyps Hyperlipidemia Hypertension Hypomagnesemia Lactic acidosis Left knee pain Metabolic acidosis Past use of tobacco Pneumonia Positive Lyme disease serology Prediabetes Prostate cancer screening Respiratory failure SOB (shortness of breath) Surgical History History of cardiac [place] [facility] [place] History of colonoscopy History of esophagogastroduodenoscopy (EGD) History of heart artery stent x2 History of surgery on arm right arm repair after "running through a sliding glass door" History of tonsillectomy History of tooth extraction all teeth removed Hx of vasectomy Family History Grandmother (Maternal) Family history of diabetes mellitus Mother Lung cancer Other No family history of adverse response to anesthesia Denies family history of Ovarian cancer Prostate cancer Myocardial infarction Breast cancer Colorectal cancer Social History Smoking Status: Former smoker Tobacco Type: Cigarettes Age Started Using Tobacco: 11; Age Quit Using Tobacco: 39; packs per day: 3; Second Hand Exposure: Yes ( smokes, parents smoked); Hx Alcohol Use: Yes Alcohol type: hard liquor Hx Substance Use: No Preferred Language: Chadian Communication Ability: Effective Visual Impairment: No Limitations Hearing Ability: Normal Health Information Administrator Required: No Beliefs That Will Affect Care: None Current Living Situation: Spouse current occupational status: retired Feels Safe at Home: Yes Dental Care, Regularly: No Physical Activity Frequency: 1-2 Times per Week Seatbelt Use: sometimes Sunscreen Use: No Assistive Devices: Cane, Glasses, Oxygen - Continuous and Walker Review of Systems See HPI for pertinent positives & negatives. and A total of 10 systems reviewed and were otherwise negative Physical Exam Vital Signs Vital Signs - 24 hr 03/06/22 19:15 03/06/22 19:18 03/06/22 19:30 Temperature 36.5 C Temperature Source Oral Pulse Rate 75 73 72 Pulse Rate from SpO2 Sensor 75 Respiratory Rate 26 H 24 23 Respiratory Effort / Characteristics Non-Labored Respiratory Depth Normal Blood Pressure 92/64 L 92/64 L Blood Pressure Mean 73 73 Pulse Oximetry 93 94 Oxygen Delivery Method Nasal Cannula Oxygen Flow Rate 6 Sepsis Recent Fever Within 48 Hours No Sepsis New/Unexplained Change in Mental Status No Sepsis Action Taken by Nursing No Action Required 03/06/22 19:51 03/06/22 20:00 03/06/22 20:13 Temperature Temperature Source Pulse Rate 68 69 67 Pulse Rate from SpO2 Sensor 69 68 Respiratory Rate 22 26 H 20 Respiratory Effort / Characteristics Respiratory Depth Blood Pressure Blood Pressure Mean Pulse Oximetry 95 93 94 Oxygen Delivery Method Nasal Cannula Nasal Cannula Oxygen Flow Rate 6 6 Sepsis Recent Fever Within 48 Hours Sepsis New/Unexplained Change in Mental Status Sepsis Action Taken by Nursing 03/06/22 20:19 03/06/22 20:32 03/06/22 20:33 Temperature Temperature Source Pulse Rate 67 67 67 Pulse Rate from SpO2 Sensor 68 68 Respiratory Rate 22 19 Respiratory Effort / Characteristics Respiratory Depth Blood Pressure 81/53 L 90/57 L Blood Pressure Mean 62 68 Pulse Oximetry 97 98 Oxygen Delivery Method Oxygen Flow Rate Sepsis Recent Fever Within 48 Hours Sepsis New/Unexplained Change in Mental Status Sepsis Action Taken by Nursing 03/06/22 21:00 03/06/22 21:03 03/06/22 21:30 Temperature Temperature Source Pulse Rate 68 66 67 Pulse Rate from SpO2 Sensor 69 67 73 Respiratory Rate 20 26 H 23 Respiratory Effort / Characteristics Respiratory Depth Blood Pressure 93/64 L 93/62 L Blood Pressure Mean 73 72 Pulse Oximetry 94 94 86 L Oxygen Delivery Method Oxygen Flow Rate Sepsis Recent Fever Within 48 Hours Sepsis New/Unexplained Change in Mental Status Sepsis Action Taken by Nursing Constitutional: Vital signs reviewed. Eyes: Pupils are equal round reactive to light. Conjunctiva are noninjected. ENT: Pharynx is clear without erythema or exudate. Mucous membranes are somewhat dry. Neck supple without meningeal signs. Respiratory: Clear to auscultation bilaterally. Breath sounds are equal bilaterally. Cardiovascular: Regular rate and rhythm. No rubs or gallops. GI: Soft, nondistended and nontender. Bowel sounds are present. Musculoskeletal: Bilateral lower extremity edema with venous stasis discoloration. No lower extremity tenderness. Integumentary: No cyanosis. or jaundice. Neurologic: The patient is awake and alert. Cranial nerves II-XII are intact. Motor is 5 out of 5 all extremities, except the left leg. Sensation is intact to light touch all extremities. Normal speech. No pronator drift. No limb ataxia. Psychiatric: Normal affect. Not anxious appearing. Course Administered Medications Discontinued Medications Sodium Chloride (Nss 1000ml) 250 mls @ 999 mls/hr IV .Q16M ONE Stop: 03/06/22 20:18 Last Infusion: 03/06/22 21:07 Dose: 0 mls/hr Documented by: [id number] Admin: 03/06/22 20:17 Dose: 999 mls/hr Documented by: [id number] Medical Decision Making Differential Diagnosis Alcohol intoxication, anemia, dehydration, metabolic derangement, intracranial hemorrhage Medical Records Attestation: I reviewed the patient's medical records. I did perform a limited focused review of portions of the patient's old chart on the electronic medical record. The patient presented with shortness of breath and fatigue last month and was admitted to the hospital. He did have a UTI and COPD exacerbation. Home Medications Current Medication List: was personally reviewed by me Laboratory Data Attestation: I reviewed the patient's lab results. Result diagrams: 03/06/22 20:02 03/06/22 20:02 Lab Results 03/06/22 03/06/22 03/06/22 Range/Units 20:02 20:02 20:02 WBC 7.42 (4.8-10.8) K/ul RBC 4.33 L (4.63-6.08) M/uL Hgb 13.8 L (14.0-18.0) g/dl Hct 43.5 (40.1-51.0) % MCV 100.5 H (80.0-100.0) fL MCH 31.9 (25.0-34.0) pg MCHC 31.7 L (32.0-36.0) g/dL RDW Std Deviation 55.7 H (36.4-46.3) fL RDW Coeff of [place] 15.2 H (11.5-14.5) % Plt Count 135 (130-400) K/uL MPV 10.4 (9.4-12.4) fL Immature Gran % (Auto) 0.3 % Neut % (Auto) 78.9 % Lymph % (Auto) 13.2 % Drew % (Auto) 6.1 % Eos % (Auto) 0.8 % Baso % (Auto) 0.7 % Neut # (Auto) 5.86 (1.4-6.5) K/uL Lymph # (Auto) 0.98 L (1.2-3.4) K/uL Drew # (Auto) 0.45 (0.24-0.82) K/uL Eos # (Auto) 0.06 (0-0.50) K/uL Baso # (Auto) 0.05 (0-0.2) K/uL Immature Gran # (Auto) 0.02 (0.00-0.02) K/uL Sodium 140 (136-145) mmol/L Potassium 4.9 (3.5-5.1) mmol/L Chloride 107 (98-107) mmol/L Carbon Dioxide 15 L (21-32) mmol/L Anion Gap 18 H (3-11) BUN 37 H (6-23) mg/dl Creatinine 2.05 H (0.6-1.4) mg/dl Est Cr Clr Drug Dosing 36.8 ml/min Est GFR ( Amer) 36.4 ml/min Est GFR (Non-Af Amer) 31.4 ml/min BUN/Creatinine Ratio 18.0 (10-20) Glucose 102 H (70-99(Fasting)) mg/dl Calcium 9.2 (8.5-10.1) mg/dl Total Bilirubin 4.4 H (0.2-1.0) mg/dl AST 26 (13-39) U/L ALT 43 (7-52) U/L Alkaline Phosphatase 168 H (34-104) U/L Troponin I High Sens 188.8 H* D (0-20) pg/ml Total Protein 7.4 (6.0-8.3) gm/dl Albumin 4.4 (3.4-5.0) gm/dl Globulin 3.0 (2.5-4.0) gm/dl Albumin/Globulin Ratio 1.5 (0.9-2) Ethyl Alcohol mg/dL 99.0 H (<10.0) mg/dl Imaging Data Radiologist's Impression: Chest X-Ray 03/06/22 19:48 XR chest 1V portable CLINICAL HISTORY: weakness TECHNIQUE: Single frontal radiograph of the chest was obtained. Comparison: Comparison is made to chest radiograph 01/28/2022 FINDINGS: No lines and tubes are seen. Cardiomegaly is noted. Prominence and cephalization of the vasculature is seen. No evidence of pleural effusion or pneumothorax. IMPRESSION: Cardiomegaly is noted with mild pulmonary edema. No airspace opacities are seen. ACT 112: Negative or not required by law. Electronically signed by: Valentin Park M.D. 03/06/2022 8:20 PM [facility] Patient: ERVIN KELLER JR (Male) : 48 Status: ER Date: 03/06/22 20:42 Room #: History: fall eval for bleed Slices: 66 Priors: Tech: Darius Keen @ [phone] Exams: CT HEAD Contrast: Accession Numbers: [id number] Referring Physician: REFERRED SELF Preliminary Findings Only See Final Report For Complete Findings CT HEAD: No acute intracranial abnormality. Radiologist: Dawson Hung MD Study ready at 21:50 and initial results transmitted at 22:17 ECG Data Attestation: I personally reviewed and interpreted this ECG as follows: Indication: + weakness Rate (beats per minute): 74 Rhythm: + normal sinus ECG Intervals/blocks: + Incomplete right bundle branch block ECG [place]: + Normal ECG ST segments: + ST depression and + T-wave inversions Comparison ECG Date: from (January 30, 2022) Change: no significant change MDM Narrative I did evaluate the patient as noted above. He is presenting after collapsing after drinking alcohol. His grandson was unable to get him up and so he called EMS. He denies having any injury from the fall as his grand son caught him. He complains of some slight fatigue and head pressure. IV access was established. He is slightly hypotensive but has been noted to be slightly hypotensive and his past visits. I did treat him with normal saline IV. I did place an order for continuous cardiac monitoring. The monitor showed normal sinus rhythm at a rate of 70 bpm. I did order and personally review the patient's 12-lead EKG as described above. He has ST depressions and T wave inversions but these are not new for him and they were present on his previous EKG from January. Did order and personally reviewed the images of the patient's chest x-ray as described above. I did order a urine analysis. I did order and review the patient's blood work as noted in the electronic medical record. CBC demonstrates no elevation of his white blood cell count. His hemoglobin is 13.8. Platelet count is 135. CMP is remarkable for a CO2 of 15. BUN and creatinine are elevated at 37 and 2.05. High-sensitivity troponin is elevated at 188. Total bili is 4.4. He does have a history of hyperbilirubinemia. His last bilirubin was 7.8 in January. Ethyl alcohol is 99. I did order a CT of the head. I did review the images myself as well as the radiology report as described above. There is no evidence of acute intracranial abnormality. He was given normal saline here. He does remain mildly hypotensive. He will be hospitalized for further care and evaluation. I did discuss the test results with the patient and his grandson. The case was discussed with the family independence case manager and the hospitalist was informed. When I did reassess the patient the patient's O2 saturation is 95% on 5 L via nasal cannula. Impression & Plan JEANE (acute kidney injury), Elevated troponin, Fall, Hyperbilirubinemia, Alcohol intoxication, Acute hypotension Discharge Plan Visit Data Chief Complaint: Fall Stated Complaint: Fall ED Provider: Wesley Pretty Discharge Problem: JEANE (acute kidney injury), Elevated troponin, Fall, Hyperbilirubinemia, Alcohol intoxication, Acute hypotension Patient Disposition: Being Evaluated by Hospitalist Forms Stand Alone Forms: My [facility] Prescriptions Prescriptions: No Action lansoprazole 30 mg capsule,delayed release(DR/EC) 30 mg PO QAM Qty: 90 RF: 1 cholecalciferol (vitamin D3) 1,000 unit (25 mcg) tablet 1,000 units PO QAM RF: 0 atorvastatin 80 mg Tablet 80 mg PO QAM RF: 0 indomethacin 50 mg Capsule 50 mg PO TID PRN (Reason: gout pain) RF: 0 levetiracetam [Keppra] 750 mg tablet 750 mg PO BID RF: 0 metoprolol succinate 100 mg tablet extended release 24 hr 100 mg PO QAM RF: 0 allopurinol 300 mg tablet 300 mg PO QAM RF: 0 furosemide 40 mg tablet 40 mg PO QAM RF: 0 Incruse Ellipta 62.5 mcg/actuation Blister With Device 1 inh inhalation DAILY Qty: 30 RF: 0 fluticasone propion-salmeterol [Wixela Inhub] 250-50 mcg/dose blister with device 1 ea INHALATION BID RF: 0 Vitamin C 1,000 mg Tablet Extended Release 1,000 mg PO QAM RF: 0 albuterol sulfate 90 mcg/actuation HFA aerosol inhaler 2 puff INHALATION Q6H PRN (Reason: Shortness Of Breath Or Wheezing) RF: 0 ascorbic acid (vitamin C) [Vitamin C] 1,000 mg Tablet 1 g PO DAILY RF: 0 magnesium 500 mg Tablet 500 mg PO DAILY RF: 0 cyanocobalamin (vitamin B-12) [Vitamin B-12] 1,000 mcg Tablet 1,000 mcg PO DAILY RF: 0 amlodipine 2.5 mg tablet 0 mg PO DAILY RF: 0 potassium chloride 20 mEq tablet,ER particles/crystals 20 meq PO TID RF: 0 Citrucel 500 mg Tablet 500 mg PO DAILY RF: 0 acetaminophen 325 mg tablet 650 mg PO Q4H PRN (Reason: Pain) RF: 0 Referrals Referrals: Sixto Bryan MD [Primary Care Provider] - Discharge Problem: Fall Qualifiers: Encounter type: initial encounter Qualified Code(s): W19.XXXA - Unspecified fall, initial encounter Alcohol intoxication Qualifiers: Complication of substance-induced condition: uncomplicated Qualified Code(s): F10.920 - Alcohol use, unspecified with intoxication, uncomplicated
[2022-03-06] MEDS ORDERED: SODIUM CHLORIDE 0.9% 1000ML 250 ML IV ONE (20:03)
[2022-03-06 20:17] LABS: Basophils # (auto) 0.05 K/uL (0-0.2); Basophils % (auto) 0.7 %; Eosinophils # (auto) 0.06 K/uL (0-0.50); Eosinophils % (auto) 0.8 %; Hematocrit (blood only) 43.5 % (40.1-51.0); Hemoglobin 13.8 g/dl (14.0-18.0); Immature Granulocytes # (auto) 0.02 K/uL (0.00-0.02); Immature Granulocytes % (auto) 0.3 %; Lymphocytes # (auto) 0.98 K/uL (1.2-3.4); Lymphocytes % (auto) 13.2 %; Mean Corpuscular Hemoglobin 31.9 pg (25.0-34.0); Mean Corpuscular Hgb Conc 31.7 g/dL (32.0-36.0); Mean Corpuscular Volume 100.5 fL (80.0-100.0); Mean Platelet Volume 10.4 fL (9.4-12.4); Monocytes # (auto) 0.45 K/uL (0.24-0.82); Monocytes % (auto) 6.1 %; Neutrophils # (auto) 5.86 K/uL (1.4-6.5); Neutrophils % (auto) 78.9 %; Platelet Count 135 K/uL (130-400); RDW Coefficient of Variation 15.2 % (11.5-14.5); RDW Standard Deviation 55.7 fL (36.4-46.3); Red Blood Count 4.33 M/uL (4.63-6.08); White Blood Count 7.42 K/ul (4.8-10.8)
--- NOTE | 2022-03-06 20:22 | XRay Report ---
XR chest 1V portable CLINICAL HISTORY: weakness TECHNIQUE: Single frontal radiograph of the chest was obtained. Comparison: Comparison is made to chest radiograph 01/28/2022 FINDINGS: No lines and tubes are seen. Cardiomegaly is noted. Prominence and cephalization of the vasculature i s seen. No evidence of pleural effusion or pneumothorax. IMPRESSION: Cardiomegaly is noted with mild pulmonary edema. No airspace opacities are seen. ACT 112: Negative or not required by law. Electronically signed by: Valentin Park M.D. 03/06/2022 8:20 PM
[2022-03-06 20:44] LABS: Troponin I High Sensitivity 188.8 pg/ml (0-20)
[2022-03-06 20:51] LABS: Albumin Globulin Ratio 1.5 (0.9-2); Albumin Level 4.4 gm/dl (3.4-5.0); Bilirubin,Total 4.4 mg/dl (0.2-1.0); Calcium 9.2 mg/dl (8.5-10.1); Creatinine Clr Calc Pharmacy 36.8 ml/min; Est GFR (African American) 36.4 ml/min; Est GFR (Non-African American) 31.4 ml/min; Potassium 4.9 mmol/L (3.5-5.1); Total Protein 7.4 gm/dl (6.0-8.3)
[2022-03-06] MEDS ORDERED: SODIUM CHLORIDE 0.9% 500 ML IV SCH (22:30)
--- NOTE | 2022-03-06 23:25 | History & Physical Report ---
Date of Service March 06, 2022 Assessment & Plan (1) Alcohol intoxication: Plan: Alcohol level was 99 on admission Patient was brought to the emergency department due to as he reports, falling due to being drunk Placed on AWSS protocol (2) Acute hypotension: Plan: Acute hypotension/elevated troponin/CAD/hypertension- The patient will be admitted to telemetry for serial cardiac enzymes, serial EKG's, cardiac rhythm monitoring Blood pressure of 83/59 at its lowest point in the emergency department Hold all antihypertensives: Amlodipine, furosemide, metoprolol succinate and potassium chloride (3) Elevated troponin: Plan: Troponin 188.8 upon admission, follow serially as noted (4) Fall: Plan: Secondary to alcohol intoxication CT head negative, with patient having history of a chronic subdural hematoma (5) JEANE (acute kidney injury): Plan: Acute kidney injury- Creatinine 2.05 on admission, with baseline 1.28 Anion gap 18 He did receive 250 cc normal saline from the ED Bicarbonate drip 150 mEq in sterile water at 60 mils per hour x1 L Repeat laboratories in a.m. Being careful to monitor closely total volume of fluids, as patient has had a history of significant right heart failure during recent admission Left ventricular ejection fraction 55-60% on 01/29/2022 (6) CAD (coronary artery disease), [place] coronary artery: Plan: See above (7) Anaplasmosis: Plan: Results for anaplasmosis and Lyme Western blot returned positive after last discharge- He did receive at least a partial treatment due to IV antibiotics used to treat pulmonary and urinary processes then Ceftriaxone 2 g IV daily and doxycycline 100 mg IV every 12 hours Attempt had been made to coordinate follow-up treatment after discharge with his PCP, however, no follow-up appointment was made by patient. Patient does have a number of musculoskeletal and other complaints that may be related to these diagnoses. Will not retest at this time, but empirically treat (8) Lyme disease: Plan: See above (9) Pulmonary hypertension: Plan: Noted as significant on previous echocardiogram on 01/29/2022 (10) HTN (hypertension): Plan: See above (11) Seizure: Plan: Continue Keppra 750 mg p.o. twice daily (12) GERD without esophagitis: Plan: Continue lansoprazole/pantoprazole (13) Hyperlipidemia: Plan: Continue atorvastatin 80 mg every morning (14) Gouty arthritis: Plan: Continue allopurinol History of Present Illness Chief Complaint: The patient presents to the emergency department because he got drunk and fell, reported that he only drank a pint of alcohol. Primary Care Provider: Sixto Bryan MD The patient is a 71-year-old male with a past medical history including pulmonary hypertension, pleural effusion, hypertension, COPD, pneumonia, subdural hematoma, seizure, CKD stage III, GERD, peripheral neuropathy, metabolic acidosis, gouty arthritis, hyperlipidemia and colon polyps. He presents to the emergency department after falling secondary to being drunk. He reportedly fell onto his grandson, who slowly lowered him to the floor, but were reported that the patient's face looked purple despite wearing his usual oxygen. The patient was most recently admitted to [facility] from 01/28-02/02/2022 for treatment for UTI and a COPD exacerbation with acute and chronic respiratory failure with hypoxia. Allergies Allergy/AdvReac Type Severity Reaction Status Date / Time bee venom protein (honey bee) Allergy Severe hives in Verified 03/06/22 22:30 throat, trouble breathing Home Medications Medication Instructions Recorded Confirmed Type atorvastatin 80 mg tablet 80 mg PO QAM 12/06/18 03/06/22 History cholecalciferol (vitamin D3) 25 1,000 units PO QAM 04/25/19 03/06/22 History mcg (1,000 unit) tablet lansoprazole 30 mg capsule,delayed 30 mg PO QAM #90 cap 05/29/19 03/06/22 Rx release albuterol sulfate 90 mcg/actuation 2 puff INHALATION Q6H PRN 11/11/20 03/06/22 History aerosol inhaler ascorbic acid (vitamin C) 1,000 mg 1,000 mg PO QAM 11/11/20 03/06/22 History tablet,extended release (Vitamin C ER) fluticasone 250 mcg-salmeterol 50 1 ea INHALATION BID 11/11/20 03/06/22 History mcg/dose blistr powdr for inhalation (Cristo Inhyuan) allopurinol 300 mg tablet 300 mg PO QAM 12/11/20 03/06/22 History indomethacin 50 mg capsule 50 mg PO TID PRN 12/11/20 03/06/22 History levetiracetam 750 mg tablet 750 mg PO BID 12/11/20 03/06/22 History (Joselyn) metoprolol succinate 100 mg 100 mg PO QAM 12/11/20 03/06/22 History tablet,extended release 24 hr furosemide 40 mg tablet 40 mg PO QAM 01/28/22 03/06/22 History umeclidinium 62.5 mcg/actuation 1 inh INHALATION DAILY #30 ea 02/02/22 03/06/22 Rx blister powder for inhalation (Incruse Ellipta) acetaminophen 325 mg tablet 650 mg PO Q4H PRN 03/06/22 03/06/22 History amlodipine 2.5 mg tablet 0 mg PO DAILY 03/06/22 03/06/22 History ascorbic acid (vitamin C) 1,000 mg 1 g PO DAILY 03/06/22 03/06/22 History tablet (Vitamin C) cyanocobalamin (vitamin B-12) 1,000 mcg PO DAILY 03/06/22 03/06/22 History 1,000 mcg tablet (Vitamin B-12) magnesium 500 mg tablet 500 mg PO DAILY 03/06/22 03/06/22 History methylcellulose (laxative) 500 mg 500 mg PO DAILY 03/06/22 03/06/22 History tablet (Citrucel) potassium chloride 20 mEq 20 meq PO TID 03/06/22 03/06/22 History tablet,extended release(part/cryst) Past Med/Surg History Medical History Acute renal failure Acute respiratory failure with hypoxia and hypercapnia Admitted to intensive care unit Chronic obstructive pulmonary disease no inhalers Chronic shortness of breath Gout History of colon polyps Hyperlipidemia Hypertension Hypomagnesemia Lactic acidosis Left knee pain Metabolic acidosis Past use of tobacco Pneumonia Positive Lyme disease serology Prediabetes Prostate cancer screening Respiratory failure SOB (shortness of breath) Surgical History History of cardiac cath 2003 [place] [facility] [place] stents [place] History of colonoscopy History of esophagogastroduodenoscopy (EGD) History of heart artery stent x2 History of surgery on arm right arm repair after "running through a sliding glass door" History of tonsillectomy History of tooth extraction all teeth removed Hx of vasectomy Family History Grandmother (Maternal) Family history of diabetes mellitus Mother Lung cancer Other No family history of adverse response to anesthesia Denies family history of Ovarian cancer Prostate cancer Myocardial infarction Breast cancer Colorectal cancer Social History Smoking Status: Former smoker Tobacco Type: Cigarettes Age Started Using Tobacco: 11; Age Quit Using Tobacco: 39; packs per day: 3; Second Hand Exposure: No; Do You Dip or Chew Tobacco: No; Tobacco Cessation Education Requested by Patient: No Hx Alcohol Use: Yes Alcohol type: hard liquor Hx Substance Use: Yes Last Used Substance: Days (ago) Last Used Substance Other:: last used was a month ago Preferred Language: Danish Communication Ability: Effective Visual Impairment: No Limitations Hearing Ability: Normal Green Prize Packer Required: No Beliefs That Will Affect Care: None Current Living Situation: Spouse current occupational status: retired Other Information That Helps Us Care for You: No Feels Safe at Home: Yes Safety Concerns: Feels Safe At This Time Dental Care, Regularly: No Physical Activity Frequency: 1-2 Times per Week Seatbelt Use: sometimes Sunscreen Use: No Assistive Devices: Cane and Oxygen - Continuous Review of Systems Review of Systems: The patient denies chest pain, palpitations, lower extremity swelling, sore throat, fevers, chills, sweats, nausea, vomiting, diarrhea , constipation, abdominal pain, pelvic pain, blood in urine or stool, dysuria, urinary frequency or urgency, rash, abnormal bruising or bleeding, focal weakness, numbness or tingling in arms or legs, generalized arthralgias or myalgias, back or neck pain, or night sweats. The review of systems is otherwise negative other than for that already noted above, and at least 10 systems have been reviewed. Physical Exam Physical Exam: The patient is awake, alert and oriented 3, well developed and well nourished, normocephalic and atraumatic, lying in bed and in no acute distress. HEENT--PERRL, EOMI, mucous membranes and oropharynx normal Neck--supple. No JVD. No bruits. Thyroid normal, trachea midline, no adenopathy. Heart--normal S1 and S2. No murmurs, rubs or gallops. Lungs--few coarse breath sounds bilaterally. No respiratory distress, no accessory muscle use. Abdomen--normal bowel sounds and soft. Nontender. Nondistended Extremities--no cyanosis or clubbing. No edema. Dermatologic--normal skin turgor, normal color, no abnormal lymph nodes, no rash. Neurologic--cranial nerves II through XII grossly intact. Rheumatologic--normal range of motion. Psychiatric--normal affect. Results & Data Results & Data ([facility]) Vital Signs (Past 12 Hours) Vital Signs Temp Pulse Resp BP Pulse Ox 03/06/22 21:30 67 23 93/62 L 86 L 03/06/22 21:03 66 26 H 93/64 L 94 03/06/22 21:00 68 20 94 03/06/22 20:33 67 19 90/57 L 98 03/06/22 20:32 67 03/06/22 20:19 67 22 81/53 L 97 03/06/22 20:13 67 20 94 03/06/22 20:00 69 26 H 93 03/06/22 19:51 68 22 95 03/06/22 19:30 72 23 03/06/22 19:18 36.5 C 73 24 92/64 L 94 03/06/22 19:15 75 26 H 92/64 L 93 Laboratory Results Laboratory Results WBC 7.42 K/ul (4.8-10.8) 03/06/22 20:02 RBC 4.33 M/uL (4.63-6.08) L 03/06/22 20:02 Hgb 13.8 g/dl (14.0-18.0) L 03/06/22 20:02 Hct 43.5 % (40.1-51.0) 03/06/22 20:02 MCV 100.5 fL (80.0-100.0) H 03/06/22 20:02 MCH 31.9 pg (25.0-34.0) 03/06/22 20:02 MCHC 31.7 g/dL (32.0-36.0) L 03/06/22 20:02 RDW Std Deviation 55.7 fL (36.4-46.3) H 03/06/22 20:02 RDW Coeff of [place] 15.2 % (11.5-14.5) H 03/06/22 20:02 Plt Count 135 K/uL (130-400) 03/06/22 20:02 MPV 10.4 fL (9.4-12.4) 03/06/22 20: Immature Gran % (Auto) 0.3 % 03/06/22 20:02 Neut % (Auto) 78.9 % 03/06/22 20:02 Lymph % (Auto) 13.2 % 03/06/22 20:02 [place] % (Auto) 6.1 % 03/06/22 20:02 Eos % (Auto) 0.8 % 03/06/22 20:02 Baso % (Auto) 0.7 % 03/06/22 20:02 Neut # (Auto) 5.86 K/uL (1.4-6.5) 03/06/22 20: Lymph # (Auto) 0.98 K/uL (1.2-3.4) L 03/06/22 20: [place] # (Auto) 0.45 K/uL (0.24-0.82) 03/06/22 20:02 Eos # (Auto) 0.06 K/uL (0-0.50) 03/06/22 20: Baso # (Auto) 0.05 K/uL (0-0.2) 03/06/22 20: Immature Gran # (Auto) 0.02 K/uL (0.00-0.02) 03/06/22 20: Sodium 140 mmol/L (136-145) 03/06/22 20: Potassium 4.9 mmol/L (3.5-5.1) 03/06/22 20: Chloride 107 mmol/L (98-107) 03/06/22 20: Carbon Dioxide 15 mmol/L (21-32) L 03/06/22 20: Anion Gap 18 (3-11) H 03/06/22 20:02 BUN 37 mg/dl (6-23) H 03/06/22 20:02 Creatinine 2.05 mg/dl (0.6-1.4) H 03/06/22 20: Est Cr Clr Drug Dosing 36.8 ml/min 03/06/22 20:02 Est GFR ( Amer) 36.4 ml/min 03/06/22 20: Est GFR (Non-Af Amer) 31.4 ml/min 03/06/22 20: BUN/Creatinine Ratio 18.0 (10-20) 03/06/22 20:02 Glucose 102 mg/dl (70-99(Fasting)) H 03/06/22 20:02 Calcium 9.2 mg/dl (8.5-10.1) 03/06/22 20:02 Total Bilirubin 4.4 mg/dl (0.2-1.0) H 03/06/22 20:02 AST 26 U/L (13-39) 03/06/22 20:02 ALT 43 U/L (7-52) 03/06/22 20:02 Alkaline Phosphatase 168 U/L (34-104) H 03/06/22 20:02 Troponin I High Sens 188.8 pg/ml (0-20) H* D 03/06/22 20:02 Total Protein 7.4 gm/dl (6.0-8.3) 03/06/22 20:02 Albumin 4.4 gm/dl (3.4-5.0) 03/06/22 20:02 Globulin 3.0 gm/dl (2.5-4.0) 03/06/22 20:02 Albumin/Globulin Ratio 1.5 (0.9-2) 03/06/22 20:02 Urine Color Yellow 03/07/22 Unknown Urine Appearance Turbid (Clear) A 03/07/22 Unknown Urine pH 5.0 (4.5-7.5) 03/07/22 Unknown Ur Specific [place] 1.016 (1.000-1.030) 03/07/22 Unknown Urine Protein 2+ (Negative) H 03/07/22 Unknown Urine Glucose (UA) Negative (Negative) 03/07/22 Unknown Urine Ketones Trace (Negative) H 03/07/22 Unknown Urine Blood 3+ (Negative) H 03/07/22 Unknown Urine Nitrite Negative (Negative) 03/07/22 Unknown Urine Bilirubin Negative (Negative) 03/07/22 Unknown Urine Urobilinogen Negative (Negative) 03/07/22 Unknown Ur Leukocyte Esterase 3+ (Negative) H 03/07/22 Unknown Urine WBC (Auto) >30 /hpf (0-5) H 03/07/22 Unknown Urine RBC (Auto) 10-30 /hpf (0-4) H 03/07/22 Unknown U Hyaline Cast (Auto) 1-5 /lpf (0-5) 03/07/22 Unknown U Epithel Cells (Auto) >30 /lpf (0-5) H 03/07/22 Unknown Urine Bacteria (Auto) 4+ (Negative) H 03/07/22 Unknown Ethyl Alcohol mg/dL 99.0 mg/dl (<10.0) H 03/06/22 20:02 SARS-CoV-2, RNA, NAAT NEGATIVE (NEGATIVE) 03/06/22 22:50 Impressions Chest X-Ray 03/06/22 19:48 XR chest 1V portable CLINICAL HISTORY: weakness TECHNIQUE: Single frontal radiograph of the chest was obtained. Comparison: Comparison is made to chest radiograph 01/28/2022 FINDINGS: No lines and tubes are seen. Cardiomegaly is noted. Prominence and cephalization of the vasculature is seen. No evidence of pleural effusion or pneumothorax. IMPRESSION: Cardiomegaly is noted with mild pulmonary edema. No airspace opacities are seen. ACT 112: Negative or not required by law. Electronically signed by: Valentin Park M.D. 03/06/2022 8:20 PM Diagnostic Findings [facility] Patient: ERVIN KELLER JR (Male) : 48 Status: ER Date: 03/06/22 20:42 Room #: History: fall eval for bleed Slices: 66 Priors: Tech: Darius Keen @ [phone] Exams: CT HEAD Contrast: Accession Numbers: [id number] Referring Physician: REFERRED SELF Preliminary Findings Only See Final Report For Complete Findings CT HEAD: No acute intracranial abnormality. Radiologist: Dawson Hung MD Study ready at 21:50 and initial results transmitted at 22:17 *This report constitutes a preliminary interpretation only. Non-acute findings felt to be unrelated to the clinical presentation may not be discussed in this report. The study will be interpreted and a final report will be generated by the local Radiologist the following shift. To reach the [facility] department call [phone]. If a discrepancy is found between the preliminary and final interpretations of this study, please notify us via our Client Portal at [email or web address], under QA Exams. You can also fax this report with a description of the discrepancy, or include the final report, to our daytime fax number [phone]. If faxing, please indicate the severity of discrepancy using one of the following categories: [ ] 1 - Agree/Informational [ ] 2 - Unlikely to Affect Management [ ] 3 - Possible Eventual Change of Management [ ] 4 - Probable Immediate Change of Management For all other patient related information, please fax us at [phone]. [id number] Code Status & VTE Plan Code Status Full code PG Care Time/CCT Total # of Minutes Spent Total Time Spent with Patient: Total time spent is greater than 50% in coordination of care (as documented) at patient's floor/unit and/or counseling patient: Coding Level of Care Code 49191 Initial Inpt Care Lvl 3 Diagnoses Alcohol intoxication F10.920 Complication of substance-induced condition: uncomplicated Fall W19.XXXA Encounter type: initial encounter JEANE (acute kidney injury) N17.9 Acute hypotension I95.9 Pulmonary hypertension I27.20 HTN (hypertension) I10 Seizure R56.9 GERD without esophagitis K21.9 Hyperlipidemia E78.5 Anaplasmosis A77.49 Lyme disease A69.20 Gouty arthritis M10.9 Elevated troponin R77.8 CAD (coronary artery disease), [place] coronary artery I25.10 (1) Alcohol intoxication Complication of substance-induced condition: uncomplicated Qualified Code(s): F10.920 - Alcohol use, unspecified with intoxication, uncomplicated (2) Fall Encounter type: initial encounter Qualified Code(s): W19.XXXA - Unspecified fall, initial encounter
[2022-03-06] MEDS ORDERED: LORazepam 1 MG in SYRINGE 0.5 ML IV PRN (23:56)
[2022-03-06] MEDS ORDERED: ATIVAN IV ALCOHOL WITHDRAWL IV PRN (23:56)
[2022-03-06] MEDS ORDERED: LORazepam 3 MG in SYRINGE 1.5 ML IV PRN (23:56)
[2022-03-06] MEDS ORDERED: LORazepam 2 MG in SYRINGE 1 ML IV PRN (23:56)
[2022-03-07] MEDS ORDERED: ALBUTEROL HFA 8 GM INHALER INH PRN (01:51)
[2022-03-07] MEDS ORDERED: SODIUM BICARBONATE 8.4% 150 MEQ in DEXTROSE 5% 1,000 ML IV SCH (01:51)
[2022-03-07] MEDS ORDERED: STAT IV STA (01:51)
[2022-03-07] MEDS ORDERED: ONDANSETRON INJ 2 MG/ML 2 ML VIAL IV PRN (01:51)
[2022-03-07] MEDS ORDERED: ACETAMINOPHEN 325 MG TAB PO PRN (01:51)
[2022-03-07] MEDS: levETIRAcetam 250 MG TAB PO SCH ×3 (02:18→21:07)
[2022-03-07 02:25] LABS: Appearance Urine Turbid (Clear); Bacteria Urine Automated 4+ (Negative); Bilirubin Urine Negative (Negative); Blood Urine 3+ (Negative); Color Urine Yellow; Epithelial Cell Urine Auto >30 /lpf (0-5); Glucose Urine UA Negative (Negative); Ketones Urine Trace (Negative); Leukocyte Esterase Urine 3+ (Negative); Nitrite Urine Negative (Negative); Protein Urine 2+ (Negative); Specific Gravity Urine 1.016 (1.000-1.030); Urobilinogen Urine Negative (Negative); WBC Urine Automated >30 /hpf (0-5)
[2022-03-07] MEDS ORDERED: cefTRIAXone SODIUM 2,000 MG in DEXTROSE 5% 50 ML IV SCH (03:00)
[2022-03-07] MEDS: DOXYCYCLINE HYCLATE 100 MG in DEXTROSE 5% 100 ML IV SCH ×2 (04:00→18:36)
[2022-03-07 06:02] LABS: Albumin Globulin Ratio 1.4 (0.9-2); Albumin Level 3.9 gm/dl (3.4-5.0); BUN Creatinine Ratio 19.8 (10-20); Bilirubin,Total 3.6 mg/dl (0.2-1.0); Calcium 8.8 mg/dl (8.5-10.1); Creatinine Clr Calc Pharmacy 37.9 ml/min; Est GFR (African American) 38.2 ml/min; Globulin 2.7 gm/dl (2.5-4.0); Magnesium 1.2 mg/dl (1.7-2.4); Potassium 4.9 mmol/L (3.5-5.1); Total Protein 6.6 gm/dl (6.0-8.3)
[2022-03-07 06:15] LABS: Basophils # (auto) 0.06 K/uL (0-0.2); Echinocytes 1+; Eosinophils # (auto) 0.05 K/uL (0-0.50); Eosinophils % (auto) 0.8 %; Hematocrit (blood only) 38.5 % (40.1-51.0); Hemoglobin 12.4 g/dl (14.0-18.0); Immature Granulocytes # (auto) 0.02 K/uL (0.00-0.02); Immature Granulocytes % (auto) 0.3 %; Lymphocytes # (auto) 1.45 K/uL (1.2-3.4); Lymphocytes % (auto) 23.7 %; Mean Corpuscular Hemoglobin 31.2 pg (25.0-34.0); Mean Corpuscular Hgb Conc 32.2 g/dL (32.0-36.0); Mean Corpuscular Volume 96.7 fL (80.0-100.0); Mean Platelet Volume 11.2 fL (9.4-12.4); Monocytes # (auto) 0.51 K/uL (0.24-0.82); Monocytes % (auto) 8.3 %; Neutrophils # (auto) 4.04 K/uL (1.4-6.5); Neutrophils % (auto) 65.9 %; Platelet Count 107 K/uL (130-400); RDW Coefficient of Variation 15.1 % (11.5-14.5); RDW Standard Deviation 53.8 fL (36.4-46.3); Red Blood Count 3.98 M/uL (4.63-6.08); White Blood Count 6.13 K/ul (4.8-10.8)
--- NOTE | 2022-03-07 07:07 | CT Scan Report ---
CT head/brain wo con CLINICAL HISTORY: fall eval for bleed COMPARISON STUDY: 01/28/2022 CT DOSE: 884.08 mGy.cm TECHNIQUE: Standard CT of the Brain was performed without IV contrast. A dose lowering technique was utilized adhering to the principles of ALARA. FINDINGS: Extraaxial space: There is no evidence for subdural hematoma. There are no extra-axial fluid collecti ons. Ventricles and cisterns: The ventricles are normal in size and configuration. There is no evidence fo r midline shift or mass effect. Parenchyma: There is no subarachnoid or intraparenchymal hemorrhage. There is no evidence for an acut e infarct or cerebral edema. There is mild cerebral cortical atrophy and decreased attenuation in the periventricular white matter representing remote small vessel disease. There are no gross mass lesio ns. Osseous structures: There is no evidence for an acute fracture. The visualized paranasal sinuses are clear. The mastoid air cells are clear bilaterally. Soft tissues: There is no evidence for focal soft tissue swelling. IMPRESSION: 1. No acute intracerebral pathology. 2. Mild atrophy and remote small vessel disease are again seen. ACT 112: Negative or not required by law. Electronically signed by: Bandar Camilo M.D. 03/07/2022 7:06 AM
[2022-03-07] MEDS: FLUTICASONE/VILANTEROL 200/25MCG 14 PUFFS/INHALER INH SCH (08:16)
[2022-03-07] MEDS: PANTOprazole 40 MG TAB PO SCH (08:17)
[2022-03-07] MEDS: FOLIC ACID 1 MG TAB PO SCH (08:17)
[2022-03-07] MEDS: ASCORBIC ACID 500 MG TAB PO SCH (08:17)
[2022-03-07] MEDS: MAGNESIUM OXIDE 400 MG TAB PO SCH (08:17)
[2022-03-07] MEDS: allopurinoL 300 MG TAB PO SCH (08:17)
[2022-03-07] MEDS: CHOLECALCIFEROL 1,000 UNITS 25 MCG TAB PO SCH (08:17)
[2022-03-07] MEDS: ATORVASTATIN 40 MG TAB PO SCH (08:17)
[2022-03-07] MEDS: CYANOCOBALAMIN (B-12) 500 MCG TABLET PO SCH (08:17)
[2022-03-07] MEDS: UMECLIDINIUM BROMIDE 62.5MCG/BLISTER 7 PUFFS/INHALER INH SCH (08:18)
[2022-03-07] MEDS: THIAMINE HCL 100 MG TAB PO SCH (08:18)
[2022-03-07] MEDS ORDERED: NON-FORMULARY MEDICATION (Ascorbic Acid (Vitamin C) [Vitamin C] 1,000 mg Tablet) PO SCH (09:00)
--- NOTE | 2022-03-07 12:03 | Hospitalist Progress Note ---
Date of Service March 07, 2022 Assessment & Plan (1) Anaplasmosis: Plan: Results for anaplasmosis and Lyme Western blot returned positive after last discharge. He did receive at least a partial treatment due to IV antibiotics used to treat pulmonary and urinary processes then was lost to follow-up. - Attempt had been made to coordinate follow-up treatment after discharge with his PCP, however, no follow-up appointment was made by patient. - Patient does have a number of musculoskeletal and other complaints that may be related to these diagnoses. - Continue doxycycline -> Would need 28-day course if we think some of his MSK complaints are related to Lyme. (ie treat for Lyme arthritis) (2) Alcohol intoxication: Plan: Alcohol level was 99 on admission. Patient was brought to the emergency dep artment due to as he reports, falling due to being drunk. - Placed on AWSS protocol - No signs of withdrawal today. (3) Acute hypotension: Plan: Acute hypotension, likely related to dehydration and possible sepsis from Lyme/anaplasmosis. Blood pressure of 83/59 at its lowest point in the emergency department. - Hold all antihypertensives: Amlodipine, furosemide, metoprolol succinate and potassium chloride - IV fluids - Monitor (4) Elevated troponin: Plan: Demand ischemia in the setting of JEANE, alcohol intoxication, Lyme disease, and hypotension. Troponin 188.8 upon admission. No chest pain. - Minimally elevated on next draw at 275. Repeat pending. (5) Fall: Plan: Secondary to alcohol intoxication. CT head negative, with patient having history of a chronic subdural hematoma. - PT/OT (6) JEANE (acute kidney injury): Plan: Likely pre-renal. Creatinine 2.05 on admission, with baseline 1.28. - Being careful to monitor closely total volume of fluids, as patient has had a history of significant right heart failure during recent admission - Finish this bag of IV fluids and monitor (7) CAD (coronary artery disease), [place] coronary artery: Plan: See above (8) Lyme disease: Plan: See above (9) Pulmonary hypertension: Plan: Noted as significant on previous echocardiogram on 01/29/2022 (10) HTN (hypertension): Plan: See above (11) Seizure: Plan: Continue Keppra 750 mg p.o. twice daily (12) GERD without esophagitis: Plan: Continue lansoprazole/pantoprazole (13) Hyperlipidemia: Plan: Continue atorvastatin 80 mg every morning (14) Gouty arthritis: Plan: Continue allopurinol Plan: CDS query: Demand ischemia in the setting of JEANE, alcohol intoxication, Lyme disease, and hypotension. Admission and Anticipated Discharge Date Admission Date: March 06, 2022 Results & Data Results & Data ([facility]) Vital Signs (Past 12 Hours) Vital Signs Temp Pulse Pulse Resp BP BP Pulse Ox 03/07/22 11:46 36.6 C 61 21 107/72 94 03/07/22 08:07 70 03/07/22 07:52 36.6 C 68 18 104/67 97 03/07/22 05:48 36.5 C 64 16 106/62 96 03/07/22 02:42 71 03/07/22 02:05 36.5 C 70 18 127/77 93 03/07/22 01:00 64 19 124/83 93 03/07/22 00:30 66 19 114/76 94 03/07/22 00:22 69 22 92 03/07/22 00:01 70 17 83/59 L 93 03/07/22 00:00 70 18 PG Care Time/CCT Total # of Minutes Spent Total Time Spent with Patient: Total time spent is greater than 50% in coordination of care (as documented) at patient's floor/unit and/or counseling patient: Coding Level of Care Code 11476 Subseq Hosp Care Lvl 3 Diagnoses Alcohol intoxication F10.920 Complication of substance-induced condition: uncomplicated Acute hypotension I95.9 Elevated troponin R77.8 Fall W19.XXXA Encounter type: initial encounter JEANE (acute kidney injury) N17.9 CAD (coronary artery disease), [place] coronary artery I25.10 Anaplasmosis A77.49 Lyme disease A69.20 Pulmonary hypertension I27.20 HTN (hypertension) I10 Seizure R56.9 GERD without esophagitis K21.9 Hyperlipidemia E78.5 Gouty arthritis M10.9 (1) Alcohol intoxication Complication of substance-induced condition: uncomplicated Qualified Code(s): F10.920 - Alcohol use, unspecified with intoxication, uncomplicated (2) Fall Encounter type: initial encounter Qualified Code(s): W19.XXXA - Unspecified fall, initial encounter
--- NOTE | 2022-03-07 12:19 | Cardiology Consultation ---
Date of Consultation March 07, 2022 Assessment & Plan (1) Elevated troponin: (2) Pulmonary hypertension: (3) Right ventricular failure: (4) Valvular heart disease: (5) Abnormal EK. Elevated troponin: His cardiac biomarkers are more elevated than they were during his last admission. However, his presentation is not consistent with an acute coronary syndrome. While he does have an abnormal EKG this appears unchanged from prior. Did not have symptoms of chest pain leading up to his event or afterwards. No treatment was given for an acute coronary syndrome. Likely has an element of hypoxia and hypotension during this event yesterday. I believe this is the most likely explanation for elevated biomarkers. In the absence of new symptoms I would not pursue an ischemic evaluation. 2. Right ventricular failure: He is known to have poor RV function with dilated right-sided chambers. Likely secondary to his known primary lung disease. seems to be well compensated currently. Mild peripheral edema. No increasing abdominal girth. He seems to control his edema with a daily dose of Lasix. Treatment of his underlying lung condition was supplemental oxygen is the best long-term strategy. Avoid significant diuresis as the right ventricle is likely preload dependent. 3. Valvular heart disease: He has an element of mitral regurgitation and more significant tricuspid regurgitation. 4. Abnormal EKG: His EKG is markedly abnormal. He has changed over the years, but is similar to those obtained over the past few months. Possibly reflective of his right ventricular abnormality. 5. Pulmonary hypertension: Related to his underlying lung disease. History of Present Illness Reason for Consultation: Elevated troponin Requesting Physician: Brice Attending Physician: Chun Benz MD History of Present Illness Patient is a 71-year-old gentleman with a history of severe COPD who is known to have an element of right ventricular heart failure. Patient was brought to the hospital at the request of his grandson after witnessing a fall and period of unresponsiveness. It seems that the patient had been drinking some bourbon yesterday and when attempting to enter his house he fell and likely lost consciousness. The history was provided by the patient and the medical record. The patient did not recall any events after falling until he woke up in the ambulance on the way to the emergency room. He did not recall feeling poorly leading up to this event. In fact, he actually was feeling quite well after drinking some bourbon. He has chronic dyspnea. He uses supplemental oxygen at all times, slightly higher flow rate when he is exerting himself. In order to enter his house he had to ambulate up a ramp. At no time during this event or leading up to the event that he had symptoms of chest discomfort. He has not recall symptoms of chest discomfort since that time. He is very sedentary individual due primarily to pulmonary issues. He does have an element of dizziness at times this appears to be positional and associated with changes in position. He has not suffered syncope until yesterday. He was hospitalized 1 month ago and at that time his antihypertensives were significantly reduced due to concerns over low blood pressure. A description of the patient by his grandson suggest that there was a period of poor perfusion. Currently the patient is feeling well. He has no symptoms of chest discomfort. His breathing is normal at rest. He did not report dizziness at rest. No symptoms of palpitation. No pain associated with yesterday's fall. Allergies Allergy/AdvReac Type Severity Reaction Status Date / Time bee venom protein (honey bee) Allergy Severe hives in Verified 03/06/22 22:30 throat, trouble breathing Home Medications Medication Instructions Recorded Confirmed Type atorvastatin 80 mg tablet 80 mg PO QAM 12/06/18 03/06/22 History cholecalciferol (vitamin D3) 25 1,000 units PO QAM 04/25/19 03/06/22 History mcg (1,000 unit) tablet lansoprazole 30 mg capsule,delayed 30 mg PO QAM #90 cap 05/29/19 03/06/22 Rx release albuterol sulfate 90 mcg/actuation 2 puff INHALATION Q6H PRN 11/11/20 03/06/22 History aerosol inhaler ascorbic acid (vitamin C) 1,000 mg 1,000 mg PO QAM 11/11/20 03/06/22 History tablet,extended release (Vitamin C ER) fluticasone 250 mcg-salmeterol 50 1 ea INHALATION BID 11/11/20 03/06/22 History mcg/dose blistr powdr for inhalation (Cristo Sequeira) allopurinol 300 mg tablet 300 mg PO QAM 12/11/20 03/06/22 History indomethacin 50 mg capsule 50 mg PO TID PRN 12/11/20 03/06/22 History levetiracetam 750 mg tablet 750 mg PO BID 12/11/20 03/06/22 History (Keppra) metoprolol succinate 100 mg 100 mg PO QAM 12/11/20 03/06/22 History tablet,extended release 24 hr furosemide 40 mg tablet 40 mg PO QAM 01/28/22 03/06/22 History umeclidinium 62.5 mcg/actuation 1 inh INHALATION DAILY #30 ea 02/02/22 03/06/22 Rx blister powder for inhalation (Incruse Ellipta) acetaminophen 325 mg tablet 650 mg PO Q4H PRN 03/06/22 03/06/22 History amlodipine 2.5 mg tablet 0 mg PO DAILY 03/06/22 03/06/22 History ascorbic acid (vitamin C) 1,000 mg 1 g PO DAILY 03/06/22 03/06/22 History tablet (Vitamin C) cyanocobalamin (vitamin B-12) 1,000 mcg PO DAILY 03/06/22 03/06/22 History 1,000 mcg tablet (Vitamin B-12) magnesium 500 mg tablet 500 mg PO DAILY 03/06/22 03/06/22 History methylcellulose (laxative) 500 mg 500 mg PO DAILY 03/06/22 03/06/22 History tablet (Citrucel) potassium chloride 20 mEq 20 meq PO TID 03/06/22 03/06/22 History tablet,extended release(part/cryst) Patient History Medical History Acute renal failure Acute respiratory failure with hypoxia and hypercapnia Admitted to intensive care unit Chronic obstructive pulmonary disease no inhalers Chronic shortness of breath Gout History of colon polyps Hyperlipidemia Hypertension Hypomagnesemia Lactic acidosis Left knee pain Metabolic acidosis Past use of tobacco Pneumonia Positive Lyme disease serology Prediabetes Prostate cancer screening Respiratory failure SOB (shortness of breath) Surgical History History of cardiac cath 2003 @ [facility] [place]--2 stents placed History of colonoscopy History of esophagogastroduodenoscopy (EGD) History of heart artery stent x2 History of surgery on arm right arm repair after "running through a sliding glass door" History of tonsillectomy History of tooth extraction all teeth removed Hx of vasectomy Family History Grandmother (Maternal) Family history of diabetes mellitus Mother Lung cancer Other No family history of adverse response to anesthesia Denies family history of Ovarian cancer Prostate cancer Myocardial infarction Breast cancer Colorectal cancer Social History Smoking Status: Former smoker Tobacco Type: Cigarettes Age Started Using Tobacco: 11; Age Quit Using Tobacco: 39; packs per day: 3; Second Hand Exposure: No; Do You Dip or Chew Tobacco: No; Tobacco Cessation Education Requested by Patient: No Hx Alcohol Use: Yes Alcohol type: hard liquor Hx Substance Use: Yes Last Used Substance: Days (ago) Last Used Substance Other:: last used was a month ago Preferred Language: British Communication Ability: Effective Visual Impairment: No Limitations Hearing Ability: Normal Solar Designer/Installer Required: No Beliefs That Will Affect Care: None marital status: Current Living Situation: Spouse current occupational status: retired Other Information That Helps Us Care for You: No Feels Safe at Home: Yes Safety Concerns: Feels Safe At This Time Dental Care, Regularly: No Physical Activity Frequency: 1-2 Times per Week Seatbelt Use: sometimes Sunscreen Use: No Assistive Devices: Cane, Oxygen - Continuous and Walker Review of Systems Review of Systems: Per HPI. He does have some chronic lower extremity edema. Takes a daily diuretic. He states that his lower extremities look good were at least normal today. He did not describe any increasing abdominal girth. He tends to sleep on a few pillows. He has done this for many years and simply feels more comfortable. Not Overt orthopnea with lying flat. Physical Exam Physical Exam: The patient is alert and oriented. Mood and affect appeared normal. He answered all questions appropriately. HEENT: Pupils are equal and reactive to light and accommodation. Extraocular movements are intact. The sclerae are anicteric. Neuro: Cranial nerves intact Lungs: Occasional crackle in the right base. Prolonged expiratory phase. Distant breath sounds overall. Normal respiratory effort. Cardiac: Heart demonstrates a regular rate and rhythm. Normal S1 and S2. No murmurs on examination. Pulses: The patient has palpable radial pulses bilaterally that are equal in intensity Extremities: There was no evidence of hypoperfusion. Mild lower extremity edema bilaterally. Right slightly worse than left. Skin: I did not appreciate any rashes on examination today. Results & Data ([facility]) Vital Signs (Past 12 Hours) Vital Signs Temp Pulse Pulse Resp BP BP Pulse Ox 03/07/22 11:46 36.6 C 61 21 107/72 94 03/07/22 08:07 70 03/07/22 07:52 36.6 C 68 18 104/67 97 03/07/22 05:48 36.5 C 64 16 106/62 96 03/07/22 02:42 71 03/07/22 02:05 36.5 C 70 18 127/77 93 03/07/22 01:00 64 19 124/83 93 03/07/22 00:30 66 19 114/76 94 03/07/22 00:22 69 22 92 Laboratory Results Abnormal Lab Results 03/06/22 03/06/22 03/06/22 20:02 20:02 20:02 WBC 7.42 RBC 4.33 L Hgb 13.8 L Hct 43.5 MCV 100.5 H MCH 31.9 MCHC 31.7 L RDW Std Deviation 55.7 H RDW Coeff of Taina 15.2 H Plt Count 135 MPV 10.4 Immature Gran % (Auto) 0.3 Neut % (Auto) 78.9 Lymph % (Auto) 13.2 [place] % (Auto) 6.1 Eos % (Auto) 0.8 Baso % (Auto) 0.7 Neut # (Auto) 5.86 Lymph # (Auto) 0.98 L [place] # (Auto) 0.45 Eos # (Auto) 0.06 Baso # (Auto) 0.05 Immature Gran # (Auto) 0.02 Echinocytes Sodium 140 Potassium 4.9 Chloride 107 Carbon Dioxide 15 L Anion Gap 18 H BUN 37 H Creatinine 2.05 H Est Cr Clr Drug Dosing 36.8 Est GFR ( Amer) 36.4 Est GFR (Non-Af Amer) 31.4 BUN/Creatinine Ratio 18.0 Glucose 102 H Calcium 9.2 Magnesium Total Bilirubin 4.4 H AST 26 ALT 43 Alkaline Phosphatase 168 H Troponin I High Sens 188.8 H* D Total Protein 7.4 Albumin 4.4 Globulin 3.0 Albumin/Globulin Ratio 1.5 Urine Color Urine Appearance Urine pH Ur Specific [place] Urine Protein Urine Glucose (UA) Urine Ketones Urine Blood Urine Nitrite Urine Bilirubin Urine Urobilinogen Ur Leukocyte Esterase Urine WBC (Auto) Urine RBC (Auto) U Hyaline Cast (Auto) U Epithel Cells (Auto) Urine Bacteria (Auto) Ethyl Alcohol mg/dL 99.0 H SARS-CoV-2, RNA, NAAT 03/06/22 03/07/22 03/07/22 22:50 05:13 05:13 WBC 6.13 RBC 3.98 L Hgb 12.4 L Hct 38.5 L MCV 96.7 MCH 31.2 MCHC 32.2 RDW Std Deviation 53.8 H RDW Coeff of Taina 15.1 H Plt Count 107 L MPV 11.2 Immature Gran % (Auto) 0.3 Neut % (Auto) 65.9 Lymph % (Auto) 23.7 [place] % (Auto) 8.3 Eos % (Auto) 0.8 Baso % (Auto) 1.0 Neut # (Auto) 4.04 Lymph # (Auto) 1.45 [place] # (Auto) 0.51 Eos # (Auto) 0.05 Baso # (Auto) 0.06 Immature Gran # (Auto) 0.02 Echinocytes 1+ Sodium 136 Potassium 4.9 Chloride 105 Carbon Dioxide 22 Anion Gap 9 BUN 39 H Creatinine 1.97 H Est Cr Clr Drug Dosing 37.9 Est GFR ( Amer) 38.2 Est GFR (Non-Af Amer) 33.0 BUN/Creatinine Ratio 19.8 Glucose 95 Calcium 8.8 Magnesium 1.2 L Total Bilirubin 3.6 H AST 23 ALT 37 Alkaline Phosphatase 138 H Troponin I High Sens Total Protein 6.6 Albumin 3.9 Globulin 2.7 Albumin/Globulin Ratio 1.4 Urine Color Urine Appearance Urine pH Ur Specific [place] Urine Protein Urine Glucose (UA) Urine Ketones Urine Blood Urine Nitrite Urine Bilirubin Urine Urobilinogen Ur Leukocyte Esterase Urine WBC (Auto) Urine RBC (Auto) U Hyaline Cast (Auto) U Epithel Cells (Auto) Urine Bacteria (Auto) Ethyl Alcohol mg/dL SARS-CoV-2, RNA, NAAT NEGATIVE 03/07/22 03/07/22 05:13 Unknown WBC RBC Hgb Hct MCV MCH MCHC RDW Std Deviation RDW Coeff of Taina Plt Count MPV Immature Gran % (Auto) Neut % (Auto) Lymph % (Auto) [place] % (Auto) Eos % (Auto) Baso % (Auto) Neut # (Auto) Lymph # (Auto) [place] # (Auto) Eos # (Auto) Baso # (Auto) Immature Gran # (Auto) Echinocytes Sodium Potassium Chloride Carbon Dioxide Anion Gap BUN Creatinine Est Cr Clr Drug Dosing Est GFR ( Amer) Est GFR (Non-Af Amer) BUN/Creatinine Ratio Glucose Calcium Magnesium Total Bilirubin AST ALT Alkaline Phosphatase Troponin I High Sens 275.2 H* D Total Protein Albumin Globulin Albumin/Globulin Ratio Urine Color Yellow Urine Appearance Turbid A Urine pH 5.0 Ur Specific Kings[place] 1.016 Urine Protein 2+ H Urine Glucose (UA) Negative Urine Ketones Trace H Urine Blood 3+ H Urine Nitrite Negative Urine Bilirubin Negative Urine Urobilinogen Negative Ur Leukocyte Esterase 3+ H Urine WBC (Auto) >30 H Urine RBC (Auto) 10-30 H U Hyaline Cast (Auto) 1-5 U Epithel Cells (Auto) >30 H Urine Bacteria (Auto) 4+ H Ethyl Alcohol mg/dL SARS-CoV-2, RNA, NAAT Diagnostic Findings Echocardiogram performed 01/29/2022 revealed normal LV systolic function with ejection fraction of 55-60%. Severely dilated right ventricle with severely reduced right ventricular systolic function. Severe right atrial dilation. Mild to moderate mitral regurgitation. Moderate to severe tricuspid regurgitation with elevated right ventricular systolic pressure estimated at greater than 60 mm of mercury. Head CT did not demonstrate any acute intracranial process. Chest x-ray demonstrated cardiomegaly mild pulmonary vascular congestion. ECG Additional Comments: EKG demonstrated normal sinus rhythm and diffuse ST and T-wave changes. Unchanged from prior PG Care Time/CCT Total # of Minutes Spent Total Time Spent with Patient: Total time spent is greater than 50% in coordination of care (as documented) at patient's floor/unit and/or counseling patient: Coding Level of Care Code 94408 Initial Inpt Care Lvl 3 Diagnoses Elevated troponin R77.8 Pulmonary hypertension I27.20 Right ventricular failure I50.810 Valvular heart disease I38 Abnormal EKG R94.31
--- NOTE | 2022-03-07 12:55 | Electrocardiogram Report ---
Test Reason : Blood Pressure : / mmHG Vent. Rate : 074 BPM Atrial Rate : 074 BPM P-R Int : 200 ms QRS Dur : 098 ms QT Int : 438 ms P-R-T Axes : 048 079 270 degrees QTc Int : 486 ms Normal sinus rhythm Incomplete right bundle branch block Abnormal ECG When compared with ECG of 30-JAN-2022 06:20, No significant change was found Confirmed by Andrea Moseley ([id number]) on 03/07/2022 12:54:50 PM Referred By: REFERRED SELF Confirmed By:Yordan Moseley
--- NOTE | 2022-03-07 13:01 | Electrocardiogram Report ---
Test Reason : Blood Pressure : / mmHG Vent. Rate : 060 BPM Atrial Rate : 060 BPM P-R Int : 170 ms QRS Dur : 088 ms QT Int : 480 ms P-R-T Axes : 019 075 -22 degrees QTc Int : 480 ms Poor data quality, interpretation may be adversely affected Normal sinus rhythm Abnormal ECG When compared with ECG of 06-MAR-2022 19:16, (unconfirmed) T wave inversion less evident in Inferior leads Confirmed by Andrea Moseley ([id number]) on 03/07/2022 1:01:40 PM Referred By: REFERRED SELF Confirmed By:Yordan Moseley
[2022-03-08] MEDS: DOXYCYCLINE HYCLATE 100 MG in DEXTROSE 5% 100 ML IV SCH (05:10)
[2022-03-08 06:09] LABS: Basophils # (auto) 0.05 K/uL (0-0.2); Eosinophils # (auto) 0.11 K/uL (0-0.50); Eosinophils % (auto) 2.2 %; Hematocrit (blood only) 34.8 % (40.1-51.0); Hemoglobin 11.4 g/dl (14.0-18.0); Immature Granulocytes # (auto) 0.02 K/uL (0.00-0.02); Immature Granulocytes % (auto) 0.4 %; Lymphocytes % (auto) 23.8 %; Mean Corpuscular Hgb Conc 32.8 g/dL (32.0-36.0); Mean Corpuscular Volume 94.6 fL (80.0-100.0); Mean Platelet Volume 11.5 fL (9.4-12.4); Monocytes # (auto) 0.46 K/uL (0.24-0.82); Monocytes % (auto) 9.1 %; Neutrophils % (auto) 63.5 %; Platelet Count 106 K/uL (130-400); RDW Coefficient of Variation 14.8 % (11.5-14.5); RDW Standard Deviation 51.1 fL (36.4-46.3); Red Blood Count 3.68 M/uL (4.63-6.08); White Blood Count 5.04 K/ul (4.8-10.8)
[2022-03-08 06:31] LABS: Albumin Globulin Ratio 1.5 (0.9-2); Albumin Level 3.6 gm/dl (3.4-5.0); BUN Creatinine Ratio 22.5 (10-20); Bilirubin,Total 3.1 mg/dl (0.2-1.0); Calcium 8.6 mg/dl (8.5-10.1); Creatinine Clr Calc Pharmacy 43.4 ml/min; Est GFR (African American) 44.7 ml/min; Est GFR (Non-African American) 38.6 ml/min; Globulin 2.4 gm/dl (2.5-4.0); Magnesium 1.1 mg/dl (1.7-2.4); Potassium 3.8 mmol/L (3.5-5.1)
[2022-03-08] MEDS: FLUTICASONE/VILANTEROL 200/25MCG 14 PUFFS/INHALER INH SCH (08:36)
[2022-03-08] MEDS: levETIRAcetam 250 MG TAB PO SCH ×2 (08:36→21:50)
[2022-03-08] MEDS: UMECLIDINIUM BROMIDE 62.5MCG/BLISTER 7 PUFFS/INHALER INH SCH (08:36)
[2022-03-08] MEDS: CYANOCOBALAMIN (B-12) 500 MCG TABLET PO SCH (08:37)
[2022-03-08] MEDS: allopurinoL 300 MG TAB PO SCH (08:37)
[2022-03-08] MEDS: THIAMINE HCL 100 MG TAB PO SCH (08:37)
[2022-03-08] MEDS: CHOLECALCIFEROL 1,000 UNITS 25 MCG TAB PO SCH (08:37)
[2022-03-08] MEDS: MAGNESIUM OXIDE 400 MG TAB PO SCH (08:37)
[2022-03-08] MEDS: PANTOprazole 40 MG TAB PO SCH (08:37)
[2022-03-08] MEDS: FOLIC ACID 1 MG TAB PO SCH (08:37)
[2022-03-08] MEDS: ATORVASTATIN 40 MG TAB PO SCH (08:37)
[2022-03-08] MEDS: ASCORBIC ACID 500 MG TAB PO SCH (09:58)
[2022-03-08] MEDS: MAGNESIUM SULFATE / D5W 1 GM/100 ML BAG IV SCH ×4 (10:25→16:04)
--- NOTE | 2022-03-08 12:11 | Electrocardiogram Report ---
Test Reason : Blood Pressure : / mmHG Vent. Rate : 068 BPM Atrial Rate : 068 BPM P-R Int : 202 ms QRS Dur : 096 ms QT Int : 448 ms P-R-T Axes : 053 076 -66 degrees QTc Int : 476 ms Sinus rhythm with Premature atrial complexes Incomplete right bundle branch block Prolonged QT Abnormal ECG When compared with ECG of 07-MAR-2022 05:53, Premature atrial complexes are now Present Confirmed by Andrea Moseley ([id number]) on 03/08/2022 12:10:50 PM Referred By: REFERRED SELF Confirmed By:Yordan Moseley
--- NOTE | 2022-03-08 14:04 | Hospitalist Progress Note ---
Date of Service March 08, 2022 Assessment & Plan (1) Catheter-associated urinary tract infection: Plan: UA does have a lot of epithelial cells as well as WBCs. He does have a chronic indwelling Craven catheter which has not been exchanged for about 3 weeks Upon discharge last admission, he was treated with Cipro for 2 more days His urine culture here is growing out gram-negative bacilli and Enterococcus, similar to previous Has had Craven catheter in place for approximately a year due to presumed neurogenic bladder as per patient, and not due to enlarged prostate -Start Cipro 500 mg p.o. twice daily x14-day course -Exchange Craven catheter today -Has follow-up with urology in April (2) Acute hypotension: Plan: Acute hypotension, likely related to dehydration and possible sepsis from Lym e/anaplasmosis and UTI. Blood pressure of 83/59 at its lowest point in the emergency department. Blood pressures are all now improved with giving IV fluids on admission and holding home antihypertensives -Continue to hold all antihypertensives: Amlodipine, furosemide, metoprolol succinate - Monitor (3) Alcohol intoxication: Plan: Alcohol level was 99 on admission. Patient was brought to the emergency department due to as he reports, falling due to being intoxicated He reports that he previously was a heavy drinker, but then quit drinking for quite a while after his fall with subdural hematoma More recently, he reports drinking about a pint of bourbon each weekend - Placed on AWSS protocol - No signs of withdrawal today. -Continue thiamine and folic acid (4) Elevated troponin: Plan: Demand ischemia in the setting of JEANE, alcohol intoxication, Lyme disease, and hypotension. Troponin 275 upon admission and then trended downward. He had no chest pain. ECGs are abnormal with T wave inversions in anterolateral leads but unchanged from previous Appreciate cardiology consultation No need for further ischemic work-up (5) Anaplasmosis: Plan: Results for anaplasmosis and Lyme Western blot returned positive after last discharge. He did receive at least a partial treatment due to IV antibiotics used to treat pulmonary and urinary processes for a few days at that time, but then did not receive a full course of doxycycline for either infection - Patient does have a number of musculoskeletal and other complaints that may be related to these diagnoses. - Continue doxycycline -> Would need 28-day course if we think some of his MSK complaints are related to Lyme. (ie treat for Lyme arthritis) Platelets and LFTs are improving (6) Fall: Plan: Secondary to alcohol intoxication. CT head negative, with patient having history of a chronic subdural hematoma. - PT/OT (7) JEANE (acute kidney injury): Plan: Likely pre-renal. Creatinine 2.05 on admission, with baseline 1.28. Received gentle IV fluids given history of right-sided heart failure Creatinine improved now down to 1.7 Continue to hold home Lasix, indomethacin, potassium chloride Follow BMP (8) CAD (coronary artery disease), [place] coronary artery: Plan: No acute issues (9) Lyme disease: Plan: Treat with 28-day course of doxycycline (10) Pulmonary hypertension: Plan: Noted as significant on previous echocardiogram on 01/29/2022 Continue supplemental O2 (11) HTN (hypertension): Plan: Hypotensive on arrival and now improved with gentle IV fluids and holding antihypertensives Continue to hold home antihypertensives (12) Seizure: Plan: Seizure disorder I believe related to his previous subdural hematoma Continue Keppra 750 mg p.o. twice daily (13) GERD without esophagitis: Plan: Continue PPI (14) Hyperlipidemia: Plan: Continue atorvastatin 80 mg every morning (15) Gouty arthritis: Plan: Continue allopurinol (16) Chronic obstructive pulmonary disease: Plan: Chronic, with chronic respiratory failure with hypoxia-uses 3 to 4-1/2 L at rest and with exertion, respectively Continue home maintenance inhalers Make albuterol HFA scheduled at bedtime and then as needed during the day (17) Hypoxia: Plan: As above Plan: DVT prophylaxis-add heparin SQ 5000 twice daily Disposition-continued stay, but can likely discharge to home tomorrow. Does not need home health Admission and Anticipated Discharge Date Admission Date: March 06, 2022 Subjective Reports feeling better. He denies pain anywhere. He is asking for his albuterol inhaler to be scheduled at nighttime because as when he usually takes it. He denies any chest pains or shortness of breath. He did get up and walk around the halls with physical therapy today and is feeling overall much better. Telemetry with normal sinus rhythm, PACs, rates in the 60s to 70s Review of Systems Review of Systems: All systems reviewed & are unremarkable except as noted in HPI & below Physical Exam Constitutional: WD/WN, vitals as above Eyes: + anicteric sclerae ENMT: external ear and nose normal, oropharynx normal Neck: trachea midline, no thyromegaly Respiratory: normal respiratory effort, lungs clear to auscultation Cardiovascular: RRR, no murmur, no edema Chest (Breasts): Chest: normal inspection of chest Gastrointestinal (Abdomen): normal bowel sounds, soft, nontender, no hepatosplenomegaly Musculoskeletal: Extremities: extremities normal to inspection; no cyanosis and no clubbing Skin: no rashes, warm and dry Neurologic: moves all extremities and awake; no focal motor deficits Psychiatric: A+Ox3, euthymic affect Lymphatic: no lymphedema Results & Data Results & Data ([facility]) Vital Signs (Past 12 Hours) Vital Signs Temp Pulse Pulse Resp BP Pulse Ox 03/08/22 11:29 36.3 C L 64 16 105/70 92 03/08/22 07:38 36.4 C 62 16 111/73 95 03/08/22 07:17 63 03/08/22 04:15 36.5 C 72 20 92/62 L 95 03/08/22 02:13 74 Laboratory Results 03/08/22 03/08/22 03/07/22 Range/Units 05:38 05:38 23:20 WBC 5.04 (4.8-10.8) K/ul RBC 3.68 L (4.63-6.08) M/uL Hgb 11.4 L (14.0-18.0) g/dl Hct 34.8 L (40.1-51.0) % MCV 94.6 (80.0-100.0) fL MCH 31.0 (25.0-34.0) pg MCHC 32.8 (32.0-36.0) g/dL RDW Std Deviation 51.1 H (36.4-46.3) fL RDW Coeff of Taina 14.8 H (11.5-14.5) % Plt Count 106 L (130-400) K/uL MPV 11.5 (9.4-12.4) fL Immature Gran % (Auto) 0.4 % Neut % (Auto) 63.5 % Lymph % (Auto) 23.8 % [place] % (Auto) 9.1 % Eos % (Auto) 2.2 % Baso % (Auto) 1.0 % Neut # (Auto) 3.20 (1.4-6.5) K/uL Lymph # (Auto) 1.20 (1.2-3.4) K/uL [place] # (Auto) 0.46 (0.24-0.82) K/uL Eos # (Auto) 0.11 (0-0.50) K/uL Baso # (Auto) 0.05 (0-0.2) K/uL Immature Gran # (Auto) 0.02 (0.00-0.02) K/uL Sodium 138 (136-145) mmol/L Potassium 3.8 D (3.5-5.1) mmol/L Chloride 104 (98-107) mmol/L Carbon Dioxide 25 (21-32) mmol/L Anion Gap 9 (3-11) BUN 39 H (6-23) mg/dl Creatinine 1.73 H (0.6-1.4) mg/dl Est Cr Clr Drug Dosing 43.4 ml/min Est GFR ( Amer) 44.7 ml/min Est GFR (Non-Af Amer) 38.6 ml/min BUN/Creatinine Ratio 22.5 H (10-20) Glucose 87 (70-99(Fasting)) mg/dl Calcium 8.6 (8.5-10.1) mg/dl Magnesium 1.1 L (1.7-2.4) mg/dl Total Bilirubin 3.1 H (0.2-1.0) mg/dl AST 16 (13-39) U/L ALT 28 (7-52) U/L Alkaline Phosphatase 130 H (34-104) U/L Troponin I High Sens 167.9 H* (0-20) pg/ml Total Protein 6.0 (6.0-8.3) gm/dl Albumin 3.6 (3.4-5.0) gm/dl Globulin 2.4 L (2.5-4.0) gm/dl Albumin/Globulin Ratio 1.5 (0.9-2) PG Care Time/CCT Total # of Minutes Spent Total Time Spent with Patient: Total time spent is greater than 50% in coordination of care (as documented) at patient's floor/unit and/or counseling patient: Coding Level of Care Code 67010 Subseq Hosp Care Lvl 2 Diagnoses Anaplasmosis A77.49 Alcohol intoxication F10.920 Complication of substance-induced condition: uncomplicated Acute hypotension I95.9 Elevated troponin R77.8 Fall W19.XXXA Encounter type: initial encounter JEANE (acute kidney injury) N17.9 CAD (coronary artery disease), [place] coronary artery I25.10 Lyme disease A69.20 Pulmonary hypertension I27.20 HTN (hypertension) I10 Seizure R56.9 GERD without esophagitis K21.9 Hyperlipidemia E78.5 Gouty arthritis M10.9 Catheter-associated urinary tract infection T83.511A; N39.0 Chronic obstructive pulmonary disease J44.9 Hypoxia R09.02 (1) Alcohol intoxication Complication of substance-induced condition: uncomplicated Qualified Code(s): F10.920 - Alcohol use, unspecified with intoxication, uncomplicated (2) Fall Encounter type: initial encounter Qualified Code(s): W19.XXXA - Unspecified fall, initial encounter
[2022-03-08] MEDS: CIPROFLOXACIN 500 MG TAB PO SCH ×2 (14:15→22:09)
[2022-03-08] MEDS ORDERED: ALBUTEROL HFA 8 GM INHALER INH SCH (21:00)
[2022-03-08] MEDS: HEPARIN SOD 5,000 UNIT/0.5 ML VIAL SQ SCH (21:49)
[2022-03-08] MEDS: DOXYCYCLINE HYCLATE 100 MG CAP PO SCH (21:50)
[2022-03-09 06:38] LABS: Basophils # (auto) 0.04 K/uL (0-0.2); Basophils % (auto) 0.8 %; Eosinophils # (auto) 0.12 K/uL (0-0.50); Eosinophils % (auto) 2.4 %; Hematocrit (blood only) 37.2 % (40.1-51.0); Hemoglobin 11.9 g/dl (14.0-18.0); Immature Granulocytes # (auto) 0.02 K/uL (0.00-0.02); Immature Granulocytes % (auto) 0.4 %; Lymphocytes # (auto) 1.02 K/uL (1.2-3.4); Mean Corpuscular Hemoglobin 30.7 pg (25.0-34.0); Mean Corpuscular Volume 96.1 fL (80.0-100.0); Mean Platelet Volume 11.8 fL (9.4-12.4); Monocytes # (auto) 0.49 K/uL (0.24-0.82); Monocytes % (auto) 9.6 %; Neutrophils % (auto) 66.8 %; Platelet Count 106 K/uL (130-400); RDW Coefficient of Variation 14.9 % (11.5-14.5); RDW Standard Deviation 51.6 fL (36.4-46.3); Red Blood Count 3.87 M/uL (4.63-6.08); White Blood Count 5.09 K/ul (4.8-10.8)
[2022-03-09 06:58] LABS: Albumin Globulin Ratio 1.4 (0.9-2); Albumin Level 3.7 gm/dl (3.4-5.0); BUN Creatinine Ratio 19.9 (10-20); Bilirubin,Total 3.3 mg/dl (0.2-1.0); Creatinine Clr Calc Pharmacy 53.3 ml/min; Est GFR (African American) 57.3 ml/min; Est GFR (Non-African American) 49.4 ml/min; Globulin 2.6 gm/dl (2.5-4.0); Magnesium 1.8 mg/dl (1.7-2.4); Potassium 3.9 mmol/L (3.5-5.1); Total Protein 6.3 gm/dl (6.0-8.3)
[2022-03-09] MEDS ORDERED: AMOXICILLIN/CLAVULANATE 875 MG TAB PO SCH (08:00)
[2022-03-09] MEDS: DOXYCYCLINE HYCLATE 100 MG CAP PO SCH (08:05)
[2022-03-09] MEDS: ATORVASTATIN 40 MG TAB PO SCH (08:05)
[2022-03-09] MEDS: levETIRAcetam 250 MG TAB PO SCH (08:05)
[2022-03-09] MEDS: PANTOprazole 40 MG TAB PO SCH (08:05)
[2022-03-09] MEDS: THIAMINE HCL 100 MG TAB PO SCH (08:06)
[2022-03-09] MEDS: CHOLECALCIFEROL 1,000 UNITS 25 MCG TAB PO SCH (08:06)
[2022-03-09] MEDS: CYANOCOBALAMIN (B-12) 500 MCG TABLET PO SCH (08:06)
[2022-03-09] MEDS: allopurinoL 300 MG TAB PO SCH (08:06)
[2022-03-09] MEDS: FOLIC ACID 1 MG TAB PO SCH (08:06)
[2022-03-09] MEDS: ASCORBIC ACID 500 MG TAB PO SCH (08:06)
[2022-03-09] MEDS: UMECLIDINIUM BROMIDE 62.5MCG/BLISTER 7 PUFFS/INHALER INH SCH (08:06)
[2022-03-09] MEDS: FLUTICASONE/VILANTEROL 200/25MCG 14 PUFFS/INHALER INH SCH (08:06)
[2022-03-09] MEDS: HEPARIN SOD 5,000 UNIT/0.5 ML VIAL SQ SCH (08:07)
--- NOTE | 2022-03-09 11:51 | Discharge Summary ---
Date of Service March 09, 2022 Admission HPI Per Admitting Provider The patient is a 71-year-old male with a past medical history including pulmonary hypertension, pleural effusion, hypertension, COPD, pneumonia, subdural hematoma, seizure, CKD stage III, GERD, peripheral neuropathy, met abolic acidosis, gouty arthritis, hyperlipidemia and colon polyps. He presents to the emergency department after falling secondary to being drunk. He reportedly fell onto his grandson, who slowly lowered him to the floor, but were reported that the patient's face looked purple despite wearing his usual oxygen. The patient was most recently admitted to [facility] from 01/28-02/02/2022 for treatment for UTI and a COPD exacerbation with acute and chronic respiratory failure with hypoxia. Principal Diagnosis Fall, EtOH intoxication, JEANE, Lyme disease, Anaplasmosis, Catheter-associated UTI Discharge Exam Constitutional WD/WN, vitals as above Eyes + anicteric sclerae Neck trachea midline, no thyromegaly Respiratory normal respiratory effort, lungs clear to auscultation Cardiovascular RRR, no murmur, no edema Chest (Breasts) Chest: normal inspection of chest Gastrointestinal (Abdomen) normal bowel sounds, soft, nontender, no hepatosplenomegaly Musculoskeletal Extremities: extremities normal to inspection; no cyanosis and no clubbing Skin no rashes, warm and dry Neurologic moves all extremities and awake; no focal motor deficits Psychiatric A+Ox3, euthymic affect Lymphatic no lymphedema Discharge Data Allergies Allergy/AdvReac Type Severity Reaction Status Date / Time bee venom protein (honey bee) Allergy Severe hives in Verified 03/06/22 22:30 throat, trouble breathing Consultations 03/06/22 22:32 ED Decision to Admit Stat 03/07/22 01:51 Consult Cardiology Routine Ordered Studies 03/06/22 19:48 CT head/brain wo con Urgent Hospital Course (1) Catheter-associated urinary tract infection: UA does have a lot of epithelial cells as well as WBCs. He does have a chronic indwelling Craven catheter which had not been exchanged for about 3 weeks Upon discharge last admission, he was treated with Cipro for 2 more days His urine culture here is growing out Pantoea and Enterococcus Has had Craven catheter in place for approximately a year due to presumed neurogenic bladder as per patient, and not due to enlarged prostate -finish out a course of Augmentin 875mg po bid x14-day course -Exchanged Craven catheter here on 7/12 -Has follow-up with urology in April (2) Acute hypotension: Acute hypotension, likely related to dehydration and possible sepsis from Lyme/anaplasmosis and UTI. Blood pressure of 83/59 at its lowest point in the emergency department. Blood pressures are all now improved with giving IV fluids on admission and holding home antihypertensives -discontinued Amlodipine permanently -decrease doses of furosemide to 20mg daily on discharge and metoprolol succinate from 100mg to 25mg daily (3) Alcohol intoxication: Alcohol level was 99 on admission. Patient was brought to the emergency department due to as he reports, falling due to being intoxicated He reports that he previously was a heavy drinker, but then quit drinking for quite a while after his fall with subdural hematoma More recently, he reports drinking about a pint of bourbon each weekend - Placed on AWSS protocol - No signs of withdrawal -Continue thiamine and folic acid -encouraged EtOH cessation on discharge which he is committed to doing (4) Elevated troponin: Demand ischemia in the setting of JEANE, alcohol intoxication, Lyme disease, and hypotension. Troponin 275 upon admission and then trended downward. He had no chest pain. ECGs are abnormal with T wave inversions in anterolateral leads but unchanged from previous Appreciate cardiology consultation No need for further ischemic work-up (5) Anaplasmosis: Results for anaplasmosis and Lyme Western blot returned positive after last discharge. He did receive at least a partial treatment due to IV antibiotics used to treat pulmonary and urinary processes for a few days at that time, but then did not receive a full course of doxycycline for either infection - Patient does have a number of musculoskeletal and other complaints that may be related to these diagnoses. - Continue doxycycline -> Would need 28-day course if we think some of his MSK complaints are related to Lyme. (ie treat for Lyme arthritis) Platelets and LFTs are improving (6) Fall: Secondary to alcohol intoxication. CT head negative, with patient having history of a chronic subdural hematoma. - PT/OT (7) JEANE (acute kidney injury): Likely pre-renal. Creatinine 2.05 on admission, with baseline 1.28. Received gentle IV fluids given history of right-sided heart failure Creatinine improved now down to 1.4 restart home Lasix at lower dose of 20mg daily -dcd home potassium chloride Follow BMP as outpt (8) CAD (coronary artery disease), [place] coronary artery: No acute issues (9) Lyme disease: Treat with 28-day course of doxycycline (10) Pulmonary hypertension: Noted as significant on previous echocardiogram on 01/29/2022 Continue supplemental O2 (11) HTN (hypertension): Hypotensive on arrival and now improved with gentle IV fluids and holding antihypertensives changes ot BP meds as above (12) Seizure: Seizure disorder I believe related to his previous subdural hematoma Continue Keppra 750 mg p.o. twice daily (13) GERD without esophagitis: Continue PPI (14) Hyperlipidemia: Continue atorvastatin 80 mg every morning (15) Gouty arthritis: Continue allopurinol (16) Chronic obstructive pulmonary disease: Chronic, with chronic respiratory failure with hypoxia-uses 3 to 4-1/2 L at rest and with exertion, respectively Continue home maintenance inhalers albuterol prn (17) Hypoxia: As above Plan DVT prophylaxis- heparin SQ 5000 twice daily Disposition-dc to home today. Does not need home health Total Time Total Time Spent Total Time Spent (In Minutes): 40 min Discharge Plan Discharge Items Patient Disposition: Home - Self-Care Reason For Visit: NSTEMI,JEANE,ANAPLASMOSIS,LYME,META ACIDOSIS,PULM HT Discharge Diagnosis: Lyme disease, fall, alcohol intoxication, Acute kidney injury, Catheter- associated UTI Activity: As commented below Lifting: Gradually increase as tolerated Bathing: No limitations Exercise/Sports: Gradually increase as tolerated Weightbearing: Full weightbearing Non-emergency contact: Primary Care Provider Call non-emergency contact if: you have any medication questions, your symptoms worsen, your pain is not controlled, your pain is worsening, your pain is con cerning for you and you have a fever Follow-up/Referrals: Sixto Bryan MD [Primary Care Provider] - 03/17/22 2:50 pm (Follow up within 1-2 weeks) Diet: Heart Healthy and Low Sodium (2gm) Addtl Attending Provider Instructions: You were admitted for a fall which was likely due to alcohol intoxication in the setting of having knee pain. You rknee pain may be related to Lyme disease as you tested positive for this plus another tick-borne illness called Anaplasmosis during your last admission. You also have a UTI which will be treated with anti biotics. Please finish out the courses of antibiotics as prescribed for each of these infections. Please refrain from drinking ny alcohol in the future as we discussed. Because you had low blood pressures, your amlodipine was STOPPED, your metoprolol dose was decreased to 25mg daily, and your lasix dose was decreased to 20mg daily. Please follow up with your PCP within 1-2 weeks. Pending Studies at Discharge: No Stand-Alone Forms: My [facility], Work/School Release, Smoking Cessation Medications and DC Order Prescriptions: New amoxicillin-pot clavulanate 875-125 mg Tablet 1 tab PO BIDM 13 Days Qty: 26 0RF doxycycline hyclate 100 mg Capsule 100 mg PO BID 25 Days Qty: 50 0RF folic acid 1 mg Tablet 1 mg PO QAM Qty: 30 0RF Rx Instructions: OTC thiamine HCl (vitamin B1) 100 mg Tablet 100 mg PO QAM Qty: 30 0RF Rx Instructions: OTC metoprolol succinate [Toprol XL] 25 mg tablet extended release 24 hr 25 mg PO DAILY Qty: 30 0RF furosemide [Lasix] 20 mg tablet 20 mg PO DAILY Qty: 30 0RF Continued lansoprazole 30 mg capsule,delayed release(DR/EC) 30 mg PO QAM Qty: 90 1RF cholecalciferol (vitamin D3) 1,000 unit (25 mcg) tablet 1,000 units PO QAM atorvastatin 80 mg Tablet 80 mg PO QAM indomethacin 50 mg Capsule 50 mg PO TID PRN (Reason: gout pain) levetiracetam [Keppra] 750 mg tablet 750 mg PO BID allopurinol 300 mg tablet 300 mg PO QAM Incruse Ellipta 62.5 mcg/actuation Blister With Device 1 inh inhalation DAILY Qty: 30 0RF fluticasone propion-salmeterol [Wixela Inhub] 250-50 mcg/dose blister with device 1 ea INHALATION BID Vitamin C 1,000 mg Tablet Extended Release 1,000 mg PO QAM albuterol sulfate 90 mcg/actuation HFA aerosol inhaler 2 puff INHALATION Q6H PRN (Reason: Shortness Of Breath Or Wheezing) magnesium 500 mg Tablet 500 mg PO DAILY cyanocobalamin (vitamin B-12) [Vitamin B-12] 1,000 mcg Tablet 1,000 mcg PO DAILY Citrucel 500 mg Tablet 500 mg PO DAILY acetaminophen 325 mg tablet 650 mg PO Q4H PRN (Reason: Pain) Discontinued metoprolol succinate 100 mg tablet extended release 24 hr 100 mg PO QAM furosemide 40 mg tablet 40 mg PO QAM ascorbic acid (vitamin C) [Vitamin C] 1,000 mg Tablet 1 g PO DAILY amlodipine 2.5 mg tablet 0 mg PO DAILY potassium chloride 20 mEq tablet,ER particles/crystals 20 meq PO TID Rx Instructions: per 1st Discharge Orders: Discharge Order (Routine); Ordered 03/09/22 Ordered By: Carina Ye Admission Data Admit Date/Time: 03/06/22 23:24 Attending Provider: Carina Ye Admit Provider: Vazquez Narvaez Primary Care Provider: Sitxo Bryan Other Providers: Chun Benz ; Vazquez Narvaez ; Andrea Moseley Coding Level of Care Code D/C DAY MANAGEMENT >30 MINS Diagnoses Catheter-associated urinary tract infection T83.511A; N39.0 Acute hypotension I95.9 Alcohol intoxication F10.920 Complication of substance-induced condition: uncomplicated Elevated troponin R77.8 Anaplasmosis A77.49 Fall W19.XXXA Encounter type: initial encounter JEANE (acute kidney injury) N17.9 CAD (coronary artery disease), [place] coronary artery I25.10 Lyme disease A69.20 Pulmonary hypertension I27.20 HTN (hypertension) I10 Seizure R56.9 GERD without esophagitis K21.9 Hyperlipidemia E78.5 Gouty arthritis M10.9 Chronic obstructive pulmonary disease J44.9 Hypoxia R09.02
== END 2022-03-09 13:10 | disposition home or self-care (01) | DRG 872 ==
LOC: ED 19:08 → SUATTDRO 23:24 → 2S 23:24 → 2N 03-07 13:38

== ENCOUNTER 2022-04-01 17:26 | Inpatient (IN) ==
[~2022-04-01 17:26] MED LIST changes: -ASPI81TA28 PO; -ATOR-26 PO; -CLOP1TAB15 PO; -HYDR25TA4 PO; -LANS30CA12 PO; +RAPID SEQUENCE INDUCTION BAG ONE; -TPRSR/100 PO
[2022-04-01] MEDS ORDERED: dilTIAZem HCl 5 MG/ML 5 ML VIAL IV ONE (17:35)
[2022-04-01] MEDS ORDERED: FUROSEMIDE 40 MG/4 ML VIAL IV ONE (17:54)
[2022-04-01 17:58] LABS: iSTAT Creatinine 2.4 mg/dl (0.6-1.3); iSTAT Hemoglobin 16.3 g/dl (14.0-18.0); iSTAT Ionized Calcium 1.12 mmol/l (1.12-1.32); iSTAT Potassium 5.1 mmol/L (3.3-5.0)
--- NOTE | 2022-04-01 18:01 | XRay Report ---
XR chest 1V portable HISTORY: Atypical Chest Pain COMPARISON: Chest 03/06/2022. FINDINGS: No pneumothorax. No pleural effusions. The cardiac silhouette remains mildly enlarged. No n ew focal lung consolidations to suggest pneumonia. There is mild central pulmonary vascular congestio n without overt edema. IMPRESSION: No change in the cardiomegaly and mild congestive change. ACT 112: Negative or not required by law. Electronically signed by: Wallace Jean Baptiste M.D. 04/01/2022 6:00 PM
[2022-04-01 18:09] LABS: Basophils # (auto) 0.05 K/uL (0-0.2); Basophils % (auto) 0.7 %; Eosinophils # (auto) 0.07 K/uL (0-0.50); Hematocrit (blood only) 48.2 % (40.1-51.0); Hemoglobin 14.7 g/dl (14.0-18.0); Immature Granulocytes # (auto) 0.03 K/uL (0.00-0.02); Immature Granulocytes % (auto) 0.4 %; Lymphocytes # (auto) 1.57 K/uL (1.2-3.4); Lymphocytes % (auto) 23.5 %; Mean Corpuscular Hemoglobin 30.6 pg (25.0-34.0); Mean Corpuscular Hgb Conc 30.5 g/dL (32.0-36.0); Mean Corpuscular Volume 100.4 fL (80.0-100.0); Mean Platelet Volume 12.7 fL (9.4-12.4); Monocytes # (auto) 0.28 K/uL (0.24-0.82); Monocytes % (auto) 4.2 %; Neutrophils # (auto) 4.68 K/uL (1.4-6.5); Neutrophils % (auto) 70.2 %; Platelet Count 127 K/uL (130-400); RDW Coefficient of Variation 15.1 % (11.5-14.5); RDW Standard Deviation 55.8 fL (36.4-46.3); White Blood Count 6.68 K/ul (4.8-10.8)
[2022-04-01 18:23] LABS: INR 1.3 (0.9-1.1); Partial Thromboplastin Ratio 1.2; Partial Thromboplastin Time 33.6 Seconds (21.0-31.0)
[2022-04-01 18:51] LABS: Influenza A virus by PCR Negative (Neg); Influenza B virus by PCR Negative (Neg); RSV by PCR Negative (Neg); SARS CoV2 RNA(COVID-19) InHosp NEGATIVE (Negative)
[2022-04-01 18:51] LABS: Troponin I High Sensitivity 41.6 pg/ml (0-20)
[2022-04-01 19:00] LABS: BUN Creatinine Ratio 29.3 (10-20); Calcium 9.2 mg/dl (8.5-10.1); Creatinine Clr Calc Pharmacy 35.3 ml/min; Est GFR (African American) 40.4 ml/min; Est GFR (Non-African American) 34.9 ml/min; Magnesium 1.1 mg/dl (1.7-2.4)
--- NOTE | 2022-04-01 20:21 | History & Physical Report ---
Date of Service April 01, 2022 Assessment & Plan (1) Acute respiratory failure with hypoxia: Plan: Acute respiratory failure with hypoxia/pneumonia involving right upper and middle lobes/tracheobronchitis/recent exposure to COVID-19- Cefepime 2 g IV every 12 hours Azithromycin 500 mg IV daily Albuterol HFA 2 puffs 4 times daily prn Guaifenesin extended release 12 mg p.o. twice daily Continue vitamin D 1000 units every morning Patient was negative for COVID-19, RSV and influenza while in the ED Is being monitored closely for development due to recent exposure just prior to admission, and will be placed on COVID-19 precautions (2) Pneumonia: Plan: See above (3) CAD (coronary artery disease), [place] coronary artery: Plan: Paroxysmal A. fib with RVR/elevated troponin CAD/hypertension- The patient will be admitted to telemetry for serial cardiac enzymes, serial EKG's, cardiac rhythm monitoring and a 2-D echocardiogram with Dopplers. Due to relative hypotension, hold amlodipine, furosemide, metoprolol succinate and potassium chloride Hypomagnesemia, magnesium 1.1, will be repleted, concerned that there the low magnesium may have precipitated a rapid heart rate with unstable blood pressure that led to syncope Initial EKG shows atrial fibrillation with RVR at 100 bpm, with lateral ischemia Follow-up EKG after beginning to replace magnesium converted to normal sinus rhythm with anterolateral ischemia Troponin initially 41.6, increased to 169.7 on follow-up. Since back in sinus rhythm, will avoid anticoagulation at this point due to history of recent subdural hematoma Consult cardiology for their opinion (4) Elevated troponin: Plan: See above (5) Paroxysmal atrial fibrillation with RVR: Plan: See above (6) Hypomagnesemia: Plan: Magnesium 1.1 on admission Hold Lasix Give magnesium 3 g IV in ED Repeat laboratories in a.m. Concerned that increased troponin and syncopal episode may be associated with rapid heart rate secondary to low magnesium Monitor on telemetry (7) HTN (hypertension): Plan: See above (8) GERD without esophagitis: Plan: Continue lansoprazole/pantoprazole daily (9) Chronic kidney disease, stage III (moderate): Plan: Creatinine 1.88, near the upper end of his baseline range, will hold Lasix due to relative hypotension as well (10) Hyperlipidemia: Plan: Continue atorvastatin 80 mg every morning (11) Exposure to COVID-19 virus: Plan: As noted above recent exposure, monitor closely for symptoms of COVID-19 developing while in hospital Placed on COVID precautions (12) Seizure: Plan: Continue Keppra 750 mg p.o. twice daily (13) BPH (benign prostatic hyperplasia): Plan: Continue tamsulosin 0.4 mg daily at bedtime, to avoid hypotension History of Present Illness Chief Complaint: The patient presents to the emergency department with complaint of worsening shortness of breath over the past week, productive cough over the past month, and had a syncopal episode while out visiting a friend earlier in the day today, who he found out had been diagnosed with COVID-19 Primary Care Provider: Sixto Bryan MD The patient is a 71-year-old male with a past medical history including valvular heart disease, CAD, Lyme disease, anaplasmosis, alcohol intoxication, pulmonary hypertension, chronic subdural hematoma, seizure disorder, CKD stage III, GERD esophagitis, peripheral neuropathy, gouty arthritis and hyperlipidemia. He has had an ongoing productive cough over the past several weeks, became more short of breath over the past week, and while visiting a friend today had a syncopal episode. Significant abnormal laboratories: Creatinine 1.88, glucose 123, BUN 55, INR 1.3, anion gap 18, magnesium 1.1, initial troponin 41.6 and increased to 169.7, RSV negative, influenza negative, COVID-[address] scan of head was negative, CT of chest without contrast showed pneumonia in the right upper and middle lower lobes and tracheobronchial secretions. ABG showed pH 7.38, P CO2 26, PO2 67 Allergies Allergy/AdvReac Type Severity Reaction Status Date / Time bee venom protein (honey bee) Allergy Severe hives in Verified 03/06/22 22:30 throat, trouble breathing Home Medications Medication Instructions Recorded Confirmed Type atorvastatin 80 mg tablet 80 mg PO QAM 12/06/18 04/01/22 History cholecalciferol (vitamin D3) 25 1,000 units PO QAM 04/25/19 04/01/22 History mcg (1,000 unit) tablet lansoprazole 30 mg capsule,delayed 30 mg PO QAM #90 caps 05/29/19 04/01/22 Rx release ascorbic acid (vitamin C) 1,000 mg 1,000 mg PO QAM 11/11/20 04/01/22 History tablet,extended release (Vitamin C ER) allopurinol 300 mg tablet 300 mg PO QAM 12/11/20 04/01/22 History levetiracetam 750 mg tablet 750 mg PO BID 12/11/20 04/01/22 History (Keppra) cyanocobalamin (vitamin B-12) 1,000 mcg PO DAILY 03/06/22 04/01/22 History 1,000 mcg tablet (Vitamin B-12) magnesium 500 mg tablet 500 mg PO DAILY 03/06/22 04/01/22 History methylcellulose (laxative) 500 mg 500 mg PO DAILY 03/06/22 04/01/22 History tablet (Citrucel) metoprolol succinate 25 mg 25 mg PO DAILY #30 tabs 03/09/22 04/01/22 Rx tablet,extended release 24 hr (Toprol XL) amlodipine 5 mg tablet (Norvasc) 10 mg PO DAILY 04/01/22 04/01/22 History furosemide 20 mg tablet (Lasix) 40 mg PO DAILY 04/01/22 04/01/22 History potassium chloride 20 mEq 40 meq PO BID 04/01/22 04/01/22 History tablet,extended release(part/cryst) (Klor-Con M) tamsulosin 0.4 mg PO DAILY 04/01/22 04/01/22 History Past Med/Surg History Medical History (Updated 04/02/22 @ 04:14 by Vazquez Narvaez MD) Acute renal failure Acute respiratory failure with hypoxia and hypercapnia Admitted to intensive care unit Chronic obstructive pulmonary disease no inhalers Chronic shortness of breath Gout History of colon polyps Hyperlipidemia Hypertension Hypomagnesemia Lactic acidosis Left knee pain Metabolic acidosis Past use of tobacco Pneumonia Positive Lyme disease serology Prediabetes Prostate cancer screening Respiratory failure SOB (shortness of breath) Surgical History History of cardiac cath 2003 @ [facility] – [place]--2 stents placed History of colonoscopy History of esophagogastroduodenoscopy (EGD) History of heart artery stent x2 History of surgery on arm right arm repair after "running through a sliding glass door" History of tonsillectomy History of tooth extraction all teeth removed Hx of vasectomy Family History Grandmother (Maternal) Family history of diabetes mellitus Mother Lung cancer Other No family history of adverse response to anesthesia Denies family history of Ovarian cancer Prostate cancer Myocardial infarction Breast cancer Colorectal cancer Social History Smoking Status: Never smoker Tobacco Type: Cigarettes Age Started Using Tobacco: 11; Age Quit Using Tobacco: 39; packs per day: 3; Second Hand Exposure: No; Hx Alcohol Use: Yes Alcohol type: hard liquor Hx Substance Use: Yes Last Used Substance: Days (ago) Last Used Substance Other:: over a month ago Preferred Language: Tajik Communication Ability: Effective Visual Impairment: No Limitations Hearing Ability: Normal Drug Safety Associate Required: No Beliefs That Will Affect Care: None marital status: Current Living Situation: Spouse current occupational status: retired Feels Safe at Home: Yes Dental Care, Regularly: No Physical Activity Frequency: 1-2 Times per Week Seatbelt Use: sometimes Sunscreen Use: No Assistive Devices: Cane, Oxygen - Continuous and Walker Review of Systems Review of Systems: The patient denies chest pain, palpitations, lower extremity swelling, sore throat, fevers, chills, sweats, nausea, vomiting, diarrhea , constipation, abdominal pain, pelvic pain, blood in urine or stool, dysuria, urinary frequency or urgency, lightheadedness, dizziness, headache, rash, abnormal bruising or bleeding, focal weakness, numbness or tingling in arms or legs, generalized arthralgias or myalgias, back or neck pain, or night sweats. The review of systems is otherwise negative other than for that already noted above, and at least 10 systems have been reviewed. Physical Exam Physical Exam: The patient is awake, alert and oriented 3, well developed and well nourished, normocephalic and atraumatic, lying in bed and in moderate distress improved on BiPAP HEENT--PERRL, EOMI, mucous membranes and oropharynx dry. Neck--supple. No JVD. No bruits. Thyroid normal, trachea midline, no adenopathy. Heart--normal S1 and S2. No murmurs, rubs or gallops. Lungs--coarse breath sounds bilaterally. Improved respiratory distress on BiPAP. No accessory muscle use. Abdomen--normal bowel sounds and soft. Nontender. Nondistended, no hernias or masses, no organomegaly. Extremities--no cyanosis or clubbing. No edema. Dermatologic--normal skin turgor, normal color, no abnormal lymph nodes, no rash. Neurologic--cranial nerves II through XII grossly intact. Rheumatologic--limited exam due to respiratory status Psychiatric--normal affect. Results & Data Results & Data ([facility]) Vital Signs (Past 12 Hours) Vital Signs Temp Pulse Resp BP BP Pulse Ox O2 Del Method 04/01/22 19:45 83 22 99/72 L 93 BiPAP 04/01/22 19:49 80 20 97 04/01/22 19:30 81 21 103/71 96 BiPAP 04/01/22 19:15 79 21 90/65 L 95 BiPAP 04/01/22 19:00 81 21 86/61 L 92 BiPAP 04/01/22 18:48 90/65 L 04/01/22 18:30 87/63 L 04/01/22 18:20 84 22 100 BiPAP 04/01/22 18:10 99 H 25 H 100 04/01/22 18:09 90/66 L 04/01/22 18:09 94 H 24 100 BiPAP 04/01/22 17:36 92 H 32 H 100 04/01/22 18:07 81/60 L 04/01/22 18:07 94 H 27 H 100 04/01/22 18:00 94 H 27 H 100 04/01/22 17:50 98 H 26 H 98 04/01/22 17:40 98 H 31 H 97 04/01/22 18:10 90/66 L 04/01/22 17:57 36.5 C 04/01/22 17:51 BiPAP 04/01/22 17:30 BiPAP 04/01/22 17:30 BiPAP 04/01/22 17:30 96 H 27 H 99 BiPAP 04/01/22 17:30 96 H 27 H 111/67 99 BiPAP FiO2 04/01/22 19:45 04/01/22 19:49 30 04/01/22 19:30 04/01/22 19:15 04/01/22 19:00 04/01/22 18:48 04/01/22 18:30 04/01/22 18:20 04/01/22 18:10 04/01/22 18:09 04/01/22 18:09 04/01/22 17:36 40 04/01/22 18:07 04/01/22 18:07 04/01/22 18:00 04/01/22 17:50 04/01/22 17:40 04/01/22 18:10 04/01/22 17:57 04/01/22 17:51 04/01/22 17:30 04/01/22 17:30 04/01/22 17:30 04/01/22 17:30 Laboratory Results Laboratory Results WBC 6.68 K/ul (4.8-10.8) 04/01/22 17:40 RBC 4.80 M/uL (4.63-6.08) 04/01/22 17:40 Hgb 14.7 g/dl (14.0-18.0) 04/01/22 17:40 POC Hgb 16.3 g/dl (14.0-18.0) 04/01/22 17:46 Hct 48.2 % (40.1-51.0) 04/01/22 17:40 POC Hct 48 % (42-52) 04/01/22 17:46 MCV 100.4 fL (80.0-100.0) H 04/01/22 17:40 MCH 30.6 pg (25.0-34.0) 04/01/22 17:40 MCHC 30.5 g/dL (32.0-36.0) L 04/01/22 17:40 RDW Std Deviation 55.8 fL (36.4-46.3) H 04/01/22 17:40 RDW Coeff of Taina 15.1 % (11.5-14.5) H 04/01/22 17:40 Plt Count 127 K/uL (130-400) L 04/01/22 17:40 MPV 12.7 fL (9.4-12.4) H 04/01/22 17:40 Immature Gran % (Auto) 0.4 % 04/01/22 17:40 Neut % (Auto) 70.2 % 04/01/22 17:40 Lymph % (Auto) 23.5 % 04/01/22 17:40 [place] % (Auto) 4.2 % 04/01/22 17:40 Eos % (Auto) 1.0 % 04/01/22 17:40 Baso % (Auto) 0.7 % 04/01/22 17:40 Neut # (Auto) 4.68 K/uL (1.4-6.5) 04/01/22 17:40 Lymph # (Auto) 1.57 K/uL (1.2-3.4) 04/01/22 17:40 [place] # (Auto) 0.28 K/uL (0.24-0.82) 04/01/22 17:40 Eos # (Auto) 0.07 K/uL (0-0.50) 04/01/22 17:40 Baso # (Auto) 0.05 K/uL (0-0.2) 04/01/22 17:40 Immature Gran # (Auto) 0.03 K/uL (0.00-0.02) H 04/01/22 17:40 PT 14.0 Seconds (9.0-12.0) H 04/01/22 17:40 INR 1.3 (0.9-1.1) H 04/01/22 17:40 APTT 33.6 Seconds (21.0-31.0) H 04/01/22 17:40 PTT Ratio 1.2 04/01/22 17:40 POC pH 7.38 (7.35-7.45) 04/01/22 20:50 POC pCO2 26 mmHg (35-46) L 04/01/22 20:50 POC pO2 67 mmHg (80-95) L 04/01/22 20:50 POC HCO3 15 bina/L (19-24) L 04/01/22 20:50 POC Total CO2 16 mmol/L (24-31) L 04/01/22 20:50 POC Base Excess -10.0 bina/L (-9-1.8) L 04/01/22 20:50 POC ABG O2 Sat 93.0 % (90-95) 04/01/22 20:50 POC Sodium 141 mmol/L (135-144) 04/01/22 17:46 Sodium 139 mmol/L (136-145) 04/01/22 17:40 POC Potassium 5.1 mmol/L (3.3-5.0) H 04/01/22 17:46 Potassium 5.0 mmol/L (3.5-5.1) 04/01/22 17:40 POC Chloride 111 mmol/L (101-112) 04/01/22 17:46 Chloride 108 mmol/L (98-107) H 04/01/22 17:40 Carbon Dioxide 13 mmol/L (21-32) L 04/01/22 17:40 POC Total CO2 15 mmol/L (24-31) L 04/01/22 17:46 Anion Gap 18 (3-11) H 04/01/22 17:40 POC Anion Gap 21.0 mmol/L (16-25) 04/01/22 17:46 POC BUN 50 mg/dl (7-18) H 04/01/22 17:46 BUN 55 mg/dl (6-23) H 04/01/22 17:40 Creatinine 1.88 mg/dl (0.6-1.4) H 04/01/22 17:40 POC Creatinine 2.4 mg/dl (0.6-1.3) H 04/01/22 17:46 Est Cr Clr Drug Dosing 35.3 ml/min 04/01/22 17:40 Est GFR ( Amer) 40.4 ml/min 04/01/22 17:40 Est GFR (Non-Af Amer) 34.9 ml/min 04/01/22 17:40 BUN/Creatinine Ratio 29.3 (10-20) H 04/01/22 17:40 Glucose 123 mg/dl (70-99(Fasting)) H 04/01/22 17:40 POC Glucose (other) 127 mg/dl (70-99) H 04/01/22 17:46 Calcium 9.2 mg/dl (8.5-10.1) 04/01/22 17:40 POC Ioniz Calcium Emilia 1.12 mmol/l (1.12-1.32) 04/01/22 17:46 Magnesium 1.1 mg/dl (1.7-2.4) L 04/01/22 17:40 Total Bilirubin 3.7 mg/dl (0.2-1.0) H 04/01/22 20:30 Direct Bilirubin 0.7 mg/dl (0-0.2) H 04/01/22 20:30 AST 29 U/L (13-39) 04/01/22 20:30 ALT 24 U/L (7-52) 04/01/22 20:30 Alkaline Phosphatase 206 U/L (34-104) H 04/01/22 20:30 Troponin I High Sens 169.7 pg/ml (0-20) H* D 04/01/22 20:30 B-Natriuretic Peptide 941 pg/ml (0-100) H 04/01/22 17:40 Total Protein 6.5 gm/dl (6.0-8.3) 04/01/22 20:30 Albumin 4.0 gm/dl (3.4-5.0) 04/01/22 20:30 Lipase 109 U/L (11-82) H 04/01/22 17:40 SARS-CoV-2 (PCR) NEGATIVE (Negative) 04/01/22 17:45 Influenza Type A (PCR) Negative (Neg) 04/01/22 17:45 Influenza Type B (PCR) Negative (Neg) 04/01/22 17:45 RSV (RT-PCR) Negative (Neg) 04/01/22 17:45 Impressions Chest X-Ray 04/01/22 17:30 XR chest 1V portable HISTORY: Atypical Chest Pain COMPARISON: Chest 03/06/2022. FINDINGS: No pneumothorax. No pleural effusions. The cardiac silhouette remains mildly enlarged. No new focal lung consolidations to suggest pneumonia. There is mild central pulmonary vascular congestion without overt edema. IMPRESSION: No change in the cardiomegaly and mild congestive change. ACT 112: Negative or not required by law. Electronically signed by: Wallace Jean Baptiste M.D. 04/01/2022 6:[address] 04/01/22 20:21 CT chest diagnostic wo con CT DOSE: 1564.07 mGy.cm CLINICAL HISTORY: 71 years-old Male with acute resp failure with hypoxia. Acute respiratory failure TECHNIQUE: Multiaxial CT images of the chest were performed without contrast. A dose lowering technique was utilized adhering to the principles of ALARA. COMPARISON: Chest CT 01/30/2022 FINDINGS: No thyroid nodule. Mediastinal lymphadenopathy redemonstrated with lymph nodes measuring up to approximately 1.2 cm in short axis. Moderate cardiomegaly with extensive coronary artery calcifications. Atherosclerosis of the thoracic aorta without aneurysm. Unchanged small right pleural effusion. Severe pulmonary emphysema with left apical predominant bulla. Fibrotic changes with pleural parenchymal scarring. Mild intralobular septal thickening within the anterior segment right upper lobe and right middle lobe is similar to the prior study with reticular interstitial opacities. Unchanged 1.1 cm nodular density of the right middle lobe, image 200 with stable 5 mm nodule right middle lobe on image 175. 11 mm nodule the superior segment right lower lobe on image 120 is new. Subsegmental right basilar consolidation. Mild tracheobronchial secretions. Scattered calcified granulomata of the lungs. Small volume of upper abdominal ascites. Unremarkable soft tissues. No acute fracture. IMPRESSION: 1. Cardiomegaly without overt pulmonary edema. 2. Unchanged small right pleural effusion with right lung base atelectasis. There are persistent opacities noted within the right upper and middle lobes which appears similar to 01/30/2022 study likely infectious or inflammatory 3. Severe pulmonary emphysema with mild tracheobronchial secretions. 4. Small volume of upper abdominal ascites. 5. Stable nonspecific mild mediastinal lymphadenopathy. 6. Stable pulmonary nodules of the right middle lobe with a new 11 mm nodule within the superior segment right lower lobe. 6 month follow-up chest CT recommended. ACT 112: Negative or not required by law. Electronically signed by: Marty Crespo M.D. 04/01/2022 9:[address] 04/01/22 20:21 CT head/brain wo con CLINICAL HISTORY: 71 years-old Male with syncope. Acute head trauma status post syncope TECHNIQUE: Multiple axial CT images of the head were obtained without contrast. A dose lowering technique was utilized adhering to the principles of ALARA. COMPARISON: Head CT 03/06/2022 FINDINGS: No acute intracranial hemorrhage, midline shift, intracranial mass, hydrocephalus, territorial ischemia or abnormal extra-axial collection. Involutional changes. Mild white matter hypodensities suggest chronic microvascular ischemic disease. The calvarium is intact. Mild mucosal thickening of the paranasal sinuses. Mastoid air cells are clear. IMPRESSION: No acute intracranial abnormality. ACT 112: Negative or not required by law. The above report was generated using voice recognition software. It may contain grammatical, syntax or spelling errors. Electronically signed by: Marty Crespo M.D. 04/01/2022 9:42 PM Venous Doppler Study 04/01/22 20:21 BILATERAL LOWER EXTREMITY VENOUS DOPPLER HISTORY: Acute pain and swelling of the lower legs syncope, hypoxia COMPARISON STUDY: 01/28/2022 FINDINGS: There is normal compressibility, flow, and augmentation within the bilateral lower extremity deep venous systems. Right-sided Bryan's cyst measures 2.1 x 3.5 x 0.8 cm. Left-sided Bryan's cyst measures 1.8 x 3.3 x 0.8 cm. IMPRESSION: No DVT within the right or left lower extremity. ACT 112: Negative or not required by law. Electronically signed by: Marty Crespo M.D. 04/01/2022 10:49 PM Code Status & VTE Plan Code Status Full code VTE Prophylaxis Plan VTE Prophylaxis will be ordered: Yes PG Care Time/CCT Total # of Minutes Spent Total Time Spent with Patient: Total time spent is greater than 50% in coordination of care (as documented) at patient's floor/unit and/or counseling patient: 55 minutes Coding Level of Care Code 29625 Initial Inpt Care Lvl 3 Diagnoses Acute respiratory failure with hypoxia J96.01 Pneumonia J18.9 Laterality: right Lung location: unspecified part of lung Pneumonia type: due to unspecified organism CAD (coronary artery disease), [place] coronary artery I25.10 Elevated troponin R77.8 Paroxysmal atrial fibrillation with RVR I48.0 Hypomagnesemia E83.42 HTN (hypertension) I10 GERD without esophagitis K21.9 Chronic kidney disease, stage III (moderate) N18.30 Hyperlipidemia E78.5 Exposure to COVID-19 virus Z20.822 Seizure R56.9 BPH (benign prostatic hyperplasia) N40.0 Time Spent (min) 55 (1) Pneumonia Laterality: right Lung location: unspecified part of lung Pneumonia type: due to unspecified organism Qualified Code(s): J18.9 - Pneumonia, unspecified organism
[2022-04-01] MEDS: MAGNESIUM SULFATE / D5W 1 GM/100 ML BAG IV SCH ×2 (20:24→22:16)
--- NOTE | 2022-04-01 20:58 | Emergency Department Note ---
History of Present Illness General Chief Complaint: Respiratory Distress Stated Complaint: RESP. DISTRESS Time Seen by Provider: 04/01/22 17:30 History of Present Illness Provider Complaint: shortness of breath Onset (ago): day(s) (2) Severity: severe Consistency/Duration: + progressively worsening Relieved By: + nothing Exacerbated By: + lying flat Known history of: COPD Associated symptoms: + orthopnea and + chest congestion; no cough, no wheezing, no sputum production, no polyuria, no palpitations, no hemoptysis, no diaphore sis, no nausea/vomiting or no abdominal pain Treatment prior to arrival: NIPPV Home Medications Medication Instructions Recorded Confirmed Type atorvastatin 80 mg tablet 80 mg PO QAM 12/06/18 04/01/22 History cholecalciferol (vitamin D3) 25 1,000 units PO QAM 04/25/19 04/01/22 History mcg (1,000 unit) tablet lansoprazole 30 mg capsule,delayed 30 mg PO QAM #90 caps 05/29/19 04/01/22 Rx release ascorbic acid (vitamin C) 1,000 mg 1,000 mg PO QAM 11/11/20 04/01/22 History tablet,extended release (Vitamin C ER) allopurinol 300 mg tablet 300 mg PO QAM 12/11/20 04/01/22 History levetiracetam 750 mg tablet 750 mg PO BID 12/11/20 04/01/22 History (Keppra) cyanocobalamin (vitamin B-12) 1,000 mcg PO DAILY 03/06/22 04/01/22 History 1,000 mcg tablet (Vitamin B-12) magnesium 500 mg tablet 500 mg PO DAILY 03/06/22 04/01/22 History methylcellulose (laxative) 500 mg 500 mg PO DAILY 03/06/22 04/01/22 History tablet (Citrucel) metoprolol succinate 25 mg 25 mg PO DAILY #30 tabs 03/09/22 04/01/22 Rx tablet,extended release 24 hr (Toprol XL) amlodipine 5 mg tablet (Norvasc) 10 mg PO DAILY 04/01/22 04/01/22 History furosemide 20 mg tablet (Lasix) 40 mg PO DAILY 04/01/22 04/01/22 History potassium chloride 20 mEq 40 meq PO BID 04/01/22 04/01/22 History tablet,extended release(part/cryst) (Klor-Con M) tamsulosin 0.4 mg PO DAILY 04/01/22 04/01/22 History Allergies Allergy/AdvReac Type Severity Reaction Status Date / Time bee venom protein (honey bee) Allergy Severe hives in Verified 03/06/22 22:30 throat, trouble breathing Past Med/Surg History Medical History Acute renal failure Acute respiratory failure with hypoxia and hypercapnia Admitted to intensive care unit Chronic obstructive pulmonary disease no inhalers Chronic shortness of breath Gout History of colon polyps Hyperlipidemia Hypertension Hypomagnesemia Lactic acidosis Left knee pain Metabolic acidosis Past use of tobacco Pneumonia Positive Lyme disease serology Prediabetes Prostate cancer screening Respiratory failure SOB (shortness of breath) Surgical History [place] [facility] [place] History of colonoscopy History of esophagogastroduodenoscopy (EGD) History of heart artery stent x2 History of surgery on arm right arm repair after "running through a sliding glass door" History of tonsillectomy History of tooth extraction all teeth removed Hx of vasectomy Family History Grandmother (Maternal) Family history of diabetes mellitus Mother Lung cancer Other No family history of adverse response to anesthesia Denies family history of Ovarian cancer Prostate cancer Myocardial infarction Breast cancer Colorectal cancer Social History Smoking Status: Never smoker Tobacco Type: Cigarettes Age Started Using Tobacco: 11; Age Quit Using Tobacco: 39; packs per day: 3; Second Hand Exposure: No; Hx Alcohol Use: Yes Alcohol type: hard liquor Hx Substance Use: Yes Last Used Substance: Days (ago) Last Used Substance Other:: last used was a month ago Preferred Language: Samoan Communication Ability: Effective Visual Impairment: No Limitations Hearing Ability: Normal [employer] Supervisor Required: No Beliefs That Will Affect Care: None marital status: Current Living Situation: Spouse current occupational status: retired Feels Safe at Home: Yes Dental Care, Regularly: No Physical Activity Frequency: 1-2 Times per Week Seatbelt Use: sometimes Sunscreen Use: No Assistive Devices: Cane, Oxygen - Continuous and Walker Review of Systems Other (Unable to obtain due to respiratory distress) Physical Exam 2 Vital Signs: Vital Signs - 24 hr 04/01/22 17:30 04/01/22 17:30 04/01/22 17:30 Temperature Temperature Source Pulse Rate 96 H 96 H Pulse Rate from Sp O2 Sensor Pulse Rhythm Regular Respiratory Rate 27 H 27 H Respiratory Effort / Characteristics Non-Labored Respiratory Depth Normal Respiratory Patter n Blood Pressure 111/67 Blood Pressure [Ri ght Arm] Blood Pressure Anitra n 81 Blood Pressure Anitra n [Right Arm] Pulse Oximetry 99 99 Oxygen Delivery Me thod BiPAP BiPAP BiPAP Fraction of Inspir ed Oxygen Sepsis Recent Feve r Within 48 Hours No Sepsis New/Unexpla ined Change in Men bong Status Yes Sepsis Action Take n by Nursing No Action Required 04/01/22 17:30 04/01/22 17:51 04/01/22 17:57 Temperature 36.5 C Temperature Source Axillary Pulse Rate Pulse Rate from Sp O2 Sensor Pulse Rhythm Respiratory Rate Respiratory Effort / Characteristics Respiratory Depth Respiratory Patter n Blood Pressure Blood Pressure [Ri ght Arm] Blood Pressure Anitra n Blood Pressure Anitra n [Right Arm] Pulse Oximetry Oxygen Delivery Me thod BiPAP BiPAP Fraction of Inspir ed Oxygen Sepsis Recent Feve r Within 48 Hours Sepsis New/Unexpla ined Change in Men bong Status Sepsis Action Take n by Nursing 04/01/22 18:10 04/01/22 17:40 04/01/22 17:50 Temperature Temperature Source Pulse Rate 98 H 98 H Pulse Rate from Sp O2 Sensor 117 H 96 H Pulse Rhythm Respiratory Rate 31 H 26 H Respiratory Effort / Characteristics Respiratory Depth Respiratory Patter n Blood Pressure Blood Pressure [Ri ght Arm] 90/66 L Blood Pressure Anitra n Blood Pressure Anitra n [Right Arm] 74 Pulse Oximetry 97 98 Oxygen Delivery Me thod Fraction of Inspir ed Oxygen Sepsis Recent Feve r Within 48 Hours Sepsis New/Unexpla ined Change in Men bong Status Sepsis Action Take n by Nursing 04/01/22 18:00 04/01/22 18:07 04/01/22 18:07 Temperature Temperature Source Pulse Rate 94 H 94 H Pulse Rate from Sp O2 Sensor 94 H 94 H Pulse Rhythm Respiratory Rate 27 H 27 H Respiratory Effort / Characteristics Respiratory Depth Respiratory Patter n Blood Pressure 81/60 L Blood Pressure [Ri ght Arm] Blood Pressure Anitra n 67 Blood Pressure Anitra n [Right Arm] Pulse Oximetry 100 100 Oxygen Delivery Me thod Fraction of Inspir ed Oxygen Sepsis Recent Feve r Within 48 Hours Sepsis New/Unexpla ined Change in Men bong Status Sepsis Action Take n by Nursing 04/01/22 17:36 04/01/22 18:09 04/01/22 18:09 Temperature Temperature Source Pulse Rate 92 H 94 H Pulse Rate from Sp O2 Sensor 94 H Pulse Rhythm Respiratory Rate 32 H 24 Respiratory Effort / Characteristics Spontaneous Short of Breath Respiratory Depth Deep Respiratory Patter n Rapid/Deep Tachypn ea Blood Pressure 90/66 L Blood Pressure [Ri ght Arm] Blood Pressure Anitra n 74 Blood Pressure Anitra n [Right Arm] Pulse Oximetry 100 100 Oxygen Delivery Me thod BiPAP Fraction of Inspir ed Oxygen 40 Sepsis Recent Feve r Within 48 Hours Sepsis New/Unexpla ined Change in Men bong Status Sepsis Action Take n by Nursing 04/01/22 18:10 04/01/22 18:20 04/01/22 18:30 Temperature Temperature Source Pulse Rate 99 H 84 Pulse Rate from Sp O2 Sensor 92 H 79 Pulse Rhythm Respiratory Rate 25 H 22 Respiratory Effort / Characteristics Respiratory Depth Respiratory Patter n Blood Pressure Blood Pressure [Ri ght Arm] 87/63 L Blood Pressure Anitra n Blood Pressure Anitra n [Right Arm] 71 Pulse Oximetry 100 100 Oxygen Delivery Me thod BiPAP Fraction of Inspir ed Oxygen Sepsis Recent Feve r Within 48 Hours Sepsis New/Unexpla ined Change in Men bong Status Sepsis Action Take n by Nursing 04/01/22 18:48 04/01/22 19:00 04/01/22 19:15 Temperature Temperature Source Pulse Rate 81 79 Pulse Rate from Sp O2 Sensor 80 79 Pulse Rhythm Respiratory Rate 21 21 Respiratory Effort / Characteristics Respiratory Depth Respiratory Patter n Blood Pressure 86/61 L 90/65 L Blood Pressure [Ri ght Arm] 90/65 L Blood Pressure Anitra n 69 73 Blood Pressure Anitra n [Right Arm] 73 Pulse Oximetry 92 95 Oxygen Delivery Me thod BiPAP BiPAP Fraction of Inspir ed Oxygen Sepsis Recent Feve r Within 48 Hours Sepsis New/Unexpla ined Change in Men bong Status Sepsis Action Take n by Nursing 04/01/22 19:30 04/01/22 19:49 04/01/22 19:45 Temperature Temperature Source Pulse Rate 81 80 83 Pulse Rate from Sp O2 Sensor 80 82 Pulse Rhythm Respiratory Rate 21 20 22 Respiratory Effort / Characteristics Non-Labored Sponta neous Respiratory Depth Normal Respiratory Patter n Regular Blood Pressure 103/71 99/72 L Blood Pressure [Ri ght Arm] Blood Pressure Anitra n 81 81 Blood Pressure Anitra n [Right Arm] Pulse Oximetry 96 97 93 Oxygen Delivery Me thod BiPAP BiPAP Fraction of Inspir ed Oxygen 30 Sepsis Recent Feve r Within 48 Hours Sepsis New/Unexpla ined Change in Men bong Status Sepsis Action Take n by Nursing 04/01/22 20:00 Temperature Temperature Source Pulse Rate 90 Pulse Rate from Sp O2 Sensor 90 Pulse Rhythm Respiratory Rate 19 Respiratory Effort / Characteristics Respiratory Depth Respiratory Patter n Blood Pressure 109/78 Blood Pressure [Ri ght Arm] Blood Pressure Anitra n 88 Blood Pressure Anitra n [Right Arm] Pulse Oximetry 93 Oxygen Delivery Me thod BiPAP Fraction of Inspir ed Oxygen Sepsis Recent Feve r Within 48 Hours Sepsis New/Unexpla ined Change in Men bong Status Sepsis Action Take n by Nursing Physical Exam: Physical Exam GENERAL: on cpap by ems EYES: Conjunctivae and EOM are normal. Pupils are equal, round, and reactive to light. Right eye exhibits no discharge. Left eye exhibits no discharge. No scleral icterus. NECK: Normal range of motion. Neck supple. No JVD present. No spinous process tenderness present. CV: tachycardic rate, irregular rhythm, normal heart sounds and intact distal pulses. There is peripheral edema. Palpable radial pulses bue. PULM/CHEST: Rales bilaterally. ABD: The abdomen is soft. MUSC/SKEL: 4+ pitting edema of the bilateral lower extremities. Stasis dermatitis bilaterally of the lower extremities. NEURO: Motor and sensation grossly intact. Course Course 172: EMS called and reporting 71-year-old male in significant respiratory distress with atrial fibrillation with ventricular rate 170-200 hypoxic and mildly hypotensive. 1730: The patient was evaluated in room A1. A complete history and physical exam was performed Cardiac monitoring: An order was placed for continuous cardiac monitoring. The monitor shows a rate of 120 with atrial fibrilation rhythm Patient was transitioned from CPAP to BiPAP. Patient's ventricular rat does seem to have been improved with the invasive positive pressure ventilation. EMS reports that the patient's work of breathing has improved as well as his oxygen saturation. Patient not hypotensive at this time. Stat ABG shows a pH of 7.19 with a PCO2 of 25 PO2 of 244 and bicarb of 9.6. Potassium 4.5. Hemoglobin 15. Patient will be continued on BiPAP. Lasix will be ordered for the patient as he does clinically appear to be fluid overloaded and his potassium is within normal limits. 1814: Patient tolerating BiPAP well. Chest x-ray does show cardiomegaly with cephalization viewed by me. 1930:Vital signs stable on BiPAP. Creatinine 1.88 which is. The patient's baseline. Magnesium 1.1. Magnesium replacement will be given in the emergency department. Troponin elevated 41.6. BNP elevated at 941. Patient will be admitted to the [facility] Dr. Longoria team notified. Administered Medications Magnesium Sulfate/Dextrose (Magnesium Sulfate / D5w) 1 gm in 100 mls @ 50 mls/hr IV Q2H BRANDON Stop: 04/02/22 01:59 Last Admin: 04/01/22 20:24 Dose: 50 mls/hr Documented By: KMF Discontinued Medications Diltiazem HCl (Diltiazem Hcl 5 Mg/Ml 5 Ml Vial) Confirm Administered Dose 25 mg IV .STK-MED ONE Stop: 04/01/22 17:36 Last Admin: 04/01/22 18:25 Dose: Not Given Documented By: TRINY Furosemide (Furosemide 40 Mg/4 Ml Vial) 40 mg IV ONE ONE Stop: 04/01/22 17:55 Last Admin: 04/01/22 18:00 Dose: 40 mg Documented By: TRINY Miscellaneous (Rapid Sequence Induction Bag) Confirm Administered Dose 1 each .ROUTE .STK-MED ONE Stop: 04/01/22 17:23 Last Admin: 04/01/22 18:25 Dose: Not Given Documented By: TRINY Medical Decision Making Laboratory Data Result diagrams: 04/01/22 17:40 04/01/22 17:40 Lab Results 04/01/22 04/01/22 04/01/22 Range/Units 17:40 17:40 17:40 WBC 6.68 (4.8-10.8) K/ul RBC 4.80 (4.63-6.08) M/uL Hgb 14.7 (14.0-18.0) g/dl POC Hgb (14.0-18.0) g/dl Hct 48.2 (40.1-51.0) % POC Hct (42-52) % MCV 100.4 H (80.0-100.0) fL MCH 30.6 (25.0-34.0) pg MCHC 30.5 L (32.0-36.0) g/dL RDW Std Deviation 55.8 H (36.4-46.3) fL RDW Coeff of Taina 15.1 H (11.5-14.5) % Plt Count 127 L (130-400) K/uL MPV 12.7 H (9.4-12.4) fL Immature Gran % (Auto) 0.4 % Neut % (Auto) 70.2 % Lymph % (Auto) 23.5 % [place] % (Auto) 4.2 % Eos % (Auto) 1.0 % Baso % (Auto) 0.7 % Neut # (Auto) 4.68 (1.4-6.5) K/uL Lymph # (Auto) 1.57 (1.2-3.4) K/uL [place] # (Auto) 0.28 (0.24-0.82) K/uL Eos # (Auto) 0.07 (0-0.50) K/uL Baso # (Auto) 0.05 (0-0.2) K/uL Immature Gran # (Auto) 0.03 H (0.00-0.02) K/uL PT (9.0-12.0) Seconds INR (0.9-1.1) APTT (21.0-31.0) Seconds PTT Ratio POC Sodium (135-144) mmol/L Sodium 139 (136-145) mmol/L POC Potassium (3.3-5.0) mmol/L Potassium 5.0 (3.5-5.1) mmol/L POC Chloride (101-112) mmol/L Chloride 108 H (98-107) mmol/L Carbon Dioxide 13 L (21-32) mmol/L POC Total CO2 (24-31) mmol/L Anion Gap 18 H (3-11) POC Anion Gap (16-25) mmol/L POC BUN (7-18) mg/dl BUN 55 H (6-23) mg/dl Creatinine 1.88 H (0.6-1.4) mg/dl POC Creatinine (0.6-1.3) mg/dl Est Cr Clr Drug Dosing 35.3 ml/min Est GFR ( Amer) 40.4 ml/min Est GFR (Non-Af Amer) 34.9 ml/min BUN/Creatinine Ratio 29.3 H (10-20) Glucose 123 H (70-99(Fasting)) mg/dl POC Glucose (other) (70-99) mg/dl Calcium 9.2 (8.5-10.1) mg/dl POC Ioniz Calcium Emilia (1.12-1.32) mmol/l Magnesium 1.1 L (1.7-2.4) mg/dl Troponin I High Sens 41.6 H D (0-20) pg/ml B-Natriuretic Peptide 941 H (0-100) pg/ml Lipase 109 H (11-82) U/L SARS-CoV-2 (PCR) (Negative) Influenza Type A (PCR) (Neg) Influenza Type B (PCR) (Neg) RSV (RT-PCR) (Neg) 04/01/22 04/01/22 04/01/22 Range/Units 17:40 17:45 17:46 WBC (4.8-10.8) K/ul RBC (4.63-6.08) M/uL Hgb (14.0-18.0) g/dl POC Hgb 16.3 (14.0-18.0) g/dl Hct (40.1-51.0) % POC Hct 48 (42-52) % MCV (80.0-100.0) fL MCH (25.0-34.0) pg MCHC (32.0-36.0) g/dL RDW Std Deviation (36.4-46.3) fL RDW Coeff of Taina (11.5-14.5) % Plt Count (130-400) K/uL MPV (9.4-12.4) fL Immature Gran % (Auto) % Neut % (Auto) % Lymph % (Auto) % [place] % (Auto) % Eos % (Auto) % Baso % (Auto) % Neut # (Auto) (1.4-6.5) K/uL Lymph # (Auto) (1.2-3.4) K/uL [place] # (Auto) (0.24-0.82) K/uL Eos # (Auto) (0-0.50) K/uL Baso # (Auto) (0-0.2) K/uL Immature Gran # (Auto) (0.00-0.02) K/uL PT 14.0 H (9.0-12.0) Seconds INR 1.3 H (0.9-1.1) APTT 33.6 H (21.0-31.0) Seconds PTT Ratio 1.2 POC Sodium 141 (135-144) mmol/L Sodium (136-145) mmol/L POC Potassium 5.1 H (3.3-5.0) mmol/L Potassium (3.5-5.1) mmol/L POC Chloride 111 (101-112) mmol/L Chloride (98-107) mmol/L Carbon Dioxide (21-32) mmol/L POC Total CO2 15 L (24-31) mmol/L Anion Gap (3-11) POC Anion Gap 21.0 (16-25) mmol/L POC BUN 50 H (7-18) mg/dl BUN (6-23) mg/dl Creatinine (0.6-1.4) mg/dl POC Creatinine 2.4 H (0.6-1.3) mg/dl Est Cr Clr Drug Dosing ml/min Est GFR ( Amer) ml/min Est GFR (Non-Af Amer) ml/min BUN/Creatinine Ratio (10-20) Glucose (70-99(Fasting)) mg/dl POC Glucose (other) 127 H (70-99) mg/dl Calcium (8.5-10.1) mg/dl POC Ioniz Calcium Emilia 1.12 (1.12-1.32) mmol/l Magnesium (1.7-2.4) mg/dl Troponin I High Sens (0-20) pg/ml B-Natriuretic Peptide (0-100) pg/ml Lipase (11-82) U/L SARS-CoV-2 (PCR) NEGATIVE (Negative) Influenza Type A (PCR) Negative (Neg) Influenza Type B (PCR) Negative (Neg) RSV (RT-PCR) Negative (Neg) Imaging Data Radiologist's Impression: Chest X-Ray 04/01/22 17:30 XR chest 1V portable HISTORY: Atypical Chest Pain COMPARISON: Chest 03/06/2022. FINDINGS: No pneumothorax. No pleural effusions. The cardiac silhouette remains mildly enlarged. No new focal lung consolidations to suggest pneumonia. There is mild central pulmonary vascular congestion without overt edema. IMPRESSION: No change in the cardiomegaly and mild congestive change. ACT 112: Negative or not required by law. Electronically signed by: Wallace Jean Baptiste M.D. 04/01/2022 6:00 PM ECG Data Interpretation: Atrial fibrillation with ventricular rate of 100. QRS 100. QTc 500. Right bundle branch block present. No ST elevation or ST depression. [facility] Narrative 1722: EMS called and reporting 71-year-old male in significant respiratory distress with atrial fibrillation with ventricular rate 170-200 hypoxic and mildly hypotensive. 1730: The patient was evaluated in room A1. A complete history and physical exam was performed Cardiac monitoring: An order was placed for continuous cardiac monitoring. The monitor shows a rate of 120 with atrial fibrilation rhythm Patient was transitioned from CPAP to BiPAP. Patient's ventricular rat does seem to have been improved with the invasive positive pressure ventilation. EMS reports that the patient's work of breathing has improved as well as his oxygen saturation. Patient not hypotensive at this time. Stat ABG shows a pH of 7.19 with a PCO2 of 25 PO2 of 244 and bicarb of 9.6. Potassium 4.5. Hemoglobin 15. Patient will be continued on BiPAP. Lasix will be ordered for the patient as he does clinically appear to be fluid overloaded and his potassium is within normal limits. 1815: Patient tolerating BiPAP well. Chest x-ray does show cardiomegaly with cephalization viewed by me. 1930:Vital signs stable on BiPAP. Creatinine 1.88 which is. The patient's baseline. Magnesium 1.1. Magnesium replacement will be given in the emergency department. Troponin elevated 41.6. BNP elevated at 941. Patient will be admitted to the [facility] Dr. Longoria team notified. Impression & Plan Hypoxia, CHF exacerbation Critical Care Time Critical Care Time: Yes Total Critical Care Time: 77 I have personally spent greater than 77 minutes of critical care time in the direct management of this patient. This includes bedside care, interpretation of diagnostic studies, and testing, discussion with consultants, patient, and family members, and other required patient management activities. This 77 minutes is in excess of all separately billable procedures. Discharge Plan Visit Data Chief Complaint: Respiratory Distress Stated Complaint: RESP. DISTRESS ED Provider: Andre Lea Discharge Problem: Hypoxia, CHF exacerbation Patient Disposition: Admitted As Inpatient Forms Stand Alone Forms: My [facility] Prescriptions Prescriptions: No Action lansoprazole 30 mg capsule,delayed release(DR/EC) 30 mg PO QAM Qty: 90 1RF cholecalciferol (vitamin D3) 1,000 unit (25 mcg) tablet 1,000 units PO QAM atorvastatin 80 mg Tablet 80 mg PO QAM levetiracetam [Keppra] 750 mg tablet 750 mg PO BID allopurinol 300 mg tablet 300 mg PO QAM Vitamin C 1,000 mg Tablet Extended Release 1,000 mg PO QAM magnesium 500 mg Tablet 500 mg PO DAILY cyanocobalamin (vitamin B-12) [Vitamin B-12] 1,000 mcg Tablet 1,000 mcg PO DAILY Citrucel 500 mg Tablet 500 mg PO DAILY metoprolol succinate [Toprol XL] 25 mg tablet extended release 24 hr 25 mg PO DAILY Qty: 30 0RF potassium chloride [Klor-Con M20] 20 mEq tablet,ER particles/crystals 40 meq PO BID Rx Instructions: 2 tab am, 1 tab pm amlodipine [Norvasc] 5 mg tablet 10 mg PO DAILY tamsulosin 0.4 mg capsule 0.4 mg PO DAILY furosemide [Lasix] 20 mg tablet 40 mg PO DAILY Referrals Referrals: Sixto Bryan MD [Primary Care Provider] -
[2022-04-01 21:04] LABS: iSTAT Arterial Blood Gas HCO3 15 meg/L (19-24); iSTAT Arterial Blood Gas pCO2 26 mmHg (35-46); iSTAT Arterial Blood Gas pH 7.38 (7.35-7.45); iSTAT Arterial Blood Gas pO2 67 mmHg (80-95); iSTAT Carbon Dioxide 16 mmol/L (24-31)
[2022-04-01 21:05] LABS: Bilirubin Direct 0.7 mg/dl (0-0.2); Bilirubin,Total 3.7 mg/dl (0.2-1.0); Total Protein 6.5 gm/dl (6.0-8.3)
[2022-04-01 21:16] LABS: Troponin I High Sensitivity 169.7 pg/ml (0-20)
--- NOTE | 2022-04-01 21:44 | CT Scan Report ---
CT head/brain wo con CLINICAL HISTORY: 71 years-old Male with syncope. Acute head trauma status post syncope TECHNIQUE: Multiple axial CT images of the head were obtained without contrast. A dose lowering tech nique was utilized adhering to the principles of ALARA. COMPARISON: Head CT 03/06/2022 FINDINGS: No acute intracranial hemorrhage, midline shift, intracranial mass, hydrocephalus, territorial ischem ia or abnormal extra-axial collection. Involutional changes. Mild white matter hypodensities suggest chronic microvascular ischemic disease. The calvarium is intact. Mild mucosal thickening of the paranasal sinuses. Mastoid air cells are rubén ar. IMPRESSION: No acute intracranial abnormality. ACT 112: Negative or not required by law. The above report was generated using voice recognition software. It may contain grammatical, syntax o r spelling errors. Electronically signed by: Marty Crespo M.D. 04/01/2022 9:42 PM
--- NOTE | 2022-04-01 21:55 | CT Scan Report ---
CT chest diagnostic wo con CT DOSE: 1564.07 mGy.cm CLINICAL HISTORY: 71 years-old Male with acute resp failure with hypoxia. Acute respiratory failure TECHNIQUE: Multiaxial CT images of the chest were performed without contrast. A dose lowering techni que was utilized adhering to the principles of ALARA. COMPARISON: Chest CT 01/30/2022 FINDINGS: No thyroid nodule. Mediastinal lymphadenopathy redemonstrated with lymph nodes measuring up to approximately 1.2 cm in short axis. Moderate cardiomegaly with extensive coronary artery calcific ations. Atherosclerosis of the thoracic aorta without aneurysm. Unchanged small right pleural effusion. Severe pulmonary emphysema with left apical predominant bulla . Fibrotic changes with pleural parenchymal scarring. Mild intralobular septal thickening within the anterior segment right upper lobe and right middle lobe is similar to the prior study with reticular interstitial opacities. Unchanged 1.1 cm nodular density of the right middle lobe, image 200 with sta ble 5 mm nodule right middle lobe on image 175. 11 mm nodule the superior segment right lower lobe on image 120 is new. Subsegmental right basilar consolidation. Mild tracheobronchial secretions. Scatte red calcified granulomata of the lungs. Small volume of upper abdominal ascites. Unremarkable soft tissues. No acute fracture. IMPRESSION: 1. Cardiomegaly without overt pulmonary edema. 2. Unchanged small right pleural effusion with right lung base atelectasis. There are persistent opac ities noted within the right upper and middle lobes which appears similar to 01/30/2022 study likely in fectious or inflammatory 3. Severe pulmonary emphysema with mild tracheobronchial secretions. 4. Small volume of upper abdominal ascites. 5. Stable nonspecific mild mediastinal lymphadenopathy. 6. Stable pulmonary nodules of the right middle lobe with a new 11 mm nodule within the superior segm ent right lower lobe. 6 month follow-up chest CT recommended. ACT 112: Negative or not required by law. Electronically signed by: Marty Crespo M.D. 04/01/2022 9:53 PM
[2022-04-01] MEDS ORDERED: AZITHROMYCIN 500 MG in DEXTROSE 5% 250 ML IV ONE (22:17)
[2022-04-01] MEDS: CEFEPIME 2,000 MG in SYRINGE 0 ML IV SCH (22:44)
--- NOTE | 2022-04-01 22:50 | Ultrasound Report ---
BILATERAL LOWER EXTREMITY VENOUS DOPPLER HISTORY: Acute pain and swelling of the lower legs syncope, hypoxia COMPARISON STUDY: 01/28/2022 FINDINGS: There is normal compressibility, flow, and augmentation within the bilateral lower extremit y deep venous systems. Right-sided Bryan's cyst measures 2.1 x 3.5 x 0.8 cm. Left-sided Bryan's cyst measures 1.8 x 3.3 x 0.8 cm. IMPRESSION: No DVT within the right or left lower extremity. ACT 112: Negative or not required by law. Electronically signed by: Marty Crespo M.D. 04/01/2022 10:49 PM
[2022-04-01] MEDS ORDERED: ACETAMINOPHEN 325 MG TAB PO PRN (23:13)
[2022-04-01] MEDS ORDERED: ONDANSETRON INJ 2 MG/ML 2 ML VIAL IV PRN (23:13)
[2022-04-02] MEDS: MAGNESIUM SULFATE / D5W 1 GM/100 ML BAG IV SCH (01:17)
[2022-04-02] MEDS: TAMSULOSIN HCL 0.4 MG CAP PO SCH ×2 (01:27→20:27)
[2022-04-02] MEDS: levETIRAcetam 250 MG TAB PO SCH ×3 (01:27→20:27)
[2022-04-02 05:11] LABS: Hematocrit (blood only) 36.6 % (40.1-51.0); Hemoglobin 11.7 g/dl (14.0-18.0); Mean Corpuscular Hemoglobin 30.5 pg (25.0-34.0); Mean Corpuscular Volume 95.6 fL (80.0-100.0); Mean Platelet Volume 10.4 fL (9.4-12.4); Platelet Count 79 K/uL (130-400); RDW Coefficient of Variation 14.9 % (11.5-14.5); RDW Standard Deviation 51.6 fL (36.4-46.3); Red Blood Count 3.83 M/uL (4.63-6.08); White Blood Count 5.57 K/ul (4.8-10.8)
[2022-04-02 05:12] LABS: Acanthocytes 1+; Basophils # (auto) 0.05 K/uL (0-0.2); Basophils % (auto) 0.9 %; Echinocytes 2+; Eosinophils # (auto) 0.04 K/uL (0-0.50); Eosinophils % (auto) 0.7 %; Immature Granulocytes # (auto) 0.01 K/uL (0.00-0.02); Immature Granulocytes % (auto) 0.2 %; Lymphocytes # (auto) 1.21 K/uL (1.2-3.4); Lymphocytes % (auto) 21.7 %; Monocytes # (auto) 0.43 K/uL (0.24-0.82); Monocytes % (auto) 7.7 %; Neutrophils # (auto) 3.83 K/uL (1.4-6.5); Neutrophils % (auto) 68.8 %; Ovalocytes 1+; Platelet Estimate Decreased (Normal)
[2022-04-02 05:14] LABS: Albumin Globulin Ratio 1.6 (0.9-2); Albumin Level 3.8 gm/dl (3.4-5.0); BUN Creatinine Ratio 31.4 (10-20); Bilirubin,Total 3.4 mg/dl (0.2-1.0); Calcium 8.2 mg/dl (8.5-10.1); Creatinine Clr Calc Pharmacy 36.7 ml/min; Est GFR (African American) 40.4 ml/min; Est GFR (Non-African American) 34.9 ml/min; Globulin 2.4 gm/dl (2.5-4.0); Magnesium 1.4 mg/dl (1.7-2.4); Potassium 3.8 mmol/L (3.5-5.1); Total Protein 6.2 gm/dl (6.0-8.3)
[2022-04-02 05:23] LABS: Troponin I High Sensitivity 275.5 pg/ml (0-20)
[2022-04-02] MEDS: allopurinoL 300 MG TAB PO SCH (09:22)
[2022-04-02] MEDS: ASCORBIC ACID 500 MG TAB PO SCH (09:23)
[2022-04-02] MEDS: ATORVASTATIN 40 MG TAB PO SCH (09:24)
[2022-04-02] MEDS: CHOLECALCIFEROL 1,000 UNITS 25 MCG TAB PO SCH (09:25)
[2022-04-02] MEDS: CYANOCOBALAMIN (B-12) 500 MCG TABLET PO SCH (09:25)
--- NOTE | 2022-04-02 09:25 | Electrocardiogram Report ---
Test Reason : Blood Pressure : / mmHG Vent. Rate : 072 BPM Atrial Rate : 072 BPM P-R Int : 192 ms QRS Dur : 100 ms QT Int : 514 ms P-R-T Axes : 048 082 -69 degrees QTc Int : 562 ms Sinus rhythm with Premature atrial complexes Incomplete right bundle branch block Possible Old Septal infarct (cited on or before 01-APR-2022) Chronic T-wave inversion in Anterior leads Chronic ST depression in Anterior leads Prolonged QT Abnormal ECG When compared with ECG of 01-APR-2022 22:08, Premature atrial complexes are now Present Confirmed by Mumtaz Nichols ([id number]) on 04/02/2022 9:24:59 AM Referred By: REFERRED SELF Confirmed By:Mumtaz Nichols
[2022-04-02] MEDS: MAGNESIUM OXIDE 400 MG TAB PO SCH (09:27)
[2022-04-02] MEDS: PANTOprazole 40 MG TAB PO SCH (09:28)
[2022-04-02] MEDS: AZITHROMYCIN 500 MG in DEXTROSE 5% 250 ML IV SCH (09:31)
--- NOTE | 2022-04-02 09:33 | Electrocardiogram Report ---
Test Reason : Blood Pressure : / mmHG Vent. Rate : 100 BPM Atrial Rate : 084 BPM P-R Int : 000 ms QRS Dur : 100 ms QT Int : 388 ms P-R-T Axes : 000 081 -75 degrees QTc Int : 500 ms Poor data quality, interpretation may be adversely affected Atrial fibrillation Incomplete right bundle branch block Possible Old Anteroseptal infarct Diffuse Nonspecific ST and T wave abnormality Prolonged QT Abnormal ECG When compared with ECG of 08-MAR-2022 05:08, Atrial fibrillation has replaced Sinus rhythm HR has increased by 32 bpm Confirmed by Mumtaz Nichols ([id number]) on 04/02/2022 9:33:10 AM Referred By: REFERRED SELF Confirmed By:Mumtaz Nichols
--- NOTE | 2022-04-02 09:36 | Electrocardiogram Report ---
Test Reason : Blood Pressure : / mmHG Vent. Rate : 077 BPM Atrial Rate : 077 BPM P-R Int : 198 ms QRS Dur : 096 ms QT Int : 448 ms P-R-T Axes : 048 076 -57 degrees QTc Int : 506 ms Normal sinus rhythm Incomplete right bundle branch block Possible Old Septal infarct (cited on or before 01-APR-2022) Diffuse Nonspecific ST and T wave abnormality Prolonged QT Abnormal ECG When compared with ECG of 01-APR-2022 17:36, Sinus rhythm has replaced Atrial fibrillation HR has decreased by 23 bpm Confirmed by Mumtaz Nichols ([id number]) on 04/02/2022 9:36:03 AM Referred By: REFERRED SELF Confirmed By:Mumtaz Nichols
[2022-04-02] MEDS: CEFEPIME 2,000 MG in SYRINGE 0 ML IV SCH ×2 (11:28→23:00)
--- NOTE | 2022-04-02 13:48 | Cardiology Consultation ---
Date of Consultation April 02, 2022 Assessment & Plan (1) Elevated troponin: (2) Paroxysmal atrial fibrillation with RVR: (3) Hypomagnesemia: (4) Right ventricular failure: (5) Acute respiratory failure with hypoxia: Plan 71-year-old man with severe COPD/cor pulmonale admitted with acute respiratory failure with hypoxia and incidentally noted elevated troponin and abnormal ECG. Similar to prior admission, this appears to be demand ischemia with no chest pain, chronically abnormal but nondynamic ECG, and similar peak and decay troponin curve. However, this hospitalization he also had atrial fibrillation with rapid ventricular response, likely secondary to hypomagnesemia. Agree with IV and oral repletion of magnesium, personally I prefer Slow-Mag (magnesium chloride) since it has less of a cathartic effect (mag oxide plus water equal Milk of Magnesia). Since his atrial fibrillation occurred in the context of hyperadrenergic state (hypoxia/respiratory failure) and hypomagnesemia, likelihood of recurrence when he is clinically stable and magnesium repleted is fairly low, thus would not see the need to chronically anticoagulate at this point. His volume status appears reasonable given the likelihood he has chronically mildly elevated neck veins in the context of cor pulmonale, neither chest x-ray nor chest CT so significant pulmonary edema. Would give diuretic on an as- needed basis if he has any abrupt weight gain, worsening edema, or increasing dyspnea. Agree with holding diuretic currently given his borderline hypotension (without evidence of hypoperfusion). In the absence of more characteristic chest symptoms or progressive ECG changes, would focus on management of his underlying pulmonary status to reduce cardiac demands. Will reevaluate patient tomorrow. History of Present Illness Reason for Consultation: PAF RVR, syncope, hypomag, pneumonia, elevate trop Requesting Physician: Isiah Price MD Attending Physician: Isiah Price MD History of Present Illness 71-year-old man with severe COPD and apparent cor pulmonale (dilated right ventricle) who was admitted 04/01/2022 with acute respiratory failure with pneumonia and hypoxia and found to have an elevated troponin and transient atrial fibrillation with rapid ventricular response. He had noted a productive cough for the past month with worsening dyspnea over the past week and a syncopal episode on the day of admission, he was exposed to an individual with COVID-19 but his initial COVID test was negative. Of note, he was hospitalized in November, January, and February of this year for various reasons, each time there was a respiratory component. Cardiology consultation by Dr. Moseley during his February visit suggested demand ischemia as reason for his elevated biomarkers and the presence of right ventricular failure was noted. At that time, his high-sensitivity troponin peaked at 275, very similar pattern demonstrated during his current hospitalization (also peaking at 275). Of note, the patient denies having chest pain or discomfort at any time. His ECG is chronically abnormal with persistent anterior ST depressions and T wave inversions. His atrial fibrillation appears to be new onset, of note his magnesium at the time of admission was 1.1. After magnesium repletion, his rhythm returned to sinus and he has remained in sinus rhythm overnight. At the time of my evaluation, he denied any chest discomfort, palpitations, or lightheadedness. He denied any dyspnea at rest but noted that he became dyspneic with even minimal activity, such as walking to the bedside commode. Allergies Allergy/AdvReac Type Severity Reaction Status Date / Time bee venom protein (honey bee) Allergy Severe hives in Verified 03/06/22 22:30 throat, trouble breathing Home Medications Medication Instructions Recorded Confirmed Type atorvastatin 80 mg tablet 80 mg PO QAM 12/06/18 04/01/22 History cholecalciferol (vitamin D3) 25 1,000 units PO QAM 04/25/19 04/01/22 History mcg (1,000 unit) tablet lansoprazole 30 mg capsule,delayed 30 mg PO QAM #90 caps 05/29/19 04/01/22 Rx release ascorbic acid (vitamin C) 1,000 mg 1,000 mg PO QAM 11/11/20 04/01/22 History tablet,extended release (Vitamin C ER) allopurinol 300 mg tablet 300 mg PO QAM 12/11/20 04/01/22 History levetiracetam 750 mg tablet 750 mg PO BID 12/11/20 04/01/22 History (Keppra) cyanocobalamin (vitamin B-12) 1,000 mcg PO DAILY 03/06/22 04/01/22 History 1,000 mcg tablet (Vitamin B-12) magnesium 500 mg tablet 500 mg PO DAILY 03/06/22 04/01/22 History methylcellulose (laxative) 500 mg 500 mg PO DAILY 03/06/22 04/01/22 History tablet (Citrucel) metoprolol succinate 25 mg 25 mg PO DAILY #30 tabs 03/09/22 04/01/22 Rx tablet,extended release 24 hr (Toprol XL) amlodipine 5 mg tablet (Norvasc) 10 mg PO DAILY 04/01/22 04/01/22 History furosemide 20 mg tablet (Lasix) 40 mg PO DAILY 04/01/22 04/01/22 History potassium chloride 20 mEq 40 meq PO BID 04/01/22 04/01/22 History tablet,extended release(part/cryst) (Klor-Con M) tamsulosin 0.4 mg PO DAILY 04/01/22 04/01/22 History Patient History Medical History Acute renal failure Acute respiratory failure with hypoxia and hypercapnia Admitted to intensive care unit Chronic obstructive pulmonary disease no inhalers Chronic shortness of breath Gout History of colon polyps Hyperlipidemia Hyperlipidemia Hypertension Hypertension Hypomagnesemia Lactic acidosis Left knee pain Metabolic acidosis Past use of tobacco Pneumonia Positive Lyme disease serology Prediabetes Prostate cancer screening Pulmonary nodules/lesions, multiple Respiratory failure SOB (shortness of breath) Surgical History History of cardiac cath 2003 @ [facility] [place]--2 stents placed History of colonoscopy History of esophagogastroduodenoscopy (EGD) History of heart artery stent x2 History of surgery on arm right arm repair after "running through a sliding glass door" History of tonsillectomy History of tooth extraction all teeth removed Hx of vasectomy Family History Grandmother (Maternal) Family history of diabetes mellitus Mother Lung cancer Other No family history of adverse response to anesthesia Denies family history of Ovarian cancer Prostate cancer Myocardial infarction Breast cancer Colorectal cancer Social History Smoking Status: Never smoker Tobacco Type: Cigarettes Age Started Using Tobacco: 11; Age Quit Using Tobacco: 39; packs per day: 3; Second Hand Exposure: No; Hx Alcohol Use: Yes Alcohol type: hard liquor Hx Substance Use: Yes Last Used Substance: Days (ago) Last Used Substance Other:: over a month ago Preferred Language: Gambian Communication Ability: Effective Visual Impairment: No Limitations Hearing Ability: Normal 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 BP mildly hypotensive (93/61 mmHg). Pulse 74 bpm and regular. Skin: no ecchymoses or generalized lesions. HEENT: unremarkable. Neck: Jugular venous pulse one quarter the way to the angle of the jaw at 90 degrees, no carotid bruits. Lungs: Diffusely decreased breath sounds with coarse rhonchi and cough prompted with attempts at deep inspiration. No accessory muscle use. Cardiac: regular rhythm, faint heart tones with no murmur or gallop. Abdomen: benign. Extremities: 1+ pretibial edema, pulses intact. Neurologic: normal affect and conversation, nonfocal. Results & Data ([facility]) Vital Signs (Past 12 Hours) Vital Signs Temp Pulse Resp BP Pulse Ox O2 Del Method O2 Flow Rate 04/02/22 11:38 97.3 F L 74 20 93/61 L 94 Nasal Cannula 6 04/02/22 10:37 Nasal Cannula 6 04/02/22 10:31 97.3 F L 69 18 93/60 L 97 Nasal Cannula 6 04/02/22 03:10 97.3 F L 70 18 94/61 L 94 Nasal Cannula 6 Laboratory Results As noted, magnesium was 1.1 admission, 1.4 today. Potassium is 3.8. BUN 59, creatinine 1.88. Troponin pattern 42, 169, 275, 213. Troponin pattern last admission 188, 275, 228, 187, 167. Diagnostic Findings ECG on admission showed atrial fibrillation with a ventricular rate of 100 bpm, incomplete right bundle branch block, possible old anteroseptal infarct, chronic anterior ST depression and T wave inversions. Compared with 03/08/2022 ECG, atrial fibrillation replaced sinus rhythm and heart rate had increased by 32 bpm. Chest x-ray on admission showed mild central pulmonary vascular congestion without overt edema. Chest CT showed a small right pleural effusion with right base atelectasis, severe pulmonary emphysema with mild tracheobronchial secretions, stable pulmonary nodules. There was no overt pulmonary edema. Small volume of upper abdominal ascites. PG Care Time/CCT Total # of Minutes Spent Total Time Spent with Patient: Total time spent is greater than 50% in coordination of care (as documented) at patient's floor/unit and/or counseling patient: Coding Level of Care Code 22510 Inpt Consult Level 4 Diagnoses Elevated troponin R77.8 Paroxysmal atrial fibrillation with RVR I48.0 Hypomagnesemia E83.42 Right ventricular failure I50.810 Acute respiratory failure with hypoxia J96.01
--- NOTE | 2022-04-02 14:12 | Hospitalist Progress Note ---
Date of Service April 02, 2022 Assessment & Plan (1) Acute respiratory failure with hypoxia: Plan: Probably a combination of PNA, recent covid exposure (although negative test) and CHF exacerbation Chest x ray shows right upper lobe infiltrate and also signs of pulmo congestion BNP elevated, will obtain 2 d ECHO Procalcitonin elevated Cefepime 2 g IV every 12 hours Azithromycin 500 mg IV daily Albuterol HFA 2 puffs 4 times daily prn Guaifenesin extended release 12 mg p.o. twice daily Lasix 40mg daily Continue vitamin D 1000 units every morning Patient was negative for COVID-19, RSV and influenza while in the ED Is being monitored closely for development due to recent exposure just prior to admission, and will be placed on COVID-19 precautions, repeat test (2) Pneumonia: Plan: See above (3) CAD (coronary artery disease), [place] coronary artery: Plan: Paroxysmal A. fib with RVR/elevated troponin CAD/hypertension- The patient will be admitted to telemetry for serial cardiac enzymes, serial EKG's, cardiac rhythm monitoring and a 2-D echocardiogram with Dopplers. Hypomagnesemia, magnesium 1.1, will be repleted, concerned that there the low magnesium may have precipitated a rapid heart rate with unstable blood pressure that led to syncope Initial EKG shows atrial fibrillation with RVR at 100 bpm, with lateral ischemia Follow-up EKG after beginning to replace magnesium converted to normal sinus rhythm with anterolateral ischemia Troponin initially 41.6, increased to 169.7 on follow-up. Since back in sinus rhythm, will avoid anticoagulation at this point due to history of recent subdural hematoma Consult cardiology for their opinion (4) Elevated troponin: Plan: Most likely secondary to demand ischemia from afib No st changes on EKG, no chest pain Trend trops (5) Paroxysmal atrial fibrillation with RVR: Plan: Not on anticoagulation on account of recent hematoma Rate controlled (6) Hypomagnesemia: Plan: Magnesium 1.1 on admission Hold Lasix Give magnesium 3 g IV in ED Repeat laboratories in a.m. Concerned that increased troponin and syncopal episode may be associated with rapid heart rate secondary to low magnesium Monitor on telemetry (7) HTN (hypertension): Plan: Due to relative hypotension, hold amlodipine, furosemide, metoprolol succinate and potassium chloride (8) GERD without esophagitis: Plan: Continue lansoprazole/pantoprazole daily (9) Chronic kidney disease, stage III (moderate): Plan: Creatinine 1.88, near the upper end of his baseline range, will hold Lasix due to relative hypotension as well (10) Hyperlipidemia: Plan: Continue atorvastatin 80 mg every morning (11) Exposure to COVID-19 virus: Plan: As noted above recent exposure, monitor closely for symptoms of COVID-19 developing while in hospital Placed on COVID precautions (12) Seizure: Plan: Continue Keppra 750 mg p.o. twice daily (13) BPH (benign prostatic hyperplasia): Plan: Continue tamsulosin 0.4 mg daily at bedtime, to avoid hypotension Admission and Anticipated Discharge Date Admission Date: April 01, 2022 Subjective patient seen and examined today, still sob, but much improved Review of Systems Review of Systems: The patient is awake, alert and oriented 3, well developed and well nourished, normocephalic and atraumatic, lying in bed and in no acute distress. HEENT--PERRL, EOMI, mucous membranes and oropharynx mildly dry Neck--supple. No JVD. No bruits. Thyroid normal, trachea midline, no adenopathy. Heart--normal S1 and S2. No murmurs, rubs or gallops. Lungs--reduced air entry Abdomen--normal bowel sounds and soft. Mild epigastric and left sided abdominal pain Extremities--no cyanosis or clubbing. No edema. Dermatologic--normal skin turgor, normal color, no abnormal lymph nodes, no rash. Neurologic--cranial nerves II through XII grossly intact. Rheumatologic--normal range of motion. Psychiatric--normal affect. Results & Data Results & Data ([facility]) Vital Signs (Past 12 Hours) Vital Signs Temp Pulse Resp BP Pulse Ox O2 Del Method O2 Flow Rate 04/02/22 11:38 97.3 F L 74 20 93/61 L 94 Nasal Cannula 6 04/02/22 10:37 Nasal Cannula 6 04/02/22 10:31 97.3 F L 69 18 93/60 L 97 Nasal Cannula 6 04/02/22 03:10 97.3 F L 70 18 94/61 L 94 Nasal Cannula 6 PG Care Time/CCT Total # of Minutes Spent Total Time Spent with Patient: Total time spent is greater than 50% in coordination of care (as documented) at patient's floor/unit and/or counseling patient: Coding Level of Care Code 89348 Subseq Hosp Care Lvl 2 Diagnoses Acute respiratory failure with hypoxia J96.01 Pneumonia J18.9 Laterality: right Lung location: unspecified part of lung Pneumonia type: due to unspecified organism CAD (coronary artery disease), [place] coronary artery I25.10 Elevated troponin R77.8 Paroxysmal atrial fibrillation with RVR I48.0 Hypomagnesemia E83.42 HTN (hypertension) I10 GERD without esophagitis K21.9 Chronic kidney disease, stage III (moderate) N18.30 Hyperlipidemia E78.5 Exposure to COVID-19 virus Z20.822 Seizure R56.9 BPH (benign prostatic hyperplasia) N40.0 Time Spent (min) 35 (1) Pneumonia Laterality: right Lung location: unspecified part of lung Pneumonia type: due to unspecified organism Qualified Code(s): J18.9 - Pneumonia, unspecified organism
[2022-04-02] MEDS ORDERED: FUROSEMIDE 40 MG/4 ML VIAL IV SCH (14:15)
[2022-04-02] MEDS ORDERED: MAGNESIUM SULFATE / D5W 1 GM/100 ML BAG IV ONE (15:29)
[2022-04-03 07:08] LABS: Basophils # (auto) 0.05 K/uL (0-0.2); Basophils % (auto) 0.9 %; Eosinophils # (auto) 0.18 K/uL (0-0.50); Eosinophils % (auto) 3.4 %; Hematocrit (blood only) 36.3 % (40.1-51.0); Hemoglobin 11.6 g/dl (14.0-18.0); Immature Granulocytes # (auto) 0.01 K/uL (0.00-0.02); Immature Granulocytes % (auto) 0.2 %; Lymphocytes # (auto) 1.18 K/uL (1.2-3.4); Lymphocytes % (auto) 22.3 %; Mean Corpuscular Hemoglobin 30.4 pg (25.0-34.0); Mean Corpuscular Volume 95.3 fL (80.0-100.0); Monocytes # (auto) 0.31 K/uL (0.24-0.82); Monocytes % (auto) 5.9 %; Neutrophils # (auto) 3.55 K/uL (1.4-6.5); Neutrophils % (auto) 67.3 %; Platelet Count 78 K/uL (130-400); RDW Standard Deviation 51.8 fL (36.4-46.3); Red Blood Count 3.81 M/uL (4.63-6.08); White Blood Count 5.28 K/ul (4.8-10.8)
[2022-04-03 07:50] LABS: Albumin Globulin Ratio 1.6 (0.9-2); Albumin Level 3.8 gm/dl (3.4-5.0); BUN Creatinine Ratio 26.3 (10-20); Bilirubin,Total 3.5 mg/dl (0.2-1.0); Calcium 8.4 mg/dl (8.5-10.1); Creatinine Clr Calc Pharmacy 40.3 ml/min; Est GFR (African American) 45.4 ml/min; Est GFR (Non-African American) 39.1 ml/min; Globulin 2.4 gm/dl (2.5-4.0); Magnesium 1.4 mg/dl (1.7-2.4); Potassium 3.5 mmol/L (3.5-5.1); Total Protein 6.2 gm/dl (6.0-8.3)
--- NOTE | 2022-04-03 08:49 | XCELERA ---
[id number]
--- NOTE | 2022-04-03 09:05 | Electrocardiogram Report ---
Test Reason : Blood Pressure : / mmHG Vent. Rate : 074 BPM Atrial Rate : 074 BPM P-R Int : 192 ms QRS Dur : 100 ms QT Int : 442 ms P-R-T Axes : 058 079 -66 degrees QTc Int : 490 ms Sinus rhythm with Premature atrial complexes Incomplete right bundle branch block Old Septal infarct (cited on or before 01-APR-2022) Chronic T-wave inversion in Anterior leads Chronic ST depression in Anterior leads Abnormal ECG When compared with ECG of 02-APR-2022 05:46, No significant change Confirmed by Mumtaz Nichols ([id number]) on 04/03/2022 9:05:33 AM Referred By: REFERRED SELF Confirmed By:Mumtaz Nichols
[2022-04-03] MEDS: ASCORBIC ACID 500 MG TAB PO SCH (09:24)
[2022-04-03] MEDS: allopurinoL 300 MG TAB PO SCH (09:24)
[2022-04-03] MEDS: ATORVASTATIN 40 MG TAB PO SCH (09:25)
[2022-04-03] MEDS: AZITHROMYCIN 500 MG in DEXTROSE 5% 250 ML IV SCH (09:26)
[2022-04-03] MEDS: CHOLECALCIFEROL 1,000 UNITS 25 MCG TAB PO SCH (09:26)
[2022-04-03] MEDS: CYANOCOBALAMIN (B-12) 500 MCG TABLET PO SCH (09:27)
[2022-04-03] MEDS: levETIRAcetam 250 MG TAB PO SCH ×2 (09:27→20:57)
[2022-04-03] MEDS: MAGNESIUM OXIDE 400 MG TAB PO SCH (09:28)
[2022-04-03] MEDS: PANTOprazole 40 MG TAB PO SCH (09:29)
--- NOTE | 2022-04-03 10:18 | Cardiology Progress Note ---
Date of Service April 03, 2022 Assessment & Plan (1) Cor pulmonale, chronic: (2) Right ventricular failure: (3) Paroxysmal atrial fibrillation with RVR: (4) Elevated troponin: (5) Hypomagnesemia: (6) Acute respiratory failure with hypoxia: Plan 71-year-old man with severe COPD/cor pulmonale admitted with acute respiratory failure with hypoxia, transient atrial fibrillation, and incidentally noted elevated troponin and abnormal ECG. No major change in his clinical status. No symptoms or new ECG findings to suggest ongoing myocardial ischemia. Troponin declining. Echocardiogram consistent with cor pulmonale. No new wall motion abnormalities. He did note mild diarrhea, would consider changing from magnesium oxide to magnesium chloride (Slow-Mag). No need for chronic anticoagulation given reversible cause of his atrial fibrillation (hypomagnesemia). His volume status appears reasonable given the likelihood he has chronically mildly elevated neck veins in the context of cor pulmonale, neither chest x-ray nor chest CT so significant pulmonary edema. Would give diuretic on an as- needed basis if he has any abrupt weight gain, worsening edema, or increasing dyspnea. Agree with holding diuretic currently given his borderline hypotension (without evidence of hypoperfusion). Would focus on management of his underlying pulmonary status to reduce cardiac demands. No active cardiac issues, will sign off, please contact [facility] cardiology he has additional cardiac issues arise. Thank you. Admission and Anticipated Discharge Date Admission Date: April 01, 2022 Subjective No new complaints. No chest pain, palpitations, or lightheadedness. No dyspnea at rest, but becomes breathless with any activity. Telemetry showed sinus rhythm in the 70-80 bpm. No evidence of recurrent atrial fibrillation. Physical Exam Physical Exam: No distress. BP 128/76 mmHg. Pulse 84 bpm and regular with occasional ectopy. Respirations 20 but unlabored. Full exam not performed (COVID precautions) Results & Data ([facility]) Vital Signs (Past 12 Hours) Vital Signs Temp Pulse Pulse Resp BP Pulse Ox O2 Del Method 04/03/22 07:41 97.5 F L 84 20 128/76 99 Nasal Cannula 04/03/22 02:44 98.8 F 88 20 103/71 90 04/03/22 00:08 77 04/02/22 23:00 98.8 F 74 18 92/57 L 93 O2 Flow Rate 04/03/22 07:41 6 04/03/22 02:44 08/07/22 00:08 04/02/22 23:00 Laboratory Results Normal electrolytes, BUN 45, creatinine 1.7. Troponin dropping (275, 213, 133) Diagnostic Findings Echocardiogram showed normal LV systolic function (EF 60-65%), flattened septum consistent with RV pressure overload, severely dilated and hypocontractile right ventricle (3 times a size of the left ventricle), mild MR, severe TR with severe pulmonary hypertension, dilated IVC. PG Care Time/CCT Total # of Minutes Spent Total Time Spent with Patient: Total time spent is greater than 50% in coordination of care (as documented) at patient's floor/unit and/or counseling patient: Coding Level of Care Code 53841 Subseq Hosp Care Lvl 3 Diagnoses Cor pulmonale, chronic I27.81 Right ventricular failure I50.810 Paroxysmal atrial fibrillation with RVR I48.0 Elevated troponin R77.8 Hypomagnesemia E83.42 Acute respiratory failure with hypoxia J96.01
[2022-04-03] MEDS: CEFEPIME 2,000 MG in SYRINGE 0 ML IV SCH ×2 (11:01→22:27)
--- NOTE | 2022-04-03 15:13 | Hospitalist Progress Note ---
Date of Service April 03, 2022 Assessment & Plan (1) Acute respiratory failure with hypoxia: Plan: Probably a combination of PNA, cor pulmonale Chest x ray shows right upper lobe infiltrate and also signs of pulmo congestion BNP elevated, 2 d ECHO shows evidence of cor pulmonale, which is chronic Procalcitonin elevated Cefepime 2 g IV every 12 hours Azithromycin 500 mg IV daily Albuterol HFA 2 puffs 4 times daily prn Guaifenesin extended release 12 mg p.o. twice daily Lasix 40mg daily Continue vitamin D 1000 units every morning Patient was negative for COVID-19, RSV and influenza while in the ED (2) Cor pulmonale, chronic: Plan: Chronic 2 D ECHO showed elevated RV pressures consistent with cor pulmonale diuretics as needed per cardiology (3) Pneumonia: Plan: See above (4) CAD (coronary artery disease), [place] coronary artery: (5) Elevated troponin: Plan: Most likely secondary to demand ischemia from afib No st changes on EKG, no chest pain Trend trops (6) Paroxysmal atrial fibrillation with RVR: Plan: Paroxysmal A. fib with RVR/elevated troponin CAD/hypertension- Now resolved patien nsr will avoid anticoagulation at this point due to history of recent subdural hematoma Consult cardiology for their opinion (7) Hypomagnesemia: Plan: replaced (8) HTN (hypertension): Plan: Due to relative hypotension, hold amlodipine, furosemide, metoprolol succinate and potassium chloride (9) GERD without esophagitis: Plan: Continue lansoprazole/pantoprazole daily (10) Chronic kidney disease, stage III (moderate): Plan: Creatinine 1.88, near the upper end of his baseline range, will hold Lasix due to relative hypotension as well (11) Hyperlipidemia: Plan: Continue atorvastatin 80 mg every morning (12) Exposure to COVID-19 virus: Plan: As noted above recent exposure, monitor closely for symptoms of COVID-19 developing while in hospital Placed on COVID precautions (13) Seizure: Plan: Continue Keppra 750 mg p.o. twice daily (14) BPH (benign prostatic hyperplasia): Plan: Continue tamsulosin 0.4 mg daily at bedtime, to avoid hypotension Plan d/c in the next 24 hrs Admission and Anticipated Discharge Date Admission Date: April 01, 2022 Review of Systems Review of Systems: All systems reviewed are negative, apart from the ones contained in the history. Physical Exam Physical Exam: The patient is awake, alert and oriented 3, well developed and well nourished, normocephalic and atraumatic, lying in bed and in no acute distress. HEENT--PERRL, EOMI, mucous membranes and oropharynx mildly dry Neck--supple. No JVD. No bruits. Thyroid normal, trachea midline, no adenopathy. Heart--normal S1 and S2. No murmurs, rubs or gallops. Lungs--clear bilaterally, no respiratory distress, no accessory muscle use. Abdomen--normal bowel sounds and soft. Mild epigastric and left sided abdominal pain Extremities--no cyanosis or clubbing. No edema. Dermatologic--normal skin turgor, normal color, no abnormal lymph nodes, no rash. Neurologic--cranial nerves II through XII grossly intact. Rheumatologic--normal range of motion. Psychiatric--normal affect. Results & Data Results & Data ([facility]) Vital Signs (Past 12 Hours) Vital Signs Temp Pulse Resp BP Pulse Ox O2 Del Method O2 Flow Rate 04/03/22 11:38 97.2 F L 76 20 106/70 94 Nasal Cannula 6 04/03/22 10:10 Nasal Cannula 6 04/03/22 07:41 97.5 F L 84 20 128/76 99 Nasal Cannula 6 PG Care Time/CCT Total # of Minutes Spent Total Time Spent with Patient: Total time spent is greater than 50% in coordination of care (as documented) at patient's floor/unit and/or counseling patient: Coding Level of Care Code 50738 Subseq Hosp Care Lvl 2 Diagnoses Acute respiratory failure with hypoxia J96.01 Cor pulmonale, chronic I27.81 Pneumonia J18.9 Laterality: right Lung location: unspecified part of lung Pneumonia type: due to unspecified organism CAD (coronary artery disease), [place] coronary artery I25.10 Elevated troponin R77.8 Paroxysmal atrial fibrillation with RVR I48.0 Hypomagnesemia E83.42 HTN (hypertension) I10 GERD without esophagitis K21.9 Chronic kidney disease, stage III (moderate) N18.30 Hyperlipidemia E78.5 Exposure to COVID-19 virus Z20.822 Seizure R56.9 BPH (benign prostatic hyperplasia) N40.0 Time Spent (min) 35 (1) Pneumonia Laterality: right Lung location: unspecified part of lung Pneumonia type: due to unspecified organism Qualified Code(s): J18.9 - Pneumonia, unspecified organism
[2022-04-03] MEDS: TAMSULOSIN HCL 0.4 MG CAP PO SCH (20:58)
[2022-04-04 06:37] LABS: Basophils # (auto) 0.04 K/uL (0-0.2); Basophils % (auto) 0.9 %; Eosinophils # (auto) 0.26 K/uL (0-0.50); Eosinophils % (auto) 5.7 %; Hematocrit (blood only) 35.5 % (40.1-51.0); Hemoglobin 11.3 g/dl (14.0-18.0); Immature Granulocytes # (auto) 0.01 K/uL (0.00-0.02); Immature Granulocytes % (auto) 0.2 %; Lymphocytes # (auto) 1.07 K/uL (1.2-3.4); Lymphocytes % (auto) 23.5 %; Mean Platelet Volume 12.7 fL (9.4-12.4); Monocytes # (auto) 0.37 K/uL (0.24-0.82); Monocytes % (auto) 8.1 %; Neutrophils % (auto) 61.6 %; Platelet Count 81 K/uL (130-400); White Blood Count 4.55 K/ul (4.8-10.8)
[2022-04-04 06:59] LABS: Albumin Globulin Ratio 1.5 (0.9-2); Albumin Level 3.7 gm/dl (3.4-5.0); BUN Creatinine Ratio 23.2 (10-20); Bilirubin,Total 3.6 mg/dl (0.2-1.0); Calcium 8.6 mg/dl (8.5-10.1); Creatinine Clr Calc Pharmacy 53.5 ml/min; Est GFR (African American) 56.8 ml/min; Globulin 2.5 gm/dl (2.5-4.0); Magnesium 1.4 mg/dl (1.7-2.4); Potassium 3.4 mmol/L (3.5-5.1); Total Protein 6.2 gm/dl (6.0-8.3)
[2022-04-04 07:02] LABS: Echinocytes 1+; Mean Corpuscular Hemoglobin 30.3 pg (25.0-34.0); Mean Corpuscular Hgb Conc 31.8 g/dL (32.0-36.0); Mean Corpuscular Volume 95.2 fL (80.0-100.0); Ovalocytes 1+; RDW Coefficient of Variation 14.9 % (11.5-14.5); Red Blood Count 3.73 M/uL (4.63-6.08)
[2022-04-04] MEDS: ASCORBIC ACID 500 MG TAB PO SCH (08:24)
[2022-04-04] MEDS: AZITHROMYCIN 500 MG in DEXTROSE 5% 250 ML IV SCH (08:24)
[2022-04-04] MEDS: MAGNESIUM OXIDE 400 MG TAB PO SCH (08:24)
[2022-04-04] MEDS: PANTOprazole 40 MG TAB PO SCH (08:25)
[2022-04-04] MEDS: allopurinoL 300 MG TAB PO SCH (08:25)
[2022-04-04] MEDS: CHOLECALCIFEROL 1,000 UNITS 25 MCG TAB PO SCH (08:25)
[2022-04-04] MEDS: ATORVASTATIN 40 MG TAB PO SCH (08:25)
[2022-04-04] MEDS: levETIRAcetam 250 MG TAB PO SCH ×2 (08:25→20:07)
[2022-04-04] MEDS: CYANOCOBALAMIN (B-12) 500 MCG TABLET PO SCH (08:25)
[2022-04-04 09:56] LABS: iSTAT Arterial Blood Gas pH 7.19 (7.35-7.45); iSTAT Hematocrit 44 % (42-52); iSTAT Potassium 4.5 mmol/L (3.3-5.0); iSTAT Sodium 139 mmol/L (135-144)
[2022-04-04 09:57] LABS: iSTAT Arterial Blood Gas HCO3 10 meg/L (19-24); iSTAT Arterial Blood Gas pCO2 25 mmHg (35-46); iSTAT Arterial Blood Gas pO2 244 mmHg (80-95); iSTAT Carbon Dioxide 10 mmol/L (24-31)
[2022-04-04] MEDS: CEFEPIME 2,000 MG in SYRINGE 0 ML IV SCH ×2 (12:12→23:25)
--- NOTE | 2022-04-04 14:40 | Hospitalist Progress Note ---
Date of Service April 04, 2022 Assessment & Plan (1) Acute respiratory failure with hypoxia: Plan: Probably a combination of PNA, cor pulmonale Chest x ray shows right upper lobe infiltrate and also signs of pulmo congestion BNP elevated, 2 d ECHO shows evidence of cor pulmonale, which is chronic Procalcitonin elevated Cefepime 2 g IV every 12 hours Azithromycin 500 mg IV daily Albuterol HFA 2 puffs 4 times daily prn Guaifenesin extended release 12 mg p.o. twice daily Lasix 40mg daily Continue vitamin D 1000 units every morning Patient was negative for COVID-19, RSV and influenza while in the ED Cough, improving, although occassionally productive of yellowish sputum (2) Cor pulmonale, chronic: Plan: Chronic 2 D ECHO showed elevated RV pressures consistent with cor pulmonale diuretics as needed per cardiology (3) Pneumonia: Plan: See above (4) Paroxysmal atrial fibrillation with RVR: Plan: Paroxysmal A. fib with RVR/elevated troponin CAD/hypertension- Now resolved patien nsr No new complaints. No chest pain, palpitations, or lightheadedness. No dyspnea at rest, but becomes breathless with any activity. Telemetry showed sinus rhythm in the 70-80 bpm. No evidence of recurrent atrial fibrillation.will avoid anticoagulation at this point due to history of recent subdural hematoma Appreciate cardiology recs (5) CAD (coronary artery disease), [place] coronary artery: (6) Elevated troponin: Plan: Most likely secondary to demand ischemia from afib No st changes on EKG, no chest pain Trend trops (7) Hypomagnesemia: Plan: replaced (8) HTN (hypertension): Plan: Due to relative hypotension, hold amlodipine, furosemide, metoprolol succinate and potassium chloride (9) GERD without esophagitis: Plan: Continue lansoprazole/pantoprazole daily (10) Chronic kidney disease, stage III (moderate): Plan: will hold Lasix due to relative hypotension (11) Hyperlipidemia: Plan: Continue atorvastatin 80 mg every morning (12) Exposure to COVID-19 virus: Plan: As noted above recent exposure, monitor closely for symptoms of COVID-19 developing while in hospital Placed on COVID precautions has tested negative x 2 (13) Seizure: Plan: Continue Keppra 750 mg p.o. twice daily (14) BPH (benign prostatic hyperplasia): Plan: Continue tamsulosin 0.4 mg daily at bedtime, to avoid hypotension Plan d/c in the next 24 hrs Admission and Anticipated Discharge Date Admission Date: April 01, 2022 Subjective patient seen and examined, still has some sob on exertion, but denies chest pain. complains of cough, productive of yellowish sputum Review of Systems Review of Systems: All systems reviewed are negative, apart from the ones contained in the history. Physical Exam Physical Exam: The patient is awake, alert and oriented 3, well developed and well nourished, normocephalic and atraumatic, lying in bed and in no acute distress. HEENT--PERRL, EOMI, mucous membranes and oropharynx mildly dry Neck--supple. No JVD. No bruits. Thyroid normal, trachea midline, no adenopathy. Heart--normal S1 and S2. No murmurs, rubs or gallops. Lungs--clear bilaterally, no respiratory distress, no accessory muscle use. Abdomen--normal bowel sounds and soft. Mild epigastric and left sided abdominal pain Extremities--no cyanosis or clubbing. No edema. Dermatologic--normal skin turgor, normal color, no abnormal lymph nodes, no rash. Neurologic--cranial nerves II through XII grossly intact. Rheumatologic--normal range of motion. Psychiatric--normal affect. Results & Data Results & Data ([facility]) Vital Signs (Past 12 Hours) Vital Signs Temp Pulse Pulse Resp BP Pulse Ox O2 Del Method 04/04/22 12:38 Nasal Cannula 04/04/22 12:08 97.3 F L 78 18 114/73 94 Nasal Cannula 04/04/22 07:19 79 04/04/22 07:03 97.9 F 75 18 112/70 95 04/04/22 03:15 97.3 F L 72 18 109/73 95 O2 Flow Rate 04/04/22 12:38 6 04/04/22 12:08 2 04/04/22 07:19 04/04/22 07:03 04/04/22 03:15 PG Care Time/CCT Total # of Minutes Spent Total Time Spent with Patient: Total time spent is greater than 50% in coordination of care (as documented) at patient's floor/unit and/or counseling patient: Coding Level of Care Code 30561 Subseq Hosp Care Lvl 2 Diagnoses Acute respiratory failure with hypoxia J96.01 Cor pulmonale, chronic I27.81 Pneumonia J18.9 Laterality: right Lung location: unspecified part of lung Pneumonia type: due to unspecified organism Paroxysmal atrial fibrillation with RVR I48.0 CAD (coronary artery disease), [place] coronary artery I25.10 Elevated troponin R77.8 Hypomagnesemia E83.42 HTN (hypertension) I10 GERD without esophagitis K21.9 Chronic kidney disease, stage III (moderate) N18.30 Hyperlipidemia E78.5 Exposure to COVID-19 virus Z20.822 Seizure R56.9 BPH (benign prostatic hyperplasia) N40.0 Time Spent (min) 35 (1) Pneumonia Laterality: right Lung location: unspecified part of lung Pneumonia type: due to unspecified organism Qualified Code(s): J18.9 - Pneumonia, unspecified organism
[2022-04-04] MEDS: TAMSULOSIN HCL 0.4 MG CAP PO SCH (20:07)
[2022-04-05] MEDS: AZITHROMYCIN 500 MG in DEXTROSE 5% 250 ML IV SCH (08:54)
[2022-04-05] MEDS: CYANOCOBALAMIN (B-12) 500 MCG TABLET PO SCH (08:55)
[2022-04-05] MEDS: CHOLECALCIFEROL 1,000 UNITS 25 MCG TAB PO SCH (08:55)
[2022-04-05] MEDS: ASCORBIC ACID 500 MG TAB PO SCH (08:55)
[2022-04-05] MEDS: levETIRAcetam 250 MG TAB PO SCH ×2 (08:55→20:36)
[2022-04-05] MEDS: ATORVASTATIN 40 MG TAB PO SCH (08:55)
[2022-04-05] MEDS: PANTOprazole 40 MG TAB PO SCH (08:55)
[2022-04-05] MEDS: allopurinoL 300 MG TAB PO SCH (08:56)
[2022-04-05] MEDS: MAGNESIUM OXIDE 400 MG TAB PO SCH (08:56)
[2022-04-05 09:14] LABS: Hematocrit (blood only) 38.7 % (40.1-51.0); Hemoglobin 12.1 g/dl (14.0-18.0); Mean Platelet Volume 11.9 fL (9.4-12.4); Platelet Count 89 K/uL (130-400); White Blood Count 4.28 K/ul (4.8-10.8)
[2022-04-05 09:31] LABS: Mean Corpuscular Hemoglobin 30.3 pg (25.0-34.0); Mean Corpuscular Hgb Conc 31.3 g/dL (32.0-36.0); Mean Corpuscular Volume 96.8 fL (80.0-100.0); RDW Standard Deviation 52.9 fL (36.4-46.3)
[2022-04-05 09:46] LABS: BUN Creatinine Ratio 18.7 (10-20); Calcium 9.3 mg/dl (8.5-10.1); Creatinine Clr Calc Pharmacy 54.2 ml/min; Est GFR (African American) 58.3 ml/min; Est GFR (Non-African American) 50.3 ml/min; Potassium 3.4 mmol/L (3.5-5.1)
[2022-04-05] MEDS: CEFEPIME 2,000 MG in SYRINGE 0 ML IV SCH ×2 (11:07→22:14)
[2022-04-05] MEDS ORDERED: MELATONIN 3 MG TAB PO PRN (14:13)
--- NOTE | 2022-04-05 14:24 | Hospitalist Progress Note ---
Date of Service April 05, 2022 Assessment & Plan (1) Acute respiratory failure with hypoxia: Plan: Probably a combination of PNA, cor pulmonale Chest x ray shows right upper lobe infiltrate and also signs of pulmo congestion BNP elevated, 2 d ECHO shows evidence of cor pulmonale, which is chronic Procalcitonin elevated Cefepime 2 g IV every 12 hours Azithromycin 500 mg IV daily Albuterol HFA 2 puffs 4 times daily prn Guaifenesin extended release 12 mg p.o. twice daily Lasix 40mg daily Continue vitamin D 1000 units every morning Patient was negative for COVID-19, RSV and influenza while in the ED Cough, improving, although occassionally productive of yellowish sputum Will de escalate antibiotics tomorrow (2) Cor pulmonale, chronic: Plan: Chronic 2 D ECHO showed elevated RV pressures consistent with cor pulmonale diuretics as needed per cardiology (3) Pneumonia: Plan: See above (4) Paroxysmal atrial fibrillation with RVR: Plan: Paroxysmal A. fib with RVR/elevated troponin CAD/hypertension- Now resolved patien nsr No new complaints. No chest pain, palpitations, or lightheadedness. No dyspnea at rest, but becomes breathless with any activity. Telemetry showed sinus rhythm in the 70-80 bpm. No evidence of recurrent atrial fibrillation.will avoid anticoagulation at this point due to history of recent subdural hematoma Appreciate cardiology recs (5) CAD (coronary artery disease), [place] coronary artery: (6) Elevated troponin: Plan: Most likely secondary to demand ischemia from afib No st changes on EKG, no chest pain Trend trops (7) Hypomagnesemia: Plan: replaced (8) HTN (hypertension): Plan: Due to relative hypotension, hold amlodipine, furosemide, metoprolol succinate and potassium chloride (9) GERD without esophagitis: Plan: Continue lansoprazole/pantoprazole daily (10) Chronic kidney disease, stage III (moderate): Plan: will hold Lasix due to relative hypotension (11) Hyperlipidemia: Plan: Continue atorvastatin 80 mg every morning (12) Exposure to COVID-19 virus: Plan: As noted above recent exposure, monitor closely for symptoms of COVID-19 developing while in hospital Placed on COVID precautions has tested negative x 2 (13) Seizure: Plan: Continue Keppra 750 mg p.o. twice daily (14) BPH (benign prostatic hyperplasia): Plan: Continue tamsulosin 0.4 mg daily at bedtime, to avoid hypotension Plan d/c in the next 24 hrs Admission and Anticipated Discharge Date Admission Date: April 01, 2022 Subjective patient seen and examined, still has some sob on exertion,sitting up, tolerating diet Review of Systems Review of Systems: All systems reviewed are negative, apart from the ones contained in the history. Physical Exam Physical Exam: The patient is awake, alert and oriented 3, well developed and well nourished, normocephalic and atraumatic, lying in bed and in no acute distress. HEENT--PERRL, EOMI, mucous membranes and oropharynx mildly dry Neck--supple. No JVD. No bruits. Thyroid normal, trachea midline, no adenopathy. Heart--normal S1 and S2. No murmurs, rubs or gallops. Lungs--Reduced air entry. Abdomen--normal bowel sounds and soft. Mild epigastric and left sided abdominal pain Extremities--no cyanosis or clubbing. No edema. Dermatologic--normal skin turgor, normal color, no abnormal lymph nodes, no rash. Neurologic--cranial nerves II through XII grossly intact. Rheumatologic--normal range of motion. Psychiatric--normal affect. Results & Data Results & Data ([facility]) Vital Signs (Past 12 Hours) Vital Signs Temp Pulse Pulse Resp BP Pulse Ox O2 Del Method 04/05/22 11:07 97.3 F L 80 18 108/68 97 Nasal Cannula 04/05/22 10:29 Nasal Cannula 04/05/22 08:08 98.2 F 92 H 18 112/71 90 Nasal Cannula 04/05/22 07:04 79 04/05/22 03:05 97.3 F L 78 18 116/71 95 Nasal Cannula O2 Flow Rate 04/05/22 11:07 5 04/05/22 10:29 6 04/05/22 08:08 6 04/05/22 07:04 04/05/22 03:05 6 PG Care Time/CCT Total # of Minutes Spent Total Time Spent with Patient: Total time spent is greater than 50% in coordination of care (as documented) at patient's floor/unit and/or counseling patient: Coding Level of Care Code 72958 Subseq Hosp Care Lvl 2 Diagnoses Acute respiratory failure with hypoxia J96.01 Cor pulmonale, chronic I27.81 Pneumonia J18.9 Laterality: right Lung location: unspecified part of lung Pneumonia type: due to unspecified organism Paroxysmal atrial fibrillation with RVR I48.0 CAD (coronary artery disease), [place] coronary artery I25.10 Elevated troponin R77.8 Hypomagnesemia E83.42 HTN (hypertension) I10 GERD without esophagitis K21.9 Chronic kidney disease, stage III (moderate) N18.30 Hyperlipidemia E78.5 Exposure to COVID-19 virus Z20.822 Seizure R56.9 BPH (benign prostatic hyperplasia) N40.0 Time Spent (min) 35 (1) Pneumonia Laterality: right Lung location: unspecified part of lung Pneumonia type: due to unspecified organism Qualified Code(s): J18.9 - Pneumonia, unspecified organism
[2022-04-05] MEDS: POLYETHYLENE (MIRALAX) 17 GM PACK PO SCH (16:43)
[2022-04-05] MEDS: TAMSULOSIN HCL 0.4 MG CAP PO SCH (20:36)
[2022-04-06] MEDS: allopurinoL 300 MG TAB PO SCH (08:18)
[2022-04-06] MEDS: ASCORBIC ACID 500 MG TAB PO SCH (08:18)
[2022-04-06] MEDS: CYANOCOBALAMIN (B-12) 500 MCG TABLET PO SCH (08:19)
[2022-04-06] MEDS: MAGNESIUM OXIDE 400 MG TAB PO SCH (08:19)
[2022-04-06] MEDS: CHOLECALCIFEROL 1,000 UNITS 25 MCG TAB PO SCH (08:19)
[2022-04-06] MEDS: ATORVASTATIN 40 MG TAB PO SCH (08:19)
[2022-04-06] MEDS: PANTOprazole 40 MG TAB PO SCH (08:19)
[2022-04-06] MEDS: levETIRAcetam 250 MG TAB PO SCH ×2 (08:19→22:06)
[2022-04-06] MEDS: POLYETHYLENE (MIRALAX) 17 GM PACK PO SCH (08:20)
[2022-04-06] MEDS: CEFEPIME 2,000 MG in SYRINGE 0 ML IV SCH ×2 (10:08→22:07)
[2022-04-06] MEDS: AZITHROMYCIN 500 MG in DEXTROSE 5% 250 ML IV SCH (10:08)
[2022-04-06] MEDS ORDERED: MELATONIN 3 MG TAB PO PRN (10:18)
[2022-04-06 11:35] LABS: Creatinine Clr Calc Pharmacy 59.7 ml/min; Est GFR (African American) 65.6 ml/min; Est GFR (Non-African American) 56.6 ml/min
--- NOTE | 2022-04-06 13:06 | Hospitalist Progress Note ---
Date of Service April 06, 2022 Assessment & Plan (1) Acute and chronic respiratory failure with hypoxia: Plan: Probably a combination of PNA, cor pulmonale Patient on 4L of oxygen at home Chest x ray shows right upper lobe infiltrate and also signs of pulmo congestion BNP elevated, 2 d ECHO shows evidence of cor pulmonale, which is chronic Procalcitonin elevated Cefepime 2 g IV every 12 hours, till 04/07 Azithromycin 500 mg IV daily, discontinued 04/06 Albuterol HFA 2 puffs 4 times daily prn Guaifenesin extended release 12 mg p.o. twice daily Lasix 40mg daily Continue vitamin D 1000 units every morning Patient was negative for COVID-19, RSV and influenza while in the ED Has tested negative for COVID 2 ore times Cough, improving, has been afebrile -Likely d/c tomorrow (2) Cor pulmonale, chronic: Plan: Chronic 2 D ECHO showed elevated RV pressures consistent with cor pulmonale diuretics as needed per cardiology (3) Pneumonia: Plan: See above (4) Paroxysmal atrial fibrillation with RVR: Plan: Paroxysmal A. fib with RVR/elevated troponin CAD/hypertension- Now resolved patien nsr No new complaints. No chest pain, palpitations, or lightheadedness. No dyspnea at rest, but becomes breathless with any activity. Telemetry showed sinus rhythm in the 70-80 bpm. No evidence of recurrent atrial fibrillation.will avoid anticoagulation at this point due to history of recent subdural hematoma Appreciate cardiology recs (5) CAD (coronary artery disease), [place] coronary artery: (6) Elevated troponin: Plan: Most likely secondary to demand ischemia from afib No st changes on EKG, no chest pain Trend trops (7) Hypomagnesemia: Plan: replaced (8) HTN (hypertension): Plan: Due to relative hypotension, hold amlodipine, furosemide, metoprolol succinate and potassium chloride (9) GERD without esophagitis: Plan: Continue lansoprazole/pantoprazole daily (10) Chronic kidney disease, stage III (moderate): Plan: will hold Lasix due to relative hypotension (11) Hyperlipidemia: Plan: Continue atorvastatin 80 mg every morning (12) Exposure to COVID-19 virus: Plan: As noted above recent exposure, monitor closely for symptoms of COVID-19 developing while in hospital Placed on COVID precautions has tested negative x 2 (13) Seizure: Plan: Continue Keppra 750 mg p.o. twice daily (14) BPH (benign prostatic hyperplasia): Plan: Continue tamsulosin 0.4 mg daily at bedtime, to avoid hypotension (15) Acute respiratory failure with hypoxia: Plan d/c in the next 24 hrs Admission and Anticipated Discharge Date Admission Date: April 01, 2022 Subjective patient seen and examined, still has some sob on exertion,sitting up, tolerating diet, feels overall better Review of Systems Review of Systems: All systems reviewed are negative, apart from the ones contained in the history. Physical Exam Physical Exam: The patient is awake, alert and oriented 3, well developed and well nourished, normocephalic and atraumatic, lying in bed and in no acute distress. HEENT--PERRL, EOMI, mucous membranes and oropharynx mildly dry Neck--supple. No JVD. No bruits. Thyroid normal, trachea midline, no adenopathy. Heart--normal S1 and S2. No murmurs, rubs or gallops. Lungs--Reduced air entry. Abdomen--normal bowel sounds and soft. Mild epigastric and left sided abdominal pain Extremities--no cyanosis or clubbing. No edema. Dermatologic--normal skin turgor, normal color, no abnormal lymph nodes, no rash. Neurologic--cranial nerves II through XII grossly intact. Rheumatologic--normal range of motion. Psychiatric--normal affect. Results & Data Results & Data ([facility]) Vital Signs (Past 12 Hours) Vital Signs Temp Pulse Pulse Resp BP Pulse Ox O2 Del Method 04/06/22 11:24 Nasal Cannula 04/06/22 10:45 97.7 F 85 20 104/73 98 Nasal Cannula 04/06/22 08:02 97.9 F 85 18 97/60 L 93 04/06/22 07:47 75 04/06/22 04:01 97.5 F L 84 18 108/71 94 Nasal Cannula O2 Flow Rate 04/06/22 11:24 5 04/06/22 10:45 5 04/06/22 08:02 04/06/22 07:47 04/06/22 04:01 5 PG Care Time/CCT Total # of Minutes Spent Total Time Spent with Patient: Total time spent is greater than 50% in coordination of care (as documented) at patient's floor/unit and/or counseling patient: Coding Level of Care Code 39648 Subseq Hosp Care Lvl 2 Diagnoses Acute and chronic respiratory failure with hypoxia J96.21 Cor pulmonale, chronic I27.81 Pneumonia J18.9 Laterality: right Lung location: unspecified part of lung Pneumonia type: due to unspecified organism Paroxysmal atrial fibrillation with RVR I48.0 CAD (coronary artery disease), [place] coronary artery I25.10 Elevated troponin R77.8 Hypomagnesemia E83.42 HTN (hypertension) I10 GERD without esophagitis K21.9 Chronic kidney disease, stage III (moderate) N18.30 Hyperlipidemia E78.5 Exposure to COVID-19 virus Z20.822 Seizure R56.9 BPH (benign prostatic hyperplasia) N40.0 Acute respiratory failure with hypoxia J96.01 Time Spent (min) 35 (1) Pneumonia Laterality: right Lung location: unspecified part of lung Pneumonia type: due to unspecified organism Qualified Code(s): J18.9 - Pneumonia, unspecified organism
[2022-04-06] MEDS: TAMSULOSIN HCL 0.4 MG CAP PO SCH (22:06)
[2022-04-07 08:15] LABS: Creatinine Clr Calc Pharmacy 54.6 ml/min; Est GFR (African American) 58.8 ml/min; Est GFR (Non-African American) 50.7 ml/min
[2022-04-07] MEDS: CEFEPIME 2,000 MG in SYRINGE 0 ML IV SCH ×2 (08:16→23:56)
[2022-04-07] MEDS: ASCORBIC ACID 500 MG TAB PO SCH (08:25)
[2022-04-07] MEDS: allopurinoL 300 MG TAB PO SCH (08:25)
[2022-04-07] MEDS: MAGNESIUM OXIDE 400 MG TAB PO SCH (08:25)
[2022-04-07] MEDS: PANTOprazole 40 MG TAB PO SCH (08:25)
[2022-04-07] MEDS: ATORVASTATIN 40 MG TAB PO SCH (08:25)
[2022-04-07] MEDS: CHOLECALCIFEROL 1,000 UNITS 25 MCG TAB PO SCH (08:25)
[2022-04-07] MEDS: levETIRAcetam 250 MG TAB PO SCH ×2 (08:25→20:50)
[2022-04-07] MEDS: CYANOCOBALAMIN (B-12) 500 MCG TABLET PO SCH (08:25)
[2022-04-07] MEDS: POLYETHYLENE (MIRALAX) 17 GM PACK PO SCH (08:26)
[2022-04-07 10:50] LABS: Basophils # (auto) 0.06 K/uL (0-0.2); Basophils % (auto) 1.1 %; Eosinophils # (auto) 0.27 K/uL (0-0.50); Eosinophils % (auto) 5.1 %; Hematocrit (blood only) 38.8 % (40.1-51.0); Hemoglobin 11.9 g/dl (14.0-18.0); Immature Granulocytes # (auto) 0.01 K/uL (0.00-0.02); Immature Granulocytes % (auto) 0.2 %; Lymphocytes # (auto) 0.98 K/uL (1.2-3.4); Lymphocytes % (auto) 18.6 %; Mean Corpuscular Hemoglobin 29.7 pg (25.0-34.0); Mean Corpuscular Hgb Conc 30.7 g/dL (32.0-36.0); Mean Corpuscular Volume 96.8 fL (80.0-100.0); Mean Platelet Volume 12.8 fL (9.4-12.4); Monocytes # (auto) 0.41 K/uL (0.24-0.82); Monocytes % (auto) 7.8 %; Neutrophils # (auto) 3.53 K/uL (1.4-6.5); Neutrophils % (auto) 67.2 %; Platelet Count 88 K/uL (130-400); RDW Standard Deviation 53.6 fL (36.4-46.3); Red Blood Count 4.01 M/uL (4.63-6.08); White Blood Count 5.26 K/ul (4.8-10.8)
[2022-04-07 11:00] LABS: BUN Creatinine Ratio 19.9 (10-20); Calcium 9.7 mg/dl (8.5-10.1); Creatinine Clr Calc Pharmacy 51.6 ml/min; Est GFR (African American) 54.9 ml/min; Est GFR (Non-African American) 47.4 ml/min; Magnesium 1.4 mg/dl (1.7-2.4); Potassium 3.8 mmol/L (3.5-5.1)
[2022-04-07] MEDS: METOPROLOL SUCC 25MG EXT REL TAB PO SCH (11:41)
[2022-04-07] MEDS: FUROSEMIDE 40 MG TAB PO SCH (11:42)
[2022-04-07] MEDS: MAGNESIUM SULFATE / D5W 1 GM/100 ML BAG IV SCH ×2 (14:35→17:37)
--- NOTE | 2022-04-07 18:37 | Hospitalist Progress Note ---
Date of Service April 07, 2022 Assessment & Plan (1) Acute and chronic respiratory failure with hypoxia: Plan: Probably a combination of PNA, cor pulmonale Patient on 4L of oxygen at home Chest x ray shows right upper lobe infiltrate and also signs of pulmo congestion BNP elevated, 2 d ECHO shows evidence of cor pulmonale, which is chronic Procalcitonin elevated Improving Finish out Cefepime 2 g IV every 12 hours,through 04/07 Azithromycin 500 mg IV daily, discontinued 04/06 Albuterol HFA 2 puffs 4 times daily prn Guaifenesin extended release 12 mg p.o. twice daily Lasix 40mg daily was restarted today Patient was negative for COVID-19, RSV and influenza while in the ED Has tested negative for COVID 2 more times Cough, improving, has been afebrile Needs f/u Chest CT in 6 months for pulm nodule (2) Cor pulmonale, chronic: Plan: Chronic 2 D ECHO showed elevated RV pressures consistent with cor pulmonale diuretics as needed per cardiology restart lasix 40mg daily today (3) Pneumonia: Plan: See above (4) Paroxysmal atrial fibrillation with RVR: Plan: Paroxysmal A. fib with RVR/elevated troponin CAD/hypertension- Now resolved patient remains in nsr No new complaints. No chest pain, palpitations, or lightheadedness. No dyspnea at rest, but becomes breathless with any activity which is baseline Telemetry showed sinus rhythm in the 70-80 bpm. No evidence of recurrent atrial fibrillation.will avoid anticoagulation at this point due to history of recent subdural hematoma Appreciate cardiology recs (5) CAD (coronary artery disease), [place] coronary artery: (6) Elevated troponin: Plan: Most likely secondary to demand ischemia from afib No st changes on EKG, no chest pain (7) Hypomagnesemia: Plan: low again today--> replace with 3 grams IV mag follow in AM (8) HTN (hypertension): Plan: Due to relative hypotension, held amlodipine, furosemide, metoprolol succinate and potassium chloride restart lasix today (9) GERD without esophagitis: Plan: Continue PPI (10) Chronic kidney disease, stage III (moderate): 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 twice daily (14) BPH (benign prostatic hyperplasia): Plan: Continue tamsulosin 0.4 mg daily at bedtime, to avoid hypotension (15) Acute respiratory failure with hypoxia: Plan: as above now back to baseline O2 Plan Dispo-continued stay, likely home tomorrow if magnesium ok and feeling better Admission and Anticipated Discharge Date Admission Date: April 01, 2022 Subjective Pt feeling tired and [place] but that's usual for him. Eating and drinking, no other concerns Tele with NSR, rates 70-80s Review of Systems Review of Systems: All systems reviewed & are unremarkable except as noted in HPI & below Physical Exam Constitutional: WD/WN, vitals as above Eyes: + anicteric sclerae Neck: trachea midline, no thyromegaly Respiratory: normal respiratory effort, lungs clear to auscultation Cardiovascular: RRR, no murmur, no edema Chest (Breasts): Chest: normal inspection of chest Gastrointestinal (Abdomen): normal bowel sounds, soft, nontender, no hepatosplenomegaly Musculoskeletal: Extremities: extremities normal to inspection; no cyanosis and no clubbing Skin: no rashes, warm and dry Neurologic: moves all extremities and awake; no focal motor deficits Psychiatric: A+Ox3, euthymic affect Lymphatic: no lymphedema Results & Data Results & Data ([facility]) Vital Signs (Past 12 Hours) Vital Signs Temp Pulse Pulse Resp BP Pulse Ox O2 Del Method 04/07/22 16:47 36.4 C L 73 18 91/60 L 92 Nasal Cannula 04/07/22 11:51 36.5 C 82 18 119/78 96 Nasal Cannula 04/07/22 08:00 86 04/07/22 08:00 Nasal Cannula 04/07/22 08:00 36.7 C 86 18 110/74 92 Room Air O2 Flow Rate 04/07/22 16:47 5 04/07/22 11:51 5 04/07/22 08:00 04/07/22 08:00 5 04/07/22 08:00 PG Care Time/CCT Total # of Minutes Spent Total Time Spent with Patient: Total time spent is greater than 50% in coordination of care (as documented) at patient's floor/unit and/or counseling patient: Coding Level of Care Code 41523 Subseq Hosp Care Lvl 2 Diagnoses Acute and chronic respiratory failure with hypoxia J96.21 Cor pulmonale, chronic I27.81 Pneumonia J18.9 Laterality: right Lung location: unspecified part of lung Pneumonia type: due to unspecified organism Paroxysmal atrial fibrillation with RVR I48.0 CAD (coronary artery disease), [place] coronary artery I25.10 Elevated troponin R77.8 Hypomagnesemia E83.42 HTN (hypertension) I10 GERD without esophagitis K21.9 Chronic kidney disease, stage III (moderate) N18.30 Hyperlipidemia E78.5 Exposure to COVID-19 virus Z20.822 Seizure R56.9 BPH (benign prostatic hyperplasia) N40.0 Acute respiratory failure with hypoxia J96.01 (1) Pneumonia Laterality: right Lung location: unspecified part of lung Pneumonia type: due to unspecified organism Qualified Code(s): J18.9 - Pneumonia, unspecified organism
[2022-04-07] MEDS: TAMSULOSIN HCL 0.4 MG CAP PO SCH (20:50)
[2022-04-07] MEDS ORDERED: OXYMETAZOLINE 0.05% 30 ML BTL ONE (23:11)
[2022-04-08 07:05] LABS: Creatinine Clr Calc Pharmacy 51.2 ml/min; Est GFR (Non-African American) 46.6 ml/min
[2022-04-08] MEDS: POLYETHYLENE (MIRALAX) 17 GM PACK PO SCH (07:50)
[2022-04-08] MEDS: MAGNESIUM OXIDE 400 MG TAB PO SCH (07:51)
[2022-04-08] MEDS: PANTOprazole 40 MG TAB PO SCH (07:53)
[2022-04-08] MEDS: ASCORBIC ACID 500 MG TAB PO SCH (07:54)
[2022-04-08] MEDS: FUROSEMIDE 40 MG TAB PO SCH (07:54)
[2022-04-08] MEDS: levETIRAcetam 250 MG TAB PO SCH (07:55)
[2022-04-08] MEDS: ATORVASTATIN 40 MG TAB PO SCH (07:56)
[2022-04-08] MEDS: allopurinoL 300 MG TAB PO SCH (07:56)
[2022-04-08] MEDS: CHOLECALCIFEROL 1,000 UNITS 25 MCG TAB PO SCH (07:57)
[2022-04-08] MEDS: CYANOCOBALAMIN (B-12) 500 MCG TABLET PO SCH (07:57)
[2022-04-08] MEDS: METOPROLOL SUCC 25MG EXT REL TAB PO SCH (09:14)
[2022-04-08 09:42] LABS: BUN Creatinine Ratio 21.6 (10-20); Calcium 9.3 mg/dl (8.5-10.1); Creatinine Clr Calc Pharmacy 51.2 ml/min; Est GFR (Non-African American) 46.6 ml/min; Magnesium 1.8 mg/dl (1.7-2.4); Potassium 4.1 mmol/L (3.5-5.1)
--- NOTE | 2022-04-08 11:46 | Discharge Summary ---
Date of Service April 08, 2022 Admission HPI Per Admitting Provider The patient is a 71-year-old male with a past medical history including valvular heart disease, CAD, Lyme disease, anaplasmosis, alcohol intoxication, pulmonary hypertension, chronic subdural hematoma, seizure disorder, CKD stage III, GERD esophagitis, peripheral neuropathy, gouty arthritis and hyperlipidemia. He has had an ongoing productive cough over the past several weeks, became more short of breath over the past week, and while visiting a friend today had a syncopal episode. Significant abnormal laboratories: Creatinine 1.88, glucose 123, BUN 55, INR 1.3, anion gap 18, magnesium 1.1, initial troponin 41.6 and increased to 169.7, RSV negative, influenza negative, COVID-[address] scan of head was negative, CT of chest without contrast showed pneumonia in the right upper and middle lower lobes and tracheobronchial secretions. ABG showed pH 7.38, P CO2 26, PO2 67 Principal Diagnosis Acute respiratory failure with hypoxia, Pneumonia, Syncope Discharge Exam Constitutional WD/WN, vitals as above Eyes + anicteric sclerae Neck trachea midline, no thyromegaly Respiratory normal respiratory effort, lungs clear to auscultation Cardiovascular RRR, no murmur, no edema Chest (Breasts) Chest: normal inspection of chest Gastrointestinal (Abdomen) normal bowel sounds, soft, nontender, no hepatosplenomegaly Musculoskeletal Extremities: extremities normal to inspection; no cyanosis and no clubbing Skin no rashes, warm and dry Neurologic moves all extremities and awake; no focal motor deficits Psychiatric A+Ox3, euthymic affect Lymphatic no lymphedema Discharge Data Allergies Allergy/AdvReac Type Severity Reaction Status Date / Time bee venom protein (honey bee) Allergy Severe hives in Verified 03/06/22 22:30 throat, trouble breathing Consultations 04/01/22 19:02 ED Decision to Admit Stat 04/02/22 04:23 Consult Cardiology Routine Ordered Studies 04/01/22 20:21 CT chest diagnostic wo con Stat CT head/brain wo con Stat US venous doppler LE BI Stat Hospital Course (1) Syncope: P/w syncope, likely due to hypotension was supposed to dc amlodipine after last admission but still on home med list? held antihypertensives initially ok to restart Toprol XL 25 daily on discharge along with lasix 20mg daily but dc amlodipine (again) no events on tele ECHO with cor pulmonale unchanged, preserved EF (2) Acute and chronic respiratory failure with hypoxia: Probably a combination of PNA, cor pulmonale Patient on 4L of oxygen at home Chest CT shows right upper lobe infiltrate and also signs of pulmo congestion BNP elevated, 2 d ECHO shows evidence of cor pulmonale, which is chronic Procalcitonin elevated Improving , back to baseline pretty much Finished Cefepime 2 g IV every 12 hours x 7 day course finsihed Azithromycin 500 mg IV daily, discontinued 04/06 Albuterol HFA 2 puffs 4 times daily prn Guaifenesin extended release 12 mg p.o. twice daily Lasix daily was restarted Patient was negative for COVID-19, RSV and influenza while in the ED Has tested negative for COVID 2 more times despite exposure prior to admission Cough, improving, has been afebrile Needs f/u Chest CT in 6 months for new pulm nodule RLL-consult placed to lung nodule program (3) Cor pulmonale, chronic: Chronic 2 D ECHO showed elevated RV pressures consistent with cor pulmonale diuretics as needed per cardiology continue lasix 20mg daily f/u with Cardiology planned as outpt with Dr. Davis I believe (4) Pneumonia: See above (5) Paroxysmal atrial fibrillation with RVR: Paroxysmal A. fib with RVR/elevated troponin CAD/hypertension- Now resolved patient remains in nsr No new complaints. No chest pain, palpitations, or lightheadedness. No dyspnea at rest, but becomes breathless with any activity which is baseline Telemetry showed sinus rhythm in the 70-80 bpm. No evidence of recurrent atrial fibrillation.will avoid anticoagulation at this point due to history of recent subdural hematoma Appreciate cardiology recs f/u Cardio as outpt (6) CAD (coronary artery disease), [place] coronary artery: (7) Elevated troponin: Most likely secondary to demand ischemia from afib No st changes on EKG, no chest pain (8) Hypomagnesemia: replaced and normalized (9) HTN (hypertension): Due to relative hypotension, held amlodipine, furosemide, metoprolol succinate and potassium chloride restart lasix 20mg daily and Toprol 25 as above dc amlodipine (10) GERD without esophagitis: Continue PPI (11) Chronic kidney disease, stage III (moderate): 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 twice daily (15) BPH (benign prostatic hyperplasia): Continue tamsulosin 0.4 mg daily at bedtime (16) Acute respiratory failure with hypoxia: as above now back to baseline O2 Plan Dispo-dc to home Total Time Total Time Spent Total Time Spent (In Minutes): 35 min Discharge Plan Discharge Items Patient Disposition: Home - Self-Care Reason For Visit: SYNCOPE, ACUTE RESP FAILURE WITH HYPOXIA Discharge Diagnosis: Syncope, Acute and chronic respiratory failure with hypoxia Condition on Discharge: Fair Activity: Resume your previous activity Non-emergency contact: Primary Care Provider Call non-emergency contact if: you have any medication questions and your symptoms worsen Follow-up/Referrals: Sixto Bryan MD [Primary Care Provider] - (Follow up within 1-2 weeks PLEASE CALL AND MAKE A FOLLOW UP APT) Diet: Heart Healthy and Low Sodium (2gm) Fluids: 1800ml (7 cups) Addtl Attending Provider Instructions: You were admitted after passing out and having low oxygen levels. You were treated with antibiotics for pneumonia. You may have passed out due to low blood pressures. You will need a repeat CT scan of your chest in 6 months to follow up on some nodules in your righ tlung to ensure they are not getting bigger. It is very important that you NOT take the amlodipine for your blood pressure (this was actually discontinued after your last hospitalization) when you return home. You can continue the metoprolol 25mg daily and lasix at 20mg daily. 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 Pending Studies at Discharge: No Stand-Alone Forms: My [employer], Smoking Cessation Medications and DC Order Prescriptions: Continued lansoprazole 30 mg capsule,delayed release(DR/EC) 30 mg PO QAM Qty: 90 1RF cholecalciferol (vitamin D3) 1,000 unit (25 mcg) tablet 1,000 units PO QAM atorvastatin 80 mg Tablet 80 mg PO QAM levetiracetam [Keppra] 750 mg tablet 750 mg PO BID allopurinol 300 mg tablet 300 mg PO QAM Vitamin C 1,000 mg Tablet Extended Release 1,000 mg PO QAM magnesium 500 mg Tablet 500 mg PO DAILY cyanocobalamin (vitamin B-12) [Vitamin B-12] 1,000 mcg Tablet 1,000 mcg PO DAILY Citrucel 500 mg Tablet 500 mg PO DAILY metoprolol succinate [Toprol XL] 25 mg tablet extended release 24 hr 25 mg PO DAILY Qty: 30 0RF tamsulosin 0.4 mg capsule 0.4 mg PO DAILY furosemide [Lasix] 20 mg tablet 20 mg PO DAILY Qty: 30 0RF Changed potassium chloride [Klor-Con M20] 20 mEq tablet,ER particles/crystals 20 meq PO DAILY Qty: 30 0RF Discontinued amlodipine [Norvasc] 5 mg tablet 10 mg PO DAILY Discharge Orders: Discharge Order (Routine); Ordered 04/08/22 Ordered By: Carina Ye Admission Data Admit Date/Time: 04/01/22 20:20 Attending Provider: Carina Ye Admit Provider: Vazquez Narvaez Primary Care Provider: Sixto Bryan Other Providers: Vazquez Narvaez ; Mumtaz Nichols Coding Level of Care Code D/C DAY MANAGEMENT >30 MINS Diagnoses Syncope R55 Acute and chronic respiratory failure with hypoxia J96.21 Cor pulmonale, chronic I27.81 Pneumonia J18.9 Laterality: right Lung location: unspecified part of lung Pneumonia type: due to unspecified organism Paroxysmal atrial fibrillation with RVR I48.0 CAD (coronary artery disease), [place] coronary artery I25.10 Elevated troponin R77.8 Hypomagnesemia E83.42 HTN (hypertension) I10 GERD without esophagitis K21.9 Chronic kidney disease, stage III (moderate) N18.30 Hyperlipidemia E78.5 Exposure to COVID-19 virus Z20.822 Seizure R56.9 BPH (benign prostatic hyperplasia) N40.0 Acute respiratory failure with hypoxia J96.01
== END 2022-04-08 12:37 | disposition home or self-care (01) | DRG 314 ==
LOC: ED 17:26 → SUATTDRO 20:20 → EDINP 20:20 → 2S 04-02 00:26
DX: J18.9 Pneumonia, unspecified organism; I50.813 Acute on chronic right heart failure; Z91.030 Bee allergy status; Z20.822 Contact with and (suspected) exposure to COVID-19; I25.10 Atherosclerotic heart disease of native coronary artery without angina pectoris; J96.21 Acute and chronic respiratory failure with hypoxia; R73.03 Prediabetes; R91.1 Solitary pulmonary nodule; G40.909 Epilepsy, unspecified, not intractable, without status epilepticus; I24.8 Other forms of acute ischemic heart disease; I13.0 Hypertensive heart and chronic kidney disease with heart failure and stage 1 through stage 4 chronic kidney disease, or unspecified chronic kidney disease; Z79.899 Other long term (current) drug therapy; J44.0 Chronic obstructive pulmonary disease with (acute) lower respiratory infection; I27.29 Other secondary pulmonary hypertension; I95.9 Hypotension, unspecified; N40.0 Benign prostatic hyperplasia without lower urinary tract symptoms; I27.81 Cor pulmonale (chronic); E78.5 Hyperlipidemia, unspecified; K21.9 Gastro-esophageal reflux disease without esophagitis; N18.30 Chronic kidney disease, stage 3 unspecified; E83.42 Hypomagnesemia; I48.0 Paroxysmal atrial fibrillation; Z99.81 Dependence on supplemental oxygen; Z95.5 Presence of coronary angioplasty implant and graft; M10.9 Gout, unspecified